=== PATIENT | male | born 1990 | race Native Hawaiian/Other Pacific Islander ===

== ENCOUNTER 2022-07-15 22:10 | Emergency (ER) | payer SELFPAY ==
[2022-07-15 22:24] VITALS: BP 138/88; BP 138/95; PULSE 114; PULSE 127; RESP 30; O2SAT 93; O2SAT 94; BMI 23.4
[2022-07-15 22:29] VITALS: BP 138/95; PULSE 127; RESP 30; O2SAT 93
--- NOTE | 2022-07-15 22:46 | ED.GENADULT ---
HPI - General Adult General Chief complaint: Overdose Stated complaint: OD Time Seen by Provider: 07/15/22 22:46 Source: patient and EMS Mode of arrival: EMS Limitations: no limitations History of Present Illness HPI narrative: Patient is a 31 year old male presenting to the emergency department today after a heroin overdose. Patient states that he overdosed on 1 bag of heroin at 9pm this evening. Patient states that he was sober for 4 months and then used today. EMS states that they had to give him 8 total mg of Narcan to wake the patient up. Patient denies any dizziness, lightheadedness, abdominal pain, nausea, vomiting, fever, chills, blurry vision, double vision, loss of vision, chest pain, difficulty breathing, shortness of breath, back pain, night sweats, pain with urination, increased urinary frequency, increased urinary urgency, blood in his urine or stool, syncope or a near syncopal episode, recent trauma or falls, bowel incontinence, bladder incontinence, bowel retention, bladder retention, or any other complaints at this time. Onset (ago): hour(s) Severity: mild Severity scale (1-10): 4 Relieving factors: none Exacerbating factors: none Associated symptoms: denies other symptoms Treatments prior to arrival: none Related Data Allergies Allergy/AdvReac Type Severity Reaction Status Date / Time lucy Allergy Unknown UNKNOWN Unverified 07/01/20 15:50 Review of Systems Constitutional: Constitutional: Reports no additional constitutional complaints, Denies chills, Denies fever(s) and Denies night sweats Eyes: Eyes: Reports no additional eye complaints, Denies blurry vision, Denies change in vision, Denies diplopia, Denies eye discharge, Denies loss of vision and Denies eye pain ENT: Denies dizziness Cardiovascular: Cardiovascular: Reports no additional cardiovascular complaints, Denies chest pain, Denies lightheadedness, Denies Loss of Consciousness and Denies dyspnea Respiratory: Respiratory: Reports no additional respiratory complaints and Denies dyspnea Gastrointestinal: Gastrointestinal: Reports no additional gastrointestinal complaints, Denies abdominal pain, Denies melena, Denies hematochezia, Denies change in bowel habits and Denies change in stool character Genitourinary: Genitourinary: Reports no additional male genitourinary complaints, Denies hematuria, Denies oliguria, Denies difficulty urinating, Denies dysuria, Denies urinary frequency, Denies urinary hesitancy, Denies urinary incontinence and Denies urinary urgency Musculoskeletal: Musculoskeletal: Reports no additional musculoskeletal complaints, Denies numbness and Denies tingling Neurologic: Denies dizziness, Denies loss of vision, Denies numbness and Denies tingling Psychiatric: Psychiatric: Reports no additional psychiatric complaints Endocrine: Endocrine: Reports no additional endocrine complaints Hematologic/Lymphatic: Hematologic/Lymphatic: Reports no additional hematologic/lymphatic complaints Allergic/Immunologic: Allergic/Immunologic: Reports no additional allergic/immunologic complaints [facility] Past Medical History Attestation statement: The following information was validated with the patient. Source: old records reviewed Social History Social History Alcohol intake: never Patient Tobacco Use Status: Current everyday Tobacco user Use of substances other than those prescribed or required for medical reasons: No Advance Directives: No Physical Exam ED Vital Signs: Vital Signs - 24 hr 07/15/22 22:24 07/15/22 22:29 07/16/22 01:28 Temperature 97.2 F Pulse Rate 127 H 127 H 95 Respiratory Rate 30 H 30 H 16 Blood Pressure 138/95 H 138/95 H 109/72 Pulse Oximetry 93 93 96 Oxygen Delivery Method Room Air Room Air Room Air Oxygen Flow Rate 2 BMI result Body Mass Index 23.4 Const General: cooperative, no acute distress, alert and awake Nutritional Appearance: well nourished Orientation/consciousness: patient oriented x3 Limitations: no limitations [facility] Head: Yes normal to inspection and Yes atraumatic Ears: hearing grossly normal bilaterally and external ears normal General nose exam: Normal external nose present, no nasal discharge noted and no epistaxis Face and sinus: Yes normal facial exam, No abrasion and No laceration Mouth: Normal oral and palatal mucosa present, no drooling and no muffled voice Eyes General: appearance normal, both eyes and all related structures Periorbital: periorbital findings normal Eyelids: Yes eyelids normal Conjunctivae: conjunctivae normal Pupils: Equal, round and reactive pupils present EOM: EOMs intact bilaterally Neck Neck: Yes normal visual inspection, Yes full ROM and Yes no lymphadenopathy Chest Chest palpation & inspection: normal inspection of the chest Resp Effort & Inspection: normal respiratory effort and able to speak in complete sentences Auscultation: clear to auscultation bilaterally Cardio Rate: regular rate Rhythm: regular rhythm GI Inspection: Yes normal to inspection Neuro General: patient oriented x3 and moves all extremities Cranial nerves: Yes Equal, round and reactive pupils present Cognition (Neuro): normal cognition Motor exam (neuro): 5/5 motor strength present throughout Sensory Exam: Normal double simultaneous stimulation for sensation Coordination: [id number] test normal Extrem General: Yes normal to inspection, Yes full ROM and Yes capillary refill normal Psych Appearance: grossly normal Mental Status: mental status grossly normal Affect: normal affect Attitude: cooperative Thought process: Normal thought process present Thought content: Normal thought content present Insight: Good insight present (Psych) Medical Decision Making MDM Narrative Medical decision making narrative: Patient is a 31 year old male presenting to the emergency department today after a heroin overdose. Patient's physical exam was unremarkable. Patient's blood work showed an elevated WBC count however, I believe this to be reactive and not indicative of any infectious process. Patient's urine is pending. Patient's EKG was unremarkable. I explained my physical exam findings as well as all test results to the patient. I answered all questions asked by the patient. Patient is awaiting evaluation by CARE Team. Medical Records Medical records reviewed: Yes I reviewed the patient's medical records. Lab Data Lab results reviewed: Yes I reviewed the patient's lab results. Result diagrams: 07/15/22 23:10 07/15/22 23:10 Labs: Lab Results 07/15/22 07/15/22 Range/Units 23:10 23:10 WBC 18.5 H (4.8-10.8) X10*3/uL RBC 4.74 (4.60-5.80) X10*6/uL Hgb 14.9 (14.0-18.0) g/dl Hct 42.2 (42.0-52.0) % MCV 89.0 (80.0-98.0) fL MCH 31.4 (27.0-33.0) pg MCHC 35.3 (31.0-36.0) g/dl RDW 12.6 (11.0-16.0) % Plt Count 319 (160-400) X10*3/uL MPV 8.9 L (9.4-12.4) fL Immature Gran % (Auto) 0.4 (0.0-0.4) % Neut % (Auto) 81.8 H (45-73) % Lymph % (Auto) 10.0 L (20-40) % [place] % (Auto) 4.9 (2-11) % Eos % (Auto) 2.4 (0-4) % Baso % (Auto) 0.5 (0-2) % Lymph # (Auto) 1.9 (1.2-4.9) X10*3/uL [place] # (Auto) 0.9 (0.1-1.2) X10*3/uL Eos # (Auto) 0.4 (0.0-0.4) X10*3/uL Baso # (Auto) 0.1 (0.0-0.2) X10*3/uL Abs Immat Gran (auto) 0.08 H (0.00-0.03) X10*3/uL Absolute Neuts (auto) 15.1 H (2.0-8.3) x10*3/uL Absolute Nucleated RBC 0.000 (0.0-0.012) X10*3/uL Nucleated RBC % (auto) 0.0 (0.0-0.2) /100WBC Sodium 141 (135-145) mmol/L Potassium 3.9 (3.3-5.1) mmol/L Chloride 106 (96-108) mmol/L Carbon Dioxide 22 (22-29) mmol/L Anion Gap 17 (12-20) BUN 16 (9-16) mg/dL Creatinine 0.83 (0.5-1.4) mg/dL Estim Creat Clear Calc 97.7 Estimated GFR > 60 Random Glucose 101 (60-115) mg/dL Calcium 9.2 (8.4-10.2) mg/dL Total Bilirubin 0.4 (0.0-1.0) mg/dL AST 24 (5-37) U/L ALT 23 (0-40) U/L Alkaline Phosphatase 82 (39-117) U/L Total Protein 7.0 (6.5-8.0) g/dL Albumin 4.1 (3.5-5.0) g/dL ECG Data Attestation: I personally reviewed and interpreted this ECG as follows: Prior ECG tracings: available for review Interpretation: Vent. Rate: 101 BPM ? ? Atrial Rate: 101 BPM P-R Int: 142 ms? QRS Dur: 082 ms QT Int: 316 ms ? ? ? P-R-T Axes: 071 032 022 degrees QTc Int: 409 ms ? Sinus tachycardia Otherwise normal ECG No previous ECGs available DD/ [id number] Discharge Plan Discharge Clinical Impression: Drug overdose Patient Disposition: Still a Patient
[2022-07-15 23:16] LABS: Basophils Absolute Auto 0.1 X10*3/uL (0.0-0.2); Basophils Percent Auto 0.5 % (0-2); Eosinophils Absolute Auto 0.4 X10*3/uL (0.0-0.4); Eosinophils Percent Auto 2.4 % (0-4); Hematocrit 42.2 % (42.0-52.0); Hemoglobin 14.9 g/dl (14.0-18.0); Imm Gran Abs Auto 0.08 X10*3/uL (0.00-0.03); Imm Gran Pct Auto 0.4 % (0.0-0.4); Lymphocytes Absolute Auto 1.9 X10*3/uL (1.2-4.9); MANUAL DIFF FLAG NO; Mean Corpuscular HGB Conc 35.3 g/dl (31.0-36.0); Mean Corpuscular Hemoglobin 31.4 pg (27.0-33.0); Mean Platelet Volume 8.9 fL (9.4-12.4); Monocytes Absolute Auto 0.9 X10*3/uL (0.1-1.2); Monocytes Percent Auto 4.9 % (2-11); Neutrophils Absolute Auto 15.1 x10*3/uL (2.0-8.3); Neutrophils Percent Auto 81.8 % (45-73); Platelet Count 319 X10*3/uL (160-400); Red Blood Count 4.74 X10*6/uL (4.60-5.80); Red Cell Distribution Width 12.6 % (11.0-16.0); White Blood Count 18.5 X10*3/uL (4.8-10.8)
--- NOTE | 2022-07-15 23:18 | ECG_ITS ---
Test Reason : OVERDOSE Blood Pressure : / mmHG Vent. Rate : 101 BPM Atrial Rate : 101 BPM P-R Int : 142 ms QRS Dur : 082 ms QT Int : 316 ms P-R-T Axes : 071 032 022 degrees QTc Int : 409 ms Sinus tachycardia Otherwise normal ECG No previous ECGs available Referred By: Lizett Tesfaye Electronically Signed By:NAILA THOMAS
--- OUTSIDE RECORDS SUMMARY | 2022-07-15 23:23 | XMS_ITS | Continuity of Care Document ---
:1990 Author Organization [facility] Address [address] [place] [address]- Care Team Providers Name Role Phone Not on Staff, PCP Primary Care Physician Unavailable Encounter [facility] Date(s): 05/09/22 - 05/09/[address] [address]- Discharge Disposition: A-D/C Home Attending Physician: Tyrone Guidry MD Admitting Physician: Tyrone Guidry MD Referring Physician: Not on Staff, Referring MD Allergies, Adverse Reactions, Alerts No Known Medication Allergies Medications ondansetron 4 mg oral tablet, disintegrating 1 tablet = 4 mg, By Mouth, Every 8 hours, PRN Nausea & Vomiting, # 10 tablet, 0 Refills, Acute 05/14/22 19:59:00 EDT, 05/09/22 19:59:00 EDT, Tablet, [id number], Partial fill upon patient request if the prescription is for a schedule II opioid... Start Date: 05/09/22 Stop Date: 05/14/22 Status: OrderedSuboxone 8 mg-2 mg Sublingual Film 1 film, Sublingual, 2 times a day, dissolve under the tongue, # 60 film, 0 Refills, Maintenance, 05/09/22 19:56:00 EDT, Film, [id number], Partial fill upon patient request if the prescription is for a schedule II opioid drug. DEAX: [id number],... Start Date: 05/09/22 Status: Ordered Vital Signs Most recent to oldest [Reference Range]: 1 2 Height 158 cm (05/09/22 3:26 PM) Weight 51.3 kg (05/09/22 3:26 PM) Oxygen Saturation [94-100 %] 100 % 98 % (05/09/22 7:46 PM) (05/09/22 3:26 PM) Pulse Rate [55-90 bpm] 91 bpm 110 bpm *H* *H* (05/09/22 7:46 PM) (05/09/22 3:26 PM) Blood Pressure [90-138/55-84 mm Hg] 126/77 mm Hg 130/ 95 mm Hg (05/09/22 7:46 PM) (05/09/22 3:26 PM) Respiratory Rate [16-30 br/min] 20 br/min 20 br/mi n (05/09/22 7:46 PM) (05/09/22 3:26 PM) Temperature [96.8-100.4 DegF] 98.9 DegF 100 DegF (05/09/22 7:46 PM) (05/09/22 3:26 PM) Mode of Delivery (Oxygen) Room air Room air (05/09/22 7:46 PM) (05/09/22 3:26 PM) Dry Weight 51.3 kg (05/09/22 3:26 PM) Social History Social History Type Response Smoking Status 5-9 cigarettes (between 1/4 to 1/2 pack)/day in last 30 days entered on: 05/09/22 Sex
[2022-07-15] MEDS: LORazepam 0.5 MG TABLET PO (23:34)
[2022-07-15 23:35] LABS: Alanine Aminotransferase 23 U/L (0-40); Albumin Level 4.1 g/dL (3.5-5.0); Alkaline Phosphatase 82 U/L (39-117); Anion Gap 17 (12-20); Aspartate Amino Transferase 24 U/L (5-37); Bilirubin Total 0.4 mg/dL (0.0-1.0); Blood Urea Nitrogen 16 mg/dL (9-16); Calcium 9.2 mg/dL (8.4-10.2); Carbon Dioxide 22 mmol/L (22-29); Chloride 106 mmol/L (96-108); Creatinine Clr Calc Pharmacy 97.7; Estimated Glomerular Filt Rate > 60; Glucose Random 101 mg/dL (60-115); Potassium 3.9 mmol/L (3.3-5.1); Sodium 141 mmol/L (135-145)
[2022-07-15] MEDS: 0.9 % Sodium Chloride 1,000 ML 999 ML IV (23:42)
[2022-07-15] MEDS: Acetaminophen 325 MG TABLET 650 MG PO (23:52)
[2022-07-16 01:28] VITALS: BP 109/72; PULSE 95; RESP 16; TEMP 36.2; O2SAT 96
[2022-07-16 06:17] VITALS: BP 107/67; PULSE 72; RESP 14; O2SAT 92
[2022-07-16 07:39] VITALS: BP 112/81; PULSE 100; RESP 12; TEMP 36.6; O2SAT 82
[2022-07-16 08:27] LABS: Appearance Urine Clear; Color Urine Yellow; Glucose Urine UA Negative (Negative); Leukocyte Esterase Urine Small (1+) (Negative); Nitrite Urine Negative (Negative); PH 5.5 (5.0-9.0); Specific Gravity - Urine 1.025 (1.005-1.025); UMIC TRIGGER UACC YES; Urine Blood Negative (Negative); Urine Ketones Negative (Negative); Urine Protein Negative (Neg-Trace)
[2022-07-16 08:40] LABS: Amphetamine Screen Urine Not Detected (Not Detect); Barbiturates, Urine Not Detected (Not Detect); Benzodiazepines Screen Urine Not Detected (Not Detect); Cannabinoid Screen Urine Not Detected (Not Detect); Cocaine Screen Urine POSITIVE (Not Detect); Fentanyl, urine POSITIVE (Not Detect); Opiate Screen Urine POSITIVE (Not Detect); Phencyclidine Screen Urine Not Detected (Not Detect)
[2022-07-16 09:01] LABS: Bacteria Urine None Seen (None Seen); RBC Urine 0-2 /HPF (0-2); UACC Culture Trigger YES
--- NOTE | 2022-07-16 09:28 | HO.SUDE ---
SUDE Patient is a 31 year old Thai speaking male who presented [place] [facility] after an accidental overdose. This rfp writer met with patient to discuss substance use and treatment options. Patient reports he does not use everyday and that he last used months ago. Patient reports the last time he used he also overdosed however denies additional overdoses. Patient is not on MAT and is not interested as he does not feel he has a drug problem at this time. Patient reports heavy drinking about a year ago however he was able to stop on his own accord. Discussed the risk of in using opiates and patient acknowledged. Patient is unable to give a reason as to why he decided to use. Patient reports he has a stable job and a lot of good things in his life to be grateful for including a supportive family and girlfriend. Patient expressed shame and disappointment in himself for using. Patient is not interested in detox at this time as he does not feel it is necessary. Discussed outpatient therapy with patient. Patient is open to a referral to [facility]. Discussed case with patient's ED provider.
[2022-07-16 09:48] VITALS: O2SAT 97
[2022-07-16 09:55] VITALS: BP 121/77; PULSE 86; RESP 14; TEMP 36.7; O2SAT 97
[2022-07-16] MEDS: Naloxone HCl Nasal TAKE HOME 4 MG SPRAY NOSTRILALT (10:06)
== END 2022-07-16 10:10 | disposition home or self-care (01) ==
PROVIDERS: Physician Assistant Medical; Emergency Provider Student in an Organized Health Care Education/Training Program; PCP Physician Assistant
DX: T40.1X1A Poisoning by heroin, accidental (unintentional), initial encounter (principal); R40.4 Transient alteration of awareness; Y92.9 Unspecified place or not applicable; F17.200 Nicotine dependence, unspecified, uncomplicated
CPT/HCPCS: 36415; 80053; 80307; 81001; 85025; 87086; 93005; 96360; 99285

== ENCOUNTER → 2022-11-01 07:55 | Outpatient (BNVA) | payer SELFPAY | PROVIDERS: PCP Physician Assistant | DX: Z13.89 Encounter for screening for other disorder (principal) ==

== ENCOUNTER 2024-04-30 13:54 | Inpatient (IN) | payer BC, SELFPAY ==
--- NOTE | ~2024-04-30 | CT_ITS ---
EXAMINATION: CT ABDOMEN AND PELVIS WITH CONTRAST CLINICAL INFORMATION: Epigastric pain COMPARISON: None available. TECHNIQUE: Multidetector volumetric images were obtained from the superior aspect of the liver through the pubic symphysis following administration 85 mL of Omnipaque 350 intravenous contrast. Sagittal and coronal reformatted images were obtained on the technologist's workstation. Oral contrast: No This CT examination was performed using dose optimization techniques as appropriate, variously including the following: *Automated exposure control *Adjustment of mA and/or kV according to patient size (this includes techniques or standardized protocols for targeted exams where dose is matched to indication/reason for exam; i.e. extremities or head) *Use of iterative reconstruction technique DLP: 236 mGy-cm FINDINGS: LUNG BASES: The visualized lung bases are unremarkable. LIVER, GALLBLADDER, AND BILIARY TREE: The liver is normal in size, shape, and attenuation. No focal hepatic lesion or biliary ductal dilatation is present. The gallbladder is unremarkable with no evidence of radiopaque gallstones, gallbladder wall thickening, or obvious pericholecystic inflammatory changes. PANCREAS: Unremarkable. SPLEEN: Unremarkable. ADRENAL GLANDS: Unremarkable. KIDNEYS AND URETERS: The kidneys are normal in size, shape, and attenuation. No hydronephrosis, hydroureter, or calculi seen. No perinephric stranding. BLADDER: Unremarkable. GASTROINTESTINAL TRACT: There is marked inflammatory change seen in the rectosigmoid as well as the descending colon. The transverse colon is mildly dilated with air-fluid levels but the mucosa appears unremarkable. There is no pneumatosis. The appendix is likely normal. There is some minimally prominent small bowel loops but no evidence of bowel obstruction ABDOMINAL WALL: No significant hernia is appreciated. LYMPH NODES: No retroperitoneal lymphadenopathy. There is a paucity of retroperitoneal fat. VASCULAR: Unremarkable. PELVIC VISCERA: Unremarkable. No free pelvic fluid OSSEOUS STRUCTURES: Unremarkable. SI joints appear normal CT/CT abdomen pelvis w IV con IMPRESSION: Marked inflammatory changes in the rectosigmoid and descending colon consistent with colitis. Fleischner guidelines were followed.
[2024-04-30 14:23] VITALS: BP 113/82; PULSE 96; RESP 16; TEMP 36.3; O2SAT 99; BMI 18.0
--- NOTE | 2024-04-30 14:23 | ED_ITS ---
HPI - General Adult General Chief complaint: Nausea/Vomiting/Diarrhea Stated complaint: stomach problems Time Seen by Provider: 04/30/24 20:37 Source: patient, RN notes reviewed and old records reviewed Mode of arrival: ambulatory Limitations: no limitations History of Present Illness ED Provider: Juan KELLY narrative: 33-year-old male presents for evaluation abdominal pain. Patient reports for the last month he has had upper abdominal pain attend to be worse after eating. He reports bloody bowel movements He reports 20 lb weight loss over last 3 months. He denies any known medical history but states that he is recovering alcoholic He has not Benadryl for the last 2 years He reports occasional NSAID use but rather infrequent per his report Denies any fevers, chills Denies any history abdominal surgeries Related Data Allergies Allergy/AdvReac Type Severity Reaction Status Date / Time lucy Allergy Unknown UNKNOWN Verified 04/30/24 14:25 Review of Systems 2 Constitutional: Constitutional: Denies body ache(s), Denies chills, Denies fever(s) and Denies headache(s) ENT: Denies headache(s) Cardiovascular: Cardiovascular: Denies chest pain and Denies dyspnea Respiratory: Respiratory: Denies cough and Denies dyspnea Gastrointestinal: Gastrointestinal: Reports abdominal pain, Reports hematochezia, Reports loose stools, Reports nausea and Denies vomiting Musculoskeletal: Musculoskeletal: Denies back pain Integumentary/Breasts: Skin/Breast: Denies rash Neurologic: Denies headache(s) PMFSH Social History Social History Alcohol intake: never Patient Tobacco Use Status: Current everyday Tobacco user Advance Directives: No Advance Directives Information Provided: No Physical Exam ED Vital Signs: Vital Signs - 24 hr 04/30/24 14:23 04/30/24 19:20 04/30/24 21:38 Temperature 97.3 F 98.1 F 98.3 F Pulse Rate 96 95 92 Respiratory Rate 16 17 16 Blood Pressure 113/82 130/91 H 131/82 Pulse Oximetry 99 99 97 Oxygen Delivery Method Room Air Room Air Room Air BMI result Body Mass Index 18.0 Const General: healthy appearing, comfortable, no acute distress, alert and awake Nutritional Appearance: well nourished Orientation/consciousness: patient oriented x3 HENMT Head: Yes normocephalic and Yes atraumatic Eyes Eyelids: Yes eyelids normal Conjunctivae: conjunctivae normal Sclerae: sclerae normal Corneas: corneas normal Pupils: Equal, round and reactive pupils present EOM: EOMs intact bilaterally Neck Neck: Yes full ROM Resp Effort & Inspection: normal respiratory effort, able to speak in complete sentences and not labored GI Inspection: No distended Palpation (GI): Soft to palpation, not firm, Tenderness to palpation present (GI) in the epigastrum, in the LUQ and in the RUQ, no guarding and not rigid Skin General skin exam: elasticity normal Neuro General: patient oriented x3 Cranial nerves: Yes Equal, round and reactive pupils present and Yes Bilaterally intact EOM present Cognition (Neuro): normal cognition Extrem Other: Moving all extremities well without any obvious deformities Course Course Course Narrative: This is an RME: Additional HPI, ROS, PE not included below will be deferred to primary provider. RME assessment and note performed by: Aria Garcia PA-C This is a [id number]-male who presents to the ER with complaints of diarrhea after each meal for the last few weeks. No nausea, vomiting or constipation. Reporting he initally had abdomnal pain no longer having pain. Reporting some small bits of blood in his stool. No black/tarry stool. Reporting losing 20lbs over 3 months. No night sweats Plan: Labs, further ER evaluation needed Medications Administered Discontinued Medications Generic Name Dose Route Start Last Admin Trade Name Freq PRN Reason Stop Dose Admin Al Hydroxide/Mg Hydroxide 30 ml 04/30/24 20:51 04/30/24 21:33 Magnesium Hydrox/Alum Hydrox 30 Ml Oral.Susp PO 04/30/24 20:52 30 ml ONCE ONE Administration Ferrous Sulfate 324 mg 04/30/24 20:55 04/30/24 21:25 Ferrous Sulfate 324 Mg Tablet.Dr PO 04/30/24 20:56 324 mg ONCE ONE Administration Iron Sucrose 200 mg/ Sodium 110 mls @ 440 mls/hr 04/30/24 22:00 04/30/24 22:22 Chloride IV 04/30/24 22:14 440 mls/hr ONCE ONE Administration Iohexol 85 ml 04/30/24 21:16 04/30/24 21:16 Iohexol 350 Mg/Ml 100 Ml Infus..Btl IV 04/30/24 21:17 85 ml ONCE ONE Administration Lidocaine HCl 15 ml 04/30/24 20:51 04/30/24 21:33 Lidocaine Hcl Viscous 2 % 15 Ml Solution MUCOUS MEM 04/30/24 20:52 15 ml ONCE ONE Administration Ondansetron HCl 4 mg 04/30/24 20:51 04/30/24 21:02 Ondansetron Hcl 4 Mg/2 Ml Vial IVPUSH 04/30/24 20:52 4 mg ONCE ONE Administration Pantoprazole Sodium 40 mg 04/30/24 20:51 04/30/24 21:32 Pantoprazole Sodium 40 Mg/10 Ml Vial IVPUSH 04/30/24 20:52 40 mg ONCE ONE Administration Medical Decision Making Medical Decision Making [facility] Narrative: 33-year-old male who denies any past medical history presents for evaluation abdominal pain. His labs resulted prior to my evaluation and he does not have any leukocytosis but he has a significant microcytic anemia. His last labs from about a year and a half ago show hemoglobin 14.9 hematocrit of 42.2. Today his hemoglobin is 8.5 with a crit of 27.2. His MCV is 72.5. Given the upper abdominal pain, bloody bowel movements and significant anemia, the patient likely has a bleeding stomach ulcer. I treated this with IV Protonix, GI cocktail. A CT scan was ordered to rule out free air. The patient be admitted to the medical service and likely require upper endoscopy Differential Diagnosis Differential Diagnoses: The differential diagnosis associated with the presentation includes GI bleed Abdominal pain Iron deficiency anemia Peptic ulcer disease Lab Data [facility] Lab Attestation statement: I reviewed the patient's lab results. Please see above, the patient has significant iron-deficiency anemia compared to baseline. Chemistries without concerning abnormalities 04/30/24 16:21 04/30/24 16:21 Labs: Lab Results 04/30/24 04/30/24 Range/Units 16:21 21:00 WBC 8.0 (4.8-10.8) X10*3/uL RBC 3.75 L D (4.60-5.80) X10*6/uL Hgb 8.5 L D (14.0-18.0) g/dl Hct 27.2 L D (42.0-52.0) % MCV 72.5 L (80.0-98.0) fL MCH 22.7 L (27.0-33.0) pg MCHC 31.3 (31.0-36.0) g/dl RDW 16.4 H (11.0-16.0) % Plt Count 747 H D (160-400) X10*3/uL MPV 8.1 L (9.4-12.4) fL Immature Gran % (Auto) 0.2 (0.0-0.4) % Neut % (Auto) 52.8 (45-73) % Lymph % (Auto) 23.2 (20-40) % [place] % (Auto) 10.0 (2-11) % Eos % (Auto) 13.3 H (0-4) % Baso % (Auto) 0.5 (0-2) % Lymph # (Auto) 1.9 (1.2-4.9) X10*3/uL [place] # (Auto) 0.8 (0.1-1.2) X10*3/uL Eos # (Auto) 1.1 H (0.0-0.4) X10*3/uL Baso # (Auto) 0.0 (0.0-0.2) X10*3/uL Abs Immat Gran (auto) 0.02 (0.00-0.03) X10*3/uL Absolute Neuts (auto) 4.2 (2.0-8.3) x10*3/uL Absolute Nucleated RBC 0.000 (0.0-0.012) X10*3/uL Nucleated RBC % (auto) 0.0 (0.0-0.2) /100WBC Sodium 135 (135-145) mmol/L Potassium 4.2 (3.3-5.1) mmol/L Chloride 101 (96-108) mmol/L Carbon Dioxide 26 (22-29) mmol/L Anion Gap 12 (12-20) BUN 12 (9-16) mg/dL Creatinine 0.69 (0.5-1.4) mg/dL Estim Creat Clear Calc 94.2 Estimated GFR > 60 Random Glucose 99 (60-115) mg/dL Calcium 9.0 (8.4-10.2) mg/dL Magnesium 2.1 (1.6-2.6) mg/dL Iron 10 L (45-160) mcg/dL TIBC 230 (228-428) mcg/dL % Saturation 4 L (15-50) % Unsat Iron Binding 220 ug/dL Total Bilirubin 0.1 (0.0-1.0) mg/dL Direct Bilirubin < 0.2 (0.0-0.5) mg/dL AST 15 (5-37) U/L ALT 11 (0-40) U/L Alkaline Phosphatase 63 (39-117) U/L Total Protein 7.9 (6.5-8.0) g/dL Albumin 3.0 L (3.5-5.0) g/dL Lipase 9 (8-78) U/L Stool Occult Blood POSITIVE (NEGATIVE) Ethyl Alcohol < 10 mg/dL Radiology Impression Discussion of test interpretation with radiology: I have reviewed the radiologist's reading. Radiologist Impression: CT/CT abdomen pelvis w IV con IMPRESSION: Marked inflammatory changes in the rectosigmoid and descending colon consistent with colitis. Fleischner guidelines were followed. Discharge Plan Discharge Clinical Impression: Acute GI bleeding, Microcytic anemia Patient Disposition: Admitted As Inpatient
[2024-04-30 16:26] LABS: MANUAL DIFF FLAG NO
--- NOTE | 2024-04-30 16:26 | MHC.EDTECH ---
Patient blood drawn and sent to lab .
[2024-04-30 16:28] LABS: Basophils Percent Auto 0.5 % (0-2); Eosinophils Absolute Auto 1.1 X10*3/uL (0.0-0.4); Eosinophils Percent Auto 13.3 % (0-4); Hematocrit 27.2 % (42.0-52.0); Hemoglobin 8.5 g/dl (14.0-18.0); Imm Gran Abs Auto 0.02 X10*3/uL (0.00-0.03); Imm Gran Pct Auto 0.2 % (0.0-0.4); Lymphocytes Absolute Auto 1.9 X10*3/uL (1.2-4.9); Lymphocytes Percent Auto 23.2 % (20-40); Mean Corpuscular HGB Conc 31.3 g/dl (31.0-36.0); Mean Corpuscular Hemoglobin 22.7 pg (27.0-33.0); Mean Corpuscular Volume 72.5 fL (80.0-98.0); Mean Platelet Volume 8.1 fL (9.4-12.4); Monocytes Absolute Auto 0.8 X10*3/uL (0.1-1.2); Neutrophils Absolute Auto 4.2 x10*3/uL (2.0-8.3); Neutrophils Percent Auto 52.8 % (45-73); Platelet Count 747 X10*3/uL (160-400); Red Blood Count 3.75 X10*6/uL (4.60-5.80); Red Cell Distribution Width 16.4 % (11.0-16.0)
[2024-04-30 16:46] LABS: Alanine Aminotransferase 11 U/L (0-40); Alkaline Phosphatase 63 U/L (39-117); Anion Gap 12 (12-20); Aspartate Amino Transferase 15 U/L (5-37); Bilirubin Direct < 0.2 mg/dL (0.0-0.5); Bilirubin Total 0.1 mg/dL (0.0-1.0); Blood Urea Nitrogen 12 mg/dL (9-16); Carbon Dioxide 26 mmol/L (22-29); Chloride 101 mmol/L (96-108); Creatinine Clr Calc Pharmacy 94.2; Estimated Glomerular Filt Rate > 60; Glucose Random 99 mg/dL (60-115); Lipase 9 U/L (8-78); Magnesium 2.1 mg/dL (1.6-2.6); Potassium 4.2 mmol/L (3.3-5.1); Sodium 135 mmol/L (135-145); Total Protein 7.9 g/dL (6.5-8.0)
[2024-04-30 19:20] VITALS: BP 130/91; PULSE 95; RESP 17; TEMP 36.7; O2SAT 99
[2024-04-30] MEDS: ondansetron HCL 4 MG/2 ML VIAL IVPUSH (21:02)
[2024-04-30 21:14] LABS: OBS Int Ctl Valid YES; OBS1 POSITIVE (NEGATIVE)
[2024-04-30] MEDS: iohexoL 350 MG/ML 100 ML INFUS..BTL 85 ML IV (21:16)
[2024-04-30 21:25] LABS: Ethanol < 10 mg/dL
[2024-04-30] MEDS: Ferrous Sulfate 324 MG TABLET.DR PO (21:25)
[2024-04-30 21:28] LABS: Iron 10 mcg/dL (45-160); Percent Iron Saturation 4 % (15-50); Total Iron Binding Capacity 230 mcg/dL (228-428); Unsaturated Iron Binding 220 ug/dL
[2024-04-30] MEDS: Pantoprazole Sodium 40 MG/10 ML VIAL IVPUSH (21:32)
[2024-04-30] MEDS: Lidocaine HCl Viscous 2 % 15 ML SOLUTION MUCOUS MEM (21:33)
[2024-04-30] MEDS: Magnesium Hydrox/Alum Hydrox 30 ML ORAL.SUSP PO (21:33)
[2024-04-30 21:38] VITALS: BP 131/82; PULSE 92; RESP 16; TEMP 36.8; O2SAT 97
--- NOTE | 2024-04-30 21:48 | PM.IMHP ---
History of Present Illness Date of Service: 04/30/24 Chief Complaint: Blood in stool This is a 33-year-old male with no pertinent past medical history and not on prescription medications who presents to the emergency department for evaluation of blood in stools. Patient states his symptoms started 2 weeks prior to presentation. Patient states he has been having loose stools every time he eats. Has noticed blood in stools. He only has abdominal discomfort at the time of defecation. No fever, chills, nausea, vomiting. This has never happened before. Admits poor p.o. intake and generalized fatigability. Patient has no pertinent past medical history and is not on any prescription medications. No chest discomfort, palpitations, shortness of breath, changes in urinary habits. In the emergency department, hemoglobin was found to be 8.5 and imaging with colitis Review of Systems Constitutional: Constitutional: Reports fatigue, Reports lethargy, Reports malaise, Reports poor appetite and Reports weakness Cardiovascular: Cardiovascular: Reports no additional cardiovascular complaints Respiratory: Respiratory: Reports no additional respiratory complaints Gastrointestinal: Gastrointestinal: Reports hematochezia, Reports change in bowel habits, Reports tenesmus and Reports change in stool character Genitourinary: Genitourinary: Reports no additional male genitourinary complaints Neurologic: Reports weakness Endocrine: Endocrine: Reports fatigue PMFSH Pertinent family history: No family history of early CAD Social History Alcohol intake: never Patient Tobacco Use Status: Current everyday Tobacco user Advance Directives: No Advance Directives Information Provided: No Meds Allergies Allergy/AdvReac Type Severity Reaction Status Date / Time lucy Allergy Unknown UNKNOWN Verified 04/30/24 14:25 Physical Exam Vital Signs and Narrative: Vital Signs: Last Vital Signs Temp 98.3 F 04/30/24 21:38 Pulse 92 04/30/24 21:38 Resp 16 04/30/24 21:38 BP 131/82 04/30/24 21:38 Pulse Ox 97 04/30/24 21:38 O2 Del Method Room Air 04/30/24 21:38 BMI result Body Mass Index 18.0 Middle-aged male lying in bed in no distress Neck supple, no JVD Regular rate and rhythm, S1-S2 heard Regular breath sounds bilaterally, no wheezing or crackles appreciated Abdomen soft nontender, no guarding, no rigidity Patient is awake, alert and oriented to self, place, time and person ; no focal motor deficit Psych: Normal mood No pedal edema Results Labs 04/30/24 16:21 04/30/24 16:21 Labs: Laboratory Results - last 24 hr 04/30/24 04/30/24 16:21 21:00 MCV 72.5 L MCH 22.7 L MCHC 31.3 RDW 16.4 H Plt Count 747 H D MPV 8.1 L Immature Gran % (Auto) 0.2 Neut % (Auto) 52.8 Lymph % (Auto) 23.2 Guthrie % (Auto) 10.0 Eos % (Auto) 13.3 H Baso % (Auto) 0.5 Lymph # (Auto) 1.9 Guthrie # (Auto) 0.8 Eos # (Auto) 1.1 H Baso # (Auto) 0.0 Abs Immat Gran (auto) 0.02 Absolute Neuts (auto) 4.2 Absolute Nucleated RBC 0.000 Nucleated RBC % (auto) 0.0 Anion Gap 12 Estim Creat Clear Calc 94.2 Estimated GFR > 60 Random Glucose 99 Calcium 9.0 Magnesium 2.1 Iron 10 L TIBC 230 % Saturation 4 L Unsat Iron Binding 220 Total Bilirubin 0.1 Direct Bilirubin < 0.2 AST 15 ALT 11 Alkaline Phosphatase 63 Total Protein 7.9 Albumin 3.0 L Lipase 9 Stool Occult Blood POSITIVE Ethyl Alcohol < 10 Assessment and Plan (1) Acute GI bleeding: Status: Acute (2) Microcytic anemia: Status: Acute Plan This is a 33-year-old male with no pertinent past medical history and not on prescription medications who presents to the emergency department for evaluation of blood in stools. #. Acute colitis with GI bleed: Will admit patient with cardiac monitoring. Initiating IV Protonix. Consulting Gastroenterology, appreciate assistance. GI panel pending. Initiating empiric IV antibiotics #. Iron-deficiency anemia in the setting of above: Giving IV iron. Closely monitor H&H Med rec pending DVT prophylaxis: Mechanical Full code Admit as inpatient and will require two night minimum hospital stay for evaluation of acute GI bleed (as above), which is not possible in a lesser acute setting. Specialist consult pending Quality Stroke Does the patient have a stroke diagnosis?: No VTE Prior VTE?: No VTE Risk Level:: Medical - moderate - high VTE Device Contraindication: N/A - Device Ordered VTE Drug Contraindication: Treatment Not Indicated
[2024-04-30] MEDS: Iron Sucrose Complex 200 MG in 0.9 % Sodium Chloride 100 ML 440 MG IV (22:22)
[2024-04-30 22:41] LABS: Amphetamine Screen Urine Not Detected (Not Detect); Barbiturates, Urine Not Detected (Not Detect); Benzodiazepines Screen Urine Not Detected (Not Detect); Buprenorphine Scr Not Detected (Not Detect); Cannabinoid Screen Urine Not Detected (Not Detect); Cocaine Screen Urine POSITIVE (Not Detect); Fentanyl, urine POSITIVE (Not Detect); Methadone Screen, Urine Not Detected (Not Detect); Opiate Screen Urine POSITIVE (Not Detect); Oxycodone Screen Urine Not Detected (Not Detect); Phencyclidine Screen Urine Not Detected (Not Detect)
[2024-04-30] MEDS: cefTRIAXone sodium 1 GM in 0.9 % Sodium Chloride 50 ML IV (23:44)
[2024-04-30] MEDS: metroNIDAZOLE/NS 500 MG/100 ML PIGGYBACK 100 MG IV (23:45)
[2024-05-01] VITALS (12 sets, daily range): BP systolic 106–134; BP diastolic 58–82; PULSE 85–115; RESP 16–22; TEMP 36.4–37.2; O2SAT 92–98
[2024-05-01] MEDS: 0.9 % Sodium Chloride Flush 3 ML SYRINGE IVFLUSH ×2 (01:40→07:48)
[2024-05-01 05:04] LABS: Hemoglobin 8.7 g/dl (14.0-18.0); Mean Corpuscular HGB Conc 31.1 g/dl (31.0-36.0); Mean Corpuscular Hemoglobin 22.8 pg (27.0-33.0); Mean Corpuscular Volume 73.5 fL (80.0-98.0); Platelet Count 745 X10*3/uL (160-400); Red Blood Count 3.81 X10*6/uL (4.60-5.80); Red Cell Distribution Width 16.6 % (11.0-16.0); White Blood Count 8.9 X10*3/uL (4.8-10.8)
--- NOTE | 2024-05-01 05:09 | PC.NURSE ---
pt work up and states he feels like something is stuck in his throat. Pt refused any meds that was offered, and states he is ok now. Pt states, I wake up, sometimes, and my heart is racing, and i feel like I can't brethe . Pt agrees, that it is probably the drugs he does.
[2024-05-01 05:17] LABS: Anion Gap 10 (12-20); Blood Urea Nitrogen 10 mg/dL (9-16); Calcium 8.7 mg/dL (8.4-10.2); Carbon Dioxide 28 mmol/L (22-29); Chloride 104 mmol/L (96-108); Creatinine Clr Calc Pharmacy 91.6; Estimated Glomerular Filt Rate > 60; Glucose Random 95 mg/dL (60-115); Potassium 4.1 mmol/L (3.3-5.1); Sodium 138 mmol/L (135-145)
[2024-05-01] MEDS: Pantoprazole Sodium 40 MG/10 ML VIAL IVPUSH ×2 (06:28→18:00)
--- NOTE | 2024-05-01 06:38 | PC.NURSE ---
pt is requesting an inhaler, states his asthma is acting up and he needs one, in the AM. Pt has audible wheezes. RA Sat is 92%. Rou[place] Text Dr Macias, for orders
[2024-05-01] MEDS: Albuterol/Iprat 2.5/0.5MG 3 ML AMPUL.NEB INHALE (07:01)
[2024-05-01] MEDS: metroNIDAZOLE/NS 500 MG/100 ML PIGGYBACK 100 MG IV ×2 (07:47→15:33)
--- NOTE | 2024-05-01 10:16 | PM.EVENT ---
Event Note Date of Service: 05/01/24 Event Note: GI consult dictated EGD and colonoscopy planned for tomorrow for further evaluation of ELLE, colitis and gi blood loss. Risks and benefetis discussed with patient and sister who agree to proceed. Time Spent With Patient Time: Total time managing care of this patient today ____ minutes.
--- NOTE | 2024-05-01 10:18 | MHC.SHP ---
Pre-Procedural Eval Section A - 24 Hr Update-Section A only Date of Service: 05/01/24 The patient is an INPATIENT: Yes Changes since office visit: No Cold of Flu in the past 2 weeks, No New Medical Problems, No Changes in Medication and No Patient answered all questions The patient has been examined within 24 hours of the surgical procedure. The History & Physical has been completed within 30 days and I have reviewed it.: Yes Section B - Complete if H&P > 30 days Chief Complaint: Blood in Stool Allergies: Allergies Allergy/AdvReac Type Severity Reaction Status Date / Time lucy Allergy Unknown UNKNOWN Verified 04/30/24 14:25 Plan I have reviewed the history and physical and performed a pertinent physical examination on my patient. No changes have occurred unless specified. Time Spent With Patient Time: Total time managing care of this patient today ____ minutes.
--- NOTE | 2024-05-01 10:28 | PHA.MEDREC ---
Addendum entered by Mavis Rangel RPh 05/01/24 10:45: MED REC REVIEWED Original Note: Pharmacy Consult ? Medication Reconciliation Pharmacy has completed the medication reconciliation. Confirmed hes not taking any medications.
--- NOTE | 2024-05-01 10:39 | MHC.CM.PN ---
CM met with Patient at bedside, in the ED. Patient lives in a house with his Sister and he required no services nor DME COUNTER CLERK. Home/self care is the goal and CM has initiated and will follow for dc planning. PCP/MECHANICAL ESTIMATOR is Jarad El.
--- NOTE | 2024-05-01 11:19 | CONS_ITS ---
DATE OF SERVICE: 05/01/2024 REFERRING PHYSICIAN: Tali Macias MD REASON FOR CONSULTATION: GI bleeding, iron deficiency anemia, and colitis. HISTORY OF PRESENT ILLNESS: The patient is a pleasant 33-year-old man, who was admitted to the hospital after presenting to the emergency department with complaints of rectal bleeding and diarrhea for 2 weeks prior to admission. There was an associated 20 to 50 pounds weight loss depending on the provider he talked with. He denies any recent travel, suspect food ingestions or new medications. He was evaluated in the emergency department with laboratory studies, which documented a microcytic anemia with a hematocrit of 27.2 down from 42.2 almost 2 years ago. Chemistries confirmed the deficiency of iron with saturation of 4%. Stool occult blood testing was positive and GI panel was pending. He subsequently underwent evaluation with CT scanning, which is reviewed. This is interpreted as showing inflammatory change in the rectosigmoid and descending colon consistent with colitis. The patient denies any prior history of colitis. He has no family history of inflammatory bowel disease. He has never gone to a GI provider in the past and has not undergone endoscopy or colonoscopy. PAST MEDICAL HISTORY: He denies other medical or surgical illnesses. There is a history of substance abuse. He does use heroin and states he last used this yesterday. He formally drank alcohol very heavily, but does not report any recent heavy alcohol use. Tox screen on admission was positive for opiates, fentanyl, and cocaine. CURRENT MEDICATIONS: Current medication list is reviewed in the chart. He has not taken any prescription medications as an outpatient. ALLERGIES: ADAM. FAMILY HISTORY: This is negative for GI malignancy. SOCIAL HISTORY: As above. REVIEW OF SYSTEMS: SKIN: No pruritus. HEENT: Negative. CARDIOPULMONARY: He denies shortness of breath or chest pain. GASTROINTESTINAL: As above. GENITOURINARY: Negative. NEUROPSYCHIATRIC: Negative. PHYSICAL EXAMINATION: GENERAL: Shows a pleasant male, lying comfortably in bed. VITAL SIGNS: Reviewed in electronic medical record and are stable. SKIN: Anicteric. HEENT: Shows no scleral icterus. NECK: Without lymphadenopathy or thyromegaly. LUNGS: Clear. HEART: Shows regular rate and rhythm. S1, S2. No murmur. ABDOMEN: Soft without focal masses or tenderness. Bowel sounds are present. No organomegaly is noted. EXTREMITIES: Without edema. LABORATORY DATA AND IMAGING STUDIES: Reviewed. IMPRESSION: 1. Iron deficiency anemia with gastrointestinal blood loss. 2. Colitis. We discussed the differential diagnosis for his iron deficiency anemia, GI blood loss, and colitis. This includes acute infectious colitis, inflammatory bowel disease, and underlying malignancy. We recommended further evaluation with upper endoscopy and colonoscopy given his symptoms and weight loss. I discussed risks and benefits of the procedure. He understands these and agrees to proceed. This will be arranged for tomorrow. He is advised to abstain from substance abuse. Thanks for asking me to see him. I will follow him in the hospital with you. MD KATHI Martin/DEMETRI / [phone]
[2024-05-01 11:39] LABS: Adenovirus F 40/41 Not Detected (Not Detect.); Astrovirus Not Detected (Not Detect.); Campylobacter Not Detected (Not Detect.); Cryptosporidium Not Detected (Not Detect.); Cyclospora cayetanensis Not Detected (Not Detect.); E. coli EAEC Not Detected (Not Detect.); E. coli EPEC Not Detected (Not Detect.); E. coli ETEC Not Detected (Not Detect.); E. coli STEC Not Detected (Not Detect.); Entamoeba histolytica Not Detected (Not Detect.); Giardia lamblia Not Detected (Not Detect.); Norovirus GI/GII Not Detected (Not Detect.); Plesiomonas shigelloides Not Detected (Not Detect.); Rotavirus A Not Detected (Not Detect.); Salmonella Not Detected (Not Detect.); Sapovirus Not Detected (Not Detect.); Shigella sp./EIEC Not Detected (Not Detect.); Vibrio Not Detected (Not Detect.); Vibrio Cholerae Not Detected (Not Detect.); Yersinia enterocolitica Not Detected (Not Detect.)
--- NOTE | 2024-05-01 12:57 | PC.NURSE ---
pharmacy called for PEG 3350 bowel prep
[2024-05-01] MEDS: PEG 3350/Na Sulf,Bicarb,Cl/KCL 4,000 ML SOLN.RECON 4000 ML PO (13:28)
--- NOTE | 2024-05-01 14:14 | PC.NURSE ---
pt medicated per MAR- pt was educated on importance of bowel prep, pt has consumed 20oz of prep at this time- pt continues to doze of- wakes with verbal stimuli, care ongoing- pt awaiting placement on Med-tele call eckert within reach
--- NOTE | 2024-05-01 15:48 | P.PNIM_ITS ---
Subjective Subjective Date of Service: 05/01/24 Interval History: f/u on acute colitis, with acute blood loss anemia (ABLA) no active bleeding, pain is controlled Physical Exam 2 Vital Signs: Vital Signs: Last Vital Signs Temp 97.9 F 05/01/24 09:59 Pulse 86 05/01/24 09:59 Resp 16 05/01/24 09:59 BP 106/62 05/01/24 09:59 Pulse Ox 94 05/01/24 09:59 O2 Del Method Room Air 05/01/24 09:59 BMI result Body Mass Index 18.0 General: AO X 3, no acute distress Resp: CTA bilateral CVS: S1,S2,RRR GI: +BS, NT, no distention Skin: No rash Neuro: motor grossly intact Psych: appropriate affect Objective Data Active Medications Acetaminophen (Acetaminophen 325 Mg Tablet) 650 mg PO Q6H PRN PRN Reason: Pain, Mild (Pain Scale 1-3), fever or headache Albuterol/Ipratropium (Albuterol/Iprat 2.5/0.5mg 3 Ml Ampul.Neb) 3 ml INHALE Q4H PRN PRN Reason: Wheezing Last Admin: 05/01/24 07:01 Dose: 3 ml Documented By: BIMAL Calcium Carbonate (Calcium Carbonate 750 Mg Tab.Chew) 750 mg PO Q4H PRN PRN Reason: Heartburn Ceftriaxone Sodium 1 gm/ (Sodium Chloride) 50 mls @ 100 mls/hr IV Q24H [facility] Last Infusion: 05/01/24 02:00 Dose: Infused Documented By: TRISTIN Metronidazole (Flagyl) 500 mg in 100 mls @ 100 mls/hr IV Q8H [facility] Last Admin: 05/01/24 15:33 Dose: 100 mls/hr Documented By: SULEIMAN Magnesium Hydroxide (Milk Of Magnesia 30 Ml Oral.Susp) 30 ml PO DAILY PRN PRN Reason: Constipation Melatonin (Melatonin 3 Mg Tablet) 6 mg PO BEDTIME PRN PRN Reason: Insomnia Ondansetron HCl (Ondansetron Hcl 4 Mg/2 Ml Vial) 4 mg IVPUSH Q8H PRN PRN Reason: Nausea and Vomiting Pantoprazole Sodium (Pantoprazole Sodium 40 Mg/10 Ml Vial) 40 mg IVPUSH BID@0630,1630 [facility] Last Admin: 05/01/24 06:28 Dose: 40 mg Documented By: TRISTIN Sodium Chloride (0.9 % Sodium Chloride Flush 3 Ml Syringe) [address] [facility] Last Admin: 05/01/24 07:48 Dose: 3 ml Documented By: LESLYE Labs 05/01/24 04:44 05/01/24 04:44 Labs: Laboratory Results - last 24 hr 04/30/24 04/30/24 04/30/24 16:21 21:00 22:12 MCV 72.5 L MCH 22.7 L MCHC 31.3 RDW 16.4 H Plt Count 747 H D MPV 8.1 L Immature Gran % (Auto) 0.2 Neut % (Auto) 52.8 Lymph % (Auto) 23.2 Thomas % (Auto) 10.0 Eos % (Auto) 13.3 H Baso % (Auto) 0.5 Lymph # (Auto) 1.9 Thomas # (Auto) 0.8 Eos # (Auto) 1.1 H Baso # (Auto) 0.0 Abs Immat Gran (auto) 0.02 Absolute Neuts (auto) 4.2 Absolute Nucleated RBC 0.000 Nucleated RBC % (auto) 0.0 Anion Gap 12 Estim Creat Clear Calc 94.2 Estimated GFR > 60 Random Glucose 99 Calcium 9.0 Magnesium 2.1 Iron 10 L TIBC 230 % Saturation 4 L Unsat Iron Binding 220 Total Bilirubin 0.1 Direct Bilirubin < 0.2 AST 15 ALT 11 Alkaline Phosphatase 63 Total Protein 7.9 Albumin 3.0 L Lipase 9 Stool Occult Blood POSITIVE Stl C. cayetanensis PCR Not Detected Stool Rotavirus A PCR Not Detected Stl Adenov F 40/41 PCR Not Detected Stool Astrovirus (PCR) Not Detected Stool Campylobacter PCR Not Detected Stool Cryptosporidium PCR Not Detected Stl Sh Tox Pr E STEC PCR Not Detected Stool E coli O157 PCR Not applicable Stl Enterotoxigenic E PCR Not Detected Stool EPEC (PCR) Not Detected Stool EAEC (PCR) Not Detected Stl E. histolytica PCR Not Detected Stool Giardia Lamblia PCR Not Detected Stl P. shigelloides PCR Not Detected Stool Salmonella PCR Not Detected Stool Sapovirus (PCR) Not Detected Stl Shigella/EIEC PCR Not Detected St Y.enterocolitica PCR Not Detected Stool Vibrio (PCR) Not Detected Stl Vibrio cholerae PCR Not Detected Stl Norovirus GI/GII PCR Not Detected Urine Opiates Screen POSITIVE H Ur Buprenorphine Scrn Not Detected Ur Oxycodone Screen Not Detected Urine Methadone Screen Not Detected Urine Fentanyl Screen POSITIVE H Ur Barbiturates Screen Not Detected Ur Phencyclidine Scrn Not Detected Ur Amphetamines Screen Not Detected U Benzodiazepines Scrn Not Detected Urine Cocaine Screen POSITIVE H U Marijuana (THC) Screen Not Detected Ethyl Alcohol < 10 05/01/24 04:44 MCV 73.5 L MCH 22.8 L MCHC 31.1 RDW 16.6 H Plt Count 745 H MPV 8.0 L Immature Gran % (Auto) Neut % (Auto) Lymph % (Auto) Thomas % (Auto) Eos % (Auto) Baso % (Auto) Lymph # (Auto) Thomas # (Auto) Eos # (Auto) Baso # (Auto) Abs Immat Gran (auto) Absolute Neuts (auto) Absolute Nucleated RBC 0.000 Nucleated RBC % (auto) 0.0 Anion Gap 10 L Estim Creat Clear Calc 91.6 Estimated GFR > 60 Random Glucose 95 Calcium 8.7 Magnesium Iron TIBC % Saturation Unsat Iron Binding Total Bilirubin Direct Bilirubin AST ALT Alkaline Phosphatase Total Protein Albumin Lipase Stool Occult Blood Stl C. cayetanensis PCR Stool Rotavirus A PCR Stl Adenov F 40/41 PCR Stool Astrovirus (PCR) Stool Campylobacter PCR Stool Cryptosporidium PCR Stl Sh Tox Pr E STEC PCR Stool E coli O157 PCR Stl Enterotoxigenic E PCR Stool EPEC (PCR) Stool EAEC (PCR) Stl E. histolytica PCR Stool Giardia Lamblia PCR Stl P. shigelloides PCR Stool Salmonella PCR Stool Sapovirus (PCR) Stl Shigella/EIEC PCR St Y.enterocolitica PCR Stool Vibrio (PCR) Stl Vibrio cholerae PCR Stl Norovirus GI/GII PCR Urine Opiates Screen Ur Buprenorphine Scrn Ur Oxycodone Screen Urine Methadone Screen Urine Fentanyl Screen Ur Barbiturates Screen Ur Phencyclidine Scrn Ur Amphetamines Screen U Benzodiazepines Scrn Urine Cocaine Screen U Marijuana (THC) Screen Ethyl Alcohol Assessment and Plan (1) Microcytic anemia: Status: Acute (2) Acute GI bleeding: Status: Acute Plan 33-year-old male with no pertinent past medical history and not on prescription medications who presents to the emergency department for evaluation of blood in stools. Acute colitis, GIB, ABLA, no evidence of infection -H/H is stable, no indication for transfusion -for colonscopy and EGD tomorrow, -given IV iron -continue protonix Addiction (+ opioid, Fentanyl, cocaine) -addiction med consult DVT prophylaxis: Mechanical Full code need for inpt:ABLA work up Quality Stroke Does the patient have a stroke diagnosis?: No VTE Prior VTE?: No VTE Risk Level:: Medical - moderate - high VTE Device Contraindication: N/A - Device Ordered VTE Drug Contraindication: Treatment Not Indicated
--- NOTE | 2024-05-01 17:03 | PC.NURSE ---
pt oob to BR independently, pt requiring reminder to consume bowel prep, education provided pt verbalizes understanding, call eckert within reach
--- NOTE | 2024-05-01 18:35 | MHC.RECOVSUP ---
? Reason for consult Recovery support <del>o</del> <del>Current</del> <del>location:</del> <del>o</del> <del>Identified</del> <del>substance</del> <del>use</del> <del>concern:</del> <del>-</del> <del>Overdose</del> <del>-</del> <del>Withdrawal</del> <del>-</del> <del>Seeking</del> <del>ATS</del> <del>(detox)</del> <del>-</del> <del>Support</del> <del>?</del> <del>Intervention:</del> <del>o</del> <del>ATS</del> <del>bed</del> <del>search</del> <del>started/completed/in</del> <del>process</del> <del>o</del> <del>MAT</del> <del>started</del> <del>or</del> <del>to</del> <del>be</del> <del>started</del> <del>o</del> <del>Community</del> <del>resources</del> <del>provided</del> <del>o</del> <del>Harm</del> <del>reduction</del> <del>discussion</del> <del>?</del> <del>Plan:</del> <del>o</del> <del>Referral</del> <del>to</del> <del>[facility]</del> <del>o</del> <del>Bed</del> <del>search</del> <del>in</del> <del>progress</del> <del>to</del> <del>o</del> <del>Follow</del> <del>up</del> <del>tomorrow</del> <del>o</del> <del>Patient</del> <del>awaiting</del> <del>crisis</del> <del>evaluation</del> <del>o</del> <del>Patient</del> <del>to</del> <del>follow</del> <del>up</del> <del>with</del> <del>[facility]</del> <del>after</del> <del>discharge</del> ? Additional information: Patient did nit want to talk at the moment
--- NOTE | 2024-05-01 18:39 | PC.NURSE ---
pt medicated per MAR- pt sts he is scared re: procedure tomorrow (pt is scheduled for endo/colonoscopy tomorrow) allowed pt to express concerns, education provided, all questions were answered call eckert within reach
[2024-05-02] VITALS (10 sets, daily range): BP systolic 89–124; BP diastolic 58–79; PULSE 71–104; RESP 16–20; TEMP 36.3–37.5; O2SAT 96–100; BMI 18.0
[2024-05-02] MEDS: cefTRIAXone sodium 1 GM in 0.9 % Sodium Chloride 50 ML IV (00:10)
[2024-05-02] MEDS: 0.9 % Sodium Chloride Flush 3 ML SYRINGE IVFLUSH ×2 (00:11→08:01)
[2024-05-02] MEDS: metroNIDAZOLE/NS 500 MG/100 ML PIGGYBACK 100 MG IV ×2 (00:30→08:01)
[2024-05-02] MEDS: Pantoprazole Sodium 40 MG/10 ML VIAL IVPUSH (06:34)
[2024-05-02 09:18] LABS: Hematocrit 25.4 % (42.0-52.0); Hemoglobin 8.1 g/dl (14.0-18.0); Mean Corpuscular HGB Conc 31.9 g/dl (31.0-36.0); Mean Corpuscular Hemoglobin 22.4 pg (27.0-33.0); Mean Corpuscular Volume 70.2 fL (80.0-98.0); Platelet Count 778 X10*3/uL (160-400); Red Blood Count 3.62 X10*6/uL (4.60-5.80); Red Cell Distribution Width 16.3 % (11.0-16.0); White Blood Count 7.7 X10*3/uL (4.8-10.8)
[2024-05-02] MEDS: methADONE HCl 20 MG/2 ML ORAL.CONC 30 MG PO (10:53)
--- NOTE | 2024-05-02 11:24 | MHC.CLN ---
RE: CONSULT PT IS MODERATELY MALNOURISHED PT WITH MILDLY DEPLETED SUBCUTANEOUS FAT AND MUSCLE MASS WITH 23% NONSIGNIFICANT WT LOSS X 2 YEARS R/T POLYSUBSTANCE ABUSE CURRENTLY NPO R/T COLONOSCOPY WHEN DIET TO RESUME RECOMMEND JLUIS AND SLOWLY ADVANCE TO BLAND DIET IN ADDITION, WILL ADD ENSURE BID TO INCREASE KCALS SUPP TO PROVIDE 700KCALS, 40G PROTEIN FOLLOWING FOR DIET ADVANCEMENT SEE ALSO FULL CLINICAL NUTRITION ASSESSMENT
--- NOTE | 2024-05-02 11:41 | MHC.RECOVRN ---
Met with pt in 459 after consult placed to Addiction Medicine for addiction. Pt had presented to the ED reporting diarrhea with bright red blood and weight loss. Upon evaluation, pt admitted for acute GI bleed and microcytic anemia. Pt laying in bed, appears uncomfortable, eyes closed, diaphoretic. Pt wakes to voice and briefly opens eyes to speak with t/w. Pt reports feeling sick, reporting withdrawal symptoms including restlessness and body aches. Pt reports heroin/fentanyl use, 1 bundle daily, [place], x 1 year. Pt does reports hx methadone and would like to utilize methadone to address withdrawal symptoms. Plan to engage when feeling better. Discussed with Nan Bryan APRN.
--- NOTE | 2024-05-02 15:13 | MHC.CM.PN ---
EMR reviewed and per MD rounds, pt will be having an endoscopy today and may discharge home self-care afterwards.
--- NOTE | 2024-05-02 15:46 | HO.PM.IMPN ---
Subjective Subjective Date of Service: 05/02/24 Interval History: f/u on acute colitis, with acute blood loss anemia (ABLA) no active bleeding, was c/o pain, anxiety and thought he was withdrawing Physical Exam Vital Signs: Vital Signs: Last Vital Signs Temp 99.5 F 05/02/24 15:26 Pulse 95 05/02/24 15:26 Resp 18 05/02/24 15:26 BP 118/78 05/02/24 15:26 Pulse Ox 99 05/02/24 15:26 O2 Del Method Room Air 05/02/24 15:26 BMI result Body Mass Index 18.0 Const: Other: General: AO X 3, no acute distress Resp: CTA bilateral CVS: S1,S2,RRR GI: +BS, NT, no distention Skin: No rash Neuro: motor grossly intact Psych: appropriate affect Objective Data Active Medications Acetaminophen (Acetaminophen 325 Mg Tablet) 650 mg PO Q6H PRN PRN Reason: Pain, Mild (Pain Scale 1-3), fever or headache Albuterol/Ipratropium (Albuterol/Iprat 2.5/0.5mg 3 Ml Ampul.Neb) 3 ml INHALE Q4H PRN PRN Reason: Wheezing Last Admin: 05/01/24 07:01 Dose: 3 ml Documented By: BIMAL Calcium Carbonate (Calcium Carbonate 750 Mg Tab.Chew) 750 mg PO Q4H PRN PRN Reason: Heartburn Clonidine HCl (Clonidine Hcl 0.1 Mg Tablet) 0.1 mg PO TID PRN; Protocol PRN Reason: Opiate Withdrawal Hydroxyzine HCl (Hydroxyzine Hcl 25 Mg Tablet) 25 mg PO Q8H PRN PRN Reason: anxiety/restlessness Ceftriaxone Sodium 1 gm/ (Sodium Chloride) 50 mls @ 100 mls/hr IV Q24H [facility] Last Infusion: 05/02/24 00:40 Dose: Infused Documented By: TONYA Metronidazole (Flagyl) 500 mg in 100 mls @ 100 mls/hr IV Q8H [facility] Last Infusion: 05/02/24 09:09 Dose: Infused Documented By: ADRIAN Magnesium Hydroxide (Milk Of Magnesia 30 Ml Oral.Susp) 30 ml PO DAILY PRN PRN Reason: Constipation Melatonin (Melatonin 3 Mg Tablet) 6 mg PO BEDTIME PRN PRN Reason: Insomnia Methadone HCl (Methadone Hcl 20 Mg/2 Ml Oral.Conc) 10 mg PO ONCE ONE Stop: 05/02/24 18:01 Methadone HCl (Methadone Hcl 20 Mg/2 Ml Oral.Conc) 50 mg PO DAILY [facility] Morphine Sulfate (Morphine Sulfate 2 Mg/Ml Cartridge) 2 mg IVPUSH Q6H PRN; Protocol PRN Reason: Pain, Severe (Pain Scale 7-10) Ondansetron HCl (Ondansetron Hcl 4 Mg/2 Ml Vial) 4 mg IVPUSH Q8H PRN PRN Reason: Nausea and Vomiting Pantoprazole Sodium (Pantoprazole Sodium 40 Mg/10 Ml Vial) 40 mg IVPUSH BID@0630,1630 [facility] Last Admin: 05/02/24 06:34 Dose: 40 mg Documented By: TONYA Sodium Chloride (0.9 % Sodium Chloride Flush 3 Ml Syringe) 3 ml IVFLUSH QSHIFT [facility] Last Admin: 05/02/24 08:01 Dose: 3 ml Documented By: ADRIAN Labs 05/02/24 08:44 05/01/24 04:44 Labs: Laboratory Results - last 24 hr 05/02/24 08:44 MCV 70.2 L MCH 22.4 L MCHC 31.9 RDW 16.3 H Plt Count 778 H MPV 8.0 L Absolute Nucleated RBC 0.000 Nucleated RBC % (auto) 0.0 Assessment and Plan (1) Microcytic anemia: Status: Acute (2) Acute GI bleeding: Status: Acute Plan 33-year-old male with no pertinent past medical history and not on prescription medications who presents to the emergency department for evaluation of blood in stools. Acute colitis, GIB, ABLA, no evidence of infection -H/H is stable, no indication for transfusion -for colonscopy and EGD tomorrow, -given IV iron -continue protonix -empiric Abx (Flagyl + Ceftriaxone) Addiction (+ opioid, Fentanyl, cocaine) -addiction med consult DVT prophylaxis: Mechanical Full code need for inpt:ABLA work up Quality Stroke Does the patient have a stroke diagnosis?: No VTE Prior VTE?: No VTE Risk Level:: Medical - moderate - high VTE Device Contraindication: N/A - Device Ordered VTE Drug Contraindication: Treatment Not Indicated
--- NOTE | 2024-05-02 15:57 | HO.ANESPROP2 ---
[facility] Active Problems Active Problems: All Active Problems (Updated 04/30/24 @ 21:05 by Brandon Martinez) Microcytic anemia (Acute) Acute GI bleeding (Acute) Family History Family history of problems with anesthesia: No Surgical History History of Problems with Anesthesia: No Social History Social History Household Members: Significant Other and Friend(s) Housing: Apartment Do you presently have visiting nurse or other home services: No Alcohol intake: never Patient Tobacco Use Status: Current everyday Tobacco user Tobacco use type: Cigarette Cigarette Packs Per Day: 1 Cigarettes Per Day: 2 e-Cigarette/Vaping Use: Currently Using Second Hand Smoke Exposure: Yes Substance Use Type: Crack/Cocaine, Heroin, Opiates and Other service: No Meds Allergies Allergy/AdvReac Type Severity Reaction Status Date / Time lucy Allergy Unknown UNKNOWN Verified 04/30/24 14:25 Active Medications: Current Medications Acetaminophen (Acetaminophen 325 Mg Tablet) 650 mg PO Q6H PRN PRN Reason: Pain, Mild (Pain Scale 1-3), fever or headache Albuterol/Ipratropium (Albuterol/Iprat 2.5/0.5mg 3 Ml Ampul.Neb) 3 ml INHALE Q4H PRN PRN Reason: Wheezing Last Admin: 05/01/24 07:01 Dose: 3 ml Calcium Carbonate (Calcium Carbonate 750 Mg Tab.Chew) 750 mg PO Q4H PRN PRN Reason: Heartburn Clonidine HCl (Clonidine Hcl 0.1 Mg Tablet) 0.1 mg PO TID PRN; Protocol PRN Reason: Opiate Withdrawal Hydroxyzine HCl (Hydroxyzine Hcl 25 Mg Tablet) 25 mg PO Q8H PRN PRN Reason: anxiety/restlessness Ceftriaxone Sodium 1 gm/ (Sodium Chloride) 50 mls @ 100 mls/hr IV Q24H [facility] Last Infusion: 05/02/24 00:40 Dose: Infused Metronidazole (Flagyl) 500 mg in 100 mls @ 100 mls/hr IV Q8H [facility] Last Infusion: 05/02/24 09:09 Dose: Infused Magnesium Hydroxide (Milk Of Magnesia 30 Ml Oral.Susp) 30 ml PO DAILY PRN PRN Reason: Constipation Melatonin (Melatonin 3 Mg Tablet) 6 mg PO BEDTIME PRN PRN Reason: Insomnia Methadone HCl (Methadone Hcl 20 Mg/2 Ml Oral.Conc) 10 mg PO ONCE ONE Stop: 05/02/24 18:01 Methadone HCl (Methadone Hcl 20 Mg/2 Ml Oral.Conc) 50 mg PO DAILY [facility] Morphine Sulfate (Morphine Sulfate 2 Mg/Ml Cartridge) 2 mg IVPUSH Q6H PRN; Protocol PRN Reason: Pain, Severe (Pain Scale 7-10) Ondansetron HCl (Ondansetron Hcl 4 Mg/2 Ml Vial) 4 mg IVPUSH Q8H PRN PRN Reason: Nausea and Vomiting Pantoprazole Sodium (Pantoprazole Sodium 40 Mg/10 Ml Vial) 40 mg IVPUSH BID@0630,1630 [facility] Last Admin: 05/02/24 06:34 Dose: 40 mg Sodium Chloride (0.9 % Sodium Chloride Flush 3 Ml Syringe) 3 ml IVFLUSH QSHIFT [facility] Last Admin: 05/02/24 08:01 Dose: 3 ml Home Medications ?Medication ?Instructions ?Recorded ?Confirmed ?Last Taken ?Type No Known Home Meds 05/01/24 05/01/24 Unknown History Exam Height,Weight and Vital Signs: Height 5 ft 2 in Weight 44.6 kg Last Vital Signs Temp 99.5 F 05/02/24 15:26 Pulse 95 05/02/24 15:26 Resp 18 05/02/24 15:26 BP 118/78 05/02/24 15:26 Pulse Ox 99 05/02/24 15:26 O2 Del Method Room Air 05/02/24 15:26 Pertinent Lab Results Pertinent Lab Results: Laboratory Tests 04/30/24 04/30/24 04/30/24 16:21 21:00 22:12 WBC 8.0 RBC 3.75 L D Hgb 8.5 L D Hct 27.2 L D MCV 72.5 L MCH 22.7 L MCHC 31.3 RDW 16.4 H Plt Count 747 H D MPV 8.1 L Immature Gran % (Auto) 0.2 Neut % (Auto) 52.8 Lymph % (Auto) 23.2 [place] % (Auto) 10.0 Eos % (Auto) 13.3 H Baso % (Auto) 0.5 Lymph # (Auto) 1.9 [place] # (Auto) 0.8 Eos # (Auto) 1.1 H Baso # (Auto) 0.0 Abs Immat Gran (auto) 0.02 Absolute Neuts (auto) 4.2 Absolute Nucleated RBC 0.000 Nucleated RBC % (auto) 0.0 Sodium 135 Potassium 4.2 Chloride 101 Carbon Dioxide 26 Anion Gap 12 BUN 12 Creatinine 0.69 Estim Creat Clear Calc 94.2 Estimated GFR > 60 Random Glucose 99 Calcium 9.0 Magnesium 2.1 Iron 10 L TIBC 230 % Saturation 4 L Unsat Iron Binding 220 Total Bilirubin 0.1 Direct Bilirubin < 0.2 AST 15 ALT 11 Alkaline Phosphatase 63 Total Protein 7.9 Albumin 3.0 L Lipase 9 Stool Occult Blood POSITIVE Stl C. cayetanensis PCR Not Detected Stool Rotavirus A PCR Not Detected Stl Adenov F 40/41 PCR Not Detected Stool Astrovirus (PCR) Not Detected Stool Campylobacter PCR Not Detected Stool Cryptosporidium PCR Not Detected Stl Sh Tox Pr E STEC PCR Not Detected Stool E coli O157 PCR Not applicable Stl Enterotoxigenic E PCR Not Detected Stool EPEC (PCR) Not Detected Stool EAEC (PCR) Not Detected Stl E. histolytica PCR Not Detected Stool Giardia Lamblia PCR Not Detected Stl P. shigelloides PCR Not Detected Stool Salmonella PCR Not Detected Stool Sapovirus (PCR) Not Detected Stl Shigella/EIEC PCR Not Detected St Y.enterocolitica PCR Not Detected Stool Vibrio (PCR) Not Detected Stl Vibrio cholerae PCR Not Detected Stl Norovirus GI/GII PCR Not Detected Urine Opiates Screen POSITIVE H Ur Buprenorphine Scrn Not Detected Ur Oxycodone Screen Not Detected Urine Methadone Screen Not Detected Urine Fentanyl Screen POSITIVE H Ur Barbiturates Screen Not Detected Ur Phencyclidine Scrn Not Detected Ur Amphetamines Screen Not Detected U Benzodiazepines Scrn Not Detected Urine Cocaine Screen POSITIVE H U Marijuana (THC) Screen Not Detected Ethyl Alcohol < 10 05/01/24 05/02/24 04:44 08:44 WBC 8.9 7.7 RBC 3.81 L 3.62 L Hgb 8.7 L 8.1 L Hct 28.0 L 25.4 L MCV 73.5 L 70.2 L MCH 22.8 L 22.4 L MCHC 31.1 31.9 RDW 16.6 H 16.3 H Plt Count 745 H 778 H MPV 8.0 L 8.0 L Immature Gran % (Auto) Neut % (Auto) Lymph % (Auto) [place] % (Auto) Eos % (Auto) Baso % (Auto) Lymph # (Auto) [place] # (Auto) Eos # (Auto) Baso # (Auto) Abs Immat Gran (auto) Absolute Neuts (auto) Absolute Nucleated RBC 0.000 0.000 Nucleated RBC % (auto) 0.0 0.0 Sodium 138 Potassium 4.1 Chloride 104 Carbon Dioxide 28 Anion Gap 10 L BUN 10 Creatinine 0.71 Estim Creat Clear Calc 91.6 Estimated GFR > 60 Random Glucose 95 Calcium 8.7 Magnesium Iron TIBC % Saturation Unsat Iron Binding Total Bilirubin Direct Bilirubin AST ALT Alkaline Phosphatase Total Protein Albumin Lipase Stool Occult Blood Stl C. cayetanensis PCR Stool Rotavirus A PCR Stl Adenov F 40/41 PCR Stool Astrovirus (PCR) Stool Campylobacter PCR Stool Cryptosporidium PCR Stl Sh Tox Pr E STEC PCR Stool E coli O157 PCR Stl Enterotoxigenic E PCR Stool EPEC (PCR) Stool EAEC (PCR) Stl E. histolytica PCR Stool Giardia Lamblia PCR Stl P. shigelloides PCR Stool Salmonella PCR Stool Sapovirus (PCR) Stl Shigella/EIEC PCR St Y.enterocolitica PCR Stool Vibrio (PCR) Stl Vibrio cholerae PCR Stl Norovirus GI/GII PCR Urine Opiates Screen Ur Buprenorphine Scrn Ur Oxycodone Screen Urine Methadone Screen Urine Fentanyl Screen Ur Barbiturates Screen Ur Phencyclidine Scrn Ur Amphetamines Screen U Benzodiazepines Scrn Urine Cocaine Screen U Marijuana (THC) Screen Ethyl Alcohol Airway Mallampati Class: II TM Dist: >3cm Neck ROM: Full Assessment and Plan Assessment Anesthesia Assessment: Anesthesia Plan Discussed and Chart Reviewed Final Anesthetic Review Family History of Problems with Anesthesia: No History of Problems with Anesthesia: No NPO: Yes ASA Class: III Final Preanesthetic Review: No Changes in Pt Med Stat, Meds/Allgs Chart Reviewed, Consent Obtained/Reviewed and Anes Risks/Benef Reviewed Patient Risk: Intermediate Procedure Risk: Low Anesthetic Plan Anesthetic Plan: TIVA Disposition: Standard PACU
--- NOTE | 2024-05-02 16:41 | P.CDIM_ITS ---
PROVIDER RESPONSE TEXT: To clarify, the appropriate diagnosis supported by the clinical indicators: Other (explain): anemia of chronic disease QUERY TEXT: PHYSICIAN'S DOCUMENTATION REQUEST Date of Query: 05/02/2024 08:09 AM EDT Patient Name: Taj Hanson Admit Date: 05/01/2024 Dear Mino Vasquez MD, A review of the medical record indicates additional documentation may be needed. Please review below and update the documentation accordingly. Clinical Indicators: GI Consult: Impression - Iron deficiency anemia with gastrointestinal blood loss Low iron Iron 10 L Progress notes: ABLA, acute colitis Based on the above, could you clarify which of the following is the most likely type of anemia you ar e evaluating, treating, and/or monitoring? Iron deficiency anemia secondary to acute blood loss Iron deficiency anemia secondary to acute on chronic blood loss Other (explain) Clinically unable to determine (explain) Thank you, Fidelina Carballo, CCS, CDIS Use of terms such as suspected, likely, concern for, or probable (associated with a specific diagnosi s that is being evaluated, monitored, or treated as if it exists) are acceptable and can be coded in the inpatient se tting, when documented at the time of discharge. Please use your independent medical judgment in providing your response. THIS QUERY IS PART OF THE PERMANENT MEDICAL RECORD
--- NOTE | 2024-05-02 16:44 | P.CDIM_ITS ---
PROVIDER RESPONSE TEXT: To clarify, the appropriate diagnosis supported by the clinical indicators: Underweight QUERY TEXT: PHYSICIAN'S DOCUMENTATION REQUEST Date of Query: 05/02/2024 09:19 AM EDT Patient Name: Taj Hanson Admit Date: 05/01/2024 Dear Mino Vasquez MD, A review of the medical record indicates additional documentation may be needed. Please review below and update the documentation accordingly. Clinical Indicators: BMI: 18.0 44.6kg 5ft 2in Reports 20lb weight loss If possible, please provide an associated diagnosis related to the abnormal BMI, such as: Underweight Cachexia Anorexia Other (explain) Clinically unable to determine (explain) Thank you, Fidelina Carballo, CCS, CDIS Use of terms such as suspected, likely, concern for, or probable (associated with a specific diagnosi s that is being evaluated, monitored, or treated as if it exists) are acceptable and can be coded in the inpatient se tting, when documented at the time of discharge. Please use your independent medical judgment in providing your response. THIS QUERY IS PART OF THE PERMANENT MEDICAL RECORD
--- NOTE | 2024-05-02 17:11 | PM.OP ---
Brief Operative Note Date of Service: 05/02/24 Pre-op diagnosis: GI Bleed, diarrhea Post-op diagnosis: other (Small hiatal hernia, Ulcerative colitis with a pancolitis) Procedure: EGD, Colonoscopy to the cecum and TI with biopsies Surgeon: Michael Milian MD Anesthesia: MAC Was an Offender Job Retention Specialist used for this Procedure?: No Estimated blood loss (mL): 4.0 Pathology: other (A. Terminal ileum B. Ascending colon B. Descending colon C. Rectum) Condition: stable Disposition: PACU
--- NOTE | 2024-05-02 17:14 | PM.EVENT ---
Event Note Date of Service: 05/02/24 Event Note: GI-EGD, Colonoscopy to the cecum and TI with biopsies-Full note dictated Findings: 1. EGD--small hiatal hernia, otherwise WNL-no esophagitis, gastritis, nor ulcer disease 2. Colonoscopy to the cecum and TI with biopsies-- Active Pancolitis from the rectum to the cecum without any skip areas--most c/w Ulcerative colitis. The TI was normal. Biopsies taken in the TI, Ascending Colon, Descending Colon, and Rectum Rec: IV Hydrocortisone for at least 24-48 hours, oral mesalamine, clear liquids, start oral iron, check F/U labs in the AM, stop his antibiotics from a GI standpoint given the negative GI panel, check pending stool for Cdiff. If he improves over the weekend his diet can be advanced and his steroids can be changed to prednisone 40mg QD with a 5mg/week taper. He should continue his mesalamine. He will need F/U as an outpatient. I will order a TB test and Hep B profile re: potential need for a biologic agent for the ulcerative colitis depending on his clinical course. D/W patient in detail. Dr. Terrell is covering the weekend. Thanks Time Spent With Patient Time: Total time managing care of this patient today ____ minutes.
--- NOTE | 2024-05-02 17:19 | PM.EVENT ---
Event Note Date of Service: 05/02/24 Event Note: Addiction consult placed for patient with ? GIB. +UDS Seen by cabinetmaker maintenance earlier in the morning Reportedly visibly uncomfortable and reporting withdrawal sx. Methadone 30mg X1 ordered Seen by this writer technical publications briefly in the afternoon as he was being transported to OR He reports methadone was helpful and would like to continue titrating dose Plan: -methadone 10mg X1 ordered for when he returns from procedure -methadone 50mg QD ordered to start in AM -can still have pain medication as needed -will follow up in AM Time Spent With Patient Time: Total time managing care of this patient today ____ minutes.
[2024-05-02] MEDS: methADONE HCl 20 MG/2 ML ORAL.CONC 10 MG PO (18:00)
[2024-05-02] MEDS: Hydrocortisone Sod Succ/PF 100 MG VIAL 50 MG IVPUSH (18:02)
[2024-05-02] MEDS: Mesalamine 400 MG CAP.DRTAB. 1600 MG PO (20:32)
[2024-05-02] MEDS: cloNIDine HCL 0.1 MG TABLET PO (20:34)
[2024-05-03] VITALS (8 sets, daily range): BP systolic 99–126; BP diastolic 67–78; PULSE 78–89; RESP 17–18; TEMP 36.3–37; O2SAT 95–99
[2024-05-03] MEDS: Hydrocortisone Sod Succ/PF 100 MG VIAL 50 MG IVPUSH ×3 (02:33→17:21)
[2024-05-03] MEDS: hydrOXYzine HCL 25 MG TABLET PO ×2 (02:34→14:03)
[2024-05-03] MEDS: Melatonin 3 MG TABLET 6 MG PO ×2 (02:35→21:38)
[2024-05-03] MEDS: 0.9 % Sodium Chloride Flush 3 ML SYRINGE IVFLUSH ×4 (02:39→21:39)
--- NOTE | 2024-05-03 04:40 | OP_ITS ---
DATE OF SERVICE: 05/02/2024 SURGEON: Michael Milian MD INDICATIONS: The patient presents for evaluation of GI bleeding and diarrhea. Full consent has been obtained from him for this, including risks of bleeding and perforation. PREOPERATIVE DIAGNOSIS: POSTOPERATIVE DIAGNOSIS: PROCEDURE PERFORMED: Esophagogastroduodenoscopy, and colonoscopy to the cecum and terminal ileum with multiple biopsies. ESTIMATED BLOOD LOSS: COMPLICATIONS: ANESTHESIA: Monitored anesthesia care. ASSISTANTS: SPECIMENS: PREOPERATIVE DIAGNOSES: Gastrointestinal bleeding and diarrhea. POSTOPERATIVE DIAGNOSES: Gastrointestinal bleeding, diarrhea, small hiatal hernia, pancolitis. DESCRIPTION OF PROCEDURE: The patient was placed in the left lateral decubitus position. The Olympus video gastroscope was passed in the posterior oropharynx and upper esophagus under direct vision. The scope was passed slowly into the distal esophagus. The gastroesophageal junction appeared at 38 cm. There was no sign of any esophagitis nor Baxter esophagus. The scope easily entered the stomach. There was a small hiatal hernia. The scope was advanced to the pylorus and the duodenum was cannulated to the descending portion. The duodenum including the bulb appeared normal without mass or ulceration. The scope was withdrawn back in the stomach. The gastric antrum and body appeared normal with good peristalsis. The scope was retroflexed, visualizing the proximal stomach carefully, which appeared normal, without any sign of mass or ulceration. The scope was straightened and withdrawn back to the esophagus. The esophageal mucosa appeared normal. The scope was withdrawn from the patient. He was turned around for the colonoscopy. The digital rectal exam revealed no abnormalities. There was no sign of any perianal disease. The Olympus video pediatric colonoscope was then entered into the rectum and advanced easily to the cecum. Once in the cecum, I did identify cecal pouch with appendiceal orifice. The terminal ileum was cannulated for least 5 to 10 cm and appeared grossly normal. Biopsies were obtained. The scope was withdrawn back in the colon. Extending all the way from the cecum to the distal rectum, was a diffuse colitis with associated edema, granularity, friability, and small ulcerations. This appeared quite consistent with an ulcerative pancolitis. This did not appear to be any type of pseudomembranous colitis such as C difficile. There was a single inflammatory-appearing polyp in the descending colon, which was not biopsied nor removed. I did obtain biopsies in the ascending colon, descending colon, and rectum. The inflammatory process in the rectum extended all the way down to the very distal rectum. I did try to retroflex, but the scope would not do so, which I feel was probably as result of the colitis and maybe some decreased distensibility of the rectum. The scope was withdrawn from the patient. He tolerated both procedures well and was returned to the recovery area in stable condition. IMPRESSION: 1. Diffuse ulcerative pancolitis. 2. Small hiatal hernia. PLAN: Given that his GI panel was negative for any type of infection and this does not appear to be consistent with any type of C difficile infection at least judging endoscopically, I will start him on IV hydrocortisone. He describes that he has been having this diarrhea for at least 2 to 3 weeks on a daily and persistent basis. I shall also start him on oral mesalamine. He will start clear liquids today. He will have followup laboratories tomorrow including CBC, chemistries, sedimentation rate, and C-reactive protein. I shall stop his antibiotics as I do not think he needs that from a GI standpoint. I will also stop his PPI. He will have followup laboratories in the morning including the aforementioned laboratories and also ferritin level, B12 level, and folate level. I shall start him on oral iron as well. Over the weekend if he improves, his diet can be advanced and he could be switched over to oral prednisone. I did review with the patient the need to have close followup as an outpatient given what appears to be this chronic condition of ulcerative colitis. He has been advised to avoid NSAIDs long-term as well. MD HAM Griffith/DEMETRI / [id number]
[2024-05-03 06:11] LABS: MANUAL DIFF FLAG NO
[2024-05-03 06:30] LABS: Basophils Percent Auto 0.2 % (0-2); Eosinophils Percent Auto 0.1 % (0-4); Hematocrit 24.1 % (42.0-52.0); Hemoglobin 7.8 g/dl (14.0-18.0); Imm Gran Abs Auto 0.05 X10*3/uL (0.00-0.03); Imm Gran Pct Auto 0.5 % (0.0-0.4); Lymphocytes Absolute Auto 0.7 X10*3/uL (1.2-4.9); Mean Corpuscular HGB Conc 32.4 g/dl (31.0-36.0); Mean Corpuscular Hemoglobin 22.8 pg (27.0-33.0); Mean Corpuscular Volume 70.5 fL (80.0-98.0); Monocytes Absolute Auto 0.3 X10*3/uL (0.1-1.2); Monocytes Percent Auto 3.2 % (2-11); Neutrophils Absolute Auto 8.5 x10*3/uL (2.0-8.3); Platelet Count 736 X10*3/uL (160-400); Red Blood Count 3.42 X10*6/uL (4.60-5.80); Red Cell Distribution Width 15.9 % (11.0-16.0); White Blood Count 9.6 X10*3/uL (4.8-10.8)
[2024-05-03 07:13] LABS: Vitamin B12 651 pg/mL (200-900)
[2024-05-03 07:15] LABS: Erythrocyte Sedimentation Rate 64 MM/HR (0-15)
--- NOTE | 2024-05-03 07:24 | P.PNIM_ITS ---
Subjective Subjective Date of Service: 05/03/24 Interval History: f/u on colitis, gib, ABLA interval history: EGD+colonoscopy 05/02 = pancolitis tolerating liquid diet and asking diet to be advnced Physical Exam 2 Vital Signs: Vital Signs: Last Vital Signs Temp 97.6 F 05/03/24 03:34 Pulse 85 05/03/24 03:34 Resp 18 05/03/24 03:34 BP 117/70 05/03/24 03:34 Pulse Ox 95 05/03/24 03:34 O2 Del Method Room Air 05/03/24 03:34 BMI result Body Mass Index 18.0 Const: Other: General: AO X 3, no acute distress Resp: CTA bilateral CVS: S1,S2,RRR GI: +BS, NT, no distention Skin: No rash Neuro: motor grossly intact Psych: appropriate affect Objective Data Active Medications Acetaminophen (Acetaminophen 325 Mg Tablet) 650 mg PO Q6H PRN PRN Reason: Pain, Mild (Pain Scale 1-3), fever or headache Albuterol/Ipratropium (Albuterol/Iprat 2.5/0.5mg 3 Ml Ampul.Neb) 3 ml INHALE Q4H PRN PRN Reason: Wheezing Last Admin: 05/01/24 07:01 Dose: 3 ml Documented By: BIMAL Calcium Carbonate (Calcium Carbonate 750 Mg Tab.Chew) 750 mg PO Q4H PRN PRN Reason: Heartburn Clonidine HCl (Clonidine Hcl 0.1 Mg Tablet) 0.1 mg PO TID PRN; Protocol PRN Reason: Opiate Withdrawal Last Admin: 05/02/24 20:34 Dose: 0.1 mg Documented By: JOHN Ferrous Sulfate (Ferrous Sulfate 324 Mg Tablet.Dr) 324 mg PO BIDWM FREIDA Hydrocortisone Sodium Succinate (Hydrocortisone Sod Succ/Pf 100 Mg Vial) 50 mg IVPUSH Q8H FREIDA Last Admin: 05/03/24 02:33 Dose: 50 mg Documented By: JOHN Hydroxyzine HCl (Hydroxyzine Hcl 25 Mg Tablet) 25 mg PO Q8H PRN PRN Reason: anxiety/restlessness Last Admin: 05/03/24 02:34 Dose: 25 mg Documented By: JOHN Magnesium Hydroxide (Milk Of Magnesia 30 Ml Oral.Susp) 30 ml PO DAILY PRN PRN Reason: Constipation Melatonin (Melatonin 3 Mg Tablet) 6 mg PO BEDTIME PRN PRN Reason: Insomnia Last Admin: 05/03/24 02:35 Dose: 6 mg Documented By: JOHN Mesalamine (Mesalamine 400 Mg Cap.Drtab.) 1,600 mg PO TID [facility] Last Admin: 05/02/24 20:32 Dose: 1,600 mg Documented By: JOHN Methadone HCl (Methadone Hcl 20 Mg/2 Ml Oral.Conc) 50 mg PO DAILY [facility] Morphine Sulfate (Morphine Sulfate 2 Mg/Ml Cartridge) 2 mg IVPUSH Q6H PRN; Protocol PRN Reason: Pain, Severe (Pain Scale 7-10) Ondansetron HCl (Ondansetron Hcl 4 Mg/2 Ml Vial) 4 mg IVPUSH Q8H PRN PRN Reason: Nausea and Vomiting Sodium Chloride (0.9 % Sodium Chloride Flush 3 Ml Syringe) 3 ml IVFLUSH QSHIFT [facility] Last Admin: 05/03/24 02:39 Dose: 3 ml Documented By: JOHN Labs 05/03/24 06:05 05/03/24 06:05 Labs: Laboratory Results - last 24 hr 05/02/24 05/03/24 08:44 06:05 MCV 70.2 L 70.5 L MCH 22.4 L 22.8 L MCHC 31.9 32.4 RDW 16.3 H 15.9 Plt Count 778 H 736 H MPV 8.0 L 8.0 L Immature Gran % (Auto) 0.5 H Neut % (Auto) 89.0 H Lymph % (Auto) 7.[address] [place] % (Auto) 3.2 Eos % (Auto) 0.1 Baso % (Auto) 0.2 Lymph # (Auto) 0.[address] [place] # (Auto) 0.3 Eos # (Auto) 0.0 Baso # (Auto) 0.0 Abs Immat Gran (auto) 0.05 H Absolute Neuts (auto) 8.5 H Absolute Nucleated RBC 0.000 0.000 Nucleated RBC % (auto) 0.0 0.0 ESR 64 H Vitamin B12 651 Folate 8.0 Assessment and Plan (1) Microcytic anemia: Status: Acute (2) Acute GI bleeding: Status: Acute Plan 33-year-old male with no pertinent past medical history and not on prescription medications who presents to the emergency department for evaluation of blood in stools. Acute colitis, GIB, ABLA, no evidence of infection -H/H is stable, no indication for transfusion -for colonscopy and EGD 05/02: Pancolitis, likely ulcerative colitisi -GI recommends hydrocortisone x 24 to 48 hrs, Mesalamine -advance diet from clear -stop protonix -stop Abx (Flagyl + Ceftriaxone) Addiction (+ opioid, Fentanyl, cocaine) -clonidine, hydroxyzine for withdrawal symptoms -started on Methadone DVT prophylaxis: Mechanical Full code need for inpt:ABLA work up Quality Stroke Does the patient have a stroke diagnosis?: No VTE Prior VTE?: No VTE Risk Level:: Medical - moderate - high VTE Device Contraindication: N/A - Device Ordered VTE Drug Contraindication: Treatment Not Indicated
[2024-05-03] MEDS: Mesalamine 400 MG CAP.DRTAB. 1600 MG PO ×3 (07:37→21:38)
[2024-05-03] MEDS: Ferrous Sulfate 324 MG TABLET.DR PO ×2 (07:37→17:21)
[2024-05-03] MEDS: methADONE HCl 20 MG/2 ML ORAL.CONC 50 MG PO (07:37)
[2024-05-03 07:43] LABS: Anion Gap 10 (12-20); Blood Urea Nitrogen 6 mg/dL (9-16); C Reactive Protein 6.41 mg/dL (< or = 0.50); Carbon Dioxide 28 mmol/L (22-29); Chloride 104 mmol/L (96-108); Creatinine Clr Calc Pharmacy 103.2; Estimated Glomerular Filt Rate > 60; Ferritin 188 ng/mL (20-250); Glucose Fasting 116 mg/dL (60-99); Potassium 4.1 mmol/L (3.3-5.1); Sodium 138 mmol/L (135-145)
[2024-05-03 07:44] LABS: HBS Num1 > 1000.00 mIU/mL (0-7.99); HBc Num1 0.11 S/CO (0.00-0.79); HBsAGNum1 0.26 S/CO (0.00-0.99); HIV AB/AG Nonreactive (Nonreactive); HIV Num 1 0.09 S/CO (0.00-0.99); Hepatitis B Core Antibody Nonreactive (Nonreactive); Hepatitis B Surface Antigen Negative (Negative); ~HepC Num1 0.07 S/CO (0.00-0.79); ~Hepatitis B Surface Antibody REACTIVE (Nonreactive); ~Hepatitis C Antibody Nonreactive (Nonreactive)
[2024-05-03] MEDS: cloNIDine HCL 0.1 MG TABLET PO ×2 (09:56→22:56)
--- NOTE | 2024-05-03 11:42 | HO.POSTANES ---
Post Anesthesia Evaluation Post Anesthesia Evaluation Date of Service: 05/02/24 Vital Signs: Vital Signs Temp Pulse Resp BP Pulse Ox O2 Del Method 05/03/24 11:21 97.4 F 89 18 99/74 98 Room Air 05/03/24 08:00 97.4 F 78 18 117/67 98 Room Air 05/03/24 03:34 97.6 F 85 18 117/70 95 Room Air 05/02/24 23:56 98.2 F 88 18 109/69 97 Room Air Anesthesia: Monitored Mental Status: Awake Pain Control: Satisfactory Nausea/Vomiting: None Hydration: Adequate Anesthesia-Related Issues: No Anes. Related Issues
[2024-05-03] MEDS: Morphine Sulfate 2 MG/ML CARTRIDGE IVPUSH ×2 (12:42→19:45)
--- NOTE | 2024-05-03 15:57 | HO.ADDICTCON ---
History of Present Illness Date of Service: 05/03/24 Chief Complaint: Blood in Stool Reason for Consult: opioid withdrawal Sources of Information: patient interviewed and chart reviewed HPI Narrative: Patient seen in follow up today. Seen briefly yesterday and methadone initiated to address withdrawal sx. Today, patient awake, alert however reporting pain. Brief substance use history obtained He reports he has been using opiates [place] for many years occasional cocaine use denies any other substance use including alcohol Denies any history of MOUD, outside of when admitted to treatment program Reports 3 lifetime overdoses withdrawal sx somewhat improved. still reporting restlessness and muscle spasms as well as anxiety he would like to continue titrating methadone dose Review of Systems Constitutional: Reports as per HPI Diagnostics Vital Signs (24Hr): Vital Signs - 24 hr 05/02/24 17:04 05/02/24 17:19 05/02/24 17:34 Temperature 98.1 F 98 F Pulse Rate 104 H 89 71 Respiratory Rate 16 16 20 Blood Pressure 89/58 L 112/71 120/74 Pulse Oximetry 96 98 100 Oxygen Delivery Method Room Air Room Air Room Air 05/02/24 18:02 05/02/24 19:17 05/02/24 23:56 Temperature 97.5 F 97.7 F 98.2 F Pulse Rate 79 79 88 Respiratory Rate 16 18 18 Blood Pressure 116/62 118/72 109/69 Pulse Oximetry 99 99 97 Oxygen Delivery Method Room Air Room Air Room Air 05/03/24 03:34 05/03/24 08:00 05/03/24 11:21 Temperature 97.6 F 97.4 F 97.4 F Pulse Rate 85 78 89 Respiratory Rate 18 18 18 Blood Pressure 117/70 117/67 99/74 Pulse Oximetry 95 98 98 Oxygen Delivery Method Room Air Room Air Room Air 05/03/24 12:39 05/03/24 15:43 Temperature 98.6 F Pulse Rate 80 85 Respiratory Rate 17 18 Blood Pressure 116/68 116/69 Pulse Oximetry 99 Oxygen Delivery Method Room Air BMI result Body Mass Index 18.0 Labs 05/03/24 06:05 05/03/24 06:05 Labs: Laboratory Results - last 48 hr 05/02/24 05/03/24 08:44 06:05 WBC 7.7 9.6 RBC 3.62 L 3.42 L Hgb 8.1 L 7.8 L Hct 25.4 L 24.1 L MCV 70.2 L 70.5 L MCH 22.4 L 22.8 L MCHC 31.9 32.4 RDW 16.3 H 15.9 Plt Count 778 H 736 H MPV 8.0 L 8.0 L Immature Gran % (Auto) 0.5 H Neut % (Auto) 89.0 H Lymph % (Auto) 7.0 L [place] % (Auto) 3.2 Eos % (Auto) 0.1 Baso % (Auto) 0.2 Lymph # (Auto) 0.7 L [place] # (Auto) 0.3 Eos # (Auto) 0.0 Baso # (Auto) 0.0 Abs Immat Gran (auto) 0.05 H Absolute Neuts (auto) 8.5 H Absolute Nucleated RBC 0.000 0.000 Nucleated RBC % (auto) 0.0 0.0 ESR 64 H Sodium 138 Potassium 4.1 Chloride 104 Carbon Dioxide 28 Anion Gap 10 L BUN 6 L Creatinine 0.63 Estim Creat Clear Calc 103.2 Estimated GFR > 60 Fasting Glucose 116 H Calcium 8.0 L D Ferritin 188 C-Reactive Protein 6.41 H Vitamin B12 651 Folate 8.0 Hep Bs Antigen Negative Hep Bs Antibody REACTIVE Hep B Core Total Ab Nonreactive Hepatitis C Ab (EIA) Nonreactive HIV 1&2 Ab/P24 Ag 4thGn Nonreactive Imaging Radiology Impressions: ITS Impressions Abdomen/Pelvis CT 04/30/24 21:17 IMPRESSION: Marked inflammatory changes in the rectosigmoid and descending colon consistent with colitis. Fleischner guidelines were followed. Mental Status Exam Mental Status Exam Patient Appearance: Appropriate Level of Consciousness: Awake and Appropriate Mood Description: Anxious Medications Medications Current Medications Acetaminophen (Acetaminophen 325 Mg Tablet) 650 mg PO Q6H PRN PRN Reason: Pain, Mild (Pain Scale 1-3), fever or headache Albuterol/Ipratropium (Albuterol/Iprat 2.5/0.5mg 3 Ml Ampul.Neb) 3 ml INHALE Q4H PRN PRN Reason: Wheezing Last Admin: 05/01/24 07:01 Dose: 3 ml Calcium Carbonate (Calcium Carbonate 750 Mg Tab.Chew) 750 mg PO Q4H PRN PRN Reason: Heartburn Clonidine HCl (Clonidine Hcl 0.1 Mg Tablet) 0.1 mg PO TID PRN; Protocol PRN Reason: Opiate Withdrawal Last Admin: 05/03/24 09:56 Dose: 0.1 mg Ferrous Sulfate (Ferrous Sulfate 324 Mg Tablet.Dr) 324 mg PO BIDWM [facility] Last Admin: 05/03/24 07:37 Dose: 324 mg Hydrocortisone Sodium Succinate (Hydrocortisone Sod Succ/Pf 100 Mg Vial) 50 mg IVPUSH Q8H [facility] Last Admin: 05/03/24 09:55 Dose: 50 mg Hydroxyzine HCl (Hydroxyzine Hcl 25 Mg Tablet) 25 mg PO Q8H PRN PRN Reason: anxiety/restlessness Last Admin: 05/03/24 14:03 Dose: 25 mg Magnesium Hydroxide (Milk Of Magnesia 30 Ml Oral.Susp) 30 ml PO DAILY PRN PRN Reason: Constipation Melatonin (Melatonin 3 Mg Tablet) 6 mg PO BEDTIME PRN PRN Reason: Insomnia Last Admin: 05/03/24 02:35 Dose: 6 mg Mesalamine (Mesalamine 400 Mg Cap.Drtab.) 1,600 mg PO TID [facility] Last Admin: 05/03/24 14:01 Dose: 1,600 mg Methadone HCl (Methadone Hcl 20 Mg/2 Ml Oral.Conc) 50 mg PO DAILY [facility] Last Admin: 05/03/24 07:37 Dose: 50 mg Morphine Sulfate (Morphine Sulfate 2 Mg/Ml Cartridge) 2 mg IVPUSH Q6H PRN; Protocol PRN Reason: Pain, Severe (Pain Scale 7-10) Last Admin: 05/03/24 12:42 Dose: 2 mg Ondansetron HCl (Ondansetron Hcl 4 Mg/2 Ml Vial) 4 mg IVPUSH Q8H PRN PRN Reason: Nausea and Vomiting Sodium Chloride (0.9 % Sodium Chloride Flush 3 Ml Syringe) 3 ml IVFLUSH QSHIFT [facility] Last Admin: 05/03/24 14:03 Dose: 3 ml Tizanidine HCl (Tizanidine Hcl 4 Mg Tablet) 4 mg PO BID@1000,1800 [facility] Allergies Allergies Allergy/AdvReac Type Severity Reaction Status Date / Time lucy Allergy Unknown UNKNOWN Verified 04/30/24 14:25 Assessment & Plan Assessment & Plan (1) Opioid use disorder: Status: Acute Code(s): F11.90 - Opioid use, unspecified, uncomplicated Assessment and Plan: [id number] qhs methadone increased to 60mg QD on 05/04 tizanidine BID reminded to request pain medication as needed will continue to follow Total time managing care of this patient today ____ minutes. [facility] Social History Social History Household Members: Significant Other and Friend(s) Housing: Apartment Do you presently have visiting nurse or other home services: No Alcohol intake: never Patient Tobacco Use Status: Current everyday Tobacco user Tobacco use type: Cigarette Cigarette Packs Per Day: 1 Cigarettes Per Day: 2 e-Cigarette/Vaping Use: Currently Using Second Hand Smoke Exposure: Yes Substance Use Type: Crack/Cocaine, Heroin, Opiates and Other service: No
[2024-05-03] MEDS: TiZANidine HCL 4 MG TABLET PO (17:21)
[2024-05-03] MEDS: methADONE HCl 20 MG/2 ML ORAL.CONC 5 MG PO (21:37)
[2024-05-04] MEDS: Hydrocortisone Sod Succ/PF 100 MG VIAL 50 MG IVPUSH ×3 (02:00→16:47)
[2024-05-04] MEDS: Morphine Sulfate 2 MG/ML CARTRIDGE IVPUSH ×4 (02:00→23:13)
[2024-05-04 03:45] VITALS: BP 144/89; PULSE 75; RESP 18; TEMP 36.5; O2SAT 98
[2024-05-04] MEDS: hydrOXYzine HCL 25 MG TABLET PO ×2 (05:25→16:53)
[2024-05-04 08:00] VITALS: BP 128/80; PULSE 72; RESP 20; TEMP 36.6; O2SAT 100
[2024-05-04] MEDS: methADONE HCl 20 MG/2 ML ORAL.CONC 60 MG PO (08:48)
[2024-05-04] MEDS: Ferrous Sulfate 324 MG TABLET.DR PO ×2 (08:48→16:47)
[2024-05-04] MEDS: 0.9 % Sodium Chloride Flush 3 ML SYRINGE IVFLUSH ×2 (08:48→16:47)
[2024-05-04] MEDS: TiZANidine HCL 4 MG TABLET PO ×2 (08:48→16:47)
[2024-05-04] MEDS: Mesalamine 400 MG CAP.DRTAB. 1600 MG PO ×3 (08:48→21:09)
[2024-05-04 10:30] VITALS: BP 115/66; PULSE 85; RESP 16; TEMP 36.1; O2SAT 99
--- NOTE | 2024-05-04 11:01 | P.PNIM_ITS ---
Subjective Subjective Date of Service: 05/04/24 Interval History: f/u on colitis, gib, ABLA interval history: EGD+colonoscopy 05/02 = pancolitis tolerating regular diet, methadone is helping with withdrawal Physical Exam 2 Vital Signs: Vital Signs: Last Vital Signs Temp 97 F 05/04/24 10:30 Pulse 85 05/04/24 10:30 Resp 16 05/04/24 10:30 BP 115/66 05/04/24 10:30 Pulse Ox 99 05/04/24 10:30 O2 Del Method Room Air, Nasal C annula 05/04/24 10:30 BMI result Body Mass Index 18.0 Const: Other: General: AO X 3, no acute distress Resp: CTA bilateral CVS: S1,S2,RRR GI: +BS, NT, no distention Skin: No rash Neuro: motor grossly intact Psych: appropriate affect Objective Data Active Medications Acetaminophen (Acetaminophen 325 Mg Tablet) 650 mg PO Q6H PRN PRN Reason: Pain, Mild (Pain Scale 1-3), fever or headache Albuterol/Ipratropium (Albuterol/Iprat 2.5/0.5mg 3 Ml Ampul.Neb) 3 ml INHALE Q4H PRN PRN Reason: Wheezing Last Admin: 05/01/24 07:01 Dose: 3 ml Documented By: BIMAL Calcium Carbonate (Calcium Carbonate 750 Mg Tab.Chew) 750 mg PO Q4H PRN PRN Reason: Heartburn Clonidine HCl (Clonidine Hcl 0.1 Mg Tablet) 0.1 mg PO TID PRN; Protocol PRN Reason: Opiate Withdrawal Last Admin: 05/03/24 22:56 Dose: 0.1 mg Documented By: REMY Ferrous Sulfate (Ferrous Sulfate 324 Mg Tablet.) 324 mg PO BIDWM [facility] Last Admin: 05/04/24 08:48 Dose: 324 mg Documented By: MIRTHA Hydrocortisone Sodium Succinate (Hydrocortisone Sod Succ/Pf 100 Mg Vial) 50 mg IVPUSH Q8H [facility] Last Admin: 05/04/24 08:48 Dose: 50 mg Documented By: MIRTHA Hydroxyzine HCl (Hydroxyzine Hcl 25 Mg Tablet) 25 mg PO Q8H PRN PRN Reason: anxiety/restlessness Last Admin: 05/04/24 05:25 Dose: 25 mg Documented By: JOHN Magnesium Hydroxide (Milk Of Magnesia 30 Ml Oral.Susp) 30 ml PO DAILY PRN PRN Reason: Constipation Melatonin (Melatonin 3 Mg Tablet) 6 mg PO BEDTIME PRN PRN Reason: Insomnia Last Admin: 05/03/24 21:38 Dose: 6 mg Documented By: JOHN Mesalamine (Mesalamine 400 Mg Cap.Drtab.) 1,600 mg PO TID [facility] Last Admin: 05/04/24 08:48 Dose: 1,600 mg Documented By: MIRTHA Methadone HCl (Methadone Hcl 20 Mg/2 Ml Oral.Conc) 5 mg PO BEDTIME [facility] Last Admin: 05/03/24 21:37 Dose: 5 mg Documented By: JOHN Methadone HCl (Methadone Hcl 20 Mg/2 Ml Oral.Conc) 60 mg PO DAILY [facility] Last Admin: 05/04/24 08:48 Dose: 60 mg Documented By: MIRTHA Morphine Sulfate (Morphine Sulfate 2 Mg/Ml Cartridge) 2 mg IVPUSH Q6H PRN; Protocol PRN Reason: Pain, Severe (Pain Scale 7-10) Last Admin: 05/04/24 08:59 Dose: 2 mg Documented By: MIRTHA Ondansetron HCl (Ondansetron Hcl 4 Mg/2 Ml Vial) 4 mg IVPUSH Q8H PRN PRN Reason: Nausea and Vomiting Sodium Chloride (0.9 % Sodium Chloride Flush 3 Ml Syringe) 3 ml IVFLUSH QSHIFT [facility] Last Admin: 05/04/24 08:48 Dose: 3 ml Documented By: MIRTHA Tizanidine HCl (Tizanidine Hcl 4 Mg Tablet) 4 mg PO BID@1000,1800 [facility] Last Admin: 05/04/24 08:48 Dose: 4 mg Documented By: MIRTHA Labs 05/03/24 06:05 05/03/24 06:05 Assessment and Plan (1) Microcytic anemia: Status: Acute (2) Acute GI bleeding: Status: Acute Plan 33-year-old male with no pertinent past medical history and not on prescription medications who presents to the emergency department for evaluation of blood in stools. Acute colitis, GIB, ABLA, no evidence of infection -H/H is stable, no indication for transfusion -for colonscopy and EGD 05/02: Pancolitis, likely ulcerative colitisi -GI recommends hydrocortisone x 24 to 48 hrs--change to PO Prednisone, Mesalamine -advance diet from clear -stop protonix -stop Abx (Flagyl + Ceftriaxone) Addiction (+ opioid, Fentanyl, cocaine) -clonidine, hydroxyzine for withdrawal symptoms -started on Methadone DVT prophylaxis: Mechanical Full code need for inpt:ABLA work up Quality Stroke Does the patient have a stroke diagnosis?: No VTE Prior VTE?: No VTE Risk Level:: Medical - moderate - high VTE Device Contraindication: N/A - Device Ordered VTE Drug Contraindication: Treatment Not Indicated
[2024-05-04 15:19] VITALS: BP 122/77; PULSE 67; RESP 16; TEMP 36.8; O2SAT 98
[2024-05-04 20:00] VITALS: BP 127/75; PULSE 73; RESP 18; TEMP 36.6; O2SAT 99
[2024-05-04] MEDS: Melatonin 3 MG TABLET 6 MG PO (21:08)
[2024-05-04] MEDS: methADONE HCl 20 MG/2 ML ORAL.CONC 5 MG PO (21:09)
[2024-05-04 23:12] VITALS: BP 128/71; PULSE 82; RESP 18; TEMP 36.6; O2SAT 99
[2024-05-05 03:31] VITALS: BP 123/79; PULSE 60; RESP 18; TEMP 37.1; O2SAT 100
[2024-05-05] MEDS: hydrOXYzine HCL 25 MG TABLET PO ×2 (04:12→12:09)
[2024-05-05 07:42] VITALS: BP 139/84; PULSE 69; RESP 20; TEMP 36.2; O2SAT 100
--- NOTE | 2024-05-05 07:51 | P.DS_ITS ---
DS: Providers Provider Date of Service: 05/05/24 Date of admission: 04/30/24 21:47 Primary care physician: Aryan El PA-C Consults: 04/30/24 21:47 Consult to Gastroenterology Routine Consulting Provider: Ryan Schaefer Reason for consultation: GI bleed 05/01/24 15:49 Addiction Medicine Routine Consulting Provider: Dolly Covering Reason for consultation: addiction DS: Diagnosis Discharge Diagnosis (1) Microcytic anemia: Status: Acute (2) Acute GI bleeding: Status: Acute DS: Summary Hospital Course Hospital Course: admission hpi Chief Complaint: Blood in stool This is a 33-year-old male with no pertinent past medical history and not on prescription medications who presents to the emergency department for evaluation of blood in stools. Patient states his symptoms started 2 weeks prior to presentation. Patient states he has been having loose stools every time he eats. Has noticed blood in stools. He only has abdominal discomfort at the time of defecation. No fever, chills, nausea, vomiting. This has never happened before. Admits poor p.o. intake and generalized fatigability. Patient has no pertinent past medical history and is not on any prescription medications. No chest discomfort, palpitations, shortness of breath, changes in urinary habits. In the emergency department, hemoglobin was found to be 8.5 and imaging with colitis Hospital course: The patient presented with abdominal pain and blood in the stool, with a hemoglobin level of 8.5 g/dL compared to 14 g/dL two years earlier. A CT of the abdomen and pelvis showed pancolitis. He was started on broad-spectrum antibiotics for a possible bacterial infection. His hemoglobin and hematocrit remained stable, so no transfusion was required. He underwent EGD and colonoscopy, which revealed pancolitis without skipped segments, consistent with the appearance of ulcerative colitis. He was then started on IV hydrocortisone, which resulted in symptom relief. Additionally, he was started on Mesalamine. He will be discharged with Mesalamine and Prednisone 40 mg daily, to be reduced by 5 mg every week. He may be put on biologics in the future, hep B, C and HIV are negative and Tspot is pending. His diet has been advanced, and he is tolerating a regular diet. CBC pofile has been as follow: Elevated WBC d/t steroid The patient also has a history of addiction to opioids, fentanyl, and cocaine. He was started on Methadone for addiction management and will follow up on an outpatient basis. Final diagnosis: Ulcerative colitis acute blood loss anemia opiate use disorder Time Attestation Discharge Coordination Time (in mins): 45 Quality: Safe Use of Opioids Does Pt have an Active Cancer Diagnosis on the Problem List?: No Quality: Stroke Does the patient have a stroke diagnosis?: No Physical Exam 2 Vital Signs: Vital Signs: Last Vital Signs Temp 97.1 F 05/05/24 07:42 Pulse 69 05/05/24 07:42 Resp 20 05/05/24 07:42 BP 139/84 05/05/24 07:42 Pulse Ox 100 05/05/24 07:42 O2 Del Method Room Air 05/05/24 07:42 BMI result Body Mass Index 18.0 Const: Other: General: AO X 3, no acute distress Resp: CTA bilateral CVS: S1,S2,RRR GI: +BS, NT, no distention Skin: No rash Neuro: motor grossly intact Psych: appropriate affect DS: Data Data Completed and Pending Pending studies at discharge: Pending at discharge 05/02/24 16:41 Surgical [PTH] Routine Discharge Plan Discharge Anticipated Discharge Date/Time: 05/04/24 10:31 Patient Disposition: Home, Self-Care Discharge Diagnosis: Colitis (ulcerative colitis), anemia, opioid use disorder Referrals: Aryan El PA-C [Primary Care Provider] - 1 Week Michael Milian MD [Physician] - 2 Weeks Discharge Medications: New prednisone 5 mg tablet See Rx Instructions .ROUTE .COMPLEX Qty: 252 0RF Rx Instructions: Take by mouth as follow Week 1: 8 tablets/day * 7 days = 56 tablets Week 2: 7 tablets/day * 7 days = 49 tablets Week 3: 6 tablets/day * 7 days = 42 tablets Week 4: 5 tablets/day * 7 days = 35 tablets Week 5: 4 tablets/day * 7 days = 28 tablets Week 6: 3 tablets/day * 7 days = 21 tablets Week 7: 2 tablets/day * 7 days = 14 tablets Week 8: 1 tablet/day * 7 days = 7 tablets ferrous sulfate 324 mg (65 mg iron) Tablet,Delayed Release (Dr/Ec) 324 mg PO BIDWM Qty: 60 1RF methadone [Methadose] 10 mg/mL Concentrate 60 mg PO DAILY Qty: 30 0RF Rx Instructions: Partial Fill upon patient request. mesalamine [Delzicol] 400 mg Capsule (With Del Rel Tablets) 1,600 mg PO TID Qty: 27 0RF Discharge Orders: Discharge Order (Routine); Ordered 05/05/24 Ordered By: Mino Vasquez Diet: Advance to usual diet Activity on Discharge: As tolerated Stand Alone Forms: Patient Portal Discharge page Print Language: Korean Care Plan Goals: management of ulcerative colitis and prevent complication of anemia, and abdominal discomfort Health Concerns: ulcerative colitis anemia opioid use disorder Plan of Treatment: take Presnisone and mesalamine as directed and follow up with Dr. Milian and your Doctor Assessment: see above
[2024-05-05] MEDS: 0.9 % Sodium Chloride Flush 3 ML SYRINGE IVFLUSH ×2 (08:22)
[2024-05-05] MEDS: predniSONE 20 MG TABLET 40 MG PO (08:22)
[2024-05-05] MEDS: Ferrous Sulfate 324 MG TABLET.DR PO (08:22)
[2024-05-05] MEDS: Mesalamine 400 MG CAP.DRTAB. 1600 MG PO (08:22)
[2024-05-05] MEDS: TiZANidine HCL 4 MG TABLET PO (08:22)
[2024-05-05] MEDS: methADONE HCl 20 MG/2 ML ORAL.CONC 60 MG PO (08:23)
[2024-05-05] MEDS: Morphine Sulfate 2 MG/ML CARTRIDGE IVPUSH (08:28)
[2024-05-05 09:11] LABS: Hematocrit 28.3 % (42.0-52.0); Hemoglobin 8.7 g/dl (14.0-18.0); Mean Corpuscular HGB Conc 30.7 g/dl (31.0-36.0); Mean Corpuscular Volume 74.7 fL (80.0-98.0); Mean Platelet Volume 8.2 fL (9.4-12.4); Platelet Count 801 X10*3/uL (160-400); Red Blood Count 3.79 X10*6/uL (4.60-5.80); Red Cell Distribution Width 18.4 % (11.0-16.0); White Blood Count 16.2 X10*3/uL (4.8-10.8)
--- NOTE | 2024-05-05 09:28 | HO.ADDICTPRO ---
Subjective Subjective Date of Service: 05/05/24 Reason For Visit: Blood in Stool Interim History: Patient seen in follow up methadone dose at 65mg reporting withdrawal sx have resolved--still having some abdominal pain Appearing more comfortable than previous visit Discussed referral to [facility]--would like to got to [facility]. Provided information in writing and verbally Review of Systems Acute medical concerns: Yes Medical Review of Systems: changed Review of Systems Constitutional: Reports as per HPI Mental Status Exam Mental Status Exam Patient Appearance: Appropriate Level of Consciousness: Awake and Alert Diagnostics Vital Signs (24Hr): Vital Signs - 24 hr 05/04/24 10:30 05/04/24 15:19 05/04/24 20:00 Temperature 97 F 98.2 F 98 F Pulse Rate 85 67 73 Respiratory Rate 16 16 18 Blood Pressure 115/66 122/77 127/75 Pulse Oximetry 99 98 99 Oxygen Delivery Method Room Air Nasal Cannula Room Air Room Air 05/04/24 23:12 05/05/24 03:31 05/05/24 07:42 Temperature 97.8 F 98.7 F 97.1 F Pulse Rate 82 60 69 Respiratory Rate 18 18 20 Blood Pressure 128/71 123/79 139/84 Pulse Oximetry 99 100 100 Oxygen Delivery Method Room Air Room Air Room Air BMI result Body Mass Index 18.0 Labs 05/05/24 08:19 05/03/24 06:05 Labs: Laboratory Results - last 48 hr 05/05/24 08:19 WBC 16.2 H RBC 3.79 L Hgb 8.7 L Hct 28.3 L MCV 74.7 L MCH 23.0 L MCHC 30.7 L RDW 18.4 H Plt Count 801 H MPV 8.2 L Absolute Nucleated RBC 0.000 Nucleated RBC % (auto) 0.0 Imaging Radiology Impressions: ITS Impressions Abdomen/Pelvis CT 04/30/24 21:17 IMPRESSION: Marked inflammatory changes in the rectosigmoid and descending colon consistent with colitis. Fleischner guidelines were followed. Medications Medications Current Medications Acetaminophen (Acetaminophen 325 Mg Tablet) 650 mg PO Q6H PRN PRN Reason: Pain, Mild (Pain Scale 1-3), fever or headache Albuterol/Ipratropium (Albuterol/Iprat 2.5/0.5mg 3 Ml Ampul.Neb) 3 ml INHALE Q4H PRN PRN Reason: Wheezing Last Admin: 05/01/24 07:01 Dose: 3 ml Calcium Carbonate (Calcium Carbonate 750 Mg Tab.Chew) 750 mg PO Q4H PRN PRN Reason: Heartburn Clonidine HCl (Clonidine Hcl 0.1 Mg Tablet) 0.1 mg PO TID PRN; Protocol PRN Reason: Opiate Withdrawal Last Admin: 05/03/24 22:56 Dose: 0.1 mg Ferrous Sulfate (Ferrous Sulfate 324 Mg Tablet.Dr) 324 mg PO BIDWM [facility] Last Admin: 05/05/24 08:22 Dose: 324 mg Hydroxyzine HCl (Hydroxyzine Hcl 25 Mg Tablet) 25 mg PO Q8H PRN PRN Reason: anxiety/restlessness Last Admin: 05/05/24 04:12 Dose: 25 mg Magnesium Hydroxide (Milk Of Magnesia 30 Ml Oral.Susp) 30 ml PO DAILY PRN PRN Reason: Constipation Melatonin (Melatonin 3 Mg Tablet) 6 mg PO BEDTIME PRN PRN Reason: Insomnia Last Admin: 05/04/24 21:08 Dose: 6 mg Mesalamine (Mesalamine 400 Mg Cap.Drtab.) 1,600 mg PO TID [facility] Last Admin: 05/05/24 08:22 Dose: 1,600 mg Methadone HCl (Methadone Hcl 20 Mg/2 Ml Oral.Conc) 5 mg PO BEDTIME [facility] Last Admin: 05/04/24 21:09 Dose: 5 mg Methadone HCl (Methadone Hcl 20 Mg/2 Ml Oral.Conc) 60 mg PO DAILY [facility] Last Admin: 05/05/24 08:23 Dose: 60 mg Morphine Sulfate (Morphine Sulfate 2 Mg/Ml Cartridge) 2 mg IVPUSH Q6H PRN; Protocol PRN Reason: Pain, Severe (Pain Scale 7-10) Last Admin: 05/05/24 08:28 Dose: 2 mg Ondansetron HCl (Ondansetron Hcl 4 Mg/2 Ml Vial) 4 mg IVPUSH Q8H PRN PRN Reason: Nausea and Vomiting Prednisone (Prednisone 20 Mg Tablet) 40 mg PO DAILY [facility] Last Admin: 05/05/24 08:22 Dose: 40 mg Sodium Chloride (0.9 % Sodium Chloride Flush 3 Ml Syringe) 3 ml IVFLUSH QSHIFT [facility] Last Admin: 05/05/24 08:22 Dose: 3 ml Tizanidine HCl (Tizanidine Hcl 4 Mg Tablet) 4 mg PO BID@1000,1800 [facility] Last Admin: 05/05/24 08:22 Dose: 4 mg Allergies Allergies Allergy/AdvReac Type Severity Reaction Status Date / Time lucy Allergy Unknown UNKNOWN Verified 04/30/24 14:25 Assessment & Plan Assessment & Plan (1) Opioid use disorder: Status: Acute Code(s): F11.90 - Opioid use, unspecified, uncomplicated Assessment and Plan: referral to be sent to overdose prevention discussion and take home narcan provided last dose letter to be provided by RN Plan Total time managing care of this patient today _25___ minutes.
--- NOTE | 2024-05-05 10:58 | MHC.CLN ---
F/U PT IS MODERATELY MALNOURISHED SEE FULL CLINICAL NUTRITION ASSESSMENT DATED 05/02/24 PO INTAKE 75-100% DIET ADVANCED TO REGULAR WILL ADD ENSURE BID TO INCREASE KCALS SUPP TO PROVIDE 700KCALS, 40G PROTEIN MONITOR PO INTAKE AND ENCOURAGE SUPPLEMENT
[2024-05-05] MEDS: Naloxone HCl Nasal TAKE HOME 4 MG SPRAY 8 MG NOSTRILALT (12:04)
--- NOTE | 2024-05-05 12:13 | MHC.CM.PN ---
Pt is medically cleared for discharge home self-care, pts family will transport him home.
--- NOTE | 2024-05-06 08:11 | MHC.RECOVRN ---
Pts referral sent to [facility].
[2024-05-08 02:29] LABS: TS Negative Control Passed; TS Panel A 0; TS Panel B 0; TS Positive Control Passed; TSpotTB Negative (Negative)
== END 2024-05-05 14:23 | disposition home or self-care (01) | DRG 245 ==
LOC: HO.ED 22:24 → HO.EDOVER 22:44 → HO.IMC 05-01 19:31
PROVIDERS: Internal Medicine; Physician Assistant; Physician Assistant Medical; Admitting Provider Student in an Organized Health Care Education/Training Program; Emergency Provider Internal Medicine; PCP Physician Assistant; Visit Provider Internal Medicine
PROC: 0DJ08ZZ Inspection of Upper Intestinal Tract, Via Natural or Artificial Opening Endoscopic (ICD-10-PCS; principal; 2024-05-02 15:10)
DX: K51.90 Ulcerative colitis, unspecified, without complications (principal); D62 Acute posthemorrhagic anemia; K92.1 Melena; F11.93 Opioid use, unspecified with withdrawal; F10.21 Alcohol dependence, in remission; D63.8 Anemia in other chronic diseases classified elsewhere; R63.6 Underweight; Z68.1 Body mass index [BMI] 19.9 or less, adult; K44.9 Diaphragmatic hernia without obstruction or gangrene; Z87.891 Personal history of nicotine dependence
CPT/HCPCS: 36415; 74177; 80048; 80076; 80307; 82272; 82607; 82728; 82746; 83540; 83690; 83735; 85025; 85027; 85652; 86140; 86481; 86704; 86706; 86803; 87340; 87389; 87507; 88305; 94640; 99285; J0696; J1720; J1756; J1836; J2270; J2405; J2470; J2704; Q9967

== ENCOUNTER → 2024-04-30 21:47 | Outpatient (BNV) | payer BC, SELFPAY | PROVIDERS: Admitting Provider Student in an Organized Health Care Education/Training Program; Emergency Provider Internal Medicine; PCP Physician Assistant; Visit Provider Nurse Practitioner Psychiatric/Mental Health | DX: F11.90 Opioid use, unspecified, uncomplicated (principal) | CPT/HCPCS: 99222; 99231; 99232 ==

== ENCOUNTER → 2024-04-30 21:47 | Outpatient (BNV) | payer BC, SELFPAY | PROVIDERS: Admitting Provider Student in an Organized Health Care Education/Training Program; PCP Physician Assistant; Visit Provider Student in an Organized Health Care Education/Training Program | DX: K92.2 Gastrointestinal hemorrhage, unspecified (principal); D62 Acute posthemorrhagic anemia | CPT/HCPCS: 99223; 99232; 99239 ==

== ENCOUNTER 2024-05-07 15:34 | Outpatient (AMB) | payer BC, SELFPAY ==
--- NOTE | 2024-05-07 15:39 | MHC.PC.OV ---
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 Required: No Allergies lucy Allergy (Intermediate, Verified 05/07/24 16:00) Hives Medication List - Last Reconciled 05/07/24 by Cintia Foreman PA-C ferrous sulfate 324 mg PO BIDWM mesalamine (Delzicol) 1,600 mg (4 x 400 mg) PO TID methadone (Methadose) 60 mg (6 mL) PO DAILY prednisone Take by mouth as follow Week 1: 8 tablets/day * 7 days = 56 tablets Week 2: 7 tablets/day * 7 days = 49 tablets Week 3: 6 tablets/day * 7 days = 42 tablets Week 4: 5 tablets/day * 7 days = 35 tablets Week 5: 4 tablets/day * 7 days = 28 tablets Week 6: 3 tablets/day * 7 days = 21 tablets Week 7: 2 tablets/day * 7 days = 14 tablets Week 8: 1 tablet/day * 7 days = 7 tablets Tobacco use date assessed: 05/07/24 Dental Screening Dental Screen Date: 05/07/24 Did you have a dental visit in the last 12 months?: Yes Did you have a dental problem in the last 6 months where you did not have access to dental care?: No Was dental information given to patient?: Patient has dentist 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 In review of the notes patient was seen in [facility] [place] [place] [facility] 04/30/2024 for abdominal pain and blood in the stool.? Labs showed a decreased hemoglobin level of 8.[address] of the abdomen and pelvis showed pancolitis.? Started on broad spectrum antibiotics and underwent EGD and colonoscopy.? Findings of colonoscopy were consistent with ulcerative colitis and patient was started on IV hydrocortisone and mesalamine.? Patient was discharged 05/05/2024 with prednisone and mesalamine and instructed to follow up with GI. Today he tells us he has been feeling much better since his discharge from the hospital. He is still currently taking the prednisone and mesalamine and episodes of diarrhea have decreased to 2 to 3 times a day and is no longer having blood in the stool. His abdominal pain is improved. He is still using methadone for opioid use disorder and has good adherence. He has no other concerns at this time. [facility] Social History Household Members: Significant Other and Friend(s) Housing: Apartment Do you presently have visiting nurse or other home services: No Alcohol intake: never Patient Tobacco Use Status: Former Tobacco user Tobacco use type: Cigarette Cigarettes Per Day: 2 e-Cigarette/Vaping Use: Currently Using (2-3x/day) Second Hand Smoke Exposure: Yes Substance Use Type: Crack/Cocaine, Heroin, Opiates and Other service: No Current occupational status: employed Cognitive needs: No Hearing needs: No Vision needs: No Questionnaire PHQ-9 Over the last 2 weeks, how often have you been bothered by any of the following problems? 1. Little interest or pleasure in doing things: not at all 2. Feeling down, depressed, or hopeless: not at all 3. Trouble falling or staying asleep, or sleeping too much: more than half the days 4. Feeling tired or having little energy: not at all 5. Poor appetite or overeating: not at all 6. Feeling bad about yourself - or that you are a failure or have let yourself or your family down: not at all 7. Trouble concentrating on things, such as reading the newspaper or watching television: several days 8. Moving or speaking so slowly that other people could have noticed. Or the opposite - being so fidgety or restless that you have been moving around a lot more than usual: not at all 9. Thoughts that you would be better off or of hurting yourself in some way: not at all Total score: 3 Depression Screening Interpretation: Negative Depression Screening Done: Yes 82933 - PHQ-9 Billing: Yes Source: Developed by Drs. Michael Dela Cruz, Toya Waters, Lewis Roberts and colleagues, with an educational ankush from [employer]. Thrive Questionnaire Date Thrive assessed: 05/01/24 I am a: Patient What is your living situation today?: I have a steady place to live Within the past 12 months, did the food you bought not last and you didn't have the money to get more?: Never true Within the past 12 months, did you worry whether your food would run out before you got money to buy more?: Never true Do you have trouble paying for medicines?: No Do you have trouble getting transportation to medical appointments?: No Do you have trouble paying your heating and electricity bill?: No Do you have trouble taking care of your child, family member or friend?: No Do you have trouble with day-to-day activities such as bathing, preparing meals, shopping, managing finances, etc.?: No Are you currently unemployed and looking for a job?: No Are you interested in more education?: No Please select the resources that you would like help with: None Currently or been in a relationship where the following occur: No concerns reported THRIVE Score: 0 AUDIT C Alcohol Use Questionnaire (AUDIT-C) 1. How often do you have a drink containing alcohol?: Never 2. How many drinks containing alcohol do you have on a typical day when you are drinking?: 1 or 2 (0) 3. How often do you have six or more drinks on one occasion?: Never Total Score: 0 PIPPA-7 AMB Questionnaire PIPPA-7 Date PIPPA - 7 assessed: 05/07/24 Feeling nervous, anxious, or on edge: 0 = Not at all Not being able to stop or control worryin = Not at all Worrying too much about different things: 0 = Not at all Trouble relaxin = Not at all Being so restless that it is hard to sit still: 0 = Not at all Becoming easily annoyed or irritable: 0 = Not at all Feeling afraid as if something awful might happen: 0 = Not at all Total PIPPA-7 score (0-4 normal; 5-9 mild; 10-14 moderate; 15-21 severe): 0 Source: Developed by Drs. Michael Dela Cruz, Toya Waters, Lewis Roberts and colleagues, with an educational ankush from [employer]. PIPPA-7 Assessment Billing PIPPA-7 Assessment Tool: PIPPA-7 Assessment 56656 Review of Systems Const Denies body aches, Denies fatigue, Denies fever(s), Denies frequent falls, Denies headache(s) and Denies weakness Eyes Reports no additional complaints and Denies change in vision ENT Denies dysphagia, Denies dizziness, Denies facial pain, Denies headache(s), Denies hearing loss, Denies nasal congestion and Denies odynophagia Card Denies chest pain, Denies syncope, Denies irregular heart rhythm, Denies leg edema, Denies lightheadedness and Denies dyspnea Resp Denies cough and Denies dyspnea GI Details: diarrhea 2-3x per day Denies melena, Denies hematochezia, Denies constipation, Denies dysphagia, Denies dyspepsia, Reports diarrhea, Denies nausea, Denies odynophagia and Denies vomiting Denies dysuria, Denies urinary frequency, Denies urinary hesitancy and Denies urinary urgency Musc Denies back pain and Denies myalgias Skin/Breast Reports system reviewed and no additional complaints, except as documented Neuro Denies dizziness, Denies syncope, Denies frequent falls, Denies headache(s) and Denies weakness Psych Reports no additional complaints Endo Denies fatigue Physical exam (Primary Care) Vital Signs: Last Vital Signs Pulse 122 H 05/07/24 15:40 BP 122/60 05/07/24 15:40 Pulse Ox 98 05/07/24 15:40 Oxygen Delivery Method Room Air 05/07/24 15:40 BMI result Body Mass Index 18.5 Tobacco/Smoking Status: Tobacco use Status Tobacco use date assessed 05/07/24 05/07/24 15:41 Patient Tobacco Use Status Former Tobacco user 05/07/24 16:05 Tobacco use type Cigarette 05/07/24 16:05 e-Cigarette/Vaping Use Currently Using (2-3x/day) 05/07/24 16:05 PHQ-9: PHQ-9 Score PHQ-9: Total score 3 05/07/24 16:05 Depression Screening Interpretation: Negative Thrive Assessment: Date of Thrive Assessment Date Thrive assessed 05/01/24 05/07/24 15:41 Currently or been in a relationship where the following occur: No concerns reported Const General: cooperative, healthy appearing, comfortable and no acute distress Orientation/consciousness: patient oriented x3 HENMT Head: Yes normocephalic Ears: hearing grossly normal bilaterally, external ears normal, TM's normal bilaterally and EAC's normal General nose exam: Normal external nose present Face and sinus: Yes normal facial exam and Yes sinuses nontender Mouth: Normal oral and palatal mucosa present and tongue normal Throat: Yes posterior oropharynx normal Eyes General: appearance normal, both eyes and all related structures Conjunctivae: conjunctivae normal Pupils: Equal, round and reactive pupils present EOM: EOMs intact bilaterally and No Nystagmus present Neck Neck: Yes normal visual inspection, Yes full ROM and Yes no lymphadenopathy Chest Chest palpation & inspection: normal inspection of the chest Resp Effort & Inspection: normal respiratory effort Auscultation: clear to auscultation bilaterally, no crackles, no rales, no rhonchi, no wheezes and breath sounds present Cardio Rate: regular rate Rhythm: regular rhythm Peripheral pulses: dorsalis pedis present GI Inspection: Yes normal to inspection and No Abdominal wall edema Palpation (GI): Soft to palpation, not firm and nontender Auscultation: normal bowel sounds Rectal Exam - Male: Yes deferred General: Yes no CVA tenderness Back/Spine/Pelvis Back: no CVA tenderness Skin General skin exam: no rashes or lesions noted Neuro General: patient oriented x3 Cranial nerves: Yes Equal, round and reactive pupils present, Yes Midline tongue present, Yes Ability to bilaterally elevate shoulders present and No Nystagmus present Gait exam (Neuro): Normal gait present Extrem General: Yes normal to inspection, Yes full ROM, No no pedal edema and No edema Psych Speech and movement: Normal speech and movement present Affect: normal affect Insight: Good insight present (Psych) Judgement: Good judgement present (Psych) Assessment and Plan Assessment & Plan (1) Colitis: Code(s): K52.9 - Noninfective gastroenteritis and colitis, unspecified Plan: Endoscopy showed findings consistent with ulcerative colitis and awaiting biopsy results. Patient is still currently on prednisone and mesalamine. Per hospital discharge note should follow up with Dr. Milian outpatient. Instructed patient to call Gastroenterology office to make appointment within the week. Follow up in 6 months after Gastroenterology appointment. (2) Annual physical exam: Code(s): Z00.00 - Encounter for general adult medical examination without abnormal findings Plan: Patient is up-to-date on all age related screenings. Lipid panel ordered. Tetanus shot was offered but declined at this visit. (3) Opioid use disorder: Code(s): F11.90 - Opioid use, unspecified, uncomplicated Plan: Patient has been using methadone and goes to the clinic daily. Plan This note was constructed using voice recognition software. While every effort has been made to ensure accuracy and commutator presser, still areas may have been included sometimes these areas may affect the content or meeting of the given symptoms. Total time spent caring for the patient today was 35 minutes. This includes time spent before the visit reviewing the chart, time spent during the visit, and time spent after the visit and documentation. Orders: Orders Lipid Panel Today Z00.00 - Encounter for general adult medical examination without abnormal findings Referrals Gastroenterology Referral K52.9 - Noninfective gastroenteritis and colitis, unspecified Coding Level of Care Code New Pt Prev Care 18-39yr(41897 Diagnoses Colitis K52.9 Annual physical exam Z00.00 Opioid use disorder F11.90 Additional Codes PIPPA-7 Assessment Billing - PIPPA-7 Assessment Tool: PIPPA-7 Assessment [id number] ([id number])
[2024-05-07 15:40] VITALS: BP 122/60; PULSE 122; O2SAT 98; BMI 18.5
== END 2024-05-07 16:24 | disposition home or self-care (01) ==
DX: Z00.00 Encounter for general adult medical examination without abnormal findings (principal); K52.9 Noninfective gastroenteritis and colitis, unspecified; F11.90 Opioid use, unspecified, uncomplicated
CPT/HCPCS: 99385

== ENCOUNTER 2024-07-20 16:16 | Inpatient (IN) | payer BC, SELFPAY ==
[2024-07-20 17:11] VITALS: BP 109/83; PULSE 111; RESP 19; TEMP 36.6; O2SAT 99; BMI 22.5
--- NOTE | 2024-07-20 17:14 | ED_ITS ---
HPI - General Adult General Chief complaint: Abdominal Pain Stated complaint: abd pain, blood in stool Time Seen by Provider: 07/20/24 20:57 Source: patient Mode of arrival: ambulatory Limitations: no limitations History of Present Illness ED Provider: Dr. Red Pacheco HPI narrative: 33-year-old male with a history of ulcerative colitis, microcytic anemia, opioids, fentanyl, and cocaine use disorder who presents emergency department for evaluation of epigastric pain x1 0.5 weeks with associated frequent, bloody diarrhea. Patient was diagnosed with ulcerative colitis during his hospitalization from 04/30/2024 for an until 05/05/2024-initially treated with steroids, IV antibiotics, had colonoscopy which confirmed ulcerative colitis,discharged on mesalamine also started on methadone for opiate use disorder. Patient states that he was taking oral medications (mesalamine) but ran out of these medications proximally 1-1/2 weeks prior and was not able to get a refill. He states that since stopping his medications , he has developed diffuse abdominal pain which he describes as a constant bowel pressure-like sensation. He also developed 10-20 diarrheal stools per day. He states the stool is mucousy and bloody. He states that over the last 2 days he has not been able to eat or drink secondary to his abdominal pain and nausea. States he has lost 10 lb over the last week. Patient continues to use intranasal cocaine. He had subjective fever and chills. Related Data Previous Rx's ?Medication ?Instructions ?Recorded prednisone 5 mg tablet See Rx Instructions .Route 05/04/24 .COMPLEX #252 tabs ferrous sulfate 324 mg (65 mg 324 mg PO BIDWM #60 tabs 05/05/24 iron) tablet,delayed release mesalamine 400 mg capsule (with 1,600 mg (4 x 400 mg) PO TID #27 ea 05/05/24 delayed release tablets inside) (Delzicol) methadone 10 mg/mL oral 60 mg (6 mL) PO DAILY #30 mL 05/05/24 concentrate (Methadose) Allergies Allergy/AdvReac Type Severity Reaction Status Date / Time lucy Allergy Intermediate Hives Verified 07/20/24 17:12 Review of Systems 2 Review of Systems: Yes all other systems are reviewed and are negative PMFSH Past Medical History [facility] Narrative: Social history: Patient vapes nicotine products. He denies alcohol use. He admits to using intranasal cocaine. Social History Social History Household Members: Significant Other and Friend(s) Housing: Apartment Do you presently have visiting nurse or other home services: No Alcohol intake: never Patient Tobacco Use Status: Former Tobacco user Tobacco use type: Cigarette Cigarettes Per Day: 2 e-Cigarette/Vaping Use: Currently Using (2-3x/day) Second Hand Smoke Exposure: Yes Substance Use Type: Crack/Cocaine, Heroin, Opiates and Other Advance Directives: No Advance Directives Information Provided: No Do you have a plan to hurt others: No Plan service: No Current occupational status: employed Cognitive needs: No Hearing needs: No Vision needs: No Physical Exam ED Vital Signs: Vital Signs - 24 hr 07/20/24 17:11 07/20/24 20:39 Temperature 98 F 98.9 F Pulse Rate 111 H 100 Respiratory Rate 19 18 Blood Pressure 109/83 114/78 Pulse Oximetry 99 100 Oxygen Delivery Method Room Air Room Air BMI result Body Mass Index 22.5 Vital signs revealed an elevated heart rate of 111 otherwise were unremarkable Exam: General: Awake, alert, male patient, very thin with a weight of 52.2 kg and a BMI of 22.5 kg per m2. He appears to be in [id number] distress secondary to his abdominal pain. Head: Normocephalic, atraumatic EENT: PERRL, Lids normal, sclera normal, conjunctiva normal, nose normal , ears normal, throat without erythema or exudates Neck: Supple, no adenopathy Lung: breath sounds symmetric, no wheezing, rales or rhonchi Chest: symmetric movement, nontender Heart: regular rate and rhythm, normal S1, S2 no murmurs or rubs Abdomen: soft, diffuse abdominal tenderness, nondistended, normal bowel sounds Back: no vertebral tenderness, no CVAT Extremities: no deformities, moves all extremities symmetrically Neuro: Awake, alert, oriented, normal speech, cranial nerves intact, moves all extremities symmetrically Psych: Pleasant, cooperative Course Course Course Narrative: RME performed by Lizett Tesfaye PA-C. Patient is a 33 year old assigned male at presenting to the emergency department with epigastric pain and diarrhea. Detailed physical exam and review of systems are deferred to the travel accommodation inspector. Labs ordered. Patient placed back in the waiting room pending room availability and results. Medical Decision Making Medical Decision Making [facility] Narrative: 33-year-old male with a history of ulcerative colitis, microcytic anemia, opioids, fentanyl, and cocaine use disorder who presents emergency department for evaluation of epigastric pain with associated frequent, bloody diarrhea 10- 20 episodes x1.5 weeks after running out of his mesalamine and he was unable to get a refill of these medications. Patient was had a 10 lb weight loss over the last week. Vital signs revealed an elevated heart rate of 111. Abdominal exam revealed diffuse abdominal tenderness. Differential diagnosis: ?Includes but is not limited to ulcerative colitis, appendicitis, pancreatitis, diverticulitis, bacterial diarrhea, C diff colitis, electrolyte abnormalities, anemia Course: 22:27 My interpretation patient's laboratory evaluation is as follows: Microcytic anemia with an H&H 12.3 and 37.2 with an MCV of 70.7-this is chronic. CMP was unremarkable except for an elevated glucose of 118. Lipase was normal. CT scan of the abdomen pelvis with IV contrast is consistent with flare-up of his ulcerative colitis. Given the acute nature, the patient will be treated for possible bacterial colitis as well with ceftriaxone 1 g IV and Flagyl 500 mg IV. I did order morphine 4 mg IV, Zofran 4 mg IV for his nausea and vomiting and normal saline x1 L for his volume depletion/dehydration. Patient will also be treated with Solu-Medrol 60 mg IV for inflammatory ulcerative colitis. I did discuss admission over tiger text with the covering hospitalist, Dr. Yordan Roper. Admission/Observation Consideration of admission/observation: Escalation of care including admission/observation considered Consult Healthcare Provider Management of the patient was discussed with: Hospitalist Lab Data [facility] Lab Attestation statement: I reviewed the patient's lab results. 07/20/24 17:23 07/20/24 17:23 Labs: Lab Results 07/20/24 Range/Units 17:23 WBC 7.5 (4.8-10.8) X10*3/uL RBC 5.26 D (4.60-5.80) X10*6/uL Hgb 12.3 L D (14.0-18.0) g/dl Hct 37.2 L D (42.0-52.0) % MCV 70.7 L (80.0-98.0) fL MCH 23.4 L (27.0-33.0) pg MCHC 33.1 (31.0-36.0) g/dl RDW 20.1 H (11.0-16.0) % Plt Count 863 H (160-400) X10*3/uL MPV 7.8 L (9.4-12.4) fL Immature Gran % (Auto) Cancelled Neut % (Auto) Cancelled Lymph % (Auto) Cancelled [place] % (Auto) Cancelled Eos % (Auto) Cancelled Baso % (Auto) Cancelled Lymph # (Auto) Cancelled [place] # (Auto) Cancelled Eos # (Auto) Cancelled Baso # (Auto) Cancelled Abs Immat Gran (auto) Cancelled Absolute Neuts (auto) Cancelled Absolute Nucleated RBC 0.000 (0.0-0.012) X10*3/uL Nucleated RBC % (auto) 0.0 (0.0-0.2) /100WBC Neutrophils % (Manual) 40 L (45-73) % Band Neutrophils % 7 H (3-5) % Lymphocytes % (Manual) 37 (20-40) % Monocytes % (Manual) 11 (2-11) % Eosinophils % (Manual) 2 (0-4) % Metamyelocytes % 3 % Abs Neuts (Manual) 3.5 (2.0-8.3) X10*3/uL Lymphocytes # (Manual) 2.8 (1.2-4.9) X10*3/uL Monocytes # (Manual) 0.8 (0.1-1.2) X10*3/uL Eosinophils # (Manual) 0.2 (0.0-0.4) X10*3/uL Metamyelocytes # 0.2 X10*3/uL Toxic Granulation PRESENT Platelet Estimate INCREASED (NORMAL) Large Platelets PRESENT Giant Platelets PRESENT Plt Morphology Comment NOTED RBC Morphology NOTED Polychromasia 1+ (0-2) /OIF Target Cells 2+ (15-30) /OIF Tear Drop Cells 1+ (0-2) /OIF Acanthocytes (Spur) 1+ (0-2) /OIF Schistocytes 1+ (0-2) /OIF Sodium 136 (135-145) mmol/L Potassium 4.6 (3.3-5.1) mmol/L Chloride 97 (96-108) mmol/L Carbon Dioxide 27 (22-29) mmol/L Anion Gap 17 (12-20) BUN 6 L (9-16) mg/dL Creatinine 0.85 (0.5-1.4) mg/dL Estim Creat Clear Calc 85.7 Estimated GFR > 60 Random Glucose 118 H (60-115) mg/dL Calcium 9.4 D (8.4-10.2) mg/dL Magnesium 2.4 (1.6-2.6) mg/dL Total Bilirubin 0.2 (0.0-1.0) mg/dL AST 20 (5-37) U/L ALT 27 (0-40) U/L Alkaline Phosphatase 107 (39-117) U/L Total Protein 8.4 H (6.5-8.0) g/dL Albumin 3.6 (3.5-5.0) g/dL Lipase 23 (8-78) U/L Influenza Type A (PCR) NEGATIVE (Negative) Influenza Type B (PCR) NEGATIVE (Negative) RSV RNA Qual (PCR) NEGATIVE (Negative) SARS-CoV-2 RNA (RT-PCR) NEGATIVE (Negative) Radiology Impression Discussion of test interpretation with radiology: I have reviewed the radiologist's reading. Radiologist Impression: CT abdomen pelvis w IV con Findings: GASTROINTESTINAL TRACT: There is marked inflammatory change seen in the rectosigmoid as well as the descending colon. The transverse colon is mildly dilated with air-fluid levels but the mucosa appears unremarkable. There is no pneumatosis. The appendix is likely normal. There is some minimally prominent small bowel loops but no evidence of bowel obstruction IMPRESSION: Marked inflammatory changes in the rectosigmoid and descending colon consistent with colitis. Dictated By: Kiko Garcia MD Independent Historian Clinical information obtained from an independent historian. History obtained from or confirmed by: Parent External Record Review External record reviewed: Inpatient record Chronic Conditions Patient?s care impacted by: Other (Ulcerative colitis) Discharge Plan Discharge Clinical Impression: Bloody diarrhea Ulcerative colitis Qualifiers: Ulcerative colitis location: unspecified ulcerative colitis location Digestive disease complication type: without complication Qualified Code(s): K51.90 - Ulcerative colitis, unspecified, without complications Abdominal pain Qualifiers: Abdominal location: generalized Qualified Code(s): R10.84 - Generalized abdominal pain Patient Disposition: Admitted As Inpatient Prescriptions: No Action prednisone 5 mg tablet See Rx Instructions .ROUTE .COMPLEX Qty: 252 0RF Rx Instructions: Take by mouth as follow Week 1: 8 tablets/day * 7 days = 56 tablets Week 2: 7 tablets/day * 7 days = 49 tablets Week 3: 6 tablets/day * 7 days = 42 tablets Week 4: 5 tablets/day * 7 days = 35 tablets Week 5: 4 tablets/day * 7 days = 28 tablets Week 6: 3 tablets/day * 7 days = 21 tablets Week 7: 2 tablets/day * 7 days = 14 tablets Week 8: 1 tablet/day * 7 days = 7 tablets ferrous sulfate 324 mg (65 mg iron) Tablet,Delayed Release (Dr/Ec) 324 mg PO BIDWM Qty: 60 1RF methadone [Methadose] 10 mg/mL Concentrate 60 mg PO DAILY Qty: 30 0RF Rx Instructions: Partial Fill upon patient request. mesalamine [Delzicol] 400 mg Capsule (With Del Rel Tablets) 1,600 mg PO TID Qty: 27 0RF Print Language: Yakut
[2024-07-20 17:43] LABS: Alanine Aminotransferase 27 U/L (0-40); Albumin Level 3.6 g/dL (3.5-5.0); Alkaline Phosphatase 107 U/L (39-117); Anion Gap 17 (12-20); Aspartate Amino Transferase 20 U/L (5-37); Bilirubin Total 0.2 mg/dL (0.0-1.0); Blood Urea Nitrogen 6 mg/dL (9-16); Calcium 9.4 mg/dL (8.4-10.2); Carbon Dioxide 27 mmol/L (22-29); Chloride 97 mmol/L (96-108); Creatinine Clr Calc Pharmacy 85.7; Estimated Glomerular Filt Rate > 60; Glucose Random 118 mg/dL (60-115); Lipase 23 U/L (8-78); Magnesium 2.4 mg/dL (1.6-2.6); Potassium 4.6 mmol/L (3.3-5.1); Sodium 136 mmol/L (135-145); Total Protein 8.4 g/dL (6.5-8.0)
[2024-07-20 17:56] LABS: Hematocrit 37.2 % (42.0-52.0); Hemoglobin 12.3 g/dl (14.0-18.0); Mean Corpuscular HGB Conc 33.1 g/dl (31.0-36.0); Mean Corpuscular Hemoglobin 23.4 pg (27.0-33.0); Mean Corpuscular Volume 70.7 fL (80.0-98.0); Mean Platelet Volume 7.8 fL (9.4-12.4); Platelet Count 863 X10*3/uL (160-400); Red Blood Count 5.26 X10*6/uL (4.60-5.80); Red Cell Distribution Width 20.1 % (11.0-16.0); White Blood Count 7.5 X10*3/uL (4.8-10.8)
[2024-07-20 18:09] LABS: Influenza A PCR NEGATIVE (Negative); Influenza B PCR NEGATIVE (Negative); Resp Syncy Virus RNA Qual PCR NEGATIVE (Negative); SARS COV2 PCR INHOUSE NEGATIVE (Negative)
[2024-07-20 18:26] LABS: Acanthocytes 1+ (0-2) /OIF; Band Neutrophils Percent 7 % (3-5); Eosinophils Absolute Manual 0.2 X10*3/uL (0.0-0.4); Eosinophils Percent Manual 2 % (0-4); Giant Platelet PRESENT; Large Platelet PRESENT; Lymphocytes Absolute Manual 2.8 X10*3/uL (1.2-4.9); Lymphocytes Percent Manual 37 % (20-40); Metamyelocytes Absolute 0.2 X10*3/uL; Metamyelocytes Percent 3 %; Monocytes Absolute Manual 0.8 X10*3/uL (0.1-1.2); Monocytes Percent Manual 11 % (2-11); Neutrophils Absolute Manual 3.5 X10*3/uL (2.0-8.3); Neutrophils Percent Manual 40 % (45-73); Platelet Estimate INCREASED (NORMAL); Platelet Morphology Comment NOTED; Polychromasia 1+ (0-2) /OIF; RBC Morphology NOTED; Schistocytes 1+ (0-2) /OIF; Target Cells 2+ (15-30) /OIF; Tear Drop Cells 1+ (0-2) /OIF
[2024-07-20 18:27] LABS: Toxic Granulation PRESENT
[2024-07-20 20:39] VITALS: BP 114/78; PULSE 100; RESP 18; TEMP 37.2; O2SAT 100
[2024-07-20] MEDS: 0.9 % Sodium Chloride 1,000 ML 999 ML IV (23:38)
[2024-07-20] MEDS: Morphine Sulfate 4 MG/ML CARTRIDGE IVPUSH (23:39)
[2024-07-20] MEDS: methylPREDNISolone Sod Succ 125 MG/2 ML VIAL 60 MG IVPUSH (23:39)
[2024-07-20] MEDS: ondansetron HCL 4 MG/2 ML VIAL IVPUSH (23:39)
[2024-07-20] MEDS: cefTRIAXone sodium 1 GM in 0.9 % Sodium Chloride 50 ML IV (23:39)
[2024-07-20 23:47] VITALS: BP 129/89; PULSE 98; RESP 18; TEMP 37.3; O2SAT 98
[2024-07-21 00:13] LABS: Appearance Urine Clear; Color Urine Yellow; Glucose Urine UA Negative (Negative); Leukocyte Esterase Urine Negative (Negative); Nitrite Urine Positive (Negative); PH 6.5 (5.0-9.0); Specific Gravity - Urine >= 1.030 (1.005-1.025); UMIC TRIGGER UACC YES; Urine Blood Negative (Negative); Urine Ketones 15 mg/dL (Negative); Urine Protein 100 (2+) mg/dL (Neg-Trace)
[2024-07-21 00:26] LABS: Bacteria Urine None Seen (None Seen); Hyaline Casts Urine >20 /LPF (0-2); UACC Culture Trigger YES
[2024-07-21] MEDS: metroNIDAZOLE/NS 500 MG/100 ML PIGGYBACK 100 MG IV ×4 (00:36→23:52)
[2024-07-21] MEDS: Morphine Sulfate 4 MG/ML CARTRIDGE IVPUSH (00:36)
[2024-07-21 00:37] LABS: Amphetamine Screen Urine Not Detected (Not Detect); Barbiturates, Urine Not Detected (Not Detect); Benzodiazepines Screen Urine Not Detected (Not Detect); Buprenorphine Scr Not Detected (Not Detect); Cannabinoid Screen Urine POSITIVE (Not Detect); Cocaine Screen Urine POSITIVE (Not Detect); Fentanyl, urine POSITIVE (Not Detect); Methadone Screen, Urine Positive (Not Detect); Opiate Screen Urine POSITIVE (Not Detect); Oxycodone Screen Urine Not Detected (Not Detect); Phencyclidine Screen Urine Not Detected (Not Detect)
--- NOTE | 2024-07-21 00:42 | P.HPHOSP_ITS ---
History of Present Illness Date of Service: 07/21/24 Attending physician on admission: Scott Roper Chief Complaint: Abdominal pain, bloody diarrhea Taj Hanson is a 33 years old man with past medical history significant for recent diagnosis of ulcerative colitis presents to the ED complaining of generalized abdominal pain associated with bloody stools, nausea and vomiting over the last week. Patient stated that the symptoms started after he ran out of mesalamine. He reports suggestive fever. He did not report any cardiopulmonary or genitourinary symptoms. He has history of drug abuse and take methadone for this. He denied ongoing drug abuse. His urine drug screen today is positive for fentanyl, methadone, marijuana, cocaine and opiates. In the ED, he was found to have stable vital signs. There is no fever reported. Blood workup does not show leukocytosis bolus toxic granulation and bandemia of 7%. Lactic acid is not available. UA consistent with UTI. Cdiff sample was obtained and is pending. Abdominal pelvis CT scan with IV contrast showed marked inflammatory changes in the rectosigmoid and descending colon consistent with colitis. ED tx: NS 1 L bolus, morphine 8 mg IV (total), Zofran 4 mg IV, Solu-Medrol 60 mg IV, ceftriaxone 1 g, metronidazole 500 mg IV. Review of Systems 2 Review of Systems: All 12 systems were reviewed and normal except as noted in HPI. [facility] Social History Household Members: Significant Other and Friend(s) Housing: Apartment Do you presently have visiting nurse or other home services: No Alcohol intake: never Patient Tobacco Use Status: Former Tobacco user Tobacco use type: Cigarette Cigarettes Per Day: 2 e-Cigarette/Vaping Use: Currently Using (2-3x/day) Second Hand Smoke Exposure: Yes Substance Use Type: Crack/Cocaine, Heroin, Opiates and Other Advance Directives: No Advance Directives Information Provided: No Do you have a plan to hurt others: No Plan service: No Current occupational status: employed Cognitive needs: No Hearing needs: No Vision needs: No Meds Allergies Allergy/AdvReac Type Severity Reaction Status Date / Time lucy Allergy Intermediate Hives Verified 07/20/24 17:12 Active Medications: Current Medications Acetaminophen (Acetaminophen 325 Mg Tablet) 650 mg PO Q6H PRN PRN Reason: Pain, Mild (Pain Scale 1-3), fever or headache Lactated Ringer's (Lr) 1,000 mls @ 125 mls/hr IVCONT .Q8H [facility] Melatonin (Melatonin 3 Mg Tablet) 6 mg PO BEDTIME PRN PRN Reason: Insomnia Sodium Chloride (0.9 % Sodium Chloride Flush 3 Ml Syringe) 3 ml IVFLUSH QSHIFT FREIDA Physical Exam 2 Vital Signs and Narrative: Vital Signs: Last Vital Signs Temp 99.2 F 07/20/24 23:47 Pulse 98 07/20/24 23:47 Resp 18 07/20/24 23:47 BP 129/89 07/20/24 23:47 Pulse Ox 98 07/20/24 23:47 O2 Del Method Room Air 07/20/24 23:47 BMI result Body Mass Index 22.5 Constitutional - Awake and Alert. Looks uncomfortable due to pain. HEENT - PERRL, EOMI. Dry oral mucosa. Heart - S1S2, RRR, No murmurs. Lungs - Normal lung expansion, Normal respiratory effort, No respiratory distress, CTA bilaterally Abdomen- Nondistended. Generalized tenderness to palpation. No rebound. No guarding. Increased bowel sounds. Extremities - no calf tenderness bilaterally, no swelling Musculoskeletal - Normal inspection, normal ROM Skin - Warm/Dry Neurological - Alert & oriented x3. No focal weakness grossly noted. Normal speech. Psychological - Appropriate affect Results Labs 07/20/24 17:23 07/20/24 17:23 Labs: Laboratory Results - last 24 hr 07/20/24 07/20/24 17:23 23:53 MCV 70.7 L MCH 23.4 L MCHC 33.1 RDW 20.1 H Plt Count 863 H MPV 7.8 L Immature Gran % (Auto) Cancelled Neut % (Auto) Cancelled Lymph % (Auto) Cancelled [place] % (Auto) Cancelled Eos % (Auto) Cancelled Baso % (Auto) Cancelled Lymph # (Auto) Cancelled [place] # (Auto) Cancelled Eos # (Auto) Cancelled Baso # (Auto) Cancelled Abs Immat Gran (auto) Cancelled Absolute Neuts (auto) Cancelled Absolute Nucleated RBC 0.000 Nucleated RBC % (auto) 0.0 Neutrophils % (Manual) 40 L Band Neutrophils % 7 H Lymphocytes % (Manual) 37 Monocytes % (Manual) 11 Eosinophils % (Manual) 2 Metamyelocytes % 3 Abs Neuts (Manual) 3.5 Lymphocytes # (Manual) 2.8 Monocytes # (Manual) 0.8 Eosinophils # (Manual) 0.2 Metamyelocytes # 0.2 Toxic Granulation PRESENT Platelet Estimate INCREASED Large Platelets PRESENT Giant Platelets PRESENT Plt Morphology Comment NOTED RBC Morphology NOTED Polychromasia 1+ (0-2) Target Cells 2+ (15-30) Tear Drop Cells 1+ (0-2) Acanthocytes (Spur) 1+ (0-2) Schistocytes 1+ (0-2) Anion Gap 17 Estim Creat Clear Calc 85.7 Estimated GFR > 60 Random Glucose 118 H Calcium 9.4 D Magnesium 2.4 Total Bilirubin 0.2 AST 20 ALT 27 Alkaline Phosphatase 107 Total Protein 8.4 H Albumin 3.6 Lipase 23 Urine Color Yellow Urine Appearance Clear Urine pH 6.5 Ur Specific [place] >= 1.030 H Urine Protein 100 (2+) H Urine Glucose (UA) Negative Urine Ketones 15 Urine Blood Negative Urine Nitrite Positive H Ur Leukocyte Esterase Negative Urine RBC 3-5 H Urine WBC 6-10 H Ur Squamous Epith Cells 3-5 Urine Bacteria None Seen Hyaline Casts >20 Urine Opiates Screen POSITIVE H Ur Buprenorphine Scrn Not Detected Ur Oxycodone Screen Not Detected Urine Methadone Screen Positive H Urine Fentanyl Screen POSITIVE H Ur Barbiturates Screen Not Detected Ur Phencyclidine Scrn Not Detected Ur Amphetamines Screen Not Detected U Benzodiazepines Scrn Not Detected Urine Cocaine Screen POSITIVE H U Marijuana (THC) Screen POSITIVE H Influenza Type A (PCR) NEGATIVE Influenza Type B (PCR) NEGATIVE RSV RNA Qual (PCR) NEGATIVE SARS-CoV-2 RNA (RT-PCR) NEGATIVE Assessment and Plan (1) Exacerbation of ulcerative colitis: Qualifiers: Digestive disease complication type: with rectal bleeding Qualified Code(s): K51.911 - Ulcerative colitis, unspecified with rectal bleeding Status: Acute (2) Bloody diarrhea: Status: Acute (3) UTI (urinary tract infection): Qualifiers: Urinary tract infection type: acute cystitis Hematuria presence: w ithout hematuria Qualified Code(s): N30.00 - Acute cystitis without hematuria Status: Acute Plan Taj Hanson is a 33 y/o man admitted with: * Ulcerative colitis exacerbation: Bloody stool and abdominal pain, patient ran out of mesalamine. Admit to hospitalist service. NPO. Continue IV fluids. Continue empiric IV antibiotic therapy with Flagyl and ceftriaxone as CBC differential showing bandemia 7% and toxic granulation. GI panel, C diff and blood cultures x2 obtained -will follow results. Avoid narcotics, Tylenol IV for pain control. Check lactic acid and CRP. * UTI. Continue ceftriaxone. UC obtained -will follow results. * Anemia. Continue to monitor. * History of drug abuse. Continue methadone. Urine drug screen positive for opiates, fentanyl, marijuana and cocaine. Addiction medicine consult. DVT prophylaxis: SCDs, early ambulation. Code status: Full Patient will need hospitalization for at least 2 midnights for UC flare treatment with IV steroids, IV analgesia and IV fluids. Quality Stroke Does the patient have a stroke diagnosis?: No VTE Prior VTE?: No VTE Risk Level:: Medical - moderate - high VTE Device Contraindication: Treatment Not Indicated VTE Drug Contraindication: Treatment Not Indicated
[2024-07-21 01:00] LABS: CDiff Gene PCR NEGATIVE (Negative)
[2024-07-21 01:13] LABS: C Reactive Protein 21.68 mg/dL (< or = 0.50)
[2024-07-21 01:41] LABS: Lactic Acid 0.6 mmol/L (0.5-2.0)
[2024-07-21] MEDS: Lactated Ringers 1,000 ML 125 ML IVCONT ×3 (02:17→17:54)
[2024-07-21] MEDS: Acetaminophen 1,000 MG/100 ML PIGGYBACK 400 MG IV ×4 (02:20→20:47)
[2024-07-21] MEDS: Melatonin 3 MG TABLET 6 MG PO (02:20)
[2024-07-21 06:48] LABS: Basophils Percent Auto 0.6 % (0-2); Hematocrit 30.5 % (42.0-52.0); Imm Gran Abs Auto 0.05 X10*3/uL (0.00-0.03); Imm Gran Pct Auto 0.9 % (0.0-0.4); Lymphocytes Absolute Auto 0.4 X10*3/uL (1.2-4.9); Lymphocytes Percent Auto 6.7 % (20-40); MANUAL DIFF FLAG SCAN; Mean Corpuscular HGB Conc 32.8 g/dl (31.0-36.0); Mean Corpuscular Hemoglobin 22.8 pg (27.0-33.0); Mean Corpuscular Volume 69.6 fL (80.0-98.0); Mean Platelet Volume 7.9 fL (9.4-12.4); Monocytes Absolute Auto 0.1 X10*3/uL (0.1-1.2); Monocytes Percent Auto 0.9 % (2-11); Neutrophils Absolute Auto 4.9 x10*3/uL (2.0-8.3); Neutrophils Percent Auto 90.9 % (45-73); Platelet Count 689 X10*3/uL (160-400); Red Blood Count 4.38 X10*6/uL (4.60-5.80); Red Cell Distribution Width 19.5 % (11.0-16.0); SCAN SMEAR FLAG 1; White Blood Count 5.4 X10*3/uL (4.8-10.8)
[2024-07-21 07:07] LABS: Alanine Aminotransferase 34 U/L (0-40); Albumin Level 2.9 g/dL (3.5-5.0); Alkaline Phosphatase 118 U/L (39-117); Anion Gap 9 (12-20); Aspartate Amino Transferase 52 U/L (5-37); Bilirubin Total 0.2 mg/dL (0.0-1.0); Blood Urea Nitrogen 5 mg/dL (9-16); Calcium 8.6 mg/dL (8.4-10.2); Carbon Dioxide 23 mmol/L (22-29); Chloride 103 mmol/L (96-108); Creatinine Clr Calc Pharmacy 102.6; Estimated Glomerular Filt Rate > 60; Glucose Random 155 mg/dL (60-115); Potassium 4.4 mmol/L (3.3-5.1); Sodium 131 mmol/L (135-145); Total Protein 6.6 g/dL (6.5-8.0)
[2024-07-21 07:24] LABS: SLIDE REVIEW VERIFIED
[2024-07-21 08:07] VITALS: BP 117/66; PULSE 79; RESP 18; TEMP 36.6; O2SAT 99
[2024-07-21 08:21] LABS: C Reactive Protein 13.71 mg/dL (< or = 0.50)
[2024-07-21] MEDS: methylPREDNISolone Sod Succ 40 MG/ML VIAL 20 MG IVPUSH ×3 (08:29→23:51)
[2024-07-21] MEDS: 0.9 % Sodium Chloride Flush 3 ML SYRINGE IVFLUSH (08:29)
--- NOTE | 2024-07-21 09:03 | PHA.MEDREC ---
Addendum entered by Mavis Rangel RPh 07/21/24 10:36: med rec reviewed by jose a Original Note: Pharmacy Consult ? Medication Reconciliation Pharmacy has completed the medication reconciliation. Spoke to patient. Patient claims he is only taking a Multivitamin tablet once daily but states its been about 4 days since hes had that and he uses Methadone and states he is using 60mg daily but has not had it in about 2-3 days.
--- NOTE | 2024-07-21 11:21 | HO.PM.IMPN ---
Subjective Subjective Date of Service: 07/21/24 Interval History: Abdominal pain, bloody diarrhea Review of Systems abd pain diarrhae is little improving. Physical Exam Vital Signs: Vital Signs: Last Vital Signs Temp 97.9 F 07/21/24 08:07 Pulse 79 07/21/24 08:07 Resp 18 07/21/24 08:07 BP 117/66 07/21/24 08:07 Pulse Ox 99 07/21/24 08:07 O2 Del Method Room Air 07/21/24 08:07 BMI result Body Mass Index 22.5 Appearance: Alert.? Oriented X3.? cvs: rrr, [id number]. res: clear to auscultation ,no rhonchii or wheezing abd: no rebound or guarding , some diffuse abd discomfort, bs present. ext pulses present , no cyanosis . neuro: axo3 , nonfocal. Objective Data Active Medications Acetaminophen (Acetaminophen 325 Mg Tablet) 650 mg PO Q6H PRN PRN Reason: Pain, Mild (Pain Scale 1-3), fever or headache Lactated Ringer's (Lr) 1,000 mls @ 125 mls/hr IVCONT .Q8H [facility] Last Admin: 07/21/24 08:27 Dose: 125 mls/hr Documented By: RAHAT Acetaminophen (Ofirmev) 1,000 mg in 100 mls @ 400 mls/hr IV Q6H [facility] Last Infusion: 07/21/24 10:49 Dose: Infused Documented By: RAHAT Metronidazole (Flagyl) 500 mg in 100 mls @ 100 mls/hr IV Q8H [facility] Last Infusion: 07/21/24 10:49 Dose: Infused Documented By: RAHAT Ceftriaxone Sodium 1 gm/ (Sodium Chloride) 50 mls @ 100 mls/hr IV Q24H [facility] Melatonin (Melatonin 3 Mg Tablet) 6 mg PO BEDTIME PRN PRN Reason: Insomnia Last Admin: 07/21/24 02:20 Dose: 6 mg Documented By: JARROD Methylprednisolone Sodium Succinate (Methylprednisolone Sod Succ 40 Mg/Ml Vial) 20 mg IVPUSH Q8H [facility] Last Admin: 07/21/24 08:29 Dose: 20 mg Documented By: RAHAT Multivitamins/Vitamin C (Multivitamin Tablet) 1 tab PO DAILY [facility] Ondansetron HCl (Ondansetron Hcl 4 Mg/2 Ml Vial) 4 mg IVPUSH Q6H PRN PRN Reason: Nausea and Vomiting Sodium Chloride (0.9 % Sodium Chloride Flush 3 Ml Syringe) 3 ml IVFLUSH QSHIFT [facility] Last Admin: 07/21/24 08:29 Dose: 3 ml Documented By: RAHAT Labs 07/21/24 06:29 07/21/24 06:29 Labs: Laboratory Results - last 24 hr 07/20/24 07/20/24 07/21/24 17:23 23:53 01:18 MCV 70.7 L MCH 23.4 L MCHC 33.1 RDW 20.1 H Plt Count 863 H MPV 7.8 L Immature Gran % (Auto) Cancelled Neut % (Auto) Cancelled Lymph % (Auto) Cancelled [place] % (Auto) Cancelled Eos % (Auto) Cancelled Baso % (Auto) Cancelled Lymph # (Auto) Cancelled [place] # (Auto) Cancelled Eos # (Auto) Cancelled Baso # (Auto) Cancelled Abs Immat Gran (auto) Cancelled Absolute Neuts (auto) Cancelled Absolute Nucleated RBC 0.000 Nucleated RBC % (auto) 0.0 Neutrophils % (Manual) 40 L Band Neutrophils % 7 H Lymphocytes % (Manual) 37 Monocytes % (Manual) 11 Eosinophils % (Manual) 2 Metamyelocytes % 3 Abs Neuts (Manual) 3.5 Lymphocytes # (Manual) 2.8 Monocytes # (Manual) 0.8 Eosinophils # (Manual) 0.2 Metamyelocytes # 0.2 Toxic Granulation PRESENT Platelet Estimate INCREASED Large Platelets PRESENT Giant Platelets PRESENT Plt Morphology Comment NOTED RBC Morphology NOTED Polychromasia 1+ (0-2) Target Cells 2+ (15-30) Tear Drop Cells 1+ (0-2) Acanthocytes (Spur) 1+ (0-2) Schistocytes 1+ (0-2) Smear Tech's Comments Anion Gap 17 Estim Creat Clear Calc 85.7 Estimated GFR > 60 Random Glucose 118 H Lactic Acid 0.6 Calcium 9.4 D Magnesium 2.4 Total Bilirubin 0.2 AST 20 ALT 27 Alkaline Phosphatase 107 C-Reactive Protein 21.68 H Total Protein 8.4 H Albumin 3.6 Lipase 23 Urine Color Yellow Urine Appearance Clear Urine pH 6.5 Ur Specific [place] >= 1.030 H Urine Protein 100 (2+) H Urine Glucose (UA) Negative Urine Ketones 15 Urine Blood Negative Urine Nitrite Positive H Ur Leukocyte Esterase Negative Urine RBC 3-5 H Urine WBC 6-10 H Ur Squamous Epith Cells 3-5 Urine Bacteria None Seen Hyaline Casts >20 Urine Opiates Screen POSITIVE H Ur Buprenorphine Scrn Not Detected Ur Oxycodone Screen Not Detected Urine Methadone Screen Positive H Urine Fentanyl Screen POSITIVE H Ur Barbiturates Screen Not Detected Ur Phencyclidine Scrn Not Detected Ur Amphetamines Screen Not Detected U Benzodiazepines Scrn Not Detected Urine Cocaine Screen POSITIVE H U Marijuana (THC) Screen POSITIVE H C. difficile Tox B Gene NEGATIVE Influenza Type A (PCR) NEGATIVE Influenza Type B (PCR) NEGATIVE RSV RNA Qual (PCR) NEGATIVE SARS-CoV-2 RNA (RT-PCR) NEGATIVE 07/21/24 06:29 MCV 69.6 L MCH 22.8 L MCHC 32.8 RDW 19.5 H Plt Count 689 H MPV 7.9 L Immature Gran % (Auto) 0.9 H Neut % (Auto) 90.9 H Lymph % (Auto) 6.7 L [place] % (Auto) 0.9 L Eos % (Auto) 0.0 Baso % (Auto) 0.6 Lymph # (Auto) 0.4 L [place] # (Auto) 0.1 Eos # (Auto) 0.0 Baso # (Auto) 0.0 Abs Immat Gran (auto) 0.05 H Absolute Neuts (auto) 4.9 Absolute Nucleated RBC 0.000 Nucleated RBC % (auto) 0.0 Neutrophils % (Manual) Band Neutrophils % Lymphocytes % (Manual) Monocytes % (Manual) Eosinophils % (Manual) Metamyelocytes % Abs Neuts (Manual) Lymphocytes # (Manual) Monocytes # (Manual) Eosinophils # (Manual) Metamyelocytes # Toxic Granulation Platelet Estimate Large Platelets Giant Platelets Plt Morphology Comment RBC Morphology Polychromasia Target Cells Tear Drop Cells Acanthocytes (Spur) Schistocytes Smear Tech's Comments VERIFIED Anion Gap 9 L Estim Creat Clear Calc 102.6 Estimated GFR > 60 Random Glucose 155 H Lactic Acid Calcium 8.6 D Magnesium Total Bilirubin 0.2 AST 52 H ALT 34 Alkaline Phosphatase 118 H C-Reactive Protein 13.71 H Total Protein 6.6 Albumin 2.9 L Lipase Urine Color Urine Appearance Urine pH Ur Specific [place] Urine Protein Urine Glucose (UA) Urine Ketones Urine Blood Urine Nitrite Ur Leukocyte Esterase Urine RBC Urine WBC Ur Squamous Epith Cells Urine Bacteria Hyaline Casts Urine Opiates Screen Ur Buprenorphine Scrn Ur Oxycodone Screen Urine Methadone Screen Urine Fentanyl Screen Ur Barbiturates Screen Ur Phencyclidine Scrn Ur Amphetamines Screen U Benzodiazepines Scrn Urine Cocaine Screen U Marijuana (THC) Screen C. difficile Tox B Gene Influenza Type A (PCR) Influenza Type B (PCR) RSV RNA Qual (PCR) SARS-CoV-2 RNA (RT-PCR) Assessment and Plan (1) Exacerbation of ulcerative colitis: Status: Acute (2) UTI (urinary tract infection): Status: Acute Assessment and Plan: 33 y/o man admitted with: Ulcerative colitis exacerbation: Bloody stool and abdominal pain, patient ran out of mesalamine. lactic acid normal c diff neg,Gip panel blood cultures pending continue NPO. Continue IV fluids. Continue empiric IV antibiotic therapy with Flagyl and ceftriaxone , Avoid narcotics, Tylenol IV for pain control. Check lactic acid and CRP. ?UTI. Continue ceftriaxone. UC obtained -will follow results. Anemia. Continue to monitor. History of drug abuse. Continue methadone. Urine drug screen positive for opiates, fentanyl, marijuana and cocaine. Addiction medicine consult. DVT prophylaxis: SCDs, early ambulation. ongoing hospitalization for UC flare treatment with IV steroids, IV analgesia and IV fluids. Quality Stroke Does the patient have a stroke diagnosis?: No VTE Prior VTE?: No VTE Risk Level:: Medical - moderate - high VTE Device Contraindication: Treatment Not Indicated VTE Drug Contraindication: Treatment Not Indicated
[2024-07-21 11:27] VITALS: BP 111/84; PULSE 70; RESP 14; TEMP 37.2; O2SAT 99
[2024-07-21 11:50] LABS: Adenovirus F 40/41 Not Detected (Not Detect.); Astrovirus Not Detected (Not Detect.); Campylobacter Not Detected (Not Detect.); Cryptosporidium Not Detected (Not Detect.); Cyclospora cayetanensis Not Detected (Not Detect.); E. coli EAEC Not Detected (Not Detect.); E. coli EPEC Not Detected (Not Detect.); E. coli ETEC Not Detected (Not Detect.); E. coli STEC Not Detected (Not Detect.); Entamoeba histolytica Not Detected (Not Detect.); Giardia lamblia Not Detected (Not Detect.); Norovirus GI/GII Not Detected (Not Detect.); Plesiomonas shigelloides Not Detected (Not Detect.); Rotavirus A Not Detected (Not Detect.); Salmonella Not Detected (Not Detect.); Sapovirus Not Detected (Not Detect.); Shigella sp./EIEC Not Detected (Not Detect.); Vibrio Not Detected (Not Detect.); Vibrio Cholerae Not Detected (Not Detect.); Yersinia enterocolitica Not Detected (Not Detect.)
[2024-07-21 11:54] VITALS: BMI 19.9
--- NOTE | 2024-07-21 12:21 | MHC.RECOVRN ---
Met with pt in [facility] after consult placed to Addiction Medicine for substance use. Pt had presented to the ED reporting epigastric pain for 2 days with diarrhea. Upon evaluation, pt admitted with ulcerative colitis flare. Pt sitting in bed, awake, alert, easily engages in conversation. Pt reports he is currently receiving methadone through [facility], 100 mg daily. Pt reports he began methadone 2-3 months ago and has not used heroin/fentanyl since initiation. Pt reports prior to methadone he had been using 2-3 bundles daily, [place]. Pt reports he does use cocaine occasionally. Pt reports he is employed and receives a lot of support from family. Discussed other recovery resources/supports, pt declines referrals at this time, feels confident in his recovery. Pt encouraged to reach out if needed. Denies questions or concerns for t/w. Eli RN aware pt is on methadone and needs verification. Discussed with Nan Bryan APRN.
[2024-07-21] MEDS: Multivitamin TABLET 1 TAB PO (12:59)
--- NOTE | 2024-07-21 14:01 | PC.NURSE ---
Call placed to [facility], unable to verify pt methadone. Will attempt to call back [facility] [place] [facility]. [employer]ader Eleni.
--- NOTE | 2024-07-21 14:22 | CONS_ITS ---
DATE OF SERVICE: 07/21/2024 REFERRING PHYSICIAN: Dr. Gannon REASON FOR CONSULTATION: Ulcerative colitis. HISTORY OF PRESENT ILLNESS: The patient is a 33-year-old man, who was admitted to the hospital after presenting to the emergency department yesterday with complaints of epigastric pain and diarrhea. He states the diarrhea has been frequent for the last several weeks since he was on mesalamine, which he stopped on his own as an outpatient. This occurred approximately 2 weeks prior to admission. He denies any rectal bleeding, although has stated to other examiners that he did have rectal bleeding. Stools were approximately 10 to 20 times per day by his report. He has had associated abdominal pain, which was generalized without nausea and vomiting. There have been no recent trips, ill contacts, or suspect ingestions. He denies associated fevers or chills. In the emergency department, he was evaluated with laboratory studies documenting a hematocrit of 37. Chemistries showed a markedly elevated C-reactive protein at 13.7. CT scanning is reviewed and this is reported as showing marked inflammatory changes in the rectosigmoid and descending colon. At the time of his diagnosis in April, he underwent colonoscopy showing changes consistent with diffuse ulcerative pancolitis. Biopsies at that time were consistent with chronic colitis. He failed to follow up in the office as directed. CURRENT MEDICATIONS: His current medication list is reviewed in the chart. ALLERGIES: THERE ARE NONE REPORTED. FAMILY HISTORY: This was reviewed with the patient and is negative for inflammatory bowel disease. SOCIAL HISTORY: There is a history of substance abuse. He does smoke cigarettes and denies significant alcohol use. REVIEW OF SYSTEMS: SKIN: No pruritus. HEENT: Negative. CARDIOPULMONARY: No shortness of breath or chest pain. GASTROINTESTINAL: As above. GENITOURINARY: Negative. NEUROPSYCHIATRIC: Negative. PHYSICAL EXAMINATION: GENERAL: Shows a pleasant male, lying comfortably in bed. VITAL SIGNS: Reviewed in electronic medical record and are stable. SKIN: Anicteric. HEENT: Shows no scleral icterus. NECK: Without lymphadenopathy or thyromegaly. LUNGS: Clear. HEART: Shows regular rate and rhythm. S1, S2. No murmur. ABDOMEN: Soft without focal masses or tenderness. Bowel sounds are present. No organomegaly is noted. EXTREMITIES: Without edema. LABORATORY DATA AND IMAGING STUDIES: Reviewed as above. IMPRESSION: Ulcerative colitis. This appears to be an exacerbation of his chronic ulcerative colitis, likely precipitated by his failure to followup and be maintained on proper medications. I agree with treating him with steroids as you are doing. He may eventually need treatment with a biologic agent, although it seems that he was doing fairly well on mesalamine monotherapy. I discussed this with him. I agree with treating him with IV steroids and following his laboratory studies. His diet can be advanced as tolerated. Thanks for asking me to see him. I will follow him in the hospital with you. MD KATHI Matrin/DEMETRI / [phone]
--- NOTE | 2024-07-21 14:45 | PC.NURSE ---
Methadone Verified and faxed to pharmacy and MD notified.
--- NOTE | 2024-07-21 15:19 | HE.PHANOTE ---
re methadone verification: last dose 100 mg given 07/18/24 @yaquelin
[2024-07-21 15:49] VITALS: BP 121/72; PULSE 82; RESP 20; TEMP 36.2; O2SAT 99
[2024-07-21] MEDS: methADONE HCl 20 MG/2 ML ORAL.CONC 100 MG PO (16:08)
[2024-07-21 19:58] VITALS: BP 141/75; PULSE 88; RESP 20; TEMP 36.6; O2SAT 100
[2024-07-21] MEDS: cefTRIAXone sodium 1 GM in 0.9 % Sodium Chloride 50 ML IV (21:17)
[2024-07-22] MEDS: Acetaminophen 1,000 MG/100 ML PIGGYBACK 400 MG IV (02:03)
[2024-07-22] MEDS: Lactated Ringers 1,000 ML 125 ML IVCONT ×3 (02:04→20:29)
[2024-07-22 03:15] VITALS: BP 119/80; PULSE 68; RESP 18; TEMP 36.3; O2SAT 99
[2024-07-22 05:46] LABS: C Reactive Protein 6.14 mg/dL (< or = 0.50)
[2024-07-22 06:20] LABS: Hematocrit 27.8 % (42.0-52.0); Hemoglobin 9.3 g/dl (14.0-18.0); Mean Corpuscular HGB Conc 33.5 g/dl (31.0-36.0); Mean Corpuscular Hemoglobin 23.5 pg (27.0-33.0); Mean Corpuscular Volume 70.4 fL (80.0-98.0); Platelet Count 676 X10*3/uL (160-400); Red Blood Count 3.95 X10*6/uL (4.60-5.80); Red Cell Distribution Width 19.8 % (11.0-16.0); White Blood Count 8.5 X10*3/uL (4.8-10.8)
[2024-07-22] MEDS: methylPREDNISolone Sod Succ 40 MG/ML VIAL 20 MG IVPUSH ×2 (07:02→15:16)
[2024-07-22] MEDS: metroNIDAZOLE/NS 500 MG/100 ML PIGGYBACK 100 MG IV ×2 (07:14→15:22)
[2024-07-22 07:24] VITALS: BP 121/68; PULSE 63; RESP 16; TEMP 36.8; O2SAT 100
[2024-07-22] MEDS: methADONE HCl 20 MG/2 ML ORAL.CONC 100 MG PO (08:01)
[2024-07-22] MEDS: Multivitamin TABLET 1 TAB PO (08:01)
--- NOTE | 2024-07-22 09:00 | P.PNIM_ITS ---
Subjective Subjective Date of Service: 07/22/24 Interval History: f/u [facility] of UC less pain, and wants to try regular food Physical Exam 2 Vital Signs: Vital Signs: Last Vital Signs Temp 98.3 F 07/22/24 07:24 Pulse 63 07/22/24 07:24 Resp 16 07/22/24 07:24 BP 121/68 07/22/24 07:24 Pulse Ox 100 07/22/24 07:24 O2 Del Method Room Air 07/22/24 07:24 BMI result Body Mass Index 19.9 General: AO X 3, no acute distress Resp: CTA bilateral CVS: S1,S2,RRR GI: +BS, moderate tenderness, no distention Skin: No rash Neuro: motor grossly intact Psych: appropriate affect Objective Data Active Medications Acetaminophen (Acetaminophen 325 Mg Tablet) 650 mg PO Q6H PRN PRN Reason: Pain, Mild (Pain Scale 1-3), fever or headache Lactated Ringer's (Lr) 1,000 mls @ 125 mls/hr IVCONT .Q8H [facility] Last Admin: 07/22/24 08:59 Dose: Not Given Documented By: MELANY Non-Admin Reason: IV Running Acetaminophen (Ofirmev) 1,000 mg in 100 mls @ 400 mls/hr IV Q6H [facility] Last Admin: 07/22/24 07:13 Dose: Not Given Documented By: MELANY Non-Admin Reason: over limit Metronidazole (Flagyl) 500 mg in 100 mls @ 100 mls/hr IV Q8H [facility] Last Infusion: 07/22/24 08:59 Dose: Infused Documented By: MELANY Ceftriaxone Sodium 1 gm/ (Sodium Chloride) 50 mls @ 100 mls/hr IV Q24H [facility] Last Infusion: 07/21/24 21:58 Dose: Infused Documented By: BONNIE Melatonin (Melatonin 3 Mg Tablet) 6 mg PO BEDTIME PRN PRN Reason: Insomnia Last Admin: 07/21/24 02:20 Dose: 6 mg Documented By: JARROD Methadone HCl (Methadone Hcl 20 Mg/2 Ml Oral.Conc) 100 mg PO DAILY [facility] Last Admin: 07/22/24 08:01 Dose: 100 mg Documented By: MELANY Co-signed By: ANASTACIO Methylprednisolone Sodium Succinate (Methylprednisolone Sod Succ 40 Mg/Ml Vial) 20 mg IVPUSH Q8H [facility] Last Admin: 07/22/24 07:02 Dose: 20 mg Documented By: MELANY Multivitamins/Vitamin C (Multivitamin Tablet) 1 tab PO DAILY [facility] Last Admin: 07/22/24 08:01 Dose: 1 tab Documented By: MELANY Ondansetron HCl (Ondansetron Hcl 4 Mg/2 Ml Vial) 4 mg IVPUSH Q6H PRN PRN Reason: Nausea and Vomiting Sodium Chloride (0.9 % Sodium Chloride Flush 3 Ml Syringe) 3 ml IVFLUSH QSHIFT [facility] Last Admin: 07/22/24 07:13 Dose: Not Given Documented By: MELANY Non-Admin Reason: IV Running Labs 07/22/24 05:24 07/21/24 06:29 Labs: Laboratory Results - last 24 hr 07/20/24 07/22/24 23:54 05:24 MCV 70.4 L MCH 23.5 L MCHC 33.5 RDW 19.8 H Plt Count 676 H MPV 8.0 L Absolute Nucleated RBC 0.000 Nucleated RBC % (auto) 0.0 C-Reactive Protein 6.14 H Stl C. cayetanensis PCR Not Detected Stool Rotavirus A PCR Not Detected Stl Adenov F 40/41 PCR Not Detected Stool Astrovirus (PCR) Not Detected Stool Campylobacter PCR Not Detected Stool Cryptosporidium PCR Not Detected Stl Sh Tox Pr E STEC PCR Not Detected Stool E coli O157 PCR Not applicable Stl Enterotoxigenic E PCR Not Detected Stool EPEC (PCR) Not Detected Stool EAEC (PCR) Not Detected Stl E. histolytica PCR Not Detected Stool Giardia Lamblia PCR Not Detected Stl P. shigelloides PCR Not Detected Stool Salmonella PCR Not Detected Stool Sapovirus (PCR) Not Detected Stl Shigella/EIEC PCR Not Detected St Y.enterocolitica PCR Not Detected Stool Vibrio (PCR) Not Detected Stl Vibrio cholerae PCR Not Detected Stl Norovirus GI/GII PCR Not Detected Microbiology Microbiology Results: Microbiology 07/20/24 23:30 Blood Culture - Preliminary Blood - Venous No growth after 24 hours. 07/20/24 22:55 Blood Culture - Preliminary Blood - Venous No growth after 24 hours. Assessment and Plan (1) Exacerbation of ulcerative colitis: Status: Acute (2) UTI (urinary tract infection): Status: Acute Assessment and Plan: 33/m Ulcerative colitis (UC) here with flare UC flare, getting better, less pain, nl wbc, CRP trending down -continue IV steroid -Bloody stool and abdominal pain, patient ran out of mesalamine. -advance diet -empiric ceftriaxone and falgyl UTI, -Ceftriaxone, culture pending Anemia -slightly down, monitor Opioid use disorder--Methadone DVT prophylaxis: SCDs, early ambulation. IV steroid for UC fkiare Quality Stroke Does the patient have a stroke diagnosis?: No VTE Prior VTE?: No VTE Risk Level:: Medical - moderate - high VTE Device Contraindication: Treatment Not Indicated VTE Drug Contraindication: Treatment Not Indicated
--- NOTE | 2024-07-22 10:44 | MHC.CM.PN ---
pt lives with mother [facility]one pt has a ride home when dcd
[2024-07-22 15:54] VITALS: BP 129/78; PULSE 77; RESP 20; TEMP 36.9; O2SAT 99
[2024-07-22 19:17] VITALS: BP 122/71; PULSE 66; RESP 20; TEMP 36.8; O2SAT 98
[2024-07-22] MEDS: Acetaminophen 325 MG TABLET 650 MG PO (20:27)
[2024-07-22] MEDS: cefTRIAXone sodium 1 GM in 0.9 % Sodium Chloride 50 ML IV (20:32)
[2024-07-23] MEDS: metroNIDAZOLE/NS 500 MG/100 ML PIGGYBACK 100 MG IV ×3 (00:03→16:28)
[2024-07-23] MEDS: methylPREDNISolone Sod Succ 40 MG/ML VIAL 20 MG IVPUSH ×3 (00:03→16:28)
[2024-07-23] MEDS: traMADoL HCL 50 MG TABLET 25 MG PO (03:24)
[2024-07-23 03:32] VITALS: BP 136/75; PULSE 81; RESP 18; TEMP 36.2; O2SAT 100
[2024-07-23 05:51] LABS: Hematocrit 28.1 % (42.0-52.0); Mean Corpuscular Hemoglobin 23.2 pg (27.0-33.0); Mean Corpuscular Volume 72.4 fL (80.0-98.0); Mean Platelet Volume 7.8 fL (9.4-12.4); Platelet Count 657 X10*3/uL (160-400); Red Blood Count 3.88 X10*6/uL (4.60-5.80); Red Cell Distribution Width 20.2 % (11.0-16.0); White Blood Count 14.4 X10*3/uL (4.8-10.8)
[2024-07-23 07:32] VITALS: BP 116/71; PULSE 66; RESP 18; TEMP 36.6; O2SAT 99
[2024-07-23] MEDS: methADONE HCl 20 MG/2 ML ORAL.CONC 100 MG PO (08:29)
[2024-07-23] MEDS: Acetaminophen 325 MG TABLET 650 MG PO (08:30)
[2024-07-23] MEDS: 0.9 % Sodium Chloride Flush 3 ML SYRINGE IVFLUSH ×2 (08:30→16:27)
[2024-07-23] MEDS: Multivitamin TABLET 1 TAB PO (08:30)
--- NOTE | 2024-07-23 09:05 | P.PNIM_ITS ---
Subjective Subjective Date of Service: 07/23/24 Interval History: f/u [facility] of UC still with pain but overall improving, tolerating soft diet Physical Exam 2 Vital Signs: Vital Signs: Last Vital Signs Temp 97.9 F 07/23/24 07:32 Pulse 66 07/23/24 07:32 Resp 18 07/23/24 07:32 BP 116/71 07/23/24 07:32 Pulse Ox 99 07/23/24 07:32 O2 Del Method Room Air 07/23/24 07:32 BMI result Body Mass Index 19.9 General: AO X 3, no acute distress Resp: CTA bilateral CVS: S1,S2,RRR GI: +BS, moderate tenderness, no distention Skin: No rash Neuro: motor grossly intact Psych: appropriate affect Objective Data Active Medications Acetaminophen (Acetaminophen 325 Mg Tablet) 650 mg PO Q6H PRN PRN Reason: Pain, Mild (Pain Scale 1-3), fever or headache Last Admin: 07/23/24 08:30 Dose: 650 mg Documented By: ILYA Metronidazole (Flagyl) 500 mg in 100 mls @ 100 mls/hr IV Q8H [facility] Last Admin: 07/23/24 08:29 Dose: 100 mls/hr Documented By: ILYA Ceftriaxone Sodium 1 gm/ (Sodium Chloride) 50 mls @ 100 mls/hr IV Q24H [facility] Last Infusion: 07/22/24 21:04 Dose: Infused Documented By: PAUL Melatonin (Melatonin 3 Mg Tablet) 6 mg PO BEDTIME PRN PRN Reason: Insomnia Last Admin: 07/21/24 02:20 Dose: 6 mg Documented By: JARROD Methadone HCl (Methadone Hcl 20 Mg/2 Ml Oral.Conc) 100 mg PO DAILY [facility] Last Admin: 07/23/24 08:29 Dose: 100 mg Documented By: ILYA Co-signed By: MEDARDO Methylprednisolone Sodium Succinate (Methylprednisolone Sod Succ 40 Mg/Ml Vial) 20 mg IVPUSH Q8H [facility] Last Admin: 07/23/24 08:30 Dose: 20 mg Documented By: ILYA Multivitamins/Vitamin C (Multivitamin Tablet) 1 tab PO DAILY [facility] Last Admin: 07/23/24 08:30 Dose: 1 tab Documented By: ILYA Ondansetron HCl (Ondansetron Hcl 4 Mg/2 Ml Vial) 4 mg IVPUSH Q6H PRN PRN Reason: Nausea and Vomiting Sodium Chloride (0.9 % Sodium Chloride Flush 3 Ml Syringe) 3 ml IVFLUSH QSHIFT [facility] Last Admin: 07/23/24 08:30 Dose: 3 ml Documented By: ILYA Labs 07/23/24 05:19 07/21/24 06:29 Labs: Laboratory Results - last 24 hr 07/23/24 05:19 MCV 72.4 L MCH 23.2 L MCHC 32.0 RDW 20.2 H Plt Count 657 H MPV 7.8 L Absolute Nucleated RBC 0.000 Nucleated RBC % (auto) 0.0 Microbiology Microbiology Results: Microbiology 07/20/24 23:30 Blood Culture - Preliminary Blood - Venous No growth after 48 hours. 07/20/24 22:55 Blood Culture - Preliminary Blood - Venous No growth after 48 hours. 07/21/24 Unknown Urine Culture - Final Urine clean catch - Clean Catch Midstream Assessment and Plan (1) Exacerbation of ulcerative colitis: Status: Acute (2) UTI (urinary tract infection): Status: Acute Assessment and Plan: 33/m Ulcerative colitis (UC) here with flare UC flare, getting better, less pain, nl wbc, CRP trending down -continue IV steroid, consider transition to PO Prednisone -ask gi when to restart Mesalamine -advance diet -empiric ceftriaxone and falgyl UTI, -Ceftriaxone, culture pending Leukocytosis--d/t Anemia -slightly down, monitor Opioid use disorder--Methadone DVT prophylaxis: SCDs, early ambulation. IV steroid for UC flare Quality Stroke Does the patient have a stroke diagnosis?: No VTE Prior VTE?: No VTE Risk Level:: Medical - moderate - high VTE Device Contraindication: Treatment Not Indicated VTE Drug Contraindication: Treatment Not Indicated
[2024-07-23 14:58] VITALS: BP 108/60; PULSE 68; RESP 18; TEMP 36.6; O2SAT 96
--- NOTE | 2024-07-23 15:13 | MHC.CM.PN ---
per rounds pt not ready for dc today as he is still having abdominal pain
[2024-07-23 19:09] VITALS: BP 114/79; PULSE 80; RESP 18; TEMP 36.4; O2SAT 96
[2024-07-23] MEDS: cefTRIAXone sodium 1 GM in 0.9 % Sodium Chloride 50 ML IV (20:48)
[2024-07-24] MEDS: metroNIDAZOLE/NS 500 MG/100 ML PIGGYBACK 100 MG IV ×4 (00:24→23:47)
[2024-07-24] MEDS: methylPREDNISolone Sod Succ 40 MG/ML VIAL 20 MG IVPUSH ×4 (00:24→23:47)
[2024-07-24] MEDS: 0.9 % Sodium Chloride Flush 3 ML SYRINGE IVFLUSH ×4 (00:25→21:45)
[2024-07-24] MEDS: Acetaminophen 325 MG TABLET 650 MG PO ×2 (01:47→21:43)
[2024-07-24] MEDS: Melatonin 3 MG TABLET 6 MG PO ×2 (01:47→22:21)
[2024-07-24 04:00] VITALS: BP 127/80; PULSE 62; RESP 18; TEMP 36.2; O2SAT 98
[2024-07-24] MEDS: traMADoL HCL 50 MG TABLET 25 MG PO (04:26)
[2024-07-24 06:05] LABS: Hematocrit 30.7 % (42.0-52.0); Hemoglobin 9.8 g/dl (14.0-18.0); Mean Corpuscular HGB Conc 31.9 g/dl (31.0-36.0); Mean Corpuscular Hemoglobin 23.7 pg (27.0-33.0); Mean Corpuscular Volume 74.2 fL (80.0-98.0); Mean Platelet Volume 8.2 fL (9.4-12.4); NRBC Pct Auto 0.1 /100WBC (0.0-0.2); Platelet Count 709 X10*3/uL (160-400); Red Blood Count 4.14 X10*6/uL (4.60-5.80); White Blood Count 19.5 X10*3/uL (4.8-10.8)
[2024-07-24 07:23] VITALS: BP 114/74; PULSE 66; RESP 16; TEMP 36.5; O2SAT 96
[2024-07-24] MEDS: Multivitamin TABLET 1 TAB PO (08:22)
[2024-07-24] MEDS: methADONE HCl 20 MG/2 ML ORAL.CONC 100 MG PO (08:23)
--- NOTE | 2024-07-24 08:44 | PM.DS ---
DS: Providers Provider Date of Service: 07/24/24 Date of admission: 07/20/24 23:54 Primary care physician: Aryan El PA-C Consults: 07/21/24 00:58 Addiction Medicine Routine Consulting Provider: Addiction Covering Reason for consultation: Polysubstance abuse Has provider been notified: No 07/21/24 08:06 Consult to Gastroenterology Routine Consulting Provider: Ryan Schaefer Reason for consultation: ulcerative colitis flare Has provider been notified: No DS: Diagnosis Discharge Diagnosis (1) Exacerbation of ulcerative colitis: Status: Acute (2) UTI (urinary tract infection): Status: Acute DS: Summary Hospital Course Hospital Course: admission hpi Chief Complaint: Abdominal pain, bloody diarrhea Taj Hanson is a 33 years old man with past medical history significant for recent diagnosis of ulcerative colitis (UC) presents to the ED complaining of generalized abdominal pain associated with bloody stools, nausea and vomiting over the last week. Patient stated that the symptoms started after he ran out of mesalamine. He reports suggestive fever. He did not report any cardiopulmonary or genitourinary symptoms. He has history of drug abuse and take methadone for this. He denied ongoing drug abuse. His urine drug screen today is positive for fentanyl, methadone, marijuana, cocaine and opiates. In the ED, he was found to have stable vital signs. There is no fever reported. Blood workup does not show leukocytosis bolus toxic granulation and bandemia of 7%. Lactic acid is not available. UA consistent with UTI. Cdiff sample was obtained and is pending. Abdominal pelvis CT scan with IV contrast showed marked inflammatory changes in the rectosigmoid and descending colon consistent with colitis. ED tx: NS 1 L bolus, morphine 8 mg IV (total), Zofran 4 mg IV, Solu-Medrol 60 mg IV, ceftriaxone 1 g, metronidazole 500 mg IV. Hospital course: The patient has history of UC colitis and supposed to mesalamine but ran out and presented with abdominal pain, bloody diarrhea. CT showed marked inflamatory changes in the rectosigmoid colon consistent with colitis. He was initiated on empiric Abx, and IV steroid. His condition has improved and he's tolerating diet. GI saw him and recommend resuming mesalamine upon discharge, to continue Prednisone in a tapering fashiong of 40 mg and reduce by 5 mg every 7 days. To follow up on outpatient basis with GI for consideration of biologic agents for shelter management. Of note UA was positive but culture negative and he has been treated with ceftriaxone. Initial normal WBC has increased to 19 K due to steroid. Time Attestation Discharge Coordination Time (in mins): 40 Quality: Safe Use of Opioids Does Pt have an Active Cancer Diagnosis on the Problem List?: No Quality: Stroke Does the patient have a stroke diagnosis?: No Physical Exam Vital Signs: Vital Signs: Last Vital Signs Temp 97.7 F 07/24/24 07:23 Pulse 66 07/24/24 07:23 Resp 16 07/24/24 07:23 BP 114/74 07/24/24 07:23 Pulse Ox 96 07/24/24 07:23 O2 Del Method Room Air 07/24/24 07:23 BMI result Body Mass Index 19.9 Const: Other: General: AO X 3, no acute distress Resp: CTA bilateral CVS: S1,S2,RRR GI: +BS, NT, no distention Skin: No rash Neuro: motor grossly intact Psych: appropriate affect DS: Data Data Completed and Pending Labs on day of discharge: Laboratory Results - last 24 hr 07/24/24 05:13 WBC 19.5 H RBC 4.14 L Hgb 9.8 L Hct 30.7 L MCV 74.2 L MCH 23.7 L MCHC 31.9 RDW 21.0 H Plt Count 709 H MPV 8.2 L Absolute Nucleated RBC 0.020 H Nucleated RBC % (auto) 0.1 Preliminary micro results at discharge 07/20/24 23:30 Blood Culture - Preliminary Blood - Venous No growth after 48 hours. 07/20/24 22:55 Blood Culture - Preliminary Blood - Venous No growth after 48 hours. Discharge Plan Discharge Anticipated Discharge Date/Time: 07/25/24 17:31 Patient Disposition: Home, Self-Care Discharge Diagnosis: Ulcerative colitis Flare, Referrals: Ryan Schaefer MD [Physician] - 2 Weeks Aryan El PA-C [Primary Care Provider] - 1 Week Discharge Medications: New prednisone 5 mg tablet 5 mg PO DIRECTED Qty: 252 0RF Rx Instructions: Take by mouth as follow Week 1: 8 tablets/day * 7 days = 56 tablets Week 2: 7 tablets/day * 7 days = 49 tablets Week 3: 6 tablets/day * 7 days = 42 tablets Week 4: 5 tablets/day * 7 days = 35 tablets Week 5: 4 tablets/day * 7 days = 28 tablets Week 6: 3 tablets/day * 7 days = 21 tablets Week 7: 2 tablets/day * 7 days = 14 tablets Week 8: 1 tablet/day * 7 days = 7 tablets mesalamine 800 mg tablet,delayed release (DR/EC) 1,600 mg PO TID Qty: 180 0RF Rx Instructions: must be taken on empty stomach; no food 1 hr after or 2-3 hrs before dose Continued multivitamin Tablet 1 tab PO DAILY methadone [Methadose] 10 mg/mL concentrate 100 mg PO DAILY Rx Instructions: Partial Fill upon patient request. Discharge Orders: Discharge Order (Routine); Ordered 07/25/24 Ordered By: Mino Vasquez Diet: Advance to usual diet Activity on Discharge: As tolerated Stand Alone Forms: Patient Portal Discharge page Print Language: Estonian Other Ambulatory Orders: Complete Blood Count no Diff (Routine) Timeframe: 2 Weeks Facility: [facility] - Location: Laboratory Ordered By: Mino Vasquez Care Plan Goals: recovery from acute colitis Health Concerns: ulcerative colitis flare Plan of Treatment: take prednisone 40 mg daily and reduce it by 5 mg every 7 days follow up with Dr. Milian in weeks, call your PCP for follow up appointment if you condition get worse, with increasing pain, blood in the stool call 911 or come to emergency Assessment: see above Discharge Date/Time: 07/25/24 18:43
[2024-07-24 15:19] VITALS: BP 145/76; PULSE 65; RESP 17; TEMP 36; O2SAT 97
--- NOTE | 2024-07-24 16:36 | P.PNIM_ITS ---
Subjective Subjective Date of Service: 07/24/24 Interval History: f/u flare of UC still with residual pain, and some blood in stool Physical Exam 2 Vital Signs: Vital Signs: Last Vital Signs Temp 96.8 F 07/24/24 15:19 Pulse 65 07/24/24 15:19 Resp 17 07/24/24 15:19 BP 145/76 H 07/24/24 15:19 Pulse Ox 97 07/24/24 15:19 O2 Del Method Room Air 07/24/24 15:19 BMI result Body Mass Index 19.9 Objective Data Active Medications Acetaminophen (Acetaminophen 325 Mg Tablet) 650 mg PO Q6H PRN PRN Reason: Pain, Mild (Pain Scale 1-3), fever or headache Last Admin: 07/24/24 01:47 Dose: 650 mg Documented By: PAUL Metronidazole (Flagyl) 500 mg in 100 mls @ 100 mls/hr IV Q8H [facility] Last Admin: 07/24/24 15:17 Dose: 100 mls/hr Documented By: FELICIA Ceftriaxone Sodium 1 gm/ (Sodium Chloride) 50 mls @ 100 mls/hr IV Q24H [facility] Last Infusion: 07/23/24 21:23 Dose: Infused Documented By: PAUL Melatonin (Melatonin 3 Mg Tablet) 6 mg PO BEDTIME PRN PRN Reason: Insomnia Last Admin: 07/24/24 01:47 Dose: 6 mg Documented By: PAUL Methadone HCl (Methadone Hcl 20 Mg/2 Ml Oral.Conc) [address] [facility] Last Admin: 07/24/24 08:23 Dose: 100 mg Documented By: ILYA Co-signed By: ADRIAN Methylprednisolone Sodium Succinate (Methylprednisolone Sod Succ 40 Mg/Ml Vial) [address] [facility] Last Admin: 07/24/24 15:17 Dose: 20 mg Documented By: FELICIA Multivitamins/Vitamin C (Multivitamin Tablet) [address] [facility] Last Admin: 07/24/24 08:22 Dose: 1 tab Documented By: ILYA Ondansetron HCl (Ondansetron Hcl 4 Mg/2 Ml Vial) 4 mg IVPUSH Q6H PRN PRN Reason: Nausea and Vomiting Sodium Chloride (0.9 % Sodium Chloride Flush 3 Ml Syringe) [address] [facility] Last Admin: 07/24/24 15:17 Dose: 3 ml Documented By: FELICIA Labs 07/24/24 05:13 07/21/24 06:29 Labs: Laboratory Results - last 24 hr 07/24/24 05:13 MCV 74.2 L MCH 23.7 L MCHC 31.9 RDW 21.0 H Plt Count 709 H MPV 8.2 L Absolute Nucleated RBC 0.020 H Nucleated RBC % (auto) 0.1 Assessment and Plan (1) Exacerbation of ulcerative colitis: Status: Acute (2) UTI (urinary tract infection): Status: Acute Assessment and Plan: 33/m Ulcerative colitis (UC) here with flare UC flare, getting better, less pain, nl wbc, CRP trending down -continue IV steroid, consider transition to PO Prednisone by tomorrow -Mesalamine at dc -advance diet -empiric ceftriaxone and falgyl UTI, -Ceftriaxone, culture pending Leukocytosis--d/t Anemia -slightly down, monitor Opioid use disorder--Methadone DVT prophylaxis: SCDs, early ambulation. IV steroid for UC flare Quality Stroke Does the patient have a stroke diagnosis?: No VTE Prior VTE?: No VTE Risk Level:: Medical - moderate - high VTE Device Contraindication: Treatment Not Indicated VTE Drug Contraindication: Treatment Not Indicated
[2024-07-24 19:41] VITALS: BP 134/85; PULSE 83; RESP 16; TEMP 36.4; O2SAT 98
[2024-07-24] MEDS: cefTRIAXone sodium 1 GM in 0.9 % Sodium Chloride 50 ML IV (21:44)
[2024-07-25 03:27] VITALS: BP 132/83; PULSE 65; RESP 18; TEMP 36.6; O2SAT 99
[2024-07-25 07:33] VITALS: BP 133/79; PULSE 65; RESP 16; TEMP 36.6; O2SAT 99
[2024-07-25] MEDS: methylPREDNISolone Sod Succ 40 MG/ML VIAL 20 MG IVPUSH ×2 (07:45→16:16)
[2024-07-25] MEDS: 0.9 % Sodium Chloride Flush 3 ML SYRINGE IVFLUSH ×2 (07:47→16:13)
[2024-07-25] MEDS: metroNIDAZOLE/NS 500 MG/100 ML PIGGYBACK 100 MG IV ×2 (07:49→16:16)
[2024-07-25] MEDS: Multivitamin TABLET 1 TAB PO (07:54)
[2024-07-25] MEDS: methADONE HCl 20 MG/2 ML ORAL.CONC 100 MG PO (07:54)
[2024-07-25] MEDS: Acetaminophen 325 MG TABLET 650 MG PO (07:54)
--- NOTE | 2024-07-25 09:25 | HO.PM.IMPN ---
Subjective Subjective Date of Service: 07/25/24 Interval History: report little pain Physical Exam Vital Signs: Vital Signs: Last Vital Signs Temp 97.8 F 07/25/24 07:33 Pulse 65 07/25/24 07:33 Resp 16 07/25/24 07:33 BP 133/79 07/25/24 07:33 Pulse Ox 99 07/25/24 07:33 O2 Del Method Room Air 07/25/24 07:33 BMI result Body Mass Index 19.9 General: AO X 3, no acute distress Resp: CTA bilateral CVS: S1,S2,RRR GI: +BS, mild tendereness, no distention Skin: No rash Neuro: motor grossly intact Psych: appropriate affect Objective Data Active Medications Acetaminophen (Acetaminophen 325 Mg Tablet) 650 mg PO Q6H PRN PRN Reason: Pain, Mild (Pain Scale 1-3), fever or headache Last Admin: 07/25/24 07:54 Dose: 650 mg Documented By: HOLLY Metronidazole (Flagyl) 500 mg in 100 mls @ 100 mls/hr IV Q8H [facility] Last Admin: 07/25/24 07:49 Dose: 100 mls/hr Documented By: HOLLY Ceftriaxone Sodium 1 gm/ (Sodium Chloride) 50 mls @ 100 mls/hr IV Q24H [facility] Last Infusion: 07/24/24 22:21 Dose: Infused Documented By: PAUL Melatonin (Melatonin 3 Mg Tablet) 6 mg PO BEDTIME PRN PRN Reason: Insomnia Last Admin: 07/24/24 22:21 Dose: 6 mg Documented By: PAUL Methadone HCl (Methadone Hcl 20 Mg/2 Ml Oral.Conc) 100 mg PO DAILY [facility] Last Admin: 07/25/24 07:54 Dose: 100 mg Documented By: HOLLY Co-signed By: ANETA Methylprednisolone Sodium Succinate (Methylprednisolone Sod Succ 40 Mg/Ml Vial) 20 mg IVPUSH Q8H [facility] Last Admin: 07/25/24 07:45 Dose: 20 mg Documented By: HOLLY Multivitamins/Vitamin C (Multivitamin Tablet) 1 tab PO DAILY [facility] Last Admin: 07/25/24 07:54 Dose: 1 tab Documented By: HOLLY Ondansetron HCl (Ondansetron Hcl 4 Mg/2 Ml Vial) 4 mg IVPUSH Q6H PRN PRN Reason: Nausea and Vomiting Sodium Chloride (0.9 % Sodium Chloride Flush 3 Ml Syringe) 3 ml IVFLUSH QSHIFT [facility] Last Admin: 07/25/24 07:47 Dose: 3 ml Documented By: HOLLY Labs 07/24/24 05:13 07/21/24 06:29 Assessment and Plan (1) Exacerbation of ulcerative colitis: Status: Acute (2) UTI (urinary tract infection): Status: Acute Assessment and Plan: 33/m Ulcerative colitis (UC) here with flare UC flare, getting better, less pain, nl wbc, CRP trending down -continue IV steroid, consider transition to PO Prednisone today -Mesalamine at dc -regular diet -empiric ceftriaxone and falgyl UTI, -Ceftriaxone, culture pending Leukocytosis--d/t Anemia -slightly down, monitor Opioid use disorder--Methadone DVT prophylaxis: SCDs, early ambulation. IV steroid for UC flare possible dc later today Quality Stroke Does the patient have a stroke diagnosis?: No VTE Prior VTE?: No VTE Risk Level:: Medical - moderate - high VTE Device Contraindication: Treatment Not Indicated VTE Drug Contraindication: Treatment Not Indicated
[2024-07-25 10:31] LABS: Hematocrit 35.1 % (42.0-52.0); Mean Corpuscular HGB Conc 31.3 g/dl (31.0-36.0); Mean Corpuscular Hemoglobin 22.9 pg (27.0-33.0); Mean Corpuscular Volume 73.1 fL (80.0-98.0); Mean Platelet Volume 8.2 fL (9.4-12.4); NRBC Pct Auto 0.3 /100WBC (0.0-0.2); Platelet Count 797 X10*3/uL (160-400); Red Cell Distribution Width 21.6 % (11.0-16.0); White Blood Count 21.1 X10*3/uL (4.8-10.8)
[2024-07-25 11:04] LABS: Anion Gap 12 (12-20); Blood Urea Nitrogen 18 mg/dL (9-16); Calcium 8.8 mg/dL (8.4-10.2); Carbon Dioxide 28 mmol/L (22-29); Chloride 100 mmol/L (96-108); Estimated Glomerular Filt Rate > 60; Glucose Random 123 mg/dL (60-115); Potassium 4.4 mmol/L (3.3-5.1); Sodium 136 mmol/L (135-145)
[2024-07-25 15:09] VITALS: BP 121/80; PULSE 62; RESP 18; TEMP 36; O2SAT 97
--- NOTE | 2024-07-25 15:23 | MHC.CM.PN ---
per rounds pt might be ready for dc dc plans remains home
--- NOTE | 2024-07-25 16:07 | MHC.CM.PN ---
pt dcd home self care
== END 2024-07-25 18:43 | disposition home or self-care (01) | DRG 245 ==
LOC: HO.ED 23:13 → HO.EDOVER 07-21 00:10 → HO.S3 07-21 09:58
PROVIDERS: Internal Medicine; Physician Assistant Medical; Admitting Provider Internal Medicine; Emergency Provider Emergency Medicine Emergency Medical Services; PCP Physician Assistant; Visit Provider Internal Medicine
DX: K51.911 Ulcerative colitis, unspecified with rectal bleeding (principal); D64.9 Anemia, unspecified; N39.0 Urinary tract infection, site not specified; F11.20 Opioid dependence, uncomplicated; F17.210 Nicotine dependence, cigarettes, uncomplicated; T47.8X6A Underdosing of other agents primarily affecting gastrointestinal system, initial encounter; Z71.6 Tobacco abuse counseling; Z91.199 Patient's noncompliance with other medical treatment and regimen due to unspecified reason; Z20.822 Contact with and (suspected) exposure to COVID-19; Z79.899 Other long term (current) drug therapy
CPT/HCPCS: 0241U; 36415; 80048; 80053; 80307; 81001; 83605; 83690; 83735; 85007; 85025; 85027; 86140; 87040; 87086; 87493; 87507; 99285; J0131; J0696; J1836; J2270; J2405; J2919; J7120

== ENCOUNTER → 2024-07-20 23:54 | Outpatient (BNV) | payer BC, SELFPAY | PROVIDERS: Admitting Provider Internal Medicine; Emergency Provider Emergency Medicine Emergency Medical Services; PCP Physician Assistant; Visit Provider Internal Medicine | DX: K51.911 Ulcerative colitis, unspecified with rectal bleeding (principal); N30.01 Acute cystitis with hematuria | CPT/HCPCS: 99223; 99232; 99239; 99499 ==

== ENCOUNTER 2024-09-14 13:33 | Emergency (ER) | payer BC, SELFPAY ==
[2024-09-14 13:40] VITALS: BP 121/97; PULSE 115; RESP 20; TEMP 36.9; O2SAT 99; BMI 22.3
--- NOTE | 2024-09-14 13:43 | ED_ITS ---
HPI - General Adult General Chief complaint: General Medical Stated complaint: Ulcerative Colitis needs rx refill Time Seen by Provider: 09/14/24 16:17 Source: patient Mode of arrival: ambulatory Limitations: no limitations History of Present Illness ED Provider: Lizett Tesfaye PA-C HPI narrative: Patient is a 33 year old assigned male at with a history of opiate use disorder, anemia, and ulcerative colitis presenting to the emergency department today with intermittent abdominal pain and requesting medication refills. Patient states that in July he was admitted for an ulcerative colitis flare and has been having some intermittent abdominal pain with concerns that he needs more of the medication he was prescribed when he discharged from here. Patient states that he has not seen his GI specialist and is not sure what medications he needs refilled. Patient denies any dizziness, lightheadedness, nausea, vomiting, fever, chills, blurry vision, double vision, loss of vision, chest pain, difficulty breathing, shortness of breath, back pain, night sweats, pain with urination, increased urinary frequency, increased urinary urgency, blood in his urine or stool, syncope or a near syncopal episode, recent trauma or falls, bowel incontinence, bladder incontinence, or any other complaints at this time. Relieving factors: none Exacerbating factors: none Associated symptoms: denies other symptoms Treatments prior to arrival: none Related Data Home Medications ?Medication ?Instructions ?Recorded ?Confirmed methadone 10 mg/mL oral 100 mg PO DAILY 07/21/24 07/21/24 concentrate (Methadose) multivitamin 1 tab PO DAILY 07/21/24 07/21/24 Previous Rx's ?Medication ?Instructions ?Recorded mesalamine 800 mg tablet,delayed 1,600 mg (2 x 800 mg) PO TID #180 07/25/24 release tabs prednisone 5 mg tablet 5 mg PO DIRECTED #252 tabs 07/25/24 Allergies Allergy/AdvReac Type Severity Reaction Status Date / Time lucy Allergy Intermediate Hives Verified 09/14/24 13:45 Review of Systems 2 Constitutional: Constitutional: Reports no additional constitutional complaints, Denies chills, Denies fever(s) and Denies night sweats Eyes: Eyes: Reports no additional eye complaints, Denies blurry vision, Denies change in vision, Denies diplopia, Denies eye discharge, Denies loss of vision and Denies eye pain ENT: Denies dizziness Cardiovascular: Cardiovascular: Reports no additional cardiovascular complaints, Denies chest pain, Denies lightheadedness, Denies Loss of Consciousness and Denies dyspnea Respiratory: Respiratory: Reports no additional respiratory complaints and Denies dyspnea Gastrointestinal: Gastrointestinal: Reports no additional gastrointestinal complaints, Reports abdominal pain (intermittent), Denies melena, Denies hematochezia, Denies change in bowel habits and Denies change in stool character Genitourinary: Genitourinary: Reports no additional male genitourinary complaints, Denies hematuria, Denies oliguria, Denies difficulty urinating, Denies dysuria, Denies urinary frequency, Denies urinary hesitancy, Denies urinary incontinence and Denies urinary urgency Musculoskeletal: Musculoskeletal: Reports no additional musculoskeletal complaints, Denies numbness and Denies tingling Neurologic: Denies dizziness, Denies loss of vision, Denies numbness and Denies tingling Psychiatric: Psychiatric: Reports no additional psychiatric complaints Endocrine: Endocrine: Reports no additional endocrine complaints Hematologic/Lymphatic: Hematologic/Lymphatic: Reports no additional hematologic/lymphatic complaints Allergic/Immunologic: Allergic/Immunologic: Reports no additional allergic/immunologic complaints PMFSH Past Medical History Attestation statement: The following information was validated with the patient. Source: old records reviewed and nursing notes reviewed Social History Social History Household Members: Family Household Members Other:: mother Housing: House Do you presently have visiting nurse or other home services: No Alcohol intake: never Patient Tobacco Use Status: Current everyday Tobacco user Tobacco use type: Smokeless Tobacco Cigarettes Per Day: 2 e-Cigarette/Vaping Use: Currently Using Second Hand Smoke Exposure: No Substance Use Type: Crack/Cocaine and Heroin Advance Directives: No Advance Directives Information Provided: No service: No Current occupational status: employed Cognitive needs: No Hearing needs: No Vision needs: No Physical Exam ED Vital Signs: Vital Signs - 24 hr 09/14/24 13:40 Temperature 98.4 F Pulse Rate 115 H Respiratory Rate 20 Blood Pressure 121/97 H Pulse Oximetry 99 Oxygen Delivery Method Room Air BMI result Body Mass Index 22.3 Const General: cooperative, no acute distress, alert and awake Nutritional Appearance: well nourished Orientation/consciousness: patient oriented x3 Limitations: no limitations HENMT Head: Yes normal to inspection and Yes atraumatic Ears: hearing grossly normal bilaterally and external ears normal General nose exam: Normal external nose present, no nasal discharge noted and no epistaxis Face and sinus: Yes normal facial exam, No abrasion and No laceration Mouth: Normal oral and palatal mucosa present, no drooling and no muffled voice Eyes General: appearance normal, both eyes and all related structures Periorbital: periorbital findings normal Eyelids: Yes eyelids normal Conjunctivae: conjunctivae normal Pupils: Equal, round and reactive pupils present EOM: EOMs intact bilaterally Neck Neck: Yes normal visual inspection, Yes full ROM and Yes no lymphadenopathy Chest Chest palpation & inspection: normal inspection of the chest Resp Effort & Inspection: normal respiratory effort and able to speak in complete sentences GI Inspection: Yes normal to inspection Neuro General: patient oriented x3 and moves all extremities Cranial nerves: Yes Equal, round and reactive pupils present Cognition (Neuro): normal cognition Extrem General: Yes normal to inspection, Yes full ROM and Yes capillary refill normal Psych Appearance: grossly normal Mental Status: mental status grossly normal Affect: normal affect Attitude: cooperative Thought process: Normal thought process present Thought content: Normal thought content present Insight: Good insight present (Psych) Course Course Course Narrative: RME performed by Lizett Tesfaye PA-C. Patient is a 33 year old assigned male at presenting to the emergency department with intermittent abdominal pain. Patient states that he was recently diagnosed with ulcerative colitis and is now out of the medication he was prescribed and having intermittent abdominal pain. Detailed physical exam and review of systems are deferred to the behavioral health clinician. Labs ordered. Patient placed back in the waiting room pending room availability and results. Medical Decision Making Medical Decision Making MDM Narrative: Patient is a 33 year old assigned male at with a history of opiate use disorder, anemia, and ulcerative colitis presenting to the emergency department today with intermittent abdominal pain and requesting medication refills. Patient's limited physical exam performed in triage was unremarkable. Patient's blood work was unremarkable. Patient left the department without completing treatment. Patient left the department before myself or any of the other emergency department clinicians could explain to or review with the patient; physical exam findings, test results, need or lack there of for additional testing, need or lack there of for a procedure to be performed, need or lack there of for hospital admission / transfer, need or lack there of for prescription medication, treatment options, or a treatment plan. Differential Diagnosis Differential Diagnoses: The differential diagnosis associated with the presentation includes Ulcerative colitis flare Abdominal pain Medication refill Admission/Observation Consideration of admission/observation: Escalation of care including admission/observation considered Patient would have been admitted to the hospital had he completed his work up and it had any findings where hospital admission was appropriate, his clinical presentation warranted hospital admission, had myself or any other emergency department secretary had the ability to discuss need or lack there of for hospital admission, and the patient hadn't left the department without completing treatment. Lab Data [facility] Lab Attestation statement: I reviewed the patient's lab results. My interpretation of these results are in the MDM Rationale portion of this note. 09/14/24 14:05 09/14/24 14:05 Labs: Lab Results 09/14/24 Range/Units 14:05 WBC 8.5 (4.8-10.8) X10*3/uL RBC 4.67 (4.60-5.80) X10*6/uL Hgb 11.0 L (14.0-18.0) g/dl Hct 34.5 L (42.0-52.0) % MCV 73.9 L (80.0-98.0) fL MCH 23.6 L (27.0-33.0) pg MCHC 31.9 (31.0-36.0) g/dl RDW 17.6 H (11.0-16.0) % Plt Count 615 H (160-400) X10*3/uL MPV 8.4 L (9.4-12.4) fL Immature Gran % (Auto) 0.4 (0.0-0.4) % Neut % (Auto) 74.6 H (45-73) % Lymph % (Auto) 13.3 L (20-40) % [place] % (Auto) 7.1 (2-11) % Eos % (Auto) 4.1 H (0-4) % Baso % (Auto) 0.5 (0-2) % Lymph # (Auto) 1.1 L (1.2-4.9) X10*3/uL [place] # (Auto) 0.6 (0.1-1.2) X10*3/uL Eos # (Auto) 0.4 (0.0-0.4) X10*3/uL Baso # (Auto) 0.0 (0.0-0.2) X10*3/uL Abs Immat Gran (auto) 0.03 (0.00-0.03) X10*3/uL Absolute Neuts (auto) 6.4 (2.0-8.3) x10*3/uL Absolute Nucleated RBC 0.000 (0.0-0.012) X10*3/uL Nucleated RBC % (auto) 0.0 (0.0-0.2) /100WBC Sodium 138 (135-145) mmol/L Potassium 4.1 (3.3-5.1) mmol/L Chloride 104 (96-108) mmol/L Carbon Dioxide 27 (22-29) mmol/L Anion Gap 11 L (12-20) BUN 5 L (9-16) mg/dL Creatinine 0.85 (0.5-1.4) mg/dL Estim Creat Clear Calc 101.1 Estimated GFR > 60 Random Glucose 113 (60-115) mg/dL Calcium 9.5 D (8.4-10.2) mg/dL Magnesium 2.2 (1.6-2.6) mg/dL Total Bilirubin 0.3 (0.0-1.0) mg/dL AST 22 (5-37) U/L ALT 17 (0-40) U/L Alkaline Phosphatase 72 (39-117) U/L Total Protein 7.7 (6.5-8.0) g/dL Albumin 3.7 (3.5-5.0) g/dL Discharge Plan Discharge Clinical Impression: Abdominal pain, Medication refill Patient Disposition: Left W/O Completing Treatment Prescriptions: No Action multivitamin Tablet 1 tab PO DAILY methadone [Methadose] 10 mg/mL concentrate 100 mg PO DAILY Rx Instructions: Partial Fill upon patient request. prednisone 5 mg tablet 5 mg PO DIRECTED Qty: 252 0RF Rx Instructions: Take by mouth as follow Week 1: 8 tablets/day * 7 days = 56 tablets Week 2: 7 tablets/day * 7 days = 49 tablets Week 3: 6 tablets/day * 7 days = 42 tablets Week 4: 5 tablets/day * 7 days = 35 tablets Week 5: 4 tablets/day * 7 days = 28 tablets Week 6: 3 tablets/day * 7 days = 21 tablets Week 7: 2 tablets/day * 7 days = 14 tablets Week 8: 1 tablet/day * 7 days = 7 tablets mesalamine 800 mg tablet,delayed release (DR/EC) 1,600 mg PO TID Qty: 180 0RF Rx Instructions: must be taken on empty stomach; no food 1 hr after or 2-3 hrs before dose Discharge Date/Time: 09/14/24 16:22
[2024-09-14 14:10] LABS: MANUAL DIFF FLAG NO
[2024-09-14 14:11] LABS: Basophils Percent Auto 0.5 % (0-2); Eosinophils Absolute Auto 0.4 X10*3/uL (0.0-0.4); Eosinophils Percent Auto 4.1 % (0-4); Hematocrit 34.5 % (42.0-52.0); Imm Gran Abs Auto 0.03 X10*3/uL (0.00-0.03); Imm Gran Pct Auto 0.4 % (0.0-0.4); Lymphocytes Absolute Auto 1.1 X10*3/uL (1.2-4.9); Lymphocytes Percent Auto 13.3 % (20-40); Mean Corpuscular HGB Conc 31.9 g/dl (31.0-36.0); Mean Corpuscular Hemoglobin 23.6 pg (27.0-33.0); Mean Corpuscular Volume 73.9 fL (80.0-98.0); Mean Platelet Volume 8.4 fL (9.4-12.4); Monocytes Absolute Auto 0.6 X10*3/uL (0.1-1.2); Monocytes Percent Auto 7.1 % (2-11); Neutrophils Absolute Auto 6.4 x10*3/uL (2.0-8.3); Neutrophils Percent Auto 74.6 % (45-73); Platelet Count 615 X10*3/uL (160-400); Red Blood Count 4.67 X10*6/uL (4.60-5.80); Red Cell Distribution Width 17.6 % (11.0-16.0); White Blood Count 8.5 X10*3/uL (4.8-10.8)
[2024-09-14 14:24] LABS: Alanine Aminotransferase 17 U/L (0-40); Albumin Level 3.7 g/dL (3.5-5.0); Alkaline Phosphatase 72 U/L (39-117); Anion Gap 11 (12-20); Aspartate Amino Transferase 22 U/L (5-37); Bilirubin Total 0.3 mg/dL (0.0-1.0); Blood Urea Nitrogen 5 mg/dL (9-16); Calcium 9.5 mg/dL (8.4-10.2); Carbon Dioxide 27 mmol/L (22-29); Chloride 104 mmol/L (96-108); Creatinine Clr Calc Pharmacy 101.1; Estimated Glomerular Filt Rate > 60; Glucose Random 113 mg/dL (60-115); Magnesium 2.2 mg/dL (1.6-2.6); Potassium 4.1 mmol/L (3.3-5.1); Sodium 138 mmol/L (135-145); Total Protein 7.7 g/dL (6.5-8.0)
== END 2024-09-14 16:22 | disposition left against medical advice (07) ==
PROVIDERS: Physician Assistant Medical; Emergency Provider Emergency Medicine
DX: R10.2 Pelvic and perineal pain (principal); Z76.0 Encounter for issue of repeat prescription; Z79.899 Other long term (current) drug therapy
CPT/HCPCS: 36415; 80053; 83735; 85025; 99282

== ENCOUNTER 2024-10-02 03:01 | Emergency (ER) | payer BC, SELFPAY ==
--- NOTE | 2024-10-02 | ECG_ITS ---
Test Reason : DYSPNEA Blood Pressure : / mmHG Vent. Rate : 108 BPM Atrial Rate : 108 BPM P-R Int : 128 ms QRS Dur : 084 ms QT Int : 338 ms P-R-T Axes : 078 061 062 degrees QTc Int : 452 ms Sinus tachycardia Otherwise normal ECG When compared with ECG of 15-JUL-2022 23:57, T wave amplitude has decreased in Anterior leads Referred By: Generic ED Physician Electronically Signed By:ANNA CARVALHO
--- NOTE | ~2024-10-02 | XR_ITS ---
EXAMINATION: XR CHEST CLINICAL INFORMATION: sob COMPARISON: None available. TECHNIQUE: Frontal view of the chest was obtained. FINDINGS: No significant abnormality is noted involving the heart, lungs, mediastinum, bony thorax or soft tissues. XR/XR chest 1V IMPRESSION: Unremarkable examination. Electronically signed by: Nelson Carlos MD 10/02/2024 03:54 AM [facility]
[2024-10-02 03:04] VITALS: BP 131/104; PULSE 122; RESP 32; O2SAT 94; BMI 19.7
[2024-10-02 03:16] LABS: Basophils Absolute Auto 0.1 X10*3/uL (0.0-0.2); Basophils Percent Auto 0.9 % (0-2); Eosinophils Absolute Auto 1.7 X10*3/uL (0.0-0.4); Eosinophils Percent Auto 15.8 % (0-4); Hematocrit 33.3 % (42.0-52.0); Hemoglobin 10.6 g/dl (14.0-18.0); Imm Gran Abs Auto 0.03 X10*3/uL (0.00-0.03); Imm Gran Pct Auto 0.3 % (0.0-0.4); Lymphocytes Absolute Auto 2.4 X10*3/uL (1.2-4.9); Lymphocytes Percent Auto 22.7 % (20-40); MANUAL DIFF FLAG NO; Mean Corpuscular HGB Conc 31.8 g/dl (31.0-36.0); Mean Corpuscular Hemoglobin 23.2 pg (27.0-33.0); Mean Platelet Volume 8.7 fL (9.4-12.4); Monocytes Percent Auto 9.8 % (2-11); Neutrophils Absolute Auto 5.3 x10*3/uL (2.0-8.3); Neutrophils Percent Auto 50.5 % (45-73); Platelet Count 655 X10*3/uL (160-400); Red Blood Count 4.56 X10*6/uL (4.60-5.80); Red Cell Distribution Width 18.4 % (11.0-16.0); White Blood Count 10.5 X10*3/uL (4.8-10.8)
[2024-10-02] MEDS: methylPREDNISolone Sod Succ 125 MG/2 ML VIAL IVPUSH (03:18)
[2024-10-02] MEDS: Magnesium Sulfate/H2O 2 GM/50 ML PIGGYBACK IV (03:18)
--- NOTE | 2024-10-02 03:19 | ED_ITS ---
HPI - SOB/Dyspnea General Chief Complaint: Dyspnea Stated Complaint: diff breathing Time Seen by Provider: 10/02/24 03:13 Source: patient Mode of arrival: ambulatory Limitations: no limitations History of Present Illness ED Provider: HPI Narrative: Patient's history of asthma was feeling little short of breath since evening woke up at midnight with increased shortness a breath does not have any inhaler or nebulizer at home no chemical exposure no fever no chills Related Data Home Medications ?Medication ?Instructions ?Recorded ?Confirmed methadone 10 mg/mL oral 100 mg PO DAILY 07/21/24 07/21/24 concentrate (Methadose) multivitamin 1 tab PO DAILY 07/21/24 07/21/24 Previous Rx's ?Medication ?Instructions ?Recorded mesalamine 800 mg tablet,delayed 1,600 mg (2 x 800 mg) PO TID #180 07/25/24 release tabs prednisone 5 mg tablet 5 mg PO DIRECTED #252 tabs 07/25/24 albuterol sulfate 90 mcg/actuation 2 puff inhalation Q6H PRN 10/02/24 aerosol inhaler shortness of breath or wheezing #8.5 grams prednisone 20 mg tablet 40 mg (2 x 20 mg) PO DAILY #10 tabs 10/02/24 Allergies Allergy/AdvReac Type Severity Reaction Status Date / Time lucy Allergy Intermediate Hives Verified 10/02/24 03:05 Review of Systems 2 Review of Systems: Yes all other systems are reviewed and are negative [facility] Social History Social History Household Members: Family Household Members Other:: mother Housing: House Do you presently have visiting nurse or other home services: No Alcohol intake: never Patient Tobacco Use Status: Current everyday Tobacco user Tobacco use type: Smokeless Tobacco Cigarettes Per Day: 2 e-Cigarette/Vaping Use: Currently Using Second Hand Smoke Exposure: No Substance Use Type: Crack/Cocaine and Heroin Advance Directives: Yes Advance Directives on File: Yes Advance Directives Date on File: 07/29/24 service: No Current occupational status: employed Cognitive needs: No Hearing needs: No Vision needs: No Physical Exam 2 Vital Signs: Vital Signs: Last Vital Signs Temp 97.9 F 10/02/24 05:10 Pulse 126 H 10/02/24 05:10 Resp 19 10/02/24 05:10 BP 123/76 10/02/24 05:10 Pulse Ox 96 10/02/24 05:10 O2 Del Method Room Air 10/02/24 05:10 BMI result Body Mass Index 19.7 Appearance: Alert. Oriented X3. In moderate respiratory distress. Eyes: No pallor or icterus ENT: Pharynx normal. Oral Mucosa moist Neck: Normal inspection. Neck supple. CVS: Normal heart rate and rhythm. Pulses normal. Respiratory: Moderate respiratory distress Equal air entry bilateral, bilateral wheezing Abdomen: Soft and nontender. Bowel sounds are present, no mass palpable, no CVA tenderness Skin: Skin warm and dry. Normal skin color. Normal skin turgor. Extremities: No lower extremity edema. No calf tenderness Neuro: Oriented X 3. No motor deficit. Medications Administered Discontinued Medications Generic Name Dose Route Start Last Admin Trade Name Freq PRN Reason Stop Dose Admin Albuterol Sulfate 7.5 mg/ 10 mg 10/02/24 03:16 10/02/24 03:24 Albuterol Sulfate 2.5 mg INHALE 10/02/24 03:17 10 mg ONCE ONE Administration Magnesium Sulfate 2 gm in 50 mls @ 150 mls/hr 10/02/24 03:13 10/02/24 03:51 Magnesium Sulfate/H2o IV 10/02/24 03:32 Infused ONCE ONE Infusion Methylprednisolone Sodium Succinate 125 mg 10/02/24 03:13 10/02/24 03:18 Methylprednisolone Sod Succ 125 Mg/2 Ml Vial IVPUSH 10/02/24 03:14 125 mg ONCE ONE Administration Medical Decision Making Medical Decision Making [facility] Narrative: Patient has received continue nebulizer treatment IV magnesium and Solu-Medrol feeling much better now saturating 95% at room air will discharge patient home on prednisone and advised to continue albuterol treatment Lab Data [facility] Lab Attestation statement: I reviewed the patient's lab results. 10/02/24 03:13 10/02/24 03:13 Labs: Lab Results 10/02/24 10/02/24 Range/Units 03:13 05:26 WBC 10.5 (4.8-10.8) X10*3/uL RBC 4.56 L (4.60-5.80) X10*6/uL Hgb 10.6 L (14.0-18.0) g/dl Hct 33.3 L (42.0-52.0) % MCV 73.0 L (80.0-98.0) fL MCH 23.2 L (27.0-33.0) pg MCHC 31.8 (31.0-36.0) g/dl RDW 18.4 H (11.0-16.0) % Plt Count 655 H (160-400) X10*3/uL MPV 8.7 L (9.4-12.4) fL Immature Gran % (Auto) 0.3 (0.0-0.4) % Neut % (Auto) 50.5 (45-73) % Lymph % (Auto) 22.7 (20-40) % Cherry % (Auto) 9.8 (2-11) % Eos % (Auto) 15.8 H (0-4) % Baso % (Auto) 0.9 (0-2) % Lymph # (Auto) 2.4 (1.2-4.9) X10*3/uL Cherry # (Auto) 1.0 (0.1-1.2) X10*3/uL Eos # (Auto) 1.7 H (0.0-0.4) X10*3/uL Baso # (Auto) 0.1 (0.0-0.2) X10*3/uL Abs Immat Gran (auto) 0.03 (0.00-0.03) X10*3/uL Absolute Neuts (auto) 5.3 (2.0-8.3) x10*3/uL Absolute Nucleated RBC 0.000 (0.0-0.012) X10*3/uL Nucleated RBC % (auto) 0.0 (0.0-0.2) /100WBC Sodium 140 (135-145) mmol/L Potassium 4.0 (3.3-5.1) mmol/L Chloride 105 (96-108) mmol/L Carbon Dioxide 27 (22-29) mmol/L Anion Gap 12 (12-20) BUN 7 L (9-16) mg/dL Creatinine 0.86 (0.5-1.4) mg/dL Estim Creat Clear Calc 82.7 Estimated GFR > 60 Random Glucose 106 (60-115) mg/dL Calcium 9.2 (8.4-10.2) mg/dL Total Bilirubin 0.2 (0.0-1.0) mg/dL AST 30 (5-37) U/L ALT 14 (0-40) U/L Alkaline Phosphatase 66 (39-117) U/L Troponin I High Sens < 2.7 (<3.5-35.0) ng/L Total Protein 7.8 (6.5-8.0) g/dL Albumin 3.9 (3.5-5.0) g/dL Influenza Type A (PCR) NEGATIVE (Negative) Influenza Type B (PCR) NEGATIVE (Negative) RSV RNA Qual (PCR) NEGATIVE (Negative) SARS-CoV-2 RNA (RT-PCR) NEGATIVE (Negative) Independent Interpretation I performed an independent interpretation of an: Plain X-Ray Interpretation: nad Discharge Plan Discharge Clinical Impression: Asthma with exacerbation Patient Disposition: Home, Self-Care Instructions: Asthma (ED) Additional Instructions: Use the inhaler as prescribed Prednisone as prescribed Follow up with your PCP if not better Prescriptions: New prednisone 20 mg tablet 40 mg PO DAILY Qty: 10 0RF albuterol sulfate 90 mcg/actuation HFA aerosol inhaler 2 puff inhalation Q6H PRN (Reason: shortness of breath or wheezing) Qty: 8.5 0RF No Action multivitamin Tablet 1 tab PO DAILY methadone [Methadose] 10 mg/mL concentrate 100 mg PO DAILY Rx Instructions: Partial Fill upon patient request. prednisone 5 mg tablet 5 mg PO DIRECTED Qty: 252 0RF Rx Instructions: Take by mouth as follow Week 1: 8 tablets/day * 7 days = 56 tablets Week 2: 7 tablets/day * 7 days = 49 tablets Week 3: 6 tablets/day * 7 days = 42 tablets Week 4: 5 tablets/day * 7 days = 35 tablets Week 5: 4 tablets/day * 7 days = 28 tablets Week 6: 3 tablets/day * 7 days = 21 tablets Week 7: 2 tablets/day * 7 days = 14 tablets Week 8: 1 tablet/day * 7 days = 7 tablets mesalamine 800 mg tablet,delayed release (DR/EC) 1,600 mg PO TID Qty: 180 0RF Rx Instructions: must be taken on empty stomach; no food 1 hr after or 2-3 hrs before dose Print Language: Cambodian
[2024-10-02 03:22] VITALS: BP 120/86; PULSE 113; RESP 16; TEMP 36.7; O2SAT 98
[2024-10-02] MEDS: Albuterol Sulfate 7.5 MG, Albuterol Sulfate (0.083%) 2.5 MG 10 MG INHALE (03:24)
[2024-10-02 03:42] LABS: Albumin Level 3.9 g/dL (3.5-5.0); Anion Gap 12 (12-20); Aspartate Amino Transferase 30 U/L (5-37); Bilirubin Total 0.2 mg/dL (0.0-1.0); Blood Urea Nitrogen 7 mg/dL (9-16); Calcium 9.2 mg/dL (8.4-10.2); Carbon Dioxide 27 mmol/L (22-29); Chloride 105 mmol/L (96-108); Creatinine Clr Calc Pharmacy 82.7; Estimated Glomerular Filt Rate > 60; Glucose Random 106 mg/dL (60-115); Sodium 140 mmol/L (135-145); Total Protein 7.8 g/dL (6.5-8.0); Troponin-I High Sensitivity < 2.7 ng/L (<3.5-35.0)
[2024-10-02 04:01] LABS: Alanine Aminotransferase 14 U/L (0-40); Alkaline Phosphatase 66 U/L (39-117)
[2024-10-02 05:10] VITALS: BP 123/76; PULSE 126; RESP 19; TEMP 36.6; O2SAT 96
[2024-10-02 06:07] LABS: Influenza A PCR NEGATIVE (Negative); Influenza B PCR NEGATIVE (Negative); Resp Syncy Virus RNA Qual PCR NEGATIVE (Negative); SARS COV2 PCR INHOUSE NEGATIVE (Negative)
[2024-10-02 06:46] VITALS: BP 126/78; PULSE 106; RESP 16; TEMP 36.7; O2SAT 98
[2024-10-02] MEDS: Albuterol Sulfate 90 MCG 8 GM INHALER 2 PUFF INHALE (06:46)
== END 2024-10-02 06:51 | disposition home or self-care (01) ==
PROVIDERS: Emergency Provider Internal Medicine
DX: J45.901 Unspecified asthma with (acute) exacerbation (principal); F11.20 Opioid dependence, uncomplicated; F17.200 Nicotine dependence, unspecified, uncomplicated; Z03.818 Encounter for observation for suspected exposure to other biological agents ruled out; Z79.899 Other long term (current) drug therapy
CPT/HCPCS: 0241U; 36415; 71045; 80053; 84484; 85025; 93005; 96365; 96375; 99284; J2919; J3475

== ENCOUNTER → 2024-10-02 03:20 | Outpatient (BNV) | payer BC, SELFPAY | PROVIDERS: Emergency Provider Internal Medicine; Visit Provider Internal Medicine | DX: R06.00 Dyspnea, unspecified (principal); R00.0 Tachycardia, unspecified | CPT/HCPCS: 93010 ==

== ENCOUNTER 2024-10-14 22:58 | Inpatient (IN) | payer BC, OTHER, SELFPAY ==
[2024-10-14] VITALS (17 sets, daily range): BP systolic 45–170; BP diastolic 18–111; PULSE 91–116; RESP 4–24; O2SAT 86–100
--- NOTE | ~2024-10-14 | CT_ITS ---
CLINICAL HISTORY: organ donnor CT chest without contrast Comparison: CT/SR - CT CHEST W IV CON - 10/15/24 00:17 EST Findings: This examination is mildly degraded by artifact related to the patient's arms. Normal heart,size. No significant pericardial effusion. No thoracic aorta aneurysm. There is interval development of moderate left lower lobe consolidation and pgkm-[id number] right lower lobe consolidation. Volume loss present at the bilateral lower lobes. Small linear opacity present at the posterior aspect of the left upper lobe, possibly consistent with subsegmental atelectasis. Minimal right perihilar ground-glass opacities present. No pneumothorax or significant pleural effusion identified. Endotracheal tube partially visualized above the seth. There is diffuse body wall edema. No acute fractures. Impression: 1. Interval development of moderate left lower lobe and qvzh-ur-nwndtxfb right lower lobe opacities. There appears to be volume loss at these sites, suggesting some degree of atelectasis. Superimposed pneumonia is not excluded. 2. Minimal nonspecific right perihilar ground-glass opacities, possibly related to central pulmonary venous congestion or scattered infectious/inflammatory infiltrates. 3. Generalized 3rd spacing of fluid with diffuse body wall edema. This document has been electronically signed by: Flynn Kendrick MD on 10/20/2024 01:40:41
--- NOTE | ~2024-10-14 | CT_ITS ---
CLINICAL HISTORY: Cardiac arrest, rule out fracture CT cervical spine without contrast Comparison: None Findings: There is mild reversal of the normal cervical lordosis. No cervical spondylolisthesis identified. No acute fractures or dislocations. Jbhd-ub-ardwcbbd degenerative endplate changes are present at C6-C7. Impression: 1. Mild reversal of the normal cervical lordosis. This finding is nonspecific and may be positional and/or related to muscle spasm. No acute fracture or dislocation injury identified at the cervical spine. This document has been electronically signed by: Flynn Kendrick MD on 10/15/2024 01:15:15
--- NOTE | ~2024-10-14 | XR_ITS ---
CLINICAL HISTORY: ET tube placement 1 view chest x-ray. Comparison: CR/SR - XR CHEST 1V - 10/02/24 03:25 EST Findings: Endotracheal tube in place with the distal tip approximately 5.5 cm above the seth. Multiple structures are identified overlying the patient, mildly limiting this examination. There appears to be central pulmonary venous congestion. No consolidation, pneumothorax, or effusion. Heart size normal. Impression: 1. Mildly limited exam related to overlying structures with an endotracheal tube approximately 5.5 cm above the seth. 2. Central pulmonary venous congestion. No focal pulmonary consolidation identified. This document has been electronically signed by: Flynn Kendrick MD on 10/14/2024 23:51:22
--- NOTE | ~2024-10-14 | CT_ITS ---
CLINICAL HISTORY: organ donation CT angiography chest using contrast. 3-D postprocessing Comparison: CT/SR - CT CHEST WO IV CON - 10/20/24 00:20 EST Findings: There is suboptimal opacification of the pulmonary arterial system, limiting evaluation. No central filling defects are identified within the main pulmonary arteries. The pulmonary arterial branches are poorly evaluated on this examination due to suboptimal opacification. No thoracic aorta aneurysm. No thoracic aorta dissection identified. There is limited evaluation of the aortic root and ascending thoracic aorta related to motion artifact at these sites. Heart size within normal limits. There is interval improvement in aeration of the bilateral lower lobes as compared to the prior examination with mild residual bilateral lower lobe opacities. The right lower lobe opacities appear heterogeneous in attenuation. No pneumothorax or significant pleural effusion identified. Endotracheal tube in place above the seth. Enteric tube partially visualized within the gastric lumen. The distal tip of the enteric tube is not included on this examination. There is partial visualization of a low attenuation structure near the gallbladder fossa on image number 526 of series 5. No acute fractures. Impression: 1. Limited evaluation of the pulmonary arterial system related to suboptimal contrast opacification. No central pulmonary embolism identified within the main pulmonary arteries. This examination is otherwise nondiagnostic for pulmonary embolism. 2. Mild interval improvement in aeration of the bilateral lower lobes with mild residual bilateral lower lobe opacities, possibly consistent with bilateral lower lobe atelectasis and/or infiltrates. 3. Partial visualization a low-attenuation structure near the gallbladder fossa, likely corresponding to the area identified on prior abdomen/pelvis CT examination dated 10/15/2024. This document has been electronically signed by: Flynn Kendrick MD on 10/21/2024 00:04:01
--- NOTE | ~2024-10-14 | XR_ITS ---
EXAMINATION: XR CHEST CLINICAL INFORMATION: hypoxia COMPARISON: None available. TECHNIQUE: Frontal view of the chest was obtained. FINDINGS: The lungs are well-expanded with bibasilar patchy opacities likely consolidation/atelectasis/effusion. The upper lungs are clear. There is endotracheal tube with its tip approximately 6 cm above the seth. Tip of enteric tube is below diaphragm in the stomach. Heart size and pulmonary vascularity is normal. No gross bony abnormality seen. XR/XR chest 1V IMPRESSION: Bilateral lower lobe haziness likely combination of infiltrate/atelectasis/effusion. Support lines and catheters are in satisfactory position. Electronically signed by: Herminio Jose MD 10/20/2024 03:23 PM EST
--- NOTE | ~2024-10-14 | CT_ITS ---
EXAMINATION: CT ANGIOGRAM BRAIN, HEAD CLINICAL INFORMATION: Brain evaluation COMPARISON: CT brain 10/16/2024 TECHNIQUE: Test bolus sequences followed by intravenous administration 100 mL of Omnipaque 350 intravenous contrast. Helical imaging was performed in the axial plane from the skull base to the vertex. Delayed postcontrast imaging of the head was also performed. The data was processed at the chief cardiopulmonary technologist workstation for generation of MIP sequences. Three-dimensional volume rendered reformatted images were also generated at an offline 3-D workstation. The degree of stenosis determined by NASCET criteria. This CT examination was performed using dose optimization techniques as appropriate, variously including the following: *Automated exposure control *Adjustment of mA and/or kV according to patient size (this includes techniques or standardized protocols for targeted exams where dose is matched to indication/reason for exam; i.e. extremities or head) *Use of iterative reconstruction technique FINDINGS: Vascular: There is no opacification of bilateral vertebral, basilar or internal carotid arteries along the skull base. The supraclinoid ICA, anterior, middle cerebral arteries are opacified with contrast. No capillary enhancement seen along the bilateral mortises. There is faint opacification of venous sinuses. The noriega to white matter differentiation is lost but suggestive of cerebral edema. Cortical sulci and the posterior fossa cisterns are noted again from extensive cerebral edema. The lateral ventricles are visualized however the thyroid and the fourth ventricle is not seen. Bone windows reveal diffuse mucoperiosteal thickening of paranasal sinuses. The mastoid sinuses are clear. The bony or scalp abnormality seen. CT/CT angio head IMPRESSION: Extensive cerebral and cerebellar edema with loss of gurrola-white matter junction, cortical sulci and posterior fossa cisterns. However there is faint intracranial visualization of small anterior and middle cerebral arteries. This is more obvious compared to previous exam on 11/03/[address] Bilateral internal carotid, vertebral and basilar arteries are not nonopacified at the level of base of the skull. Mild enhancement of the anterior and middle cerebral arteries and venous sinuses likely secondary to external carotid to internal carotid artery collaterals at the level of base of skull. Electronically signed by: Herminio Jose MD 10/17/2024 10:05 AM [facility] [place]
--- NOTE | ~2024-10-14 | CT_ITS ---
CLINICAL HISTORY: Cardiac arrest rule out injury CT abdomen and pelvis with contrast Comparison: 04/30/2024 Findings: This examination is mildly degraded by artifact related to motion and the patient's arms. Ill-defined area decreased attenuation identified near the gallbladder fossa on axial image number 165 of series 14, measuring up to 3.6 cm in maximum axial dimension. This is of uncertain etiology. The gallbladder and solid organs are otherwise within normal limits. No hydronephrosis or hydroureter. Zhnrkydg-ol-pbvaz proximal colonic stool burden identified. There appears to be bowel wall thickening at the cecum. Bowel wall thickening also identified at the distal colon/rectum and also at the distal stomach. An enteric tube is in place within the gastric lumen. Multiple fluid-filled loops of nondilated small bowel are present throughout the abdomen. A small amount of free fluid is identified along the right pericolic gutter, best visualized on axial image number 310 of series 14. Minimal fluid also identified surrounding the liver. Pelvic contents unremarkable. A Roberts catheter is in place within the bladder lumen. The bladder is cpon-fz-skevxvhevt distended with fluid. No bladder wall thickening identified. Normal appendix. No acute fracture visualized. IMPRESSION: 1. Mildly limited examination related to artifact from motion and the patient's arms. There is small volume free fluid within the abdomen, most prominent along the right pericolic gutter which is of uncertain etiology. 2. Qkqmvhby-fe-sazpu proximal colonic stool burden present with multifocal areas of bowel wall thickening. The bowel wall thickening may be related to a nonspecific gastritis/enterocolitis or hypoperfusion in the setting of cardiac arrest. 3. Nonspecific low-attenuation area identified near the gallbladder fossa, measuring up to 3.6 cm in maximum axial dimension. It is unclear whether this represents a fluid collection and/or an abnormality of the adjacent liver parenchyma. May consider ultrasound examination for additional evaluation. This document has been electronically signed by: Flynn Kendrick MD on 10/15/2024 01:41:46
--- NOTE | ~2024-10-14 | XR_ITS ---
CLINICAL HISTORY: per NEDs for purpose of organ donation 1 view chest x-ray Comparison: CT/SR - CT ANGIO CHEST AORTA - 10/20/24 22:41 EST CR/SR - XR CHEST 1V - 10/20/24 15:17 EST Findings: Tip of the endotracheal tube is 6 cm superior to the seth. Enteric sump tube courses below the field of view. Lungs are well inflated. Unchanged patchy areas of increased density in the perihilar and basilar regions, dxdvw-cwxcuil-cshu-left. No pleural effusion or pneumothorax. IMPRESSION: Unchanged chest x-ray. This document has been electronically signed by: Luis Trent MD on 10/21/2024 06:28:24
--- NOTE | ~2024-10-14 | CT_ITS ---
CLINICAL HISTORY: Cardiac arrest, rule out fracture, bleed CT head without contrast Comparison: None Findings: This examination is degraded by artifact related to structures external to the patient. There appears to be diminished differentiation of the gurrola and white matter intracranially. Relatively increased attenuation identified within the dural venous sinuses. Somewhat diminished size of the 4th ventricle present. No acute intracranial hemorrhage. No midline shift. No hydrocephalus. Ogwr-wv-yrtbmdkt mucosal thickening identified within the ethmoid air cells and right maxillary sinus with mild mucosal thickening at the left maxillary sinus. Minimal mucosal thickening present at the bilateral sphenoid sinuses. The bilateral mastoid air cells appear clear. No acute skull fracture. Impression: 1. Mildly limited evaluation due to artifact related to structures external to the patient. There is poor gurrola-white matter differentiation on this examination with a somewhat decreased size of the 4th ventricle. These findings may be related to diffuse cerebral/cerebellar edema with mild mass effect on the 4th ventricle in the setting of hypoxia. No acute intracranial hemorrhage or midline shift demonstrated. Recommend brain MRI examination for further evaluation. This document has been electronically signed by: Flynn Kendrick MD on 10/15/2024 01:24:39
--- NOTE | ~2024-10-14 | US_ITS ---
CLINICAL HISTORY: transaminitis ? GB disease correlate with CT US abdomen limited Comparison: CT/SR - CT ABDOMEN PELVIS W IV CON - 10/15/24 00:17 EST Findings: The visualized pancreas is normal. The aorta and inferior vena cava are normal caliber. The liver is normal in size and echotexture. Questionable 4.3 x 2.8 cm ill-defined soft tissue mass abutting the gallbladder fossa. There is no intrahepatic bile duct dilatation. The common duct is 3 mm in diameter. The gallbladder is normal. There is no sonographic Montoya sign. The main portal vein is antegrade. The right kidney is 9 cm in length. No ascites. IMPRESSION: There is the suggestion of a 4.3 x 2.8 cm avascular mass , abutting the gallbladder fossa. Sonographic imaging findings are nonspecific. MRI may be warranted. This document has been electronically signed by: Ezequiel Lawson MD on 10/15/2024 09:48:19
--- NOTE | ~2024-10-14 | XR_ITS ---
EXAMINATION: XR CHEST 1 VIEW HISTORY: required by NEDs for purpose of organ donation COMPARISON: Comparison is made with the prior examination dated 10/20/2024 at 5:52 AM. FINDINGS: A single AP portable view of the chest performed at 3:18 PM is submitted. Endotracheal and orogastric tubes are unchanged in position. There are patchy opacities at both lung bases which may represent atelectasis or pneumonia. The upper lung zones are clear. There is no pleural effusion, pneumothorax, or pulmonary vascular congestion. The heart is normal in size. The bones are intact. XR/XR chest 1V IMPRESSION: 1. Lines and tubes in place as described. 2. Patchy bibasilar airspace opacities compatible with atelectasis or pneumonia. Electronically signed by: Michael Perez MD 10/20/2024 03:44 PM [facility]
--- NOTE | ~2024-10-14 | XR_ITS ---
CLINICAL HISTORY: hypoxia 1 view chest x-ray. Comparison: CT/PA/SR - VASCULAR CTA_HEAD (ADULT) - 10/16/24 13:13 EST CR - XR CHEST 1V - 10/14/24 23:24 EST Findings: Endotracheal tube is in satisfactory position in the midthoracic trachea. NG tube passes into the stomach and out of the field of view. There is new opacity within the lower lungs which may be some combination of layering effusions, atelectasis, and/or pneumonia/aspiration. There is no evidence of a pneumothorax. Cardiomediastinal silhouette is within normal limits. IMPRESSION: New opacity within the lower lungs which may be some combination of layering effusions, atelectasis, and/or pneumonia/aspiration. This document has been electronically signed by: Mark Roman MD on 10/19/2024 20:38:13
--- NOTE | ~2024-10-14 | CT_ITS ---
CLINICAL HISTORY: Cardiac arrest, rule out fracture, bleed CT chest with contrast Comparison: None Findings: This examination is mildly degraded by artifact related to the patient's arms. Normal heart,size. No significant pericardial effusion. No thoracic aorta aneurysm. Enteric tube identified coursing below the diaphragm. Minimal ground-glass opacities are present at the left upper lobe. Mild ground-glass opacities present at the medial aspect of the right upper lobe. No pneumothorax or pleural effusion. No acute fractures are visualized. Impression: 1. Minimal left upper lobe ground-glass opacities present with mild right upper lobe ground-glass opacities. These findings may represent infectious/inflammatory infiltrates or pulmonary contusions in the setting of trauma. No pneumothorax or pleural effusion demonstrated. No acute fracture or dislocation injury identified. This document has been electronically signed by: Flynn Kendrick MD on 10/15/2024 01:36:04
--- NOTE | ~2024-10-14 | CT_ITS ---
CLINICAL HISTORY: mass near the gall bladder organ donnor CT abdomen and pelvis without contrast Comparison: CT/SR - CT ABDOMEN PELVIS W IV CON - 10/15/24 00:17 EST Findings: This examination is significantly degraded by artifact related to motion, the patient's arms, and structures external to the patient. The gallbladder appears to be slightly more distended on the current examination than on the prior exam. The gallbladder wall is not well visualized on this exam. No radiopaque gallstones are clearly visualized. The low-attenuation structure previously demonstrated near the gallbladder fossa is not clearly identified on this exam. The solid organs are unremarkable in appearance given the exam limitations. No hydronephrosis identified. No bowel obstruction, pneumoperitoneum, or pneumatosis. Enteric tube in place within the lumen of the distal stomach. Contrast is identified within the bowel from the level of the stomach to the descending colon. Pelvic contents unremarkable. A Roberts catheter is in place within the bladder lumen. There is mild bladder wall thickening. Normal appendix. Bilateral groin catheters in place. There is diffuse body wall edema. No acute fracture visualized. IMPRESSION: 1. Significantly limited examination due to artifact as described above. The previously demonstrated low-attenuation structure near the gallbladder fossa is not visualized on this exam. This document has been electronically signed by: Flynn Kendrick MD on 10/20/2024 01:32:40
--- NOTE | ~2024-10-14 | NM_ITS ---
EXAMINATION: Nuclear medicine brain flow. CLINICAL INDICATION: evaluate brain . COMPARISON: CTA brain 10/16/2024 TECHNIQUE: Allowing intravenous administration of 30 mCi of 99m technetium Neurolite for significant images were obtained up to 36 mins perfusion and static images were then neck and the brain were obtained up to 2-3 minutes. Static images were obtained subsequently at 30 minutes. FINDINGS: On flow images there is normal flow seen in the neck pain no isotope seen within the intracranial segment. On static images again there is no activity seen in the brain suggestive of absent flow within the brain. NM/NM brain 4V w flow IMPRESSION: No isotope perfusion or delayed activity seen within the brain to support viable brain parenchyma. Electronically signed by: Herminio Jose MD 10/17/2024 02:22 PM [facility]
--- NOTE | 2024-10-14 23:12 | ED_ITS ---
HPI - CPR General Chief Complaint: Cardiac Arrest/CPR Stated Complaint: cardiac arrest Time Seen by Provider: 10/14/24 23:11 Source: family, EMS and police Mode of arrival: EMS Limitations: other (Intubated, cardiac arrest) History of Present Illness ED Provider: Dr. Red Pacheco HPI narrative: 33-year-old male with a history of ulcerative colitis, microcytic anemia, opioids, fentanyl, and cocaine use disorder who presents emergency department in cardiac arrest. Information came from EMS and police. 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 He then went to his girlfriend's house. The girlfriend states that he went outside. She believes that he may have been having difficulty breathing secondary to his asthma. Proximally 5 minutes later the girlfriend found the patient outside with his shirt off but he was pants on and he was unresponsive. Police 1st responders gave intranasal Narcan with no effect and started CPR. Paramedics reported that the 1st rhythm was asystole. Paramedics continued with CPR and ACLS protocol for proximally 35 minutes prior to coming to the emergency department. Paramedics report that the patient did developed PEAMbut they never achieved return of spontaneous circulation. The patient was intubated by the paramedics and had intraosseous lines. In the emergency department, patient was in PEA Patient was given epinephrine 1 mg IV. First rhythm in the emergency department was PEA. First pulse check revealed no pulse, ultrasound revealed no cardiac movement. CPR was continued. Patient was given a 2nd dose of epinephrine IV. At the 2nd pulse check the patient had a pulse obtainable blood pressure on him. [place] was achieved at 22:09 hours. Patient also had cardiac activity on ultrasound. Police reported that they did find a narcotic bag at the scene and also found cocaine in the patient's car. Related Data Home Medications ?Medication ?Instructions ?Recorded ?Confirmed methadone 10 mg/mL oral 100 mg PO DAILY 07/21/24 07/21/24 concentrate (Methadose) multivitamin 1 tab PO DAILY 07/21/24 07/21/24 Previous Rx's ?Medication ?Instructions ?Recorded mesalamine 800 mg tablet,delayed 1,600 mg (2 x 800 mg) PO TID #180 07/25/24 release tabs prednisone 5 mg tablet 5 mg PO DIRECTED #252 tabs 07/25/24 albuterol sulfate 90 mcg/actuation 2 puff inhalation Q6H PRN 10/02/24 aerosol inhaler shortness of breath or wheezing #8.5 grams prednisone 20 mg tablet 40 mg (2 x 20 mg) PO DAILY #10 tabs 10/02/24 Allergies Allergy/AdvReac Type Severity Reaction Status Date / Time luyc Allergy Intermediate Hives Verified 10/15/24 00:58 [facility] Social History Social History Household Members: Family Household Members Other:: mother Housing: House Do you presently have visiting nurse or other home services: No Alcohol intake: never Patient Tobacco Use Status: Current everyday Tobacco user Tobacco use type: Smokeless Tobacco Cigarettes Per Day: 2 e-Cigarette/Vaping Use: Currently Using Second Hand Smoke Exposure: No Substance Use Type: Crack/Cocaine and Heroin Advance Directives: Yes Advance Directives on File: Yes Advance Directives Date on File: 07/29/24 service: No Current occupational status: employed Cognitive needs: No Hearing needs: No Vision needs: No Physical Exam 2 Vital Signs: Vital Signs: Last Vital Signs Temp 92.2 F L 10/15/24 00:42 Pulse 116 H 10/15/24 01:06 Resp 20 10/15/24 01:01 BP 70/38 L 10/15/24 01:06 Pulse Ox 100 10/15/24 01:18 O2 Del Method Mechanical Ventil ation 10/15/24 01:18 FiO2 50 10/15/24 00:45 Exam: General: Unresponsive, intubated, CPR by Patrick device Head: No obvious head trauma Neck: No obvious neck trauma Lung: Breath sounds symmetric with bagging Heart: No spontaneous heart sounds Extremities: no deformities, Medications Administered Generic Name Dose Route Start Last Admin Trade Name Freq PRN Reason Stop Dose Admin Norepinephrine Bitartrate 8 mg in 250 mls @ 0 mls/hr 10/15/24 01:00 10/15/24 01:06 Levophed IVCONT 0.6 mcg/kg/min .Q0M FREIDA 56.25 mls/hr Titration Protocol Per Protocol Discontinued Medications Generic Name Dose Route Start Last Admin Trade Name Freq PRN Reason Stop Dose Admin Albuterol Sulfate 7.5 mg/ 10 mg 10/15/24 00:55 10/15/24 00:58 Albuterol Sulfate 2.5 mg INHALE 10/15/24 00:56 10 mg ONCE ONE Administration Albuterol Sulfate 7.5 mg/ 10 mg 10/15/24 00:56 10/15/24 00:58 Albuterol Sulfate 2.5 mg INHALE 10/15/24 00:57 10 mg ONCE ONE Administration Albuterol Sulfate 7.5 mg/ 0 mg 10/15/24 00:58 10/15/24 01:00 Albuterol/Ipratropium 3 ml INHALE 10/15/24 00:59 10 each ONCE ONE Administration Sodium Chloride 1,000 mls @ 999 mls/hr 10/14/24 23:12 10/14/24 23:24 Ns IV 10/15/24 00:12 999 mls/hr .Q1H1M STA Administration Sodium Chloride 1,000 mls @ 0 mls/hr 10/15/24 01:05 10/15/24 01:26 Ns IV 10/15/24 01:06 999 mls/hr .Q0M STA Administration Wide Open Iohexol 85 ml 10/15/24 00:27 10/15/24 00:28 Iohexol 350 Mg/Ml 100 Ml Infus..Btl IV 10/15/24 00:28 85 ml ONCE ONE Administration Medical Decision Making Medical Decision Making MDM Narrative: 33-year-old male with a history of ulcerative colitis, microcytic anemia, opioids, fentanyl, and cocaine use disorder who presents emergency department in cardiac arrest. Police reported that there was an narcotic back at the scene and cocaine found in the patient's car. Patient achieved [place] at 22:09 hours after proximally 35 minutes of CPR/ALS by paramedics and 2 rounds of epinephrine/ACLS in the emergency department. Differential diagnosis: ?Includes but is not limited to opiate overdose, cocaine overdose, asthma attack leading to respiratory arrest Course: 00:57 My interpretation patient's laboratory evaluation is as follows: Normocytic anemia with an H&H of 8.2 and 28.2-patient has had similar anemia in the past. PT INR slightly elevated at 14.3 and 1.2. PTT elevated 60.1. VBG revealed pH of 6.83 and a bicarb of 7 this is consistent with cardiac arrest. Serum bicarb was low at 7. Glucose elevated 288. Lactic acid elevated 17.0-secondary to cardiac arrest. AST and ALT elevated 387 and 342 secondary to cardiac arrest. Troponin elevated 286. Urine tox screen was positive for opiates, fentanyl and cocaine. I did discuss the patient's presentation with the covering inventory control associate, Dr. Albarran and physician assistant superintendent Apollo Gonzalez and the patient was accepted into the intensive care unit for further management. The patient is still on a Levophed drip but we have been able to taper it down. Patient was very difficult to ventilate and did require albuterol 10 mg via the ETT and albuterol 10 mg nebulizer x2 through the ventilator with improvement of his ventilation status. Radiology reading of the CT scan of the brain is pending however patient does have cerebral edema on volume of you. Patient's family's here in the emergency department and I did inform them of patient's condition. 01:30 He was radiology reading of the CT scan of the brain is consistent with a anoxic brain damage. Admission/Observation Consideration of admission/observation: Escalation of care including admission/observation considered (Yes) Consult Healthcare Provider Management of the patient was discussed with: International First Officer (W[employer] Fleece Grader) Lab Data [facility] Lab Attestation statement: I reviewed the patient's lab results. 10/14/24 23:18 10/14/24 23:18 Labs: Lab Results 10/14/24 10/14/24 10/14/24 Range/Units 23:18 23:20 23:21 WBC 8.2 (4.8-10.8) X10*3/uL RBC 3.44 L D (4.60-5.80) X10*6/uL Hgb 8.2 L D (14.0-18.0) g/dl Hct 28.2 L (42.0-52.0) % MCV 82.0 (80.0-98.0) fL MCH 23.8 L (27.0-33.0) pg MCHC 29.1 L (31.0-36.0) g/dl RDW 18.9 H (11.0-16.0) % Plt Count 438 H D (160-400) X10*3/uL MPV 9.5 (9.4-12.4) fL Immature Gran % (Auto) Cancelled Neut % (Auto) Cancelled Lymph % (Auto) Cancelled [place] % (Auto) Cancelled Eos % (Auto) Cancelled Baso % (Auto) Cancelled Lymph # (Auto) Cancelled [place] # (Auto) Cancelled Eos # (Auto) Cancelled Baso # (Auto) Cancelled Abs Immat Gran (auto) Cancelled Absolute Neuts (auto) Cancelled Absolute Nucleated RBC 0.000 (0.0-0.012) X10*3/uL Nucleated RBC % (auto) 0.0 (0.0-0.2) /100WBC Neutrophils % (Manual) 45 (45-73) % Band Neutrophils % 5 (3-5) % Lymphocytes % (Manual) 40 (20-40) % Monocytes % (Manual) 2 (2-11) % Eosinophils % (Manual) 5 H (0-4) % Basophils % (Manual) 1 (0-2) % Metamyelocytes % 1 % Myelocytes % 1 % Abs Neuts (Manual) 4.1 (2.0-8.3) X10*3/uL Lymphocytes # (Manual) 3.3 (1.2-4.9) X10*3/uL Monocytes # (Manual) 0.2 (0.1-1.2) X10*3/uL Eosinophils # (Manual) 0.4 (0.0-0.4) X10*3/uL Basophils # (Manual) 0.1 (0.0-0.2) X10*3/uL Metamyelocytes # 0.1 X10*3/uL Myelocytes # 0.1 X10*/uL Platelet Estimate NORMAL (NORMAL) Plt Morphology Comment NORMAL RBC Morphology NOTED Hypochromasia 1+ (5-14) /OIF Target Cells 1+ (5-14) /OIF Ovalocytes 1+ (5-14) /OIF Radhames Cells 2+ (3-5) /OIF Schistocytes 1+ (0-2) /OIF PT 14.3 H (10.9-12.4) SEC INR 1.2 H (0.9-1.1) APTT 60.1 H* (26.0-36.8) SEC VBG pH 6.83 L* (7.32-7.43) VBG pCO2 44 mmHg VBG pO2 168 mmHg VBG HCO3 7 L (22-26) mmol/L VBG O2 Saturation Not Reportable VBG Base Excess -25.2 mmol/L Sodium 141 (135-145) mmol/L Potassium 4.7 (3.3-5.1) mmol/L Chloride 107 (96-108) mmol/L Carbon Dioxide 7 L* D (22-29) mmol/L Anion Gap 32 H (12-20) BUN 14 (9-16) mg/dL Creatinine 1.09 (0.5-1.4) mg/dL Estim Creat Clear Calc TNP Estimated GFR > 60 Random Glucose 288 H (60-115) mg/dL Lactic Acid 17.0 H* (0.5-2.0) mmol/L Calcium 8.9 (8.4-10.2) mg/dL Total Bilirubin 0.1 (0.0-1.0) mg/dL AST 387 H (5-37) U/L ALT 342 H (0-40) U/L Alkaline Phosphatase 78 (39-117) U/L Total Creatine Kinase 286 H (38-174) U/L Troponin I High Sens < 2.7 (<3.5-35.0) ng/L Total Protein 6.1 L (6.5-8.0) g/dL Albumin 3.1 L (3.5-5.0) g/dL Lipase 16 (8-78) U/L Urine Color Urine Appearance Urine pH (5.0-9.0) Ur Specific [place] (1.005-1.025) Urine Protein (Neg-Trace) mg/dL Urine Glucose (UA) (Negative) mg/dL Urine Ketones (Negative) mg/dL Urine Blood (Negative) Urine Nitrite (Negative) Ur Leukocyte Esterase (Negative) Urine RBC (0-2) /HPF Urine WBC (0-5) /HPF Ur Squamous Epith Cells (0-2) /HPF Urine Bacteria (None Seen) Hyaline Casts (0-2) /LPF Urine Opiates Screen (Not Detect) Ur Buprenorphine Scrn (Not Detect) ng/mL Ur Oxycodone Screen (Not Detect) ng/mL Urine Methadone Screen (Not Detect) ng/mL Urine Fentanyl Screen (Not Detect) Ur Barbiturates Screen (Not Detect) Ur Phencyclidine Scrn (Not Detect) Ur Amphetamines Screen (Not Detect) U Benzodiazepines Scrn (Not Detect) Urine Cocaine Screen (Not Detect) U Marijuana (THC) Screen (Not Detect) Ethyl Alcohol < 10 mg/dL Influenza Type A (PCR) NEGATIVE (Negative) Influenza Type B (PCR) NEGATIVE (Negative) RSV RNA Qual (PCR) NEGATIVE (Negative) SARS-CoV-2 RNA (RT-PCR) NEGATIVE (Negative) 10/15/24 Range/Units 00:33 WBC (4.8-10.8) X10*3/uL RBC (4.60-5.80) X10*6/uL Hgb (14.0-18.0) g/dl Hct (42.0-52.0) % MCV (80.0-98.0) fL MCH (27.0-33.0) pg MCHC (31.0-36.0) g/dl RDW (11.0-16.0) % Plt Count (160-400) X10*3/uL MPV (9.4-12.4) fL Immature Gran % (Auto) Neut % (Auto) Lymph % (Auto) [place] % (Auto) Eos % (Auto) Baso % (Auto) Lymph # (Auto) [place] # (Auto) Eos # (Auto) Baso # (Auto) Abs Immat Gran (auto) Absolute Neuts (auto) Absolute Nucleated RBC (0.0-0.012) X10*3/uL Nucleated RBC % (auto) (0.0-0.2) /100WBC Neutrophils % (Manual) (45-73) % Band Neutrophils % (3-5) % Lymphocytes % (Manual) (20-40) % Monocytes % (Manual) (2-11) % Eosinophils % (Manual) (0-4) % Basophils % (Manual) (0-2) % Metamyelocytes % % Myelocytes % % Abs Neuts (Manual) (2.0-8.3) X10*3/uL Lymphocytes # (Manual) (1.2-4.9) X10*3/uL Monocytes # (Manual) (0.1-1.2) X10*3/uL Eosinophils # (Manual) (0.0-0.4) X10*3/uL Basophils # (Manual) (0.0-0.2) X10*3/uL Metamyelocytes # X10*3/uL Myelocytes # X10*/uL Platelet Estimate (NORMAL) Plt Morphology Comment RBC Morphology Hypochromasia /OIF Target Cells /OIF Ovalocytes /OIF Radhames Cells /OIF Schistocytes /OIF PT (10.9-12.4) SEC INR (0.9-1.1) APTT (26.0-36.8) SEC VBG pH (7.32-7.43) VBG pCO2 mmHg VBG pO2 mmHg VBG HCO3 (22-26) mmol/L VBG O2 Saturation VBG Base Excess mmol/L Sodium (135-145) mmol/L Potassium (3.3-5.1) mmol/L Chloride (96-108) mmol/L Carbon Dioxide (22-29) mmol/L Anion Gap (12-20) BUN (9-16) mg/dL Creatinine (0.5-1.4) mg/dL Estim Creat Clear Calc Estimated GFR Random Glucose (60-115) mg/dL Lactic Acid (0.5-2.0) mmol/L Calcium (8.4-10.2) mg/dL Total Bilirubin (0.0-1.0) mg/dL AST (5-37) U/L ALT (0-40) U/L Alkaline Phosphatase (39-117) U/L Total Creatine Kinase (38-174) U/L Troponin I High Sens (<3.5-35.0) ng/L Total Protein (6.5-8.0) g/dL Albumin (3.5-5.0) g/dL Lipase (8-78) U/L Urine Color Yellow Urine Appearance Cloudy Urine pH 6.5 (5.0-9.0) Ur Specific [place] 1.015 (1.005-1.025) Urine Protein 300 (3+) H (Neg-Trace) mg/dL Urine Glucose (UA) 500 H (Negative) mg/dL Urine Ketones Negative (Negative) mg/dL Urine Blood Large (3+) H (Negative) Urine Nitrite Negative (Negative) Ur Leukocyte Esterase Negative (Negative) Urine RBC >20 H (0-2) /HPF Urine WBC 0-5 (0-5) /HPF Ur Squamous Epith Cells 6-10 (0-2) /HPF Urine Bacteria 2+ (None Seen) Hyaline Casts 3-5 (0-2) /LPF Urine Opiates Screen POSITIVE H (Not Detect) Ur Buprenorphine Scrn Not Detected (Not Detect) ng/mL Ur Oxycodone Screen Not Detected (Not Detect) ng/mL Urine Methadone Screen Not Detected (Not Detect) ng/mL Urine Fentanyl Screen POSITIVE H (Not Detect) Ur Barbiturates Screen Not Detected (Not Detect) Ur Phencyclidine Scrn Not Detected (Not Detect) Ur Amphetamines Screen Not Detected (Not Detect) U Benzodiazepines Scrn Not Detected (Not Detect) Urine Cocaine Screen POSITIVE H (Not Detect) U Marijuana (THC) Screen Not Detected (Not Detect) Ethyl Alcohol mg/dL Influenza Type A (PCR) (Negative) Influenza Type B (PCR) (Negative) RSV RNA Qual (PCR) (Negative) SARS-CoV-2 RNA (RT-PCR) (Negative) Independent Interpretation I performed an independent interpretation of an: EKG Interpretation: My interpretation patient's 12 EKG done at 23:09 hours is as follows: Tachyarrhythmia with a rate of 126, ST segment depression leads 2, 3 and AVF, no ST segment elevation, no significant T-wave abnormalities My interpretation of the patient's one-view chest x-ray is as follows, ETT is above the seth, lungs appear to be hyperinflated with no significant infiltrates Radiology Impression Discussion of test interpretation with radiology: I have reviewed the radiologist's reading. Radiologist Impression: 1 view chest x-ray. Comparison: CR/SR - XR CHEST 1V - 10/02/24 03:25 EST Findings: Endotracheal tube in place with the distal tip approximately 5.5 cm above the seth. Multiple structures are identified overlying the patient, mildly limiting this examination. There appears to be central pulmonary venous congestion. No consolidation, pneumothorax, or effusion. Heart size normal. Impression: 1. Mildly limited exam related to overlying structures with an endotracheal tube approximately 5.5 cm above the seth. 2. Central pulmonary venous congestion. No focal pulmonary consolidation identified. This document has been electronically signed by: Flynn Kendrick MD on 10/14/2024 23:51:22 CT head without contrast Comparison: None Findings: This examination is degraded by artifact related to structures external to the patient. There appears to be diminished differentiation of the gurrola and white matter intracranially. Relatively increased attenuation identified within the dural venous sinuses. Somewhat diminished size of the 4th ventricle present. No acute intracranial hemorrhage. No midline shift. No hydrocephalus. Extz-fu-xjezrjls mucosal thickening identified within the ethmoid air cells and right maxillary sinus with mild mucosal thickening at the left maxillary sinus. Minimal mucosal thickening present at the bilateral sphenoid sinuses. The bilateral mastoid air cells appear clear. No acute skull fracture. Impression: 1. Mildly limited evaluation due to artifact related to structures external to the patient. There is poor gurrola-white matter differentiation on this examination with a somewhat decreased size of the 4th ventricle. These findings may be related to diffuse cerebral/cerebellar edema with mild mass effect on the 4th ventricle in the setting of hypoxia. No acute intracranial hemorrhage or midline shift demonstrated. Recommend brain MRI examination for further evaluation. This document has been electronically signed by: Flynn Kendrick MD on 10/15/2024 01:24:39 Dictated By: Flynn Kendrick MD CT cervical spine without contrast Comparison: None Findings: There is mild reversal of the normal cervical lordosis. No cervical spondylolisthesis identified. No acute fractures or dislocations. Pidl-ly-[id number] degenerative endplate changes are present at C6-C7. Impression: 1. Mild reversal of the normal cervical lordosis. This finding is nonspecific and may be positional and/or related to muscle spasm. No acute fracture or dislocation injury identified at the cervical spine. This document has been electronically signed by: Flynn Kendrick MD on 10/15/2024 01:15:15 Dictated By: Flynn Kendrick MD Independent Historian Clinical information obtained from an independent historian. History obtained from or confirmed by: Other (Patient's brother and parents) Chronic Conditions Patient?s care impacted by: Other (Opiate use disorder) Procedures Central Line Placement Right Femoral: Time Out Performed: No Patient Placed on Monitor/Pulse Ox: Yes Prep: mask, gown and gloves Central Line Prep: Povidone-Iodine 1% Ultrasound Used for Placement: Yes Central Line Lumen Inserted: triple Post Procedure: sutured in place, good blood return, all ports aspirated, flushed, capped and sterile dressing applied Post Procedure X-Ray: other Patient Tolerated Procedure: no complications Additional Comments: Performed by Debora Roberts PA-C Critical Care Time Critical Care Time Critical Care Time: Yes Total Critical Care Time: 120 Attestation: Critical Care: The patient was critically ill with a high probability of imminent or life threatening deterioration. I spent greater than 30 minutes of discontinuous time evaluating the patient,delivering critical care at the bedside, discussing and evaluating pertinent data with consultants. Critical care time does not include time spent performing separately billable procedures or teaching. Total time spent performing critical care was 120 minutes. Discharge Plan Discharge Clinical Impression: Cardiac arrest Accidental overdose Qualifiers: Encounter type: initial encounter Qualified Code(s): T50.901A - Poisoning by unspecified drugs, medicaments and biological substances, accidental (unintentional), initial encounter Patient Disposition: Admitted As Inpatient
[2024-10-14] MEDS: 0.9 % Sodium Chloride 1,000 ML 999 ML IV (23:24)
[2024-10-14 23:25] LABS: Hematocrit 28.2 % (42.0-52.0); Hemoglobin 8.2 g/dl (14.0-18.0); Mean Corpuscular HGB Conc 29.1 g/dl (31.0-36.0); Mean Corpuscular Hemoglobin 23.8 pg (27.0-33.0); Mean Platelet Volume 9.5 fL (9.4-12.4); Platelet Count 438 X10*3/uL (160-400); Red Blood Count 3.44 X10*6/uL (4.60-5.80); Red Cell Distribution Width 18.9 % (11.0-16.0); White Blood Count 8.2 X10*3/uL (4.8-10.8)
[2024-10-14 23:26] LABS: VBG Base Excess -25.2 mmol/L; VBG HCO3 7 mmol/L (22-26); VBG pCO2 44 mmHg; VBG pH 6.83 (7.32-7.43); VBG pO2 168 mmHg
[2024-10-14 23:32] LABS: INTERNATIONAL NORM RATIO 1.2 (0.9-1.1); Prothrombin Time 14.3 SEC (10.9-12.4)
[2024-10-14 23:33] LABS: Venous Blood Gas Refer to POC result
[2024-10-14 23:41] LABS: Ethanol < 10 mg/dL
[2024-10-14 23:42] LABS: Partial Thromboplastin Time 60.1 SEC (26.0-36.8)
[2024-10-14 23:48] LABS: Band Neutrophils Percent 5 % (3-5); Basophils Abs Manual 0.1 X10*3/uL (0.0-0.2); Basophils Percent Manual 1 % (0-2); Eosinophils Absolute Manual 0.4 X10*3/uL (0.0-0.4); Eosinophils Percent Manual 5 % (0-4); Lymphocytes Absolute Manual 3.3 X10*3/uL (1.2-4.9); Lymphocytes Percent Manual 40 % (20-40); Metamyelocytes Absolute 0.1 X10*3/uL; Metamyelocytes Percent 1 %; Monocytes Absolute Manual 0.2 X10*3/uL (0.1-1.2); Monocytes Percent Manual 2 % (2-11); Myelocytes Absolute 0.1 X10*/uL; Myelocytes Percent 1 %; Neutrophils Absolute Manual 4.1 X10*3/uL (2.0-8.3); Neutrophils Percent Manual 45 % (45-73)
[2024-10-14 23:49] LABS: Burr Cells 2+ (3-5) /OIF; Hypochromasia 1+ (5-14) /OIF; Ovalocytes 1+ (5-14) /OIF; Platelet Estimate NORMAL (NORMAL); RBC Morphology NOTED; Target Cells 1+ (5-14) /OIF; Troponin-I High Sensitivity < 2.7 ng/L (<3.5-35.0)
[2024-10-14 23:50] LABS: Alanine Aminotransferase 342 U/L (0-40); Albumin Level 3.1 g/dL (3.5-5.0); Alkaline Phosphatase 78 U/L (39-117); Anion Gap 32 (12-20); Aspartate Amino Transferase 387 U/L (5-37); Bilirubin Total 0.1 mg/dL (0.0-1.0); Blood Urea Nitrogen 14 mg/dL (9-16); Calcium 8.9 mg/dL (8.4-10.2); Chloride 107 mmol/L (96-108); Estimated Glomerular Filt Rate > 60; Glucose Random 288 mg/dL (60-115); Lipase 16 U/L (8-78); Potassium 4.7 mmol/L (3.3-5.1); Sodium 141 mmol/L (135-145); Total Protein 6.1 g/dL (6.5-8.0)
[2024-10-14 23:51] LABS: Platelet Morphology Comment NORMAL; Schistocytes 1+ (0-2) /OIF
[2024-10-14 23:56] LABS: Carbon Dioxide 7 mmol/L (22-29)
[2024-10-15] VITALS (53 sets, daily range): BP systolic 70–165; BP diastolic 34–111; PULSE 13–143; RESP 13–20; TEMP 33.4–39.4; O2SAT 90–100; BMI 17.3; BMI 16.4
[2024-10-15 00:03] LABS: Influenza A PCR NEGATIVE (Negative); Influenza B PCR NEGATIVE (Negative); Resp Syncy Virus RNA Qual PCR NEGATIVE (Negative); SARS COV2 PCR INHOUSE NEGATIVE (Negative)
--- NOTE | 2024-10-15 00:05 | MHC.EDTECH ---
Addendum entered by Alka Sanchez 10/15/24 01:29: time. Original Note: Patient brought to CT scan at this itme
[2024-10-15] MEDS: iohexoL 350 MG/ML 100 ML INFUS..BTL 85 ML IV (00:28)
[2024-10-15 00:41] LABS: Appearance Urine Cloudy; Color Urine Yellow; Glucose Urine UA 500 mg/dL (Negative); Leukocyte Esterase Urine Negative (Negative); Nitrite Urine Negative (Negative); PH 6.5 (5.0-9.0); Specific Gravity - Urine 1.015 (1.005-1.025); UMIC TRIGGER UACC YES; Urine Blood Large (3+) (Negative); Urine Ketones Negative (Negative); Urine Protein 300 (3+) mg/dL (Neg-Trace)
[2024-10-15 00:50] LABS: Amphetamine Screen Urine Not Detected (Not Detect); Barbiturates, Urine Not Detected (Not Detect); Benzodiazepines Screen Urine Not Detected (Not Detect); Buprenorphine Scr Not Detected (Not Detect); Cannabinoid Screen Urine Not Detected (Not Detect); Cocaine Screen Urine POSITIVE (Not Detect); Fentanyl, urine POSITIVE (Not Detect); Methadone Screen, Urine Not Detected (Not Detect); Opiate Screen Urine POSITIVE (Not Detect); Oxycodone Screen Urine Not Detected (Not Detect); Phencyclidine Screen Urine Not Detected (Not Detect)
[2024-10-15] MEDS: Albuterol Sulfate 7.5 MG, Albuterol Sulfate (0.083%) 2.5 MG 10 MG INHALE ×2 (00:58)
--- NOTE | 2024-10-15 00:58 | MHC.EDTECH ---
Pt was not scanned for EKG. hard copy with patient label in Pt's folder, copy with note left for cardiology to connect the electronic file left on EKG machine.
--- NOTE | 2024-10-15 00:58 | MHC.EDTECH ---
Late Entry,Patient BIBA,changed into hospital attire,placed on the fractionating still operator,vitals taken,POC taken by business intelligence administrator Parish,EKG taken by business intelligence administrator J Carlos,labs drawn and sent to lab,assisted RN with Roberts placement,urine sample obtained and sent to lab.rectal temp taken @ 0042 92.2,RN at bedside, was made aware.
[2024-10-15] MEDS: Albuterol Sulfate 7.5 MG, Albuterol/Iprat 2.5/0.5MG 3 ML 3 ML INHALE (01:00)
[2024-10-15 01:03] LABS: Bacteria Urine 2+ (None Seen); RBC Urine >20 /HPF (0-2); WBC Urine 0-5 /HPF (0-5)
[2024-10-15] MEDS: Norepinephrine Bitartrate/D5W 8 MG/250 ML PLAST..BAG 37.5 MG IVCONT (01:03)
[2024-10-15 01:23] LABS: Reflex Lactate? Lactic Acid Added
[2024-10-15 01:25] LABS: Venous Blood Gas Refer to POC result
[2024-10-15] MEDS: 0.9 % Sodium Chloride 1,000 ML 999 ML IV (01:26)
[2024-10-15 01:30] LABS: VBG Base Excess -11.2 mmol/L; VBG HCO3 15 mmol/L (22-26); VBG pCO2 33 mmHg; VBG pH 7.24 (7.32-7.43); VBG pO2 91 mmHg
[2024-10-15] MEDS: Sodium Bicarbonate 8.4% 150 MEQ in Dextrose 5 % 850 ML 100 MEQ IV (02:22)
--- NOTE | 2024-10-15 02:31 | PM.CCHP ---
History of Present Illness Date of Service: 10/15/24 <RUBEN Galser - Last Filed: 10/15/24 06:17> Attending physician on admission: Alexi Albarran <RUBEN Glaser - Last Filed: 10/15/24 06:17> Chief Complaint: Post Acute cardiorespiratory arrest / suspected drug overdose <RUBEN Glaser - Last Filed: 10/15/24 06:17> HPI: ?Patient with underlying history of asthma, microcytic anemia, prior GI bleed in the setting of ulcerative colitis. ?Polysubstance abuse including fentanyl, cocaine reportedly on methadone. ?According to the father, the patient has a long history of polysubstance abuse including cocaine, heroin and opioids.? They had a family gathering, the patient is a father of a 2-year-old and went to drop her off at his in-laws house, at the time he had been feeling somewhat short of breath and stated that if he does not feel better he will go to the hospital.? He has an asthmatic. Suddenly collapsed outside of his girlfriend's house.? EMS personnel was called, upon arrival, he received intranasal Narcan without any improvement, they noticed the patient was unresponsive without a pulse and CPR were started.? ACLS protocol happened for approximately 35 minutes prior to arriving to the ER.? The patient was intubated on the field.? They did achieve PA but never obtained spontaneous circulation in route. ?In the ER the patient was still in PA in another 20 minutes of ACLS continued prior to obtaining ROSC ( total 55 min of CPR/ACLS). ? A central line was placed patient was placed on Levophed for low blood pressure.? Given some difficulty with ventilation 3 albuterol 10 mg treatments have been given. ?Is known that cocaine was found in the patient's car and other drugs next to him on the field. As part of the workup, he is noted to be chronically anemic.? His initial venous gas showed pH of 6.83, pCO2 44, PO2 168, HC03 of 7. ?His chemistries significant for carbon dioxide of 7, anion gap of 32, random glucose 288, lactic acid 17, SAT 387, ALT 342, total CK 286, albumin 3.1. Urine tox screen is positive for opioids, fentanyl and cocaine. ?Respiratory panel negative. Knight scan including head CT, cervical spine, chest, abdomen and pelvis CTs are pending.? Patient was transferred to the ICU for further care. <RUBEN Glaser - Last Filed: 10/15/24 06:17> Review of Systems Review of Systems: Yes Unobtainable due to mental status <RUBEN Glaser - Last Filed: 10/15/24 06:17> [facility] Social History Social History: Social History Household Members: Family Household Members Other:: mother Housing: House Do you presently have visiting nurse or other home services: No Alcohol intake: never Patient Tobacco Use Status: Tobacco use Unknown Tobacco use type: Smokeless Tobacco Cigarettes Per Day: 2 e-Cigarette/Vaping Use: Currently Using Second Hand Smoke Exposure: No Use of substances other than those prescribed or required for medical reasons: Unable to respond Substance Use Type: Crack/Cocaine and Opiates Currently Displaying Signs/Symptoms of Drug Intoxication Withdrawal: No Advance Directives: Yes Advance Directives on File: Yes Advance Directives Date on File: 07/29/24 Recently lost weight without trying: Unsure Poor oral hygiene: No service: No Current occupational status: employed Cognitive needs: No Hearing needs: No Vision needs: No <RUBEN Glaser - Last Filed: 10/15/24 06:17> Meds Allergies/Adverse reactions: Allergies Allergy/AdvReac Type Severity Reaction Status Date / Time lucy Allergy Intermediate Hives Verified 10/15/24 00:58 <RUBEN Glaser - Last Filed: 10/15/24 06:17> Active Medications: Current Medications Glucose (Glucose Gel 15 Gm Gel..Gram.) 15 gm PO Q15M PRN; Protocol PRN Reason: per Hypoglycemia Standing Ord. Hydrocortisone Sodium Succinate (Hydrocortisone Sod Succ/Pf 100 Mg Vial) 100 mg IVPUSH Q8H FREIDA Norepinephrine Bitartrate (Levophed) 8 mg in 250 mls @ 0 mls/hr IVCONT .Q0M FREIDA; Protocol Last Titration: 10/15/24 01:06 Dose: 0.6 mcg/kg/min, 56.25 mls/hr Sodium Bicarbonate 150 meq/ (Dextrose) 1,000 mls @ 100 mls/hr IV .Q10H FREIDA Last Admin: 10/15/24 02:22 Dose: 100 mls/hr Dextrose (D10) 250 mls @ 750 mls/hr IV Q15M PRN; Protocol PRN Reason: per Hypoglycemia Standing Ord. Insulin Human Lispro (Insulin Lispro 100 Unit/Ml 3 Ml Vial) 0 unit SUBCUT Q6H [facility]; Protocol Pantoprazole Sodium (Pantoprazole Sodium 40 Mg/10 Ml Vial) 40 mg IVPUSH BID@0630,1630 FREIDA <RUBEN Glaser - Last Filed: 10/15/24 06:17> Home medications: Home Medications ?Medication ?Instructions ?Recorded ?Confirmed ?Last Taken ?Type methadone 10 mg/mL oral 100 mg PO DAILY 07/21/24 07/21/24 07/18/24 06:30 History concentrate (Methadose) <RUBEN Glaser - Last Filed: 10/15/24 06:17> Physical Exam Vital Signs: Vital Signs: Last Vital Signs Temp 92.9 F L 10/15/24 02:00 Pulse 118 H 10/15/24 02:00 Resp 16 10/15/24 02:00 BP 116/67 10/15/24 02:00 Pulse Ox 100 10/15/24 02:00 O2 Del Method Mechanical Ventil ation 10/15/24 02:00 FiO2 30 10/15/24 02:00 BMI result Body Mass Index 17.3 <RUBEN Glaser - Last Filed: 10/15/24 06:17> General: ?Intubated, not sedated, pupils are 7 mm bilaterally and nonreactive to light.? There is no response to touch or painful stimuli, no gag reflex. ? Skin:? Intact, no lesions, edema, erythema, clubbing or cyanosis.? No ulcers. HEENT:? Head is normocephalic, atraumatic, pupils as above. Buccal mucosa dry Cardiac:? Clear S1-S2, no murmurs rubs or gallops. Pulmonary:? Minimal wheezing upper lung meadows, no rhonchi, no crackles bilaterally Abdomen:? Protuberant, positive bowel sounds in all 4 quadrants.? Soft, nontender, no rebound or guarding.? Musculoskeletal:? Passive range of motion of all 4 extremities at the major joints showed no cogwheeling, no crepitus. Neurologic:? As above, otherwise no neurological response or reflexes. Intermittent jerk movements to the right. Vascular:? 2+ pulses upper and lower extremities distally. ?Less than 2nd capillary refill of the finger and toes bilaterally. <RUBEN Glaser - Last Filed: 10/15/24 06:17> Results Labs CBC and Chem 7: 10/15/24 04:35 10/15/24 04:35 <RUBEN Glaser - Last Filed: 10/15/24 06:17> Labs: Laboratory Results - last 24 hr 10/14/24 10/14/24 10/14/24 23:18 23:20 23:21 MCV 82.0 MCH 23.8 L MCHC 29.1 L RDW 18.9 H Plt Count 438 H D MPV 9.5 Immature Gran % (Auto) Cancelled Neut % (Auto) Cancelled Lymph % (Auto) Cancelled [place] % (Auto) Cancelled Eos % (Auto) Cancelled Baso % (Auto) Cancelled Lymph # (Auto) Cancelled Knox # (Auto) Cancelled Eos # (Auto) Cancelled Baso # (Auto) Cancelled Abs Immat Gran (auto) Cancelled Absolute Neuts (auto) Cancelled Absolute Nucleated RBC 0.000 Nucleated RBC % (auto) 0.0 Neutrophils % (Manual) 45 Band Neutrophils % 5 Lymphocytes % (Manual) 40 Monocytes % (Manual) 2 Eosinophils % (Manual) 5 H Basophils % (Manual) 1 Metamyelocytes % 1 Myelocytes % 1 Abs Neuts (Manual) 4.1 Lymphocytes # (Manual) 3.3 Monocytes # (Manual) 0.2 Eosinophils # (Manual) 0.4 Basophils # (Manual) 0.1 Metamyelocytes # 0.1 Myelocytes # 0.1 Platelet Estimate NORMAL Plt Morphology Comment NORMAL RBC Morphology NOTED Hypochromasia 1+ (5-14) Target Cells 1+ (5-14) Ovalocytes 1+ (5-14) [place] Cells 2+ (3-5) Schistocytes 1+ (0-2) PT 14.3 H INR 1.2 H APTT 60.1 H* VBG pH 6.83 L* VBG pCO2 44 VBG pO2 168 VBG HCO3 7 L VBG O2 Saturation Not Reportable VBG Base Excess -25.2 Anion Gap 32 H Estim Creat Clear Calc TNP Estimated GFR > 60 Random Glucose 288 H Lactic Acid 17.0 H* Calcium 8.9 Total Bilirubin 0.1 AST 387 H ALT 342 H Alkaline Phosphatase 78 Total Creatine Kinase 286 H Troponin I High Sens < 2.7 Total Protein 6.1 L Albumin 3.1 L Lipase 16 Urine Color Urine Appearance Urine pH Ur Specific [place] Urine Protein Urine Glucose (UA) Urine Ketones Urine Blood Urine Nitrite Ur Leukocyte Esterase Urine RBC Urine WBC Ur Squamous Epith Cells Urine Bacteria Hyaline Casts Urine Opiates Screen Ur Buprenorphine Scrn Ur Oxycodone Screen Urine Methadone Screen Urine Fentanyl Screen Ur Barbiturates Screen Ur Phencyclidine Scrn Ur Amphetamines Screen U Benzodiazepines Scrn Urine Cocaine Screen U Marijuana (THC) Screen Ethyl Alcohol < 10 Influenza Type A (PCR) NEGATIVE Influenza Type B (PCR) NEGATIVE RSV RNA Qual (PCR) NEGATIVE SARS-CoV-2 RNA (RT-PCR) NEGATIVE 10/15/24 10/15/24 00:33 01:24 MCV MCH MCHC RDW Plt Count MPV Immature Gran % (Auto) Neut % (Auto) Lymph % (Auto) Knox % (Auto) Eos % (Auto) Baso % (Auto) Lymph # (Auto) Knox # (Auto) Eos # (Auto) Baso # (Auto) Abs Immat Gran (auto) Absolute Neuts (auto) Absolute Nucleated RBC Nucleated RBC % (auto) Neutrophils % (Manual) Band Neutrophils % Lymphocytes % (Manual) Monocytes % (Manual) Eosinophils % (Manual) Basophils % (Manual) Metamyelocytes % Myelocytes % Abs Neuts (Manual) Lymphocytes # (Manual) Monocytes # (Manual) Eosinophils # (Manual) Basophils # (Manual) Metamyelocytes # Myelocytes # Platelet Estimate Plt Morphology Comment RBC Morphology Hypochromasia Target Cells Ovalocytes Radhames Cells Schistocytes PT INR APTT VBG pH 7.24 L VBG pCO2 33 VBG pO2 91 VBG HCO3 15 L VBG O2 Saturation 96.0 VBG Base Excess -11.2 Anion Gap Estim Creat Clear Calc Estimated GFR Random Glucose Lactic Acid Calcium Total Bilirubin AST ALT Alkaline Phosphatase Total Creatine Kinase Troponin I High Sens Total Protein Albumin Lipase Urine Color Yellow Urine Appearance Cloudy Urine pH 6.5 Ur Specific [place] 1.015 Urine Protein 300 (3+) H Urine Glucose (UA) 500 H Urine Ketones Negative Urine Blood Large (3+) H Urine Nitrite Negative Ur Leukocyte Esterase Negative Urine RBC >20 H Urine WBC 0-5 Ur Squamous Epith Cells 6-10 Urine Bacteria 2+ Hyaline Casts 3-5 Urine Opiates Screen POSITIVE H Ur Buprenorphine Scrn Not Detected Ur Oxycodone Screen Not Detected Urine Methadone Screen Not Detected Urine Fentanyl Screen POSITIVE H Ur Barbiturates Screen Not Detected Ur Phencyclidine Scrn Not Detected Ur Amphetamines Screen Not Detected U Benzodiazepines Scrn Not Detected Urine Cocaine Screen POSITIVE H U Marijuana (THC) Screen Not Detected Ethyl Alcohol Influenza Type A (PCR) Influenza Type B (PCR) RSV RNA Qual (PCR) SARS-CoV-2 RNA (RT-PCR) <RUBEN Glaser Last Filed: 10/15/24 06:17> Assessment and Plan (1) Cardiac arrest: Status: Acute <RUBEN Glaser Last Filed: 10/15/24 06:17> 1. Acute respiratory failure and arrest leading to cardiac arrest 2. Suspected Drug OD in a Polysubstance abuse patient 3. Anoxic brain injury post 1 and prolonged downtime 4. Severe metabolic acidosis 5. Acute asthma exacerbation 6. Transaminitis likely shock liver syndrome r/o GB disease 7. Hyperglycemia likely due to steroids as he is not known to be a diabetic 8. Elevated CPK likely rhabdomyolysis ( no seizure activity noted) 9. Hypoalbuminemia 10. Microcytic anemia likely iron deficiency in the setting of ulcerative colitis 11. Nonspecific attenuation near the gallbladder measuring 3.6 cm in need of further evaluation. 12. Proteinuria and glucosuria 13. History of ulcerative colitis (prednisone dependent) 14. Hypothermia likely due to 1. <RUBEN Glaser Last Filed: 10/15/24 06:17> PLAN OF CARE: Patient had prolonged resuscitation with reported CPR and ACLS efforts for about 55 minutes, he is a high risk of hypoxic brain injury.? We will add a urine toxic screen, we will start him on sodium bicarb and continue with vasopressors. ?Given his steroid dependent we will start him on stress dose steroids. ?Insulin sliding scale, repeat laboratories and trend troponins and CPK.? Albumin replacement which will help with his blood pressure as well. ?He will need a central line.? Gallbladder ultrasound. ?DuoNeb and albuterol p.r.n. we will attempt to bring core temperature to normal body temperature to see if there is any neurological reaction. A 00:42, I have reviewed the patient's head CT which shows no gyrus as and evidence of brain edema all correlating with moderate anoxic brain injury, no ICH, final rad reading pending. I will have a lengthy discussion with family members in regards to the patient's goals of care. ? 0200 I had 30 minute good discussion with the patient's father and other family members.? Regarding the patient's current clinical scenario, the fact that there is no neurological response, CT findings and possible outcome.? They are aware of the possibility of significant anoxic brain injury better hopeful that something may change in the next 24 hours or so. Consider MRI to eval the severity of anoxia. GI PROPHYLAXIS: ?IV PPI DVT PROPHYLAXIS:? Pneumatic stockings only as his PTT is elevated Critical care time used for critical evaluation of this patient, diagnosis, treatment and coordination of care, review her records and documentation TOTAL CRITICAL CARE TIME 120 MIN . discussion and coordination with consultants, completely separate from any procedures performed. Patient's care was discussed in detail with Dr. Albarran who is aware of all the above as well as the plan of care for this patient. <RUBEN Glaser - Last Filed: 10/15/24 06:17> PLAN OF CARE: Patient had prolonged resuscitation with reported CPR and ACLS efforts for about 55 minutes, he is a high risk of hypoxic brain injury.? We will add a urine toxic screen, we will start him on sodium bicarb and continue with vasopressors. ?Given his steroid dependent we will start him on stress dose steroids. ?Insulin sliding scale, repeat laboratories and trend troponins and CPK.? Albumin replacement which will help with his blood pressure as well. ?He will need a central line.? Gallbladder ultrasound. ?DuoNeb and albuterol p.r.n. we will attempt to bring core temperature to normal body temperature to see if there is any neurological reaction. A 00:42, I have reviewed the patient's head CT which shows no gyrus as and evidence of brain edema all correlating with moderate anoxic brain injury, no ICH, final rad reading pending. I will have a lengthy discussion with family members in regards to the patient's goals of care. ? 0200 I had 30 minute good discussion with the patient's father and other family members.? Regarding the patient's current clinical scenario, the fact that there is no neurological response, CT findings and possible outcome.? They are aware of the possibility of significant anoxic brain injury better hopeful that something may change in the next 24 hours or so. Consider MRI to eval the severity of anoxia. GI PROPHYLAXIS: ?IV PPI DVT PROPHYLAXIS:? Pneumatic stockings only as his PTT is elevated Critical care time used for critical evaluation of this patient, diagnosis, treatment and coordination of care, review her records and documentation TOTAL CRITICAL CARE TIME 120 MIN . discussion and coordination with consultants, completely separate from any procedures performed. Patient's care was discussed in detail with Dr. Albarran who is aware of all the above as well as the plan of care for this patient. Addendum by attending: Neuro: Acute encephalopathy possibly due to hypoxic ischemic brain injury given prolonged duration of CPR over 55 minutes with unknown down time prior to that, patient does not have any spontaneous activity other than posturing. Upon turning him on pressure support mode on ventilator he has lots spells of apnea followed by a few small breathing efforts. His CT brain upon admission showed cerebral edema supporting the above. Given his neurological findings of low spontaneous movement, absent cough and gag reflex, CT findings, duration of the code his prognosis is very poor and this has been very well explained to the family. Patient is not on any sedation or sedating medications Close neurological status monitoring in the ICU every hour Cardiac: Cardiogenic Shock: Possibly secondary to cardiac arrest On Levophed support, titrate Levophed to keep map above 65 mm Hg Respiratory: Acute hypoxemic respiratory failure due to respiratory failure Currently on ventilator support On PRVC mode FiO2 25, PEEP 5, TV 400, RR 20 Peak pressures and plateau pressures are under the curve Ventilator management bundle with head end elevation, aspiration precaution, chlorhexidine mouthwash, daily awakening trials, daily spontaneous breathing trials GI: We will start on tube feeds Renal: 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 Musculoskeletal: Decubitus ulcer prevention protocol Prophylaxis: Lovenox, pantoprazole Had a detailed goals of care discussion with the patient's family including mother, father, sister in law and 2 other person. Explained them back given the neurological findings in combination with a CT scan images along with the evidence of diabetes insipidus his prognosis is going to be very poor. His down time was very long to have permanent neurological deficit, she does not have any spontaneous activity, very poor brainstem reflexes, very poor breathing the only thing he does is posturing which is again sign of significant neurological damage. Family understands the grave situation, agrees to withdraw care at some point but not today. Had a discussion about code status, family wants him to to be a DNR, we will change the code status to DNR. Critical care time spent is about 90 minutes on evaluation and admission of the patient to critical care unit, formulating critical care plan and management, ventilator management, close hemodynamic monitoring, vasopressor management, post resuscitation management at this time is excluding any procedural time <Alexi Albarran MD - Last Filed: 10/15/24 13:12> Total time managing care of this patient today: 120 minutes. <RUBEN Glaser - Last Filed: 10/15/24 06:17> 90 minutes. <Alexi Albarran MD - Last Filed: 10/15/24 13:12>
[2024-10-15 02:33] LABS: Glucose, Whole Blood 299 mg/dL (60-115)
[2024-10-15] MEDS: Insulin Lispro 100 UNIT/ML 3 ML VIAL SUBCUT ×2 (02:37→06:11)
[2024-10-15] MEDS: Hydrocortisone Sod Succ/PF 100 MG VIAL IVPUSH ×2 (02:37→11:05)
[2024-10-15 02:48] LABS: ~Lactic Acid-LAB USE ONLY 8.1 mmol/L (0.5-2.0)
[2024-10-15] MEDS: Albumin Human 25 % 100 ML 133.33 ML IV ×2 (03:09→03:42)
[2024-10-15] MEDS: Norepinephrine Bitartrate/D5W 8 MG/250 ML PLAST..BAG 52.5 MG IVCONT (03:13)
[2024-10-15 04:28] LABS: Reflex Lactate? 2 Y
[2024-10-15 04:41] LABS: VBG Base Excess -3.9 mmol/L; VBG HCO3 21 mmol/L (22-26); VBG pCO2 40 mmHg; VBG pH 7.33 (7.32-7.43); VBG pO2 46 mmHg
[2024-10-15 04:53] LABS: Venous Blood Gas Refer to POC result
--- NOTE | 2024-10-15 05:27 | PC.NURSE ---
Patient arrived from ED at approximately 2:00. Patient intubated and requiring no sedation. Rectal temperature 92.9 on admission, patient was placed on a juan hugger, per order. Juan hugger shut off at 0500 when core temp of 97.7 was reached. Family was at bedside post arrival to the ICU, family updated by RUBEN Turcios. [facility] contacted by this RN, care support representative Lisette was updated on patient's status, [facility] referral #[id number].
[2024-10-15 05:28] LABS: Basophils Percent Auto 0.1 % (0-2); Eosinophils Percent Auto 0.2 % (0-4); Hematocrit 26.7 % (42.0-52.0); Hemoglobin 8.5 g/dl (14.0-18.0); Imm Gran Abs Auto 0.19 X10*3/uL (0.00-0.03); Imm Gran Pct Auto 0.7 % (0.0-0.4); Lymphocytes Absolute Auto 0.5 X10*3/uL (1.2-4.9); Lymphocytes Percent Auto 1.7 % (20-40); MANUAL DIFF FLAG SCAN; Mean Corpuscular HGB Conc 31.8 g/dl (31.0-36.0); Mean Corpuscular Hemoglobin 23.4 pg (27.0-33.0); Mean Corpuscular Volume 73.4 fL (80.0-98.0); Mean Platelet Volume 9.2 fL (9.4-12.4); Monocytes Absolute Auto 0.6 X10*3/uL (0.1-1.2); Monocytes Percent Auto 2.3 % (2-11); Neutrophils Absolute Auto 24.8 x10*3/uL (2.0-8.3); Platelet Count 404 X10*3/uL (160-400); Red Blood Count 3.64 X10*6/uL (4.60-5.80); Red Cell Distribution Width 18.4 % (11.0-16.0); SCAN SMEAR FLAG 1; White Blood Count 26.1 X10*3/uL (4.8-10.8)
[2024-10-15 05:53] LABS: Troponin-I High Sensitivity 36.9 ng/L (<3.5-35.0)
[2024-10-15 05:54] LABS: SLIDE REVIEW VERIFIED
[2024-10-15 05:56] LABS: Alanine Aminotransferase 388 U/L (0-40); Albumin Level 4.2 g/dL (3.5-5.0); Alkaline Phosphatase 74 U/L (39-117); Anion Gap 17 (12-20); Aspartate Amino Transferase 538 U/L (5-37); Bilirubin Total 0.3 mg/dL (0.0-1.0); Blood Urea Nitrogen 15 mg/dL (9-16); Calcium 7.8 mg/dL (8.4-10.2); Carbon Dioxide 18 mmol/L (22-29); Chloride 106 mmol/L (96-108); Creatinine Clr Calc Pharmacy 66.8; Estimated Glomerular Filt Rate > 60; Magnesium 3.3 mg/dL (1.6-2.6); Phosphorus 1.8 mg/dL (2.7-4.5); Potassium 3.2 mmol/L (3.3-5.1); Sodium 138 mmol/L (135-145); Total Protein 6.9 g/dL (6.5-8.0)
[2024-10-15 05:57] LABS: Glucose Random 365 mg/dL (60-115)
[2024-10-15 05:58] LABS: ~Lactic Acid-LAB USE ONLY 7.8 mmol/L (0.5-2.0)
[2024-10-15] MEDS: Pantoprazole Sodium 40 MG/10 ML VIAL IVPUSH ×2 (06:10→18:39)
[2024-10-15] MEDS: Potassium Phosphate/NS 15 MMOL/250 ML PLAST..BAG 62.5 MMOL IV ×2 (06:38→11:05)
--- NOTE | 2024-10-15 07:34 | PHA.MEDREC ---
Pharmacy Consult ? Medication Reconciliation Pharmacy has completed the medication reconciliation. Utilized pharmacy claims
[2024-10-15] MEDS: Lactated Ringers 1,000 ML 100 ML IVCONT (09:17)
[2024-10-15 09:22] LABS: Glucose, Whole Blood 181 mg/dL (60-115)
[2024-10-15] MEDS: Norepinephrine Bitartrate/D5W 8 MG/250 ML PLAST..BAG 31.88 MG IVCONT ×2 (11:05→18:21)
[2024-10-15 13:25] LABS: Alanine Aminotransferase 416 U/L (0-40); Albumin Level 4.3 g/dL (3.5-5.0); Alkaline Phosphatase 65 U/L (39-117); Anion Gap 10 (12-20); Aspartate Amino Transferase 737 U/L (5-37); Bilirubin Total 0.2 mg/dL (0.0-1.0); Blood Urea Nitrogen 12 mg/dL (9-16); Calcium 9.4 mg/dL (8.4-10.2); Carbon Dioxide 27 mmol/L (22-29); Chloride 132 mmol/L (96-108); Creatinine Clr Calc Pharmacy 65.9; Estimated Glomerular Filt Rate > 60; Glucose Random 110 mg/dL (60-115); Potassium 3.4 mmol/L (3.3-5.1); Sodium 166 mmol/L (135-145); Total Protein 7.4 g/dL (6.5-8.0)
[2024-10-15] MEDS: Lactated Ringers 1,000 ML 999 ML IV (13:45)
[2024-10-15] MEDS: Lactated Ringers 500 ML 300 ML IVCONT (13:46)
[2024-10-15 14:35] LABS: Reflex Lactate? Lactic Acid Added
--- NOTE | 2024-10-15 15:29 | MHC.CM.PN ---
Information for CM assessment was obtained thru the Patients EMR and staff interview. Patient lived with his Grandparents prior to admit. He was A+OX3 and independent with all functional mobility prior to this admission. He has a HCP on file. He was found unresponsive by GF. He was BIBA, intubated. He is now in ICU. He has been made a DNR earlier this afternoon. DP TBD by patient recovery. CM will follow.
[2024-10-15] MEDS: Lactated Ringers 1,000 ML 300 ML IVCONT ×2 (15:36→18:20)
[2024-10-15 15:40] LABS: Glucose, Whole Blood 140 mg/dL (60-115)
[2024-10-15 15:46] LABS: ~Lactic Acid-LAB USE ONLY 2.9 mmol/L (0.5-2.0)
[2024-10-15 17:03] LABS: Reflex Lactate? 2 Y
[2024-10-15] MEDS: Piperacillin Sodium/Tazobactam 4.5 GM in 0.9 % Sodium Chloride 100 ML IV (18:38)
[2024-10-15] MEDS: vancomycin HCL 1,250 MG in 0.9 % Sodium Chloride 250 ML 166.67 MG IV (18:38)
[2024-10-15 18:48] LABS: ~Lactic Acid-LAB USE ONLY 2.3 mmol/L (0.5-2.0)
[2024-10-15 18:49] LABS: Alanine Aminotransferase 326 U/L (0-40); Albumin Level 3.5 g/dL (3.5-5.0); Anion Gap 15 (12-20); Aspartate Amino Transferase 516 U/L (5-37); Bilirubin Total 0.2 mg/dL (0.0-1.0); Blood Urea Nitrogen 15 mg/dL (9-16); Calcium 8.6 mg/dL (8.4-10.2); Carbon Dioxide 25 mmol/L (22-29); Chloride 139 mmol/L (96-108); Creatinine Clr Calc Pharmacy 57.2; Estimated Glomerular Filt Rate > 60; Glucose Random 129 mg/dL (60-115); Potassium 3.5 mmol/L (3.3-5.1); Sodium 175 mmol/L (135-145); Total Protein 6.2 g/dL (6.5-8.0)
[2024-10-15 18:50] LABS: Alkaline Phosphatase 52 U/L (39-117)
[2024-10-15] MEDS: Sodium Chloride 0.45 % 1,000 ML 200 ML IVCONT (19:28)
--- NOTE | 2024-10-15 20:06 | PHA.PROG ---
Admission Date/Time: October 15, 2024 00:38 Indication: RESPIRATORY INFECTION Weight in k.5 kg Adjusted body weight in Kg: Walker body weight in Kg: Obesity Dosing Indication % IBW: Serum Creatinine - Last 168 Hours 10/14/24 10/15/24 10/15/24 23:18 04:35 12:04 Creatinine 1.09 1.09 1.05 10/15/24 10/15/24 12:31 17:59 Creatinine Cancelled 1.21 Estimated CrCl and GFR - Last 168 Hours 10/14/24 10/15/24 10/15/24 23:18 04:35 12:04 Estim Creat Clear Calc TNP 66.8 65.9 Estimated GFR > 60 > 60 > 60 10/15/24 10/15/24 12:31 17:59 Estim Creat Clear Calc Cancelled 57.2 Estimated GFR Cancelled > 60 Vancomycin Loading Dose: 1250 MG Current Vancomycin Dosing Regimen: 750 MG Q12H Vancomycin Monitoring using AUC goal of 400 - 600 range with trough as surrogate marker: APR=638 TROUGH=18.9 Date and Time for next Vancomycin Level to be drawn: 10/17/24 @0600 Pharmacist Comments on Vancomycin Plan: Vancomycin dosing will take advantage of [employer] as a clinical decision support tool that uses Bayesian modeling to calculate individual patient's pharmacokinetic parameters and forecast the patient's drug concentration time course with the target goal AUC 24 range of 400 - 600 mg/L/hr.
[2024-10-15] MEDS: Acetaminophen Oral Liquid 650 MG/20.3 ML SOLUTION 975 MG PO (20:53)
[2024-10-15] MEDS: Chlorhexidine Gluc Oral Rinse 15 ML MOUTHWASH BUCCAL (21:06)
[2024-10-15] MEDS: dexAMETHasone sod phosphate 4 MG/ML VIAL IVPUSH (21:06)
[2024-10-15 22:13] LABS: ABG Base Excess 4.7 mmol/L; ABG HCO3 27 mmol/L (22-26); ABG pCO2 33 mmHg (32-45); ABG pH 7.52 (7.35-7.45); ABG pO2 484 mmHg (83-108)
[2024-10-15 23:41] LABS: Glucose, Whole Blood 143 mg/dL (60-115)
[2024-10-16] VITALS (48 sets, daily range): BP systolic 111–148; BP diastolic 64–106; PULSE 97–115; RESP 14–20; TEMP 34.9–37.7; O2SAT 93–980; BMI 22.5; BMI 19.8
[2024-10-16 00:05] LABS: Basophils Percent Auto 0.1 % (0-2); Hematocrit 26.7 % (42.0-52.0); Hemoglobin 8.5 g/dl (14.0-18.0); Imm Gran Abs Auto 0.05 X10*3/uL (0.00-0.03); Imm Gran Pct Auto 0.3 % (0.0-0.4); Lymphocytes Absolute Auto 0.9 X10*3/uL (1.2-4.9); Lymphocytes Percent Auto 5.4 % (20-40); MANUAL DIFF FLAG NO; Mean Corpuscular HGB Conc 31.8 g/dl (31.0-36.0); Mean Corpuscular Hemoglobin 23.3 pg (27.0-33.0); Mean Corpuscular Volume 73.2 fL (80.0-98.0); Mean Platelet Volume 9.2 fL (9.4-12.4); Neutrophils Absolute Auto 14.3 x10*3/uL (2.0-8.3); Neutrophils Percent Auto 88.2 % (45-73); Platelet Count 333 X10*3/uL (160-400); Red Blood Count 3.65 X10*6/uL (4.60-5.80); Red Cell Distribution Width 18.7 % (11.0-16.0); White Blood Count 16.2 X10*3/uL (4.8-10.8)
[2024-10-16 00:12] LABS: Fibrinogen 534 MG/DL (259-690); INTERNATIONAL NORM RATIO 1.8 (0.9-1.1); Prothrombin Time 21.3 SEC (10.9-12.4)
[2024-10-16 00:15] LABS: Partial Thromboplastin Time 31.8 SEC (26.0-36.8)
[2024-10-16 00:24] LABS: Alanine Aminotransferase 312 U/L (0-40); Albumin Level 3.4 g/dL (3.5-5.0); Alkaline Phosphatase 52 U/L (39-117); Anion Gap 13 (12-20); Aspartate Amino Transferase 451 U/L (5-37); Bilirubin Total 0.4 mg/dL (0.0-1.0); Blood Urea Nitrogen 18 mg/dL (9-16); Calcium 7.6 mg/dL (8.4-10.2); Carbon Dioxide 22 mmol/L (22-29); Chloride 136 mmol/L (96-108); Creatinine Clr Calc Pharmacy 60.7; Estimated Glomerular Filt Rate > 60; Glucose Random 159 mg/dL (60-115); Magnesium 2.7 mg/dL (1.6-2.6); Phosphorus 3.6 mg/dL (2.7-4.5); Potassium 3.6 mmol/L (3.3-5.1); Sodium 167 mmol/L (135-145); Total Protein 6.1 g/dL (6.5-8.0)
[2024-10-16] MEDS: Sodium Chloride 0.45 % 1,000 ML 200 ML IVCONT ×4 (00:31→16:02)
[2024-10-16] MEDS: Piperacillin Sodium/Tazobactam 4.5 GM in 0.9 % Sodium Chloride 100 ML IV ×5 (00:31→23:25)
[2024-10-16 00:37] LABS: ABG Refer to POC result
[2024-10-16 00:39] LABS: Amylase 65 U/L (28-100); Lipase 8 U/L (8-78)
[2024-10-16 00:47] LABS: Troponin-I High Sensitivity 42.4 ng/L (<3.5-35.0)
[2024-10-16 01:00] LABS: B Type Natriuretic Peptide 16 pg/mL (<100)
[2024-10-16 01:28] LABS: Lactic Acid 1.2 mmol/L (0.5-2.0)
[2024-10-16] MEDS: Norepinephrine Bitartrate/D5W 8 MG/250 ML PLAST..BAG 24.38 MG IVCONT (01:40)
[2024-10-16 01:42] LABS: Appearance Urine Cloudy; Color Urine Yellow; Glucose Urine UA Negative (Negative); Leukocyte Esterase Urine Negative (Negative); Nitrite Urine Negative (Negative); Specific Gravity - Urine 1.025 (1.005-1.025); UMIC TRIGGER UA YES; Urine Blood Small (1+) (Negative); Urine Ketones Negative (Negative); Urine Protein 30 (1+) mg/dL (Neg-Trace)
[2024-10-16 01:47] LABS: Bacteria Urine None Seen (None Seen); Hyaline Casts Urine 0-2 /LPF (0-2); RBC Urine >20 /HPF (0-2); WBC Urine 0-5 /HPF (0-5)
[2024-10-16 05:05] LABS: VBG Base Excess -1.4 mmol/L; VBG HCO3 22 mmol/L (22-26); VBG pCO2 31 mmHg; VBG pH 7.44 (7.32-7.43); VBG pO2 77 mmHg
[2024-10-16 05:06] LABS: Venous Blood Gas Refer to POC result
[2024-10-16] MEDS: Pantoprazole Sodium 40 MG/10 ML VIAL IVPUSH ×2 (05:16→16:08)
[2024-10-16 05:17] LABS: Estimated Average Glucose 111 mg/dL; Hemoglobin A1C 80.0829 umol/L; Hemoglobin A1c % 5.5 % (<6.0); Total Hemoglobin (HGBA1C) 2161.4968 umol/L
[2024-10-16 05:36] LABS: MANUAL DIFF FLAG NO
[2024-10-16 05:38] LABS: Basophils Percent Auto 0.2 % (0-2); Hematocrit 26.5 % (42.0-52.0); Hemoglobin 8.5 g/dl (14.0-18.0); Imm Gran Abs Auto 0.06 X10*3/uL (0.00-0.03); Imm Gran Pct Auto 0.4 % (0.0-0.4); Lymphocytes Absolute Auto 0.8 X10*3/uL (1.2-4.9); Lymphocytes Percent Auto 5.2 % (20-40); Mean Corpuscular HGB Conc 32.1 g/dl (31.0-36.0); Mean Corpuscular Hemoglobin 23.5 pg (27.0-33.0); Mean Corpuscular Volume 73.2 fL (80.0-98.0); Mean Platelet Volume 9.9 fL (9.4-12.4); Monocytes Percent Auto 6.6 % (2-11); Neutrophils Absolute Auto 13.9 x10*3/uL (2.0-8.3); Neutrophils Percent Auto 87.6 % (45-73); Platelet Count 334 X10*3/uL (160-400); Red Blood Count 3.62 X10*6/uL (4.60-5.80); Red Cell Distribution Width 18.8 % (11.0-16.0); White Blood Count 15.8 X10*3/uL (4.8-10.8)
[2024-10-16 05:46] LABS: Glucose, Whole Blood 164 mg/dL (60-115)
[2024-10-16] MEDS: Insulin Lispro 100 UNIT/ML 3 ML VIAL SUBCUT (05:53)
[2024-10-16 06:14] LABS: Alanine Aminotransferase 322 U/L (0-40); Albumin Level 3.4 g/dL (3.5-5.0); Alkaline Phosphatase 51 U/L (39-117); Anion Gap 13 (12-20); Aspartate Amino Transferase 540 U/L (5-37); Bilirubin Direct 0.1 mg/dL (0.0-0.5); Bilirubin Total 0.4 mg/dL (0.0-1.0); Blood Urea Nitrogen 17 mg/dL (9-16); Calcium 7.5 mg/dL (8.4-10.2); Carbon Dioxide 19 mmol/L (22-29); Chloride 133 mmol/L (96-108); Creatinine Clr Calc Pharmacy 56.7; Estimated Glomerular Filt Rate > 60; Glucose Random 171 mg/dL (60-115); Magnesium 2.7 mg/dL (1.6-2.6); Phosphorus 4.4 mg/dL (2.7-4.5); Potassium 3.4 mmol/L (3.3-5.1); Sodium 162 mmol/L (135-145); Total Protein 6.1 g/dL (6.5-8.0)
--- NOTE | 2024-10-16 07:00 | CA_ITS ---
Transthoracic Echocardiogram Patient (Last, First, Middle): Taj Hanson, Gender: Male Date of : 1990 Age: 33 Procedure Date: 10/16/2024 Procedure Type: Transthoracic Echocardiogram Location: ICU Height: 170.18 cm Weight: 47.17 kg BSA: 1.53 m2 Heart Rate: 104 bpm BP: 136 / 95 mmHg Crepe Box Tender: SANTOS Referring MD: Apollo [facility] Teacher: Primo Morris MD Symptoms: organ donation Study Quality: Fair ECG Rhythm: Tachycardia Conclusions: - Normal study Findings Procedure Information The quality of the study was technically difficult. The study quality is limited by lung artifact and the presence of a ventilator. Left Ventricle Normal left ventricular size, thickness, and systolic function. The visually estimated ejection fraction is between 60-65%. Diastolic function is normal for age. Right Ventricle Normal right ventricular cavity size and systolic function. Atria Both atria are normal in size. Interatrial shunt cannot be excluded. Aortic Valve Normal aortic valve structure and function. There is no aortic valve stenosis. There is no aortic valve regurgitation. Mitral Valve Normal mitral valve structure and function. There is no mitral valve regurgitation. There is no mitral valve stenosis. Pulmonic Valve The pulmonic valve is likely normal. Tricuspid Valve Normal tricuspid valve structure. There is trace tricuspid valve regurgitation. The right ventricular systolic pressure is normal. The right ventricular systolic pressure is 19 mmHg. Normal right atrial pressure. There is no evidence of pulmonary hypertension. Great Vessels All visible segments of the aorta are normal in size. The pulmonary artery was not well visualized. Venous The inferior vena cava is normal in size and collapses greater than 50% with inspiration. Pericardium/Pleural The pericardium was not well visualized. Prior Study Comparison No prior study available for comparison. Measurements 2D Linear Measurements IVSd: 0.71 0.6-0.9/0.6-1.0 cm LVIDd: 4.08 3.9-5.3/4.2-5.9 cm LVIDd Index: 2.67 2.4-3.2/2.2-3.1 cm/m2 LVIDs: 2.81 2.0-3.6 cm LVPWd: 0.70 0.7-1.1 cm LA Diam: 2.40 2.7-3.8/3.0-4.0 cm LAIDs Index: 1.57 1.5-2.3 cm/m2 LV Mass: 101.74 67-162/88-224 g LV Mass Index: 66.49 43-95/49-115 g/m2 LVOT Diam: 1.90 3.0+(-)1.3 cm 2D Systolic Function EF 4C: 64.60 >55% EF 2C: 61.30 >55% EF BiP: 62.30 >55% Mitral Valve MV Pk E: 0.70 MV PK A: 0.62 MV Decel Time: 169.00 E/A: 1.10 E'Medial: 11.10 E/E' Med: 6.30 PHT: 50.00 MVA PHT: 4.40 Decel [place]: 4.16 Aortic Valve AoV Pk Noel: 1.41 AoV Mn Noel: 0.97 AoV VTI: 0.20 AoV Pk Grad: 8.00 Aov Mn Grad: 5.00 TYLER Cont.VTI: 2.16 LVOT LVOT Pk Noel: 1.03 LVOT Mn Noel: 0.72 LVOT VTI: 0.15 LVOT Pk Grad: 4.00 LVOT Mn Grad: 2.00 LVOT Diam: 1.90 LVOT Area: 2.84 Diastolic Function MV Pk E: 0.70 MV Pk A: 0.62 E/A: 1.10 E'Medial: 11.10 E/E' Med: 6.30 Right Ventricle TAPSE (mm): 24.30 TVS' Noel: 15.50 Tricuspid Valve TR Pk Noel: 2.02 TR Pk Grad: 16.00 RA Press: 3.00 RVSP: 19.00 Great Vessels Aorta Sinus of Valsalva: 2.60 2.0-3.5 cm Pulmonary Valve PV Pk Noel: 0.91 Peak PV Grad: 3.00 Updated in Other Vendor System with Status of Final Primo Morris MD electronically signed on 10/16/2024 11:42:26 AM with status of Final
[2024-10-16] MEDS: vancomycin HCL 750 MG in 0.9 % Sodium Chloride 250 ML 265 MG IV ×2 (07:59→20:27)
[2024-10-16] MEDS: 0.9 % Sodium Chloride Flush 3 ML SYRINGE IVFLUSH ×3 (07:59→23:28)
--- NOTE | 2024-10-16 09:50 | HE.PHANOTE ---
VANCO DOSE ADJUSTMENT BASED ON SCR DOSE CONTINUED AT 750 Q 12. NEXT LEVEL 1/ @ 0600
[2024-10-16 10:52] LABS: Alanine Aminotransferase 292 U/L (0-40); Albumin Level 3.1 g/dL (3.5-5.0); Alkaline Phosphatase 49 U/L (39-117); Anion Gap 11 (12-20); Aspartate Amino Transferase 510 U/L (5-37); Bilirubin Total 0.5 mg/dL (0.0-1.0); Blood Urea Nitrogen 16 mg/dL (9-16); Calcium 7.2 mg/dL (8.4-10.2); Carbon Dioxide 22 mmol/L (22-29); Chloride 132 mmol/L (96-108); Creatinine Clr Calc Pharmacy 64.1; Estimated Glomerular Filt Rate > 60; Glucose Random 133 mg/dL (60-115); Potassium 3.4 mmol/L (3.3-5.1); Sodium 162 mmol/L (135-145); Total Protein 5.6 g/dL (6.5-8.0)
--- NOTE | 2024-10-16 11:20 | PM.NEUROCN ---
History of Present Illness Data of Consult Service Date: 10/16/24 Primary Care Provider: Unknown Physician HPI Reason for consult: Anoxic encephalopathy 33 years old unfortunate man with underlying history of polysubstance abuse including cocaine abuse on methadone who collapsed and became unresponsive. EMS was called and CPR was given for more than 30 minutes. He was intubated and brought to hospital. He has not been responsive since then and has not received Review of Systems Review of Systems: Could not be done with him PMFSH Social History Social History Household Members: Family Household Members Other:: mother Housing: House Do you presently have visiting nurse or other home services: No Alcohol intake: never Patient Tobacco Use Status: Tobacco use Unknown Tobacco use type: Smokeless Tobacco Cigarettes Per Day: 2 e-Cigarette/Vaping Use: Currently Using Second Hand Smoke Exposure: No Use of substances other than those prescribed or required for medical reasons: Unable to respond Substance Use Type: Crack/Cocaine and Opiates Currently Displaying Signs/Symptoms of Drug Intoxication Withdrawal: No Advance Directives: Yes Advance Directives on File: Yes Advance Directives Date on File: 07/29/24 Recently lost weight without trying: Unsure Poor oral hygiene: No service: No Current occupational status: employed Cognitive needs: No Hearing needs: No Vision needs: No Meds Allergies Allergy/AdvReac Type Severity Reaction Status Date / Time lucy Allergy Intermediate Hives Verified 10/15/24 00:58 Active Medications: Current Medications Chlorhexidine Gluconate (Chlorhexidine Gluc Oral Rinse 15 Ml Mouthwash) 15 ml BUCCAL TID [facility] Last Admin: 10/15/24 21:06 Dose: 15 ml Desmopressin Acetate (Desmopressin Acetate 4 Mcg/Ml Ampul) 2 mcg IVPUSH Q6H [facility] Last Admin: 10/16/24 07:57 Dose: 2 mcg Dexamethasone Sodium Phosphate (Dexamethasone Sod Phosphate 4 Mg/Ml Vial) 4 mg IVPUSH BID [facility] Last Admin: 10/15/24 21:06 Dose: 4 mg Glucose (Glucose Gel 15 Gm Gel..Gram.) 15 gm PO Q15M PRN; Protocol PRN Reason: per Hypoglycemia Standing Ord. Norepinephrine Bitartrate (Levophed) 8 mg in 250 mls @ 0 mls/hr IVCONT .Q0M [facility]; Protocol Last Titration: 10/16/24 05:57 Dose: 0.11 mcg/kg/min, 10.31 mls/hr Dextrose (D10) 250 mls @ 750 mls/hr IV Q15M PRN; Protocol PRN Reason: per Hypoglycemia Standing Ord. Piperacillin Sod/Tazobactam (Sod 4.5 gm/ Sodium Chloride) 100 mls @ 200 mls/hr IV Q6H [facility] Last Infusion: 10/16/24 05:39 Dose: Infused Sodium Chloride (Sodium Chloride 0.45 %) 1,000 mls @ 200 mls/hr IVCONT .Q5H [facility] Last Admin: 10/16/24 05:16 Dose: 200 mls/hr Vancomycin HCl 750 mg/ Sodium (Chloride) 265 mls @ 265 mls/hr IV Q12H [facility] Last Infusion: 10/16/24 10:08 Dose: Infused Insulin Human Lispro (Insulin Lispro 100 Unit/Ml 3 Ml Vial) 0 unit SUBCUT Q6H [facility]; Protocol Last Admin: 10/16/24 05:53 Dose: 2 unit Pantoprazole Sodium (Pantoprazole Sodium 40 Mg/10 Ml Vial) 40 mg IVPUSH BID@0630,1630 [facility] Last Admin: 10/16/24 05:16 Dose: 40 mg Pharmacy Consult (Consult Rx Vancomycin Dosing) 1 each MISCELLANE DAILY PRN PRN Reason: Consult order Sodium Chloride (0.9 % Sodium Chloride Flush 3 Ml Syringe) 3 ml IVFLUSH QSHIFT [facility] Last Admin: 10/16/24 07:59 Dose: 3 ml Home Medications ?Medication ?Instructions ?Recorded ?Confirmed ?Last Taken ?Type methadone 10 mg/mL oral 100 mg PO DAILY 07/21/24 07/21/24 07/18/24 06:30 History concentrate (Methadose) Physical Exam Vital Signs: Vital Signs: Last Vital Signs Temp 98.6 F 10/16/24 11:00 Pulse 102 H 10/16/24 11:00 Resp 18 10/16/24 11:00 BP 121/90 H 10/16/24 11:00 Pulse Ox 98 10/16/24 11:00 O2 Del Method Mechanical Ventil ation 10/16/24 11:00 FiO2 25 10/16/24 11:00 BMI result Body Mass Index 19.8 Neuro: Other: Intubated not sedated. Not responsive to verbal stimuli. With pain in left hand, there is mild decerebrate type posturing of left side. Otherwise no responses noted with pain in lower extremities in right hand. Pupils are about 3-4 mm round and nonreactive to light. I was unable to move his eyes with oculocephalic maneuvers or with cold water insertion in his ears. Corneal reflexes were absent. Gag reflex was absent. Plantars were flat. Deep tendon reflexes were absent. Results Labs 10/16/24 04:59 10/16/24 10:22 Labs: Short CBC 10/15/24 10/16/24 Range/Units 23:56 04:59 WBC 16.2 H 15.8 H (4.8-10.8) X10*3/uL Hgb 8.5 L 8.5 L (14.0-18.0) g/dl Hct 26.7 L 26.5 L (42.0-52.0) % Plt Count 333 334 (160-400) X10*3/uL BMP 10/15/24 10/15/24 10/15/24 12:04 12:31 17:59 Sodium 166 H* D Cancelled 175 H* Potassium 3.4 Cancelled 3.5 Chloride 132 H D Cancelled 139 H Carbon Dioxide 27 Cancelled 25 BUN 12 Cancelled 15 Creatinine 1.05 Cancelled 1.21 Calcium 9.4 D Cancelled 8.6 D 10/15/24 10/16/24 10/16/24 23:56 04:59 10:22 Sodium 167 H* 162 H* 162 H* Potassium 3.6 3.4 3.4 Chloride 136 H 133 H 132 H Carbon Dioxide 22 19 L 22 BUN 18 H 17 H 16 Creatinine 1.14 1.22 1.08 Calcium 7.6 L D 7.5 L 7.2 L Cardiac Enzymes 10/15/24 10/15/24 Range/Units 12:04 23:56 Total Creatine Kinase 6824 H 7542 H (38-174) U/L Liver Function 10/15/24 10/15/24 10/15/24 Range/Units 12:04 12:31 17:59 Total Bilirubin 0.2 Cancelled 0.2 (0.0-1.0) mg/dL Direct Bilirubin (0.0-0.5) mg/dL AST 737 H Cancelled 516 H (5-37) U/L ALT 416 H Cancelled 326 H (0-40) U/L Alkaline Phosphatase 65 Cancelled 52 (39-117) U/L Albumin 4.3 Cancelled 3.5 (3.5-5.0) g/dL 10/15/24 10/16/24 10/16/24 Range/Units 23:56 04:59 10:22 Total Bilirubin 0.4 0.4 0.5 (0.0-1.0) mg/dL Direct Bilirubin 0.1 (0.0-0.5) mg/dL AST 451 H 540 H 510 H (5-37) U/L ALT 312 H 322 H 292 H (0-40) U/L Alkaline Phosphatase 52 51 49 (39-117) U/L Albumin 3.4 L 3.4 L 3.1 L (3.5-5.0) g/dL Urine 10/16/24 Range/Units 00:44 Urine Color Yellow Urine Appearance Cloudy Urine pH 8.0 (5.0-9.0) Ur Specific [place] 1.025 (1.005-1.025) Urine Protein 30 (1+) H (Neg-Trace) mg/dL Urine Glucose (UA) Negative (Negative) mg/dL Initial head CT revealed diffuse loss of gurrola-white differentiation. Assessment and Plan (1) Anoxic brain injury: Status: Acute 33 years old man with anoxic brain injury. My examination did not reveal any cortical or brainstem function. I discussed this situation with his sister. CTA of brain is recommended to look at brain perfusion. Otherwise exam can be repeated in 6 hours for any possibility of positive change, which seems unlikely. Procedures Date of Service Date of Service: 10/16/24
[2024-10-16 11:29] LABS: MANUAL DIFF FLAG NO
[2024-10-16 11:32] LABS: Basophils Percent Auto 0.1 % (0-2); Hematocrit 25.7 % (42.0-52.0); Hemoglobin 8.3 g/dl (14.0-18.0); Imm Gran Abs Auto 0.06 X10*3/uL (0.00-0.03); Imm Gran Pct Auto 0.4 % (0.0-0.4); Lymphocytes Absolute Auto 1.2 X10*3/uL (1.2-4.9); Lymphocytes Percent Auto 7.1 % (20-40); Mean Corpuscular HGB Conc 32.3 g/dl (31.0-36.0); Mean Corpuscular Hemoglobin 23.6 pg (27.0-33.0); Mean Corpuscular Volume 73.2 fL (80.0-98.0); Mean Platelet Volume 9.1 fL (9.4-12.4); Monocytes Absolute Auto 1.1 X10*3/uL (0.1-1.2); Monocytes Percent Auto 6.5 % (2-11); Neutrophils Absolute Auto 14.1 x10*3/uL (2.0-8.3); Neutrophils Percent Auto 85.9 % (45-73); Platelet Count 298 X10*3/uL (160-400); Red Blood Count 3.51 X10*6/uL (4.60-5.80); White Blood Count 16.4 X10*3/uL (4.8-10.8)
[2024-10-16] MEDS: dexAMETHasone sod phosphate 4 MG/ML VIAL IVPUSH ×2 (11:38→22:12)
[2024-10-16] MEDS: Chlorhexidine Gluc Oral Rinse 15 ML MOUTHWASH BUCCAL ×3 (11:38→22:12)
[2024-10-16 11:39] LABS: Fibrinogen 615 MG/DL (259-690)
[2024-10-16 11:41] LABS: Partial Thromboplastin Time 30.1 SEC (26.0-36.8)
[2024-10-16 11:49] LABS: D Dimer High Sensitivity 20754 NG/ML
[2024-10-16 11:50] LABS: B Type Natriuretic Peptide < 10 pg/mL (<100)
[2024-10-16 11:51] LABS: Alanine Aminotransferase 296 U/L (0-40); Albumin Level 3.1 g/dL (3.5-5.0); Alkaline Phosphatase 50 U/L (39-117); Amylase 41 U/L (28-100); Anion Gap 9 (12-20); Aspartate Amino Transferase 519 U/L (5-37); Bilirubin Direct 0.2 mg/dL (0.0-0.5); Bilirubin Total 0.5 mg/dL (0.0-1.0); Blood Urea Nitrogen 16 mg/dL (9-16); Calcium 7.2 mg/dL (8.4-10.2); Carbon Dioxide 22 mmol/L (22-29); Chloride 134 mmol/L (96-108); Creatinine Clr Calc Pharmacy 63.5; Estimated Glomerular Filt Rate > 60; Glucose Fasting 133 mg/dL (60-99); Lipase 6 U/L (8-78); Magnesium 2.6 mg/dL (1.6-2.6); Phosphorus 4.3 mg/dL (2.7-4.5); Potassium 3.4 mmol/L (3.3-5.1); Sodium 162 mmol/L (135-145); Total Protein 5.7 g/dL (6.5-8.0)
[2024-10-16 11:54] LABS: Troponin-I High Sensitivity 14.4 ng/L (<3.5-35.0)
[2024-10-16 12:03] LABS: Glucose, Whole Blood 124 mg/dL (60-115)
[2024-10-16 12:05] LABS: ABG Base Excess -1.1 mmol/L; ABG HCO3 22 mmol/L (22-26); ABG pCO2 31 mmHg (32-45); ABG pH 7.46 (7.35-7.45); ABG pO2 590 mmHg (83-108)
--- NOTE | 2024-10-16 13:10 | PM.CCPN ---
Subjective Subjective Date of Service: 10/16/24 Critical Care Time (minutes): 35 Comment: Continues to have very poor neurological status including absent brainstem reflexes, no spontaneous movements. Has diabetes insipidus, treated with DDAVP leading to increase in sodium. Urine output has improved since DDAVP Physical Exam Vital Signs: Vital Signs: Last Vital Signs Temp 99.0 F 10/16/24 12:00 Pulse 101 H 10/16/24 12:00 Resp 15 10/16/24 12:00 BP 125/81 10/16/24 12:00 Pulse Ox 98 10/16/24 12:00 O2 Del Method Mechanical Ventil ation 10/16/24 12:00 FiO2 30 10/16/24 12:12 BMI result Body Mass Index 19.8 General: Young looking male lying in the bed unresponsive current to the ventilator Nutritional Appearance:ok nourished and normal weight Eyes: appearance normal, both eyes and all related structures; Alignment and Position: alignment normal and position normal Neck: No lymphadenopathy, no thyromegaly Resp: bilateral air entry equal, no added sounds present Cardio: Regular rate, regular rhythm; Heart sounds: S1 normal heart sound present and S2 normal heart sound present GI: soft, nontender, no guarding, no hepatosplenomegaly : bladder normal to inspection, bladder normal to palpation, no renal angle tenderness Skin: no rashes or lesions noted and elasticity normal Neuro: Absent brainstem reflexes, no spontaneous movements. Objective Data Labs 10/16/24 11:23 10/16/24 11:23 Labs: Laboratory Results - last 24 hr 10/15/24 10/15/24 10/15/24 12:04 12:31 14:55 WBC RBC Hgb Hct MCV MCH MCHC RDW Plt Count MPV Immature Gran % (Auto) Neut % (Auto) Lymph % (Auto) [place] % (Auto) Eos % (Auto) Baso % (Auto) Lymph # (Auto) [place] # (Auto) Eos # (Auto) Baso # (Auto) Abs Immat Gran (auto) Absolute Neuts (auto) Absolute Nucleated RBC Nucleated RBC % (auto) PT INR APTT Fibrinogen D-Dimer High Sensitivty O2 Saturation ABG pH at Pt Temp ABG pCO2 at Pt Temp ABG pO2 at Pt Temp ABG HCO3 ABG Base Excess (Actual) VBG pH VBG pCO2 VBG pO2 VBG HCO3 VBG O2 Saturation VBG Base Excess Sodium 166 H* D Potassium 3.4 Chloride 132 H D Carbon Dioxide 27 Anion Gap 10 L BUN 12 Creatinine 1.05 Estim Creat Clear Calc 65.9 Estimated GFR > 60 POC Glucose Random Glucose 110 Fasting Glucose Estimat Average Glucose Hemoglobin A1c % Lactic Acid 3.0 H* Lactic Acid F/U @ 2Hr 2.9 H* Lactic Acid F/U @ 4Hr Calcium 9.4 D Phosphorus Magnesium Total Bilirubin 0.2 Direct Bilirubin AST 737 H ALT 416 H Alkaline Phosphatase 65 Total Creatine Kinase 6824 H Troponin I High Sens B-Natriuretic Peptide Total Protein 7.4 Albumin 4.3 Amylase Lipase Urine Color Urine Appearance Urine pH Ur Specific [place] Urine Protein Urine Glucose (UA) Urine Ketones Urine Blood Urine Nitrite Ur Leukocyte Esterase Urine RBC Urine WBC Ur Squamous Epith Cells Urine Bacteria Hyaline Casts Blood Type 10/15/24 10/15/24 10/15/24 15:37 17:22 17:59 WBC RBC Hgb Hct MCV MCH MCHC RDW Plt Count MPV Immature Gran % (Auto) Neut % (Auto) Lymph % (Auto) [place] % (Auto) Eos % (Auto) Baso % (Auto) Lymph # (Auto) [place] # (Auto) Eos # (Auto) Baso # (Auto) Abs Immat Gran (auto) Absolute Neuts (auto) Absolute Nucleated RBC Nucleated RBC % (auto) PT INR APTT Fibrinogen D-Dimer High Sensitivty O2 Saturation ABG pH at Pt Temp ABG pCO2 at Pt Temp ABG pO2 at Pt Temp ABG HCO3 ABG Base Excess (Actual) VBG pH VBG pCO2 VBG pO2 VBG HCO3 VBG O2 Saturation VBG Base Excess Sodium 175 H* Potassium 3.5 Chloride 139 H Carbon Dioxide 25 Anion Gap 15 BUN 15 Creatinine 1.21 Estim Creat Clear Calc 57.2 Estimated GFR > 60 POC Glucose 140 H Random Glucose 129 H Fasting Glucose Estimat Average Glucose Hemoglobin A1c % Lactic Acid Lactic Acid F/U @ 2Hr Lactic Acid F/U @ 4Hr 2.3 H* Calcium 8.6 D Phosphorus Magnesium Total Bilirubin 0.2 Direct Bilirubin AST 516 H ALT 326 H Alkaline Phosphatase 52 Total Creatine Kinase Troponin I High Sens B-Natriuretic Peptide Total Protein 6.2 L Albumin 3.5 Amylase Lipase Urine Color Urine Appearance Urine pH Ur Specific [place] Urine Protein Urine Glucose (UA) Urine Ketones Urine Blood Urine Nitrite Ur Leukocyte Esterase Urine RBC Urine WBC Ur Squamous Epith Cells Urine Bacteria Hyaline Casts Blood Type 10/15/24 10/15/24 10/15/24 22:08 23:35 23:56 WBC 16.2 H RBC 3.65 L Hgb 8.5 L Hct 26.7 L MCV 73.2 L MCH 23.3 L MCHC 31.8 RDW 18.7 H Plt Count 333 MPV 9.2 L Immature Gran % (Auto) 0.3 Neut % (Auto) 88.2 H Lymph % (Auto) 5.4 L [place] % (Auto) 6.0 Eos % (Auto) 0.0 Baso % (Auto) 0.1 Lymph # (Auto) 0.9 L [place] # (Auto) 1.0 Eos # (Auto) 0.0 Baso # (Auto) 0.0 Abs Immat Gran (auto) 0.05 H Absolute Neuts (auto) 14.3 H Absolute Nucleated RBC 0.000 Nucleated RBC % (auto) 0.0 PT 21.3 H D INR 1.8 H APTT 31.8 D Fibrinogen 534 D-Dimer High Sensitivty O2 Saturation Not Reportable ABG pH at Pt Temp 7.52 H ABG pCO2 at Pt Temp 33 ABG pO2 at Pt Temp 484 H ABG HCO3 27 H ABG Base Excess (Actual) 4.7 VBG pH VBG pCO2 VBG pO2 VBG HCO3 VBG O2 Saturation VBG Base Excess Sodium 167 H* Potassium 3.6 Chloride 136 H Carbon Dioxide 22 Anion Gap 13 BUN 18 H Creatinine 1.14 Estim Creat Clear Calc 60.7 Estimated GFR > 60 POC Glucose 143 H Random Glucose 159 H Fasting Glucose Estimat Average Glucose 111 Hemoglobin A1c % 5.5 Lactic Acid Lactic Acid F/U @ 2Hr Lactic Acid F/U @ 4Hr Calcium 7.6 L D Phosphorus 3.6 Magnesium 2.7 H Total Bilirubin 0.4 Direct Bilirubin AST 451 H ALT 312 H Alkaline Phosphatase 52 Total Creatine Kinase 7542 H Troponin I High Sens 42.4 H B-Natriuretic Peptide 16 Total Protein 6.1 L Albumin 3.4 L Amylase 65 Lipase 8 Urine Color Urine Appearance Urine pH Ur Specific [place] Urine Protein Urine Glucose (UA) Urine Ketones Urine Blood Urine Nitrite Ur Leukocyte Esterase Urine RBC Urine WBC Ur Squamous Epith Cells Urine Bacteria Hyaline Casts Blood Type O Positive 10/16/24 10/16/24 10/16/24 00:44 01:03 04:54 WBC RBC Hgb Hct MCV MCH MCHC RDW Plt Count MPV Immature Gran % (Auto) Neut % (Auto) Lymph % (Auto) [place] % (Auto) Eos % (Auto) Baso % (Auto) Lymph # (Auto) [place] # (Auto) Eos # (Auto) Baso # (Auto) Abs Immat Gran (auto) Absolute Neuts (auto) Absolute Nucleated RBC Nucleated RBC % (auto) PT INR APTT Fibrinogen D-Dimer High Sensitivty O2 Saturation ABG pH at Pt Temp ABG pCO2 at Pt Temp ABG pO2 at Pt Temp ABG HCO3 ABG Base Excess (Actual) VBG pH 7.44 H VBG pCO2 31 VBG pO2 77 VBG HCO3 22 VBG O2 Saturation 98.0 VBG Base Excess -1.4 Sodium Potassium Chloride Carbon Dioxide Anion Gap BUN Creatinine Estim Creat Clear Calc Estimated GFR POC Glucose Random Glucose Fasting Glucose Estimat Average Glucose Hemoglobin A1c % Lactic Acid 1.2 Lactic Acid F/U @ 2Hr Lactic Acid F/U @ 4Hr Calcium Phosphorus Magnesium Total Bilirubin Direct Bilirubin AST ALT Alkaline Phosphatase Total Creatine Kinase Troponin I High Sens B-Natriuretic Peptide Total Protein Albumin Amylase Lipase Urine Color Yellow Urine Appearance Cloudy Urine pH 8.0 Ur Specific [place] 1.025 Urine Protein 30 (1+) H Urine Glucose (UA) Negative Urine Ketones Negative Urine Blood Small (1+) H Urine Nitrite Negative Ur Leukocyte Esterase Negative Urine RBC >20 H Urine WBC 0-5 Ur Squamous Epith Cells 3-5 Urine Bacteria None Seen Hyaline Casts 0-2 Blood Type 10/16/24 10/16/24 10/16/24 04:59 05:39 10:22 WBC 15.8 H RBC 3.62 L Hgb 8.5 L Hct 26.5 L MCV 73.2 L MCH 23.5 L MCHC 32.1 RDW 18.8 H Plt Count 334 MPV 9.9 Immature Gran % (Auto) 0.4 Neut % (Auto) 87.6 H Lymph % (Auto) 5.2 L [place] % (Auto) 6.6 Eos % (Auto) 0.0 Baso % (Auto) 0.2 Lymph # (Auto) 0.8 L [place] # (Auto) 1.0 Eos # (Auto) 0.0 Baso # (Auto) 0.0 Abs Immat Gran (auto) 0.06 H Absolute Neuts (auto) 13.9 H Absolute Nucleated RBC 0.000 Nucleated RBC % (auto) 0.0 PT INR APTT Fibrinogen D-Dimer High Sensitivty O2 Saturation ABG pH at Pt Temp ABG pCO2 at Pt Temp ABG pO2 at Pt Temp ABG HCO3 ABG Base Excess (Actual) VBG pH VBG pCO2 VBG pO2 VBG HCO3 VBG O2 Saturation VBG Base Excess Sodium 162 H* 162 H* Potassium 3.4 3.4 Chloride 133 H 132 H Carbon Dioxide 19 L 22 Anion Gap 13 11 L BUN 17 H 16 Creatinine 1.22 1.08 Estim Creat Clear Calc 56.7 64.1 Estimated GFR > 60 > 60 POC Glucose 164 H Random Glucose 171 H 133 H Fasting Glucose Estimat Average Glucose Hemoglobin A1c % Lactic Acid Lactic Acid F/U @ 2Hr Lactic Acid F/U @ 4Hr Calcium 7.5 L 7.2 L Phosphorus 4.4 Magnesium 2.7 H Total Bilirubin 0.4 0.5 Direct Bilirubin 0.1 AST 540 H 510 H ALT 322 H 292 H Alkaline Phosphatase 51 49 Total Creatine Kinase Troponin I High Sens B-Natriuretic Peptide Total Protein 6.1 L 5.6 L Albumin 3.4 L 3.1 L Amylase Lipase Urine Color Urine Appearance Urine pH Ur Specific [place] Urine Protein Urine Glucose (UA) Urine Ketones Urine Blood Urine Nitrite Ur Leukocyte Esterase Urine RBC Urine WBC Ur Squamous Epith Cells Urine Bacteria Hyaline Casts Blood Type O Positive 10/16/24 10/16/24 10/16/24 11:23 11:55 11:59 WBC 16.4 H RBC 3.51 L Hgb 8.3 L Hct 25.7 L MCV 73.2 L MCH 23.6 L MCHC 32.3 RDW 19.0 H Plt Count 298 MPV 9.1 L Immature Gran % (Auto) 0.4 Neut % (Auto) 85.9 H Lymph % (Auto) 7.1 L [place] % (Auto) 6.5 Eos % (Auto) 0.0 Baso % (Auto) 0.1 Lymph # (Auto) 1.2 [place] # (Auto) 1.1 Eos # (Auto) 0.0 Baso # (Auto) 0.0 Abs Immat Gran (auto) 0.06 H Absolute Neuts (auto) 14.1 H Absolute Nucleated RBC 0.000 Nucleated RBC % (auto) 0.0 PT 23.0 H INR 2.0 H APTT 30.1 Fibrinogen 615 D-Dimer High Sensitivty 27387 O2 Saturation 99.0 ABG pH at Pt Temp 7.46 H ABG pCO2 at Pt Temp 31 L ABG pO2 at Pt Temp 590 H ABG HCO3 22 ABG Base Excess (Actual) -1.1 VBG pH VBG pCO2 VBG pO2 VBG HCO3 VBG O2 Saturation VBG Base Excess Sodium 162 H* Potassium 3.4 Chloride 134 H Carbon Dioxide 22 Anion Gap 9 L BUN 16 Creatinine 1.09 Estim Creat Clear Calc 63.5 Estimated GFR > 60 POC Glucose 124 H Random Glucose Fasting Glucose 133 H Estimat Average Glucose Hemoglobin A1c % Lactic Acid Lactic Acid F/U @ 2Hr Lactic Acid F/U @ 4Hr Calcium 7.2 L Phosphorus 4.3 Magnesium 2.6 Total Bilirubin 0.5 Direct Bilirubin 0.2 AST 519 H ALT 296 H Alkaline Phosphatase 50 Total Creatine Kinase 97221 H Troponin I High Sens 14.4 D B-Natriuretic Peptide < 10 Total Protein 5.7 L Albumin 3.1 L Amylase 41 Lipase 6 L Urine Color Urine Appearance Urine pH Ur Specific [place] Urine Protein Urine Glucose (UA) Urine Ketones Urine Blood Urine Nitrite Ur Leukocyte Esterase Urine RBC Urine WBC Ur Squamous Epith Cells Urine Bacteria Hyaline Casts Blood Type Progress Note: A&P Assessment and plan (1) Opioid use disorder: Status: Acute (2) Cardiac arrest: Status: Acute (3) Exacerbation of ulcerative colitis: Status: Acute (4) Anoxic brain injury: Status: Acute (5) Accidental overdose: Status: Acute Plan Neuro: Acute encephalopathy possibly due to hypoxic ischemic brain injury given prolonged duration of CPR over 55 minutes with unknown down time prior to that, patient does not have any brainstem reflexes are spontaneous activity. His CT brain upon admission showed cerebral edema , a CTA has been ordered to look for any brain blood flow. Given his neurological findings of low spontaneous movement, absent cough and gag reflex, CT findings, duration of the code his prognosis is very poor and this has been very well explained to the family. Patient is not on any sedation or sedating medications Close neurological status monitoring in the ICU every hour Appreciate neurology input Cardiac: Cardiogenic Shock: Possibly secondary to cardiac arrest On Levophed support, titrate Levophed to keep map above 65 mm Hg Respiratory: Acute hypoxemic respiratory failure due to respiratory failure Currently on ventilator support On PRVC mode FiO2 25, PEEP 5, TV 400, RR 20 Peak pressures and plateau pressures are under the curve Ventilator management bundle with head end elevation, aspiration precaution, chlorhexidine mouthwash, daily awakening trials, daily spontaneous breathing trials GI: on tube feeds Renal: 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 Urine output improved with DDAVP, scheduled DDAVP as needed for urine We will closely monitor I's and O's Avoid nephrotoxic medications Hypernatremia: Sodium up to 161 secondary to diabetes insipidus On half-normal saline drip 300 cc/hour Heme: Chronic anemia, closely monitor H&H, transfuse for hemoglobin less than 7 grams/deciliter Endocrine: Blood sugars under control Sliding scale insulin as needed Infectious disease: Cultures negative No evidence of sepsis, his whole presentation is secondary to cardiac arrest due to drug overdose. On vancomycin and Zosyn for organ donation to preserve organs Musculoskeletal: Decubitus ulcer prevention protocol Prophylaxis: Lovenox, pantoprazole Quality Stroke Does the patient have a stroke diagnosis?: No VTE Prior VTE?: No VTE Risk Level:: Medical - moderate - high VTE Device Contraindication: Treatment Not Indicated VTE Drug Contraindication: N/A - Med Ordered
--- NOTE | 2024-10-16 13:17 | P.CDIM_ITS ---
PROVIDER RESPONSE TEXT: To clarify, the appropriate diagnosis supported by the clinical indicators: Acute QUERY TEXT: PHYSICIAN'S DOCUMENTATION REQUEST Date of Query: 10/16/2024 10:59 AM EST Patient Name: Taj Hanson Admit Date: 10/15/2024 Dear Alexi Albarran MD, A review of the medical record indicates additional documentation may be needed. Please review below and update the documentation accordingly. Clinical Indicators: ICU H&P 10/15 - Severe metabolic acidosis Clarify which of the following accurately represents the acuity of the severe metabolic acidosis: Possible options might include: Acute Acute on chronic Chronic Other (explain) Clinically unable to determine (explain) Thank you, Fidelina Carballo, CCS, CDIS Use of terms such as suspected, likely, concern for, or probable (associated with a specific diagnosi s that is being evaluated, monitored, or treated as if it exists) are acceptable and can be coded in the inpatient se tting, when documented at the time of discharge. Please use your independent medical judgment in providing your response. THIS QUERY IS PART OF THE PERMANENT MEDICAL RECORD
[2024-10-16 13:23] LABS: Glucose, Whole Blood 77 mg/dL (60-115)
[2024-10-16] MEDS: Norepinephrine Bitartrate/D5W 8 MG/250 ML PLAST..BAG 65.63 MG IVCONT (14:26)
--- NOTE | 2024-10-16 15:02 | MHC.CM.PN ---
Pt continues care in ICU: prognosis is quite grave - anoxic brain injury with brain stem involvement: family aware of prognosis but would like to wait 1-2 days before deciding on goals of care. CM to assist as needed.
[2024-10-16 17:04] LABS: Hematocrit 23.6 % (42.0-52.0); Hemoglobin 7.7 g/dl (14.0-18.0); Mean Corpuscular HGB Conc 32.6 g/dl (31.0-36.0); Mean Corpuscular Hemoglobin 23.9 pg (27.0-33.0); Mean Corpuscular Volume 73.3 fL (80.0-98.0); Mean Platelet Volume 9.3 fL (9.4-12.4); Platelet Count 271 X10*3/uL (160-400); Red Blood Count 3.22 X10*6/uL (4.60-5.80); Red Cell Distribution Width 19.2 % (11.0-16.0); White Blood Count 16.5 X10*3/uL (4.8-10.8)
[2024-10-16 17:20] LABS: Fibrinogen 623 MG/DL (259-690); INTERNATIONAL NORM RATIO 1.9 (0.9-1.1); Prothrombin Time 22.5 SEC (10.9-12.4)
[2024-10-16 17:22] LABS: Partial Thromboplastin Time 30.1 SEC (26.0-36.8)
[2024-10-16 17:25] LABS: Alanine Aminotransferase 286 U/L (0-40); Alkaline Phosphatase 49 U/L (39-117); Anion Gap 12 (12-20); Aspartate Amino Transferase 514 U/L (5-37); Bilirubin Direct 0.1 mg/dL (0.0-0.5); Bilirubin Total 0.5 mg/dL (0.0-1.0); Blood Urea Nitrogen 15 mg/dL (9-16); Calcium 7.1 mg/dL (8.4-10.2); Carbon Dioxide 21 mmol/L (22-29); Chloride 130 mmol/L (96-108); Creatinine Clr Calc Pharmacy 72.9; Estimated Glomerular Filt Rate > 60; Glucose Fasting 141 mg/dL (60-99); Magnesium 2.6 mg/dL (1.6-2.6); Phosphorus 4.5 mg/dL (2.7-4.5); Potassium 3.7 mmol/L (3.3-5.1); Sodium 159 mmol/L (135-145); Total Protein 5.5 g/dL (6.5-8.0)
[2024-10-16 17:39] LABS: Band Neutrophils Percent 17 % (3-5); Lymphocytes Percent Manual 6 % (20-40); Monocytes Absolute Manual 0.2 X10*3/uL (0.1-1.2); Monocytes Percent Manual 1 % (2-11); Neutrophils Absolute Manual 15.2 X10*3/uL (2.0-8.3); Neutrophils Percent Manual 75 % (45-73); SLIDE REVIEW MANUAL DIFF
[2024-10-16 17:40] LABS: Microcytosis 1+ (5-14) /OIF; Nucleated Red Blood Cells 1 /100WBC (0-0); Platelet Estimate NORMAL (NORMAL); Platelet Morphology Comment NORMAL; RBC Morphology NOTED; Target Cells 1+ (5-14) /OIF
[2024-10-16 17:41] LABS: Schistocytes 1+ (0-2) /OIF
[2024-10-16 17:46] LABS: D Dimer High Sensitivity 14008 NG/ML
[2024-10-16 17:57] LABS: Glucose, Whole Blood 134 mg/dL (60-115)
[2024-10-16] MEDS: Sodium Chloride 0.45 % 1,000 ML 100 ML IVCONT (20:28)
[2024-10-16 23:51] LABS: MANUAL DIFF FLAG NO
[2024-10-16 23:58] LABS: Basophils Percent Auto 0.1 % (0-2); Hematocrit 24.3 % (42.0-52.0); Hemoglobin 7.7 g/dl (14.0-18.0); Imm Gran Abs Auto 0.07 X10*3/uL (0.00-0.03); Imm Gran Pct Auto 0.4 % (0.0-0.4); Lymphocytes Absolute Auto 1.2 X10*3/uL (1.2-4.9); Lymphocytes Percent Auto 6.5 % (20-40); Mean Corpuscular HGB Conc 31.7 g/dl (31.0-36.0); Mean Corpuscular Hemoglobin 23.6 pg (27.0-33.0); Mean Corpuscular Volume 74.5 fL (80.0-98.0); Mean Platelet Volume 9.5 fL (9.4-12.4); Monocytes Absolute Auto 0.7 X10*3/uL (0.1-1.2); Monocytes Percent Auto 4.1 % (2-11); Neutrophils Absolute Auto 16.1 x10*3/uL (2.0-8.3); Neutrophils Percent Auto 88.9 % (45-73); Platelet Count 272 X10*3/uL (160-400); Red Blood Count 3.26 X10*6/uL (4.60-5.80); Red Cell Distribution Width 19.6 % (11.0-16.0); White Blood Count 18.1 X10*3/uL (4.8-10.8)
[2024-10-17] VITALS (40 sets, daily range): BP systolic 106–178; BP diastolic 62–124; PULSE 100–126; RESP 14; TEMP 34.8–37.8; O2SAT 95–100; BMI 22.2
--- NOTE | 2024-10-17 | EEG_ITS ---
This is a 16-channel EEG with an EKG lead. The patient is unresponsive and intubated. Background EEG rhythm is not noted with almost flat line. While some lead and muscle artifacts are noted, some posturing artifacts are also noted when the sterilization technician touched the patient. Cardiac lead did not reveal any significant abnormality. IMPRESSION: This EEG does not reveal any electrical activity. MD CAMERON Santiago/[facility] / [id number]
[2024-10-17 00:02] LABS: Glucose, Whole Blood 122 mg/dL (60-115)
[2024-10-17 00:06] LABS: Fibrinogen 677 MG/DL (259-690); INTERNATIONAL NORM RATIO 1.7 (0.9-1.1); Prothrombin Time 19.4 SEC (10.9-12.4)
[2024-10-17 00:08] LABS: Partial Thromboplastin Time 29.3 SEC (26.0-36.8)
[2024-10-17 00:15] LABS: Alanine Aminotransferase 281 U/L (0-40); Albumin Level 3.1 g/dL (3.5-5.0); Alkaline Phosphatase 52 U/L (39-117); Anion Gap 13 (12-20); Aspartate Amino Transferase 491 U/L (5-37); Bilirubin Direct 0.1 mg/dL (0.0-0.5); Bilirubin Total 0.4 mg/dL (0.0-1.0); Blood Urea Nitrogen 15 mg/dL (9-16); Calcium 7.5 mg/dL (8.4-10.2); Carbon Dioxide 20 mmol/L (22-29); Chloride 129 mmol/L (96-108); Creatinine Clr Calc Pharmacy 76.9; D Dimer High Sensitivity 12117 NG/ML; Estimated Glomerular Filt Rate > 60; Glucose Fasting 133 mg/dL (60-99); Magnesium 2.6 mg/dL (1.6-2.6); Phosphorus 3.8 mg/dL (2.7-4.5); Potassium 3.8 mmol/L (3.3-5.1); Sodium 158 mmol/L (135-145); Total Protein 5.8 g/dL (6.5-8.0)
[2024-10-17 00:25] LABS: Appearance Urine Turbid; Color Urine Yellow; Glucose Urine UA Negative (Negative); Leukocyte Esterase Urine Negative (Negative); Nitrite Urine Negative (Negative); Specific Gravity - Urine >= 1.030 (1.005-1.025); UMIC TRIGGER UA YES; Urine Blood Large (3+) (Negative); Urine Ketones 15 mg/dL (Negative); Urine Protein 30 (1+) mg/dL (Neg-Trace)
[2024-10-17 00:39] LABS: Bacteria Urine None Seen (None Seen); Hyaline Casts Urine 0-2 /LPF (0-2); Other Crystals Urine Present; WBC Urine 0-5 /HPF (0-5)
[2024-10-17 00:44] LABS: Amylase 33 U/L (28-100); Lipase 5 U/L (8-78)
[2024-10-17 00:51] LABS: B Type Natriuretic Peptide 14 pg/mL (<100)
[2024-10-17] MEDS: Metoprolol Tartrate 5 MG/5 ML VIAL IVPUSH (02:40)
[2024-10-17] MEDS: hydrALAZINE HCl 20 MG/ML VIAL 10 MG IVPUSH (03:05)
[2024-10-17] MEDS: Labetalol HCL 100 MG/20 ML VIAL 20 MG IVPUSH ×3 (03:20→20:29)
[2024-10-17] MEDS: Piperacillin Sodium/Tazobactam 4.5 GM in 0.9 % Sodium Chloride 100 ML IV ×4 (05:29→23:56)
[2024-10-17] MEDS: Sodium Chloride 0.45 % 1,000 ML 100 ML IVCONT (05:30)
[2024-10-17] MEDS: Pantoprazole Sodium 40 MG/10 ML VIAL IVPUSH ×2 (05:30→15:02)
[2024-10-17 06:05] LABS: Glucose, Whole Blood 153 mg/dL (60-115)
[2024-10-17 06:15] LABS: MANUAL DIFF FLAG NO
[2024-10-17 06:25] LABS: Basophils Percent Auto 0.1 % (0-2); Hematocrit 25.7 % (42.0-52.0); Hemoglobin 8.2 g/dl (14.0-18.0); Imm Gran Abs Auto 0.11 X10*3/uL (0.00-0.03); Imm Gran Pct Auto 0.6 % (0.0-0.4); Lymphocytes Absolute Auto 1.1 X10*3/uL (1.2-4.9); Lymphocytes Percent Auto 5.7 % (20-40); Mean Corpuscular HGB Conc 31.9 g/dl (31.0-36.0); Mean Corpuscular Hemoglobin 23.6 pg (27.0-33.0); Mean Corpuscular Volume 74.1 fL (80.0-98.0); Monocytes Absolute Auto 0.8 X10*3/uL (0.1-1.2); Monocytes Percent Auto 3.9 % (2-11); NRBC Pct Auto 0.2 /100WBC (0.0-0.2); Neutrophils Absolute Auto 17.3 x10*3/uL (2.0-8.3); Neutrophils Percent Auto 89.7 % (45-73); Platelet Count 307 X10*3/uL (160-400); Red Blood Count 3.47 X10*6/uL (4.60-5.80); Red Cell Distribution Width 19.9 % (11.0-16.0); White Blood Count 19.3 X10*3/uL (4.8-10.8)
[2024-10-17 06:29] LABS: Fibrinogen 689 MG/DL (259-690); INTERNATIONAL NORM RATIO 1.5 (0.9-1.1); Prothrombin Time 17.8 SEC (10.9-12.4)
[2024-10-17 06:31] LABS: Partial Thromboplastin Time 29.9 SEC (26.0-36.8)
[2024-10-17 06:33] LABS: Creatinine Clr Calc Pharmacy 72.9; Estimated Glomerular Filt Rate > 60
[2024-10-17 06:41] LABS: Alanine Aminotransferase 282 U/L (0-40); Albumin Level 3.2 g/dL (3.5-5.0); Alkaline Phosphatase 62 U/L (39-117); Anion Gap 11 (12-20); Aspartate Amino Transferase 500 U/L (5-37); Bilirubin Direct 0.1 mg/dL (0.0-0.5); Bilirubin Total 0.3 mg/dL (0.0-1.0); Blood Urea Nitrogen 15 mg/dL (9-16); Carbon Dioxide 22 mmol/L (22-29); Chloride 130 mmol/L (96-108); Creatinine Clr Calc Pharmacy 72.9; Estimated Glomerular Filt Rate > 60; Glucose Fasting 170 mg/dL (60-99); Magnesium 2.6 mg/dL (1.6-2.6); Phosphorus 3.5 mg/dL (2.7-4.5); Potassium 3.9 mmol/L (3.3-5.1); Sodium 159 mmol/L (135-145); Total Protein 6.1 g/dL (6.5-8.0)
--- NOTE | 2024-10-17 06:47 | HE.PHANOTE ---
TITO Changed dose to 750 Q8H per subtherapeutic trough. Predicted AUC 501, predicted trough 14.2. Patient's renal function improved, next trough to be drawn 10/18 @0600.
[2024-10-17] MEDS: Insulin Lispro 100 UNIT/ML 3 ML VIAL SUBCUT ×3 (06:51→17:21)
[2024-10-17] MEDS: vancomycin HCL 750 MG in 0.9 % Sodium Chloride 250 ML 265 MG IV ×2 (07:15→15:02)
[2024-10-17] MEDS: 0.9 % Sodium Chloride Flush 3 ML SYRINGE IVFLUSH ×3 (07:16→19:50)
[2024-10-17] MEDS: Chlorhexidine Gluc Oral Rinse 15 ML MOUTHWASH BUCCAL ×3 (08:17→19:50)
[2024-10-17] MEDS: dexAMETHasone sod phosphate 4 MG/ML VIAL IVPUSH (08:18)
--- NOTE | 2024-10-17 08:38 | P.PNCC_ITS ---
Subjective Subjective Date of Service: 10/17/24 Critical Care Time (minutes): 35 Comment: Continues to have absent brainstem reflexes, with no signs of brain activity On ventilator support No sedation or any sedating medicines Physical Exam 2 Vital Signs: Vital Signs: Last Vital Signs Temp 98.6 F 10/17/24 08:00 Pulse 124 H 10/17/24 08:00 Resp 14 10/17/24 08:00 BP 156/99 H 10/17/24 08:00 Pulse Ox 96 10/17/24 08:00 O2 Del Method Mechanical Ventil ation 10/17/24 08:00 FiO2 30 10/17/24 08:17 BMI result Body Mass Index 22.2 General: Young appearing white male lying in the bed supported with ventilator Nutritional Appearance: well nourished and overweight Eyes: appearance normal, both eyes and all related structures; Alignment and Position: alignment normal and position normal Neck: No lymphadenopathy, no thyromegaly Resp: bilateral air entry equal, occasional added sounds present Cardio: Regular rate, regular rhythm; Heart sounds: S1 normal heart sound present and S2 normal heart sound present GI: soft, nontender, no guarding, no hepatosplenomegaly : bladder normal to inspection, bladder normal to palpation, no renal angle tenderness Skin: no rashes or lesions noted and elasticity normal Neuro: No spontaneous activity, absent brainstem reflexes Objective Data Labs 10/17/24 05:41 10/17/24 05:41 Labs: Laboratory Results - last 24 hr 10/14/24 10/16/24 10/16/24 23:03 10:22 11:23 WBC 16.4 H RBC 3.51 L Hgb 8.3 L Hct 25.7 L MCV 73.2 L MCH 23.6 L MCHC 32.3 RDW 19.0 H Plt Count 298 MPV 9.1 L Immature Gran % (Auto) 0.4 Neut % (Auto) 85.9 H Lymph % (Auto) 7.1 L [place] % (Auto) 6.5 Eos % (Auto) 0.0 Baso % (Auto) 0.1 Lymph # (Auto) 1.2 [place] # (Auto) 1.1 Eos # (Auto) 0.0 Baso # (Auto) 0.0 Abs Immat Gran (auto) 0.06 H Absolute Neuts (auto) 14.1 H Absolute Nucleated RBC 0.000 Nucleated RBC % (auto) 0.0 Neutrophils % (Manual) Band Neutrophils % Lymphocytes % (Manual) Monocytes % (Manual) Abs Neuts (Manual) Lymphocytes # (Manual) Monocytes # (Manual) Nucleated RBCs Platelet Estimate Plt Morphology Comment RBC Morphology Microcytosis Target Cells Schistocytes Smear Tech's Comments PT 23.0 H INR 2.0 H APTT 30.1 Fibrinogen 615 D-Dimer High Sensitivty 72253 O2 Saturation ABG pH at Pt Temp ABG pCO2 at Pt Temp ABG pO2 at Pt Temp ABG HCO3 ABG Base Excess (Actual) Sodium 162 H* 162 H* Potassium 3.4 3.4 Chloride 132 H 134 H Carbon Dioxide 22 22 Anion Gap 11 L 9 L BUN 16 16 Creatinine 1.08 1.09 Estim Creat Clear Calc 64.1 63.5 Estimated GFR > 60 > 60 POC Glucose 77 Random Glucose 133 H Fasting Glucose 133 H Calcium 7.2 L 7.2 L Phosphorus 4.3 Magnesium 2.6 Total Bilirubin 0.5 0.5 Direct Bilirubin 0.2 AST 510 H 519 H ALT 292 H 296 H Alkaline Phosphatase 49 50 Total Creatine Kinase 26033 H Troponin I High Sens 14.4 D B-Natriuretic Peptide < 10 Total Protein 5.6 L 5.7 L Albumin 3.1 L 3.1 L Amylase 41 Lipase 6 L Urine Color Urine Appearance Urine pH Ur Specific [place] Urine Protein Urine Glucose (UA) Urine Ketones Urine Blood Urine Nitrite Ur Leukocyte Esterase Urine RBC Urine WBC Ur Squamous Epith Cells Other Crystals Urine Bacteria Hyaline Casts Random Vancomycin 10/16/24 10/16/24 10/16/24 11:55 11:59 16:56 WBC 16.5 H RBC 3.22 L Hgb 7.7 L Hct 23.6 L MCV 73.3 L MCH 23.9 L MCHC 32.6 RDW 19.2 H Plt Count 271 MPV 9.3 L Immature Gran % (Auto) Cancelled Neut % (Auto) Cancelled Lymph % (Auto) Cancelled [place] % (Auto) Cancelled Eos % (Auto) Cancelled Baso % (Auto) Cancelled Lymph # (Auto) Cancelled [place] # (Auto) Cancelled Eos # (Auto) Cancelled Baso # (Auto) Cancelled Abs Immat Gran (auto) Cancelled Absolute Neuts (auto) Cancelled Absolute Nucleated RBC 0.000 Nucleated RBC % (auto) 0.0 Neutrophils % (Manual) 75 H Band Neutrophils % 17 H Lymphocytes % (Manual) 6 L Monocytes % (Manual) 1 L Abs Neuts (Manual) 15.2 H Lymphocytes # (Manual) 1.0 L Monocytes # (Manual) 0.2 Nucleated RBCs 1 H Platelet Estimate NORMAL Plt Morphology Comment NORMAL RBC Morphology NOTED Microcytosis 1+ (5-14) Target Cells 1+ (5-14) Schistocytes 1+ (0-2) Smear Tech's Comments MANUAL DIFF PT 22.5 H INR 1.9 H APTT 30.1 Fibrinogen 623 D-Dimer High Sensitivty 52971 O2 Saturation 99.0 ABG pH at Pt Temp 7.46 H ABG pCO2 at Pt Temp 31 L ABG pO2 at Pt Temp 590 H ABG HCO3 22 ABG Base Excess (Actual) -1.1 Sodium 159 H Potassium 3.7 Chloride 130 H Carbon Dioxide 21 L Anion Gap 12 BUN 15 Creatinine 0.95 Estim Creat Clear Calc 72.9 Estimated GFR > 60 POC Glucose 124 H Random Glucose Fasting Glucose 141 H Calcium 7.1 L Phosphorus 4.5 Magnesium 2.6 Total Bilirubin 0.5 Direct Bilirubin 0.1 AST 514 H ALT 286 H Alkaline Phosphatase 49 Total Creatine Kinase Troponin I High Sens B-Natriuretic Peptide Total Protein 5.5 L Albumin 3.0 L Amylase Lipase Urine Color Urine Appearance Urine pH Ur Specific [place] Urine Protein Urine Glucose (UA) Urine Ketones Urine Blood Urine Nitrite Ur Leukocyte Esterase Urine RBC Urine WBC Ur Squamous Epith Cells Other Crystals Urine Bacteria Hyaline Casts Random Vancomycin 10/16/24 10/16/24 10/16/24 17:53 23:45 23:58 WBC 18.1 H RBC 3.26 L Hgb 7.7 L Hct 24.3 L MCV 74.5 L MCH 23.6 L MCHC 31.7 RDW 19.6 H Plt Count 272 MPV 9.5 Immature Gran % (Auto) 0.4 Neut % (Auto) 88.9 H Lymph % (Auto) 6.5 L [place] % (Auto) 4.1 Eos % (Auto) 0.0 Baso % (Auto) 0.1 Lymph # (Auto) 1.2 [place] # (Auto) 0.7 Eos # (Auto) 0.0 Baso # (Auto) 0.0 Abs Immat Gran (auto) 0.07 H Absolute Neuts (auto) 16.1 H Absolute Nucleated RBC 0.000 Nucleated RBC % (auto) 0.0 Neutrophils % (Manual) Band Neutrophils % Lymphocytes % (Manual) Monocytes % (Manual) Abs Neuts (Manual) Lymphocytes # (Manual) Monocytes # (Manual) Nucleated RBCs Platelet Estimate Plt Morphology Comment RBC Morphology Microcytosis Target Cells Schistocytes Smear Tech's Comments PT 19.4 H INR 1.7 H APTT 29.3 Fibrinogen 677 D-Dimer High Sensitivty 32658 O2 Saturation ABG pH at Pt Temp ABG pCO2 at Pt Temp ABG pO2 at Pt Temp ABG HCO3 ABG Base Excess (Actual) Sodium 158 H Potassium 3.8 Chloride 129 H Carbon Dioxide 20 L Anion Gap 13 BUN 15 Creatinine 0.90 Estim Creat Clear Calc 76.9 Estimated GFR > 60 POC Glucose 134 H 122 H Random Glucose Fasting Glucose 133 H Calcium 7.5 L Phosphorus 3.8 Magnesium 2.6 Total Bilirubin 0.4 Direct Bilirubin 0.1 AST 491 H ALT 281 H Alkaline Phosphatase 52 Total Creatine Kinase Troponin I High Sens B-Natriuretic Peptide Total Protein 5.8 L Albumin 3.1 L Amylase Lipase Urine Color Urine Appearance Urine pH Ur Specific [place] Urine Protein Urine Glucose (UA) Urine Ketones Urine Blood Urine Nitrite Ur Leukocyte Esterase Urine RBC Urine WBC Ur Squamous Epith Cells Other Crystals Urine Bacteria Hyaline Casts Random Vancomycin 10/17/24 10/17/24 10/17/24 00:15 05:41 05:41 WBC 19.3 H RBC 3.47 L Hgb 8.2 L Hct 25.7 L MCV 74.1 L MCH 23.6 L MCHC 31.9 RDW 19.9 H Plt Count 307 MPV 10.0 Immature Gran % (Auto) 0.6 H Neut % (Auto) 89.7 H Lymph % (Auto) 5.7 L [place] % (Auto) 3.9 Eos % (Auto) 0.0 Baso % (Auto) 0.1 Lymph # (Auto) 1.1 L [place] # (Auto) 0.8 Eos # (Auto) 0.0 Baso # (Auto) 0.0 Abs Immat Gran (auto) 0.11 H Absolute Neuts (auto) 17.3 H Absolute Nucleated RBC 0.030 H Nucleated RBC % (auto) 0.2 Neutrophils % (Manual) Band Neutrophils % Lymphocytes % (Manual) Monocytes % (Manual) Abs Neuts (Manual) Lymphocytes # (Manual) Monocytes # (Manual) Nucleated RBCs Platelet Estimate Plt Morphology Comment RBC Morphology Microcytosis Target Cells Schistocytes Smear Tech's Comments PT 17.8 H INR 1.5 H APTT 29.9 Fibrinogen 689 D-Dimer High Sensitivty 50994 O2 Saturation ABG pH at Pt Temp ABG pCO2 at Pt Temp ABG pO2 at Pt Temp ABG HCO3 ABG Base Excess (Actual) Sodium 159 H Potassium 3.9 Chloride 130 H Carbon Dioxide 22 Anion Gap 11 L BUN 15 Creatinine 0.95 0.95 Estim Creat Clear Calc 72.9 Estimated GFR POC Glucose Random Glucose Fasting Glucose Calcium Phosphorus Magnesium Total Bilirubin Direct Bilirubin AST ALT Alkaline Phosphatase Total Creatine Kinase 90846 H Troponin I High Sens 8.0 B-Natriuretic Peptide 14 Total Protein Albumin Amylase 33 Lipase 5 L Urine Color Yellow Urine Appearance Turbid Urine pH 5.0 Ur Specific [place] >= 1.030 H Urine Protein 30 (1+) H Urine Glucose (UA) Negative Urine Ketones 15 Urine Blood Large (3+) H Urine Nitrite Negative Ur Leukocyte Esterase Negative Urine RBC 6-10 H Urine WBC 0-5 Ur Squamous Epith Cells 3-5 Other Crystals Present Urine Bacteria None Seen Hyaline Casts 0-2 Random Vancomycin 10/17/24 10/17/24 10/17/24 05:41 05:41 06:02 WBC RBC Hgb Hct MCV MCH MCHC RDW Plt Count MPV Immature Gran % (Auto) Neut % (Auto) Lymph % (Auto) [place] % (Auto) Eos % (Auto) Baso % (Auto) Lymph # (Auto) [place] # (Auto) Eos # (Auto) Baso # (Auto) Abs Immat Gran (auto) Absolute Neuts (auto) Absolute Nucleated RBC Nucleated RBC % (auto) Neutrophils % (Manual) Band Neutrophils % Lymphocytes % (Manual) Monocytes % (Manual) Abs Neuts (Manual) Lymphocytes # (Manual) Monocytes # (Manual) Nucleated RBCs Platelet Estimate Plt Morphology Comment RBC Morphology Microcytosis Target Cells Schistocytes Smear Tech's Comments PT INR APTT Fibrinogen D-Dimer High Sensitivty O2 Saturation ABG pH at Pt Temp ABG pCO2 at Pt Temp ABG pO2 at Pt Temp ABG HCO3 ABG Base Excess (Actual) Sodium Potassium Chloride Carbon Dioxide Anion Gap BUN Creatinine Estim Creat Clear Calc 72.9 Estimated GFR > 60 > 60 POC Glucose 153 H Random Glucose Fasting Glucose 170 H Calcium 8.0 L D Phosphorus 3.5 Magnesium 2.6 Total Bilirubin 0.3 Direct Bilirubin 0.1 AST 500 H ALT 282 H Alkaline Phosphatase 62 Total Creatine Kinase Troponin I High Sens B-Natriuretic Peptide Total Protein 6.1 L Albumin 3.2 L Amylase Lipase Urine Color Urine Appearance Urine pH Ur Specific [place] Urine Protein Urine Glucose (UA) Urine Ketones Urine Blood Urine Nitrite Ur Leukocyte Esterase Urine RBC Urine WBC Ur Squamous Epith Cells Other Crystals Urine Bacteria Hyaline Casts Random Vancomycin 8.0 L Progress Note: A&P Assessment and plan (1) Anoxic brain injury: Status: Acute (2) Exacerbation of ulcerative colitis: Status: Acute (3) Cardiac arrest: Status: Acute (4) Opioid use disorder: Status: Acute (5) Accidental overdose: Status: Acute Plan Neuro: Acute encephalopathy possibly due to hypoxic ischemic brain injury given prolonged duration of CPR over 55 minutes with unknown down time prior to that, patient does not have any brainstem reflexes or any spontaneous activity. His CT brain upon admission showed cerebral edema , a pending reading on the CTA to look for blood flow, verbal report said that is pretty much absent blood flow to the brain except for minimal blood seen in [place]. Given his neurological findings of low spontaneous movement, absent cough and gag reflex, CT findings, duration of the code his prognosis is very poor and this has been very well explained to the family. Patient is not on any sedation or sedating medications Close neurological status monitoring in the ICU every hour Appreciate neurology input Cardiac: Cardiogenic Shock: Possibly secondary to cardiac arrest On Levophed support, titrate Levophed to keep map above 65 mm Hg Respiratory: Acute hypoxemic respiratory failure due to respiratory failure Currently on ventilator support On PRVC mode FiO2 25, PEEP 5, TV 400, RR 20, PF ratio 590 Peak pressures and plateau pressures are under the curve Ventilator management bundle with head end elevation, aspiration precaution, chlorhexidine mouthwash, daily awakening trials, daily spontaneous breathing trials Not a candidate for extubation due to poor mental status GI: on tube feeds Renal: 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 Urine output improved with DDAVP, scheduled DDAVP as needed based upon the urine output We will closely monitor I's and O's Avoid nephrotoxic medications Hypernatremia: Sodium down to 159 this morning secondary to diabetes insipidus On half-normal saline drip 300 cc/hour, we will change to D5 drip and repeat a BMP around Heme: Chronic anemia, closely monitor H&H, transfuse for hemoglobin less than 7 grams/deciliter Endocrine: Blood sugars under control Sliding scale insulin as needed Infectious disease: Cultures negative No evidence of sepsis, his whole presentation is secondary to cardiac arrest due to drug overdose. On vancomycin and Zosyn for organ donation to preserve organs Musculoskeletal: Decubitus ulcer prevention protocol Prophylaxis: Lovenox, pantoprazole Quality Stroke Does the patient have a stroke diagnosis?: No VTE Prior VTE?: No VTE Risk Level:: Medical - moderate - high VTE Device Contraindication: Treatment Not Indicated VTE Drug Contraindication: N/A - Med Ordered
[2024-10-17 09:14] LABS: ABG Refer to POC result
[2024-10-17] MEDS: Dextrose 5 % 1,000 ML 100 ML IVCONT ×2 (09:35→19:50)
--- NOTE | 2024-10-17 10:43 | MHC.CLN ---
F/U PT REMAINS INTUBATED PROGNOSIS IS POOR PER MD DISCUSSED AT ROUND WITH MD-PLAN TO ADVANCE TF CURRENT TF JEVITY 1.0 RUNNING AT 20ML/HR RECOMMEND JEVITY 1.0 TF AT MAX GOAL RATE 55ML/HR WITH 120ML FREE WATER FLUSHES Q 8 HRS TO PROVIDE 1399KCALS (29KCALS/KG), 55G PROTEIN (1.1G/KG), 1462ML TOTAL WATER FROM FORMULA AND FLUSHES (31ML/KG) MONITOR TOLERANCE AND LYTES
[2024-10-17 11:15] LABS: Glucose, Whole Blood 184 mg/dL (60-115)
[2024-10-17 11:37] LABS: Appearance Urine Cloudy; Color Urine Yellow; Glucose Urine UA 500 mg/dL (Negative); Leukocyte Esterase Urine Negative (Negative); Nitrite Urine Negative (Negative); Specific Gravity - Urine 1.025 (1.005-1.025); UMIC TRIGGER UA YES; Urine Blood Large (3+) (Negative); Urine Ketones Trace mg/dL (Negative); Urine Protein 30 (1+) mg/dL (Neg-Trace)
[2024-10-17 11:40] LABS: Basophils Percent Auto 0.1 % (0-2); Imm Gran Abs Auto 0.08 X10*3/uL (0.00-0.03); Imm Gran Pct Auto 0.5 % (0.0-0.4); Lymphocytes Absolute Auto 0.9 X10*3/uL (1.2-4.9); Lymphocytes Percent Auto 5.3 % (20-40); MANUAL DIFF FLAG SCAN; Mean Corpuscular HGB Conc 30.8 g/dl (31.0-36.0); Mean Corpuscular Hemoglobin 23.2 pg (27.0-33.0); Mean Corpuscular Volume 75.4 fL (80.0-98.0); Mean Platelet Volume 9.9 fL (9.4-12.4); Monocytes Absolute Auto 0.7 X10*3/uL (0.1-1.2); Monocytes Percent Auto 3.8 % (2-11); NRBC Pct Auto 0.1 /100WBC (0.0-0.2); Neutrophils Absolute Auto 15.6 x10*3/uL (2.0-8.3); Neutrophils Percent Auto 90.3 % (45-73); Platelet Count 287 X10*3/uL (160-400); Red Blood Count 3.45 X10*6/uL (4.60-5.80); Red Cell Distribution Width 20.5 % (11.0-16.0); SCAN SMEAR FLAG 1; White Blood Count 17.3 X10*3/uL (4.8-10.8)
[2024-10-17 11:46] LABS: Bacteria Urine None Seen (None Seen); Granular Casts Urine Present; Other Crystals Urine Present; WBC Urine 0-5 /HPF (0-5)
--- NOTE | 2024-10-17 11:46 | MHC.CM.PN ---
Pt remains intubated with family deciding on goals of care in the setting of pt's catastrophic anoxic brain injury. [facility] is following.
[2024-10-17 12:01] LABS: SLIDE REVIEW VERIFIED
[2024-10-17 12:02] LABS: Troponin-I High Sensitivity 5.5 ng/L (<3.5-35.0)
[2024-10-17 12:05] LABS: Lipase 17 U/L (8-78)
[2024-10-17 12:08] LABS: Anion Gap 7 (12-20); Blood Urea Nitrogen 17 mg/dL (9-16); Calcium 8.3 mg/dL (8.4-10.2); Carbon Dioxide 25 mmol/L (22-29); Chloride 133 mmol/L (96-108); Creatinine Clr Calc Pharmacy 81.1; Estimated Glomerular Filt Rate > 60; Glucose Random 214 mg/dL (60-115); Sodium 161 mmol/L (135-145)
[2024-10-17 12:12] LABS: B Type Natriuretic Peptide 59 pg/mL (<100)
[2024-10-17 12:13] LABS: D Dimer High Sensitivity 11216 NG/ML
[2024-10-17 12:17] LABS: D Dimer High Sensitivity 11216 NG/ML; Fibrinogen 689 MG/DL (259-690); INTERNATIONAL NORM RATIO 1.5 (0.9-1.1); Partial Thromboplastin Time 29.9 SEC (26.0-36.8); Prothrombin Time 17.8 SEC (10.9-12.4)
[2024-10-17 12:28] LABS: Amylase 35 U/L (28-100)
[2024-10-17 12:44] LABS: Alanine Aminotransferase 262 U/L (0-40); Alkaline Phosphatase 67 U/L (39-117); Anion Gap 8 (12-20); Aspartate Amino Transferase 490 U/L (5-37); Bilirubin Direct < 0.2 mg/dL (0.0-0.5); Bilirubin Total 0.2 mg/dL (0.0-1.0); Blood Urea Nitrogen 17 mg/dL (9-16); Carbon Dioxide 25 mmol/L (22-29); Chloride 131 mmol/L (96-108); Creatinine Clr Calc Pharmacy 80.2; Estimated Glomerular Filt Rate > 60; Glucose Fasting 209 mg/dL (60-99); Magnesium 2.9 mg/dL (1.6-2.6); Phosphorus 3.1 mg/dL (2.7-4.5); Potassium 3.9 mmol/L (3.3-5.1); Sodium 160 mmol/L (135-145); Total Protein 5.9 g/dL (6.5-8.0)
[2024-10-17 17:19] LABS: Glucose, Whole Blood 187 mg/dL (60-115)
[2024-10-17 17:19] LABS: Basophils Percent Auto 0.1 % (0-2); Hematocrit 25.9 % (42.0-52.0); Hemoglobin 8.1 g/dl (14.0-18.0); Imm Gran Pct Auto 0.6 % (0.0-0.4); Lymphocytes Absolute Auto 0.8 X10*3/uL (1.2-4.9); Lymphocytes Percent Auto 4.7 % (20-40); MANUAL DIFF FLAG SCAN; Mean Corpuscular HGB Conc 31.3 g/dl (31.0-36.0); Mean Corpuscular Hemoglobin 23.8 pg (27.0-33.0); Mean Platelet Volume 9.6 fL (9.4-12.4); Monocytes Absolute Auto 0.7 X10*3/uL (0.1-1.2); Monocytes Percent Auto 4.1 % (2-11); NRBC Pct Auto 0.1 /100WBC (0.0-0.2); Neutrophils Absolute Auto 16.2 x10*3/uL (2.0-8.3); Neutrophils Percent Auto 90.5 % (45-73); Platelet Count 273 X10*3/uL (160-400); Red Blood Count 3.41 X10*6/uL (4.60-5.80); Red Cell Distribution Width 20.3 % (11.0-16.0); SCAN SMEAR FLAG 1; White Blood Count 17.9 X10*3/uL (4.8-10.8)
[2024-10-17 17:41] LABS: Alanine Aminotransferase 251 U/L (0-40); Albumin Level 3.1 g/dL (3.5-5.0); Alkaline Phosphatase 68 U/L (39-117); Anion Gap 5 (12-20); Aspartate Amino Transferase 507 U/L (5-37); Bilirubin Direct 0.1 mg/dL (0.0-0.5); Bilirubin Total 0.3 mg/dL (0.0-1.0); Blood Urea Nitrogen 16 mg/dL (9-16); Calcium 7.9 mg/dL (8.4-10.2); Carbon Dioxide 26 mmol/L (22-29); Chloride 131 mmol/L (96-108); Creatinine Clr Calc Pharmacy 95.3; Estimated Glomerular Filt Rate > 60; Glucose Fasting 224 mg/dL (60-99); Magnesium 2.9 mg/dL (1.6-2.6); Phosphorus 2.7 mg/dL (2.7-4.5); Sodium 158 mmol/L (135-145)
[2024-10-17 17:59] LABS: INTERNATIONAL NORM RATIO 1.4 (0.9-1.1); Prothrombin Time 16.2 SEC (10.9-12.4)
[2024-10-17 18:14] LABS: D Dimer High Sensitivity 7569 NG/ML; Fibrinogen > 700 MG/DL (259-690)
[2024-10-17 23:42] LABS: Basophils Percent Auto 0.1 % (0-2); Hematocrit 27.1 % (42.0-52.0); Hemoglobin 8.6 g/dl (14.0-18.0); Imm Gran Abs Auto 0.08 X10*3/uL (0.00-0.03); Imm Gran Pct Auto 0.5 % (0.0-0.4); Lymphocytes Absolute Auto 0.7 X10*3/uL (1.2-4.9); Lymphocytes Percent Auto 4.3 % (20-40); MANUAL DIFF FLAG SCAN; Mean Corpuscular HGB Conc 31.7 g/dl (31.0-36.0); Mean Corpuscular Hemoglobin 23.8 pg (27.0-33.0); Mean Corpuscular Volume 75.1 fL (80.0-98.0); Mean Platelet Volume 9.4 fL (9.4-12.4); Monocytes Absolute Auto 0.6 X10*3/uL (0.1-1.2); Monocytes Percent Auto 3.8 % (2-11); NRBC Pct Auto 0.1 /100WBC (0.0-0.2); Neutrophils Absolute Auto 15.2 x10*3/uL (2.0-8.3); Neutrophils Percent Auto 91.3 % (45-73); Platelet Count 279 X10*3/uL (160-400); Red Blood Count 3.61 X10*6/uL (4.60-5.80); Red Cell Distribution Width 20.4 % (11.0-16.0); SCAN SMEAR FLAG 1; White Blood Count 16.6 X10*3/uL (4.8-10.8)
[2024-10-17 23:54] LABS: Appearance Urine Clear; Color Urine Yellow; Glucose Urine UA 250 mg/dL (Negative); Leukocyte Esterase Urine Negative (Negative); Nitrite Urine Negative (Negative); PH 5.5 (5.0-9.0); Specific Gravity - Urine <= 1.005 (1.005-1.025); UMIC TRIGGER UA YES; Urine Blood Moderate (2+) (Negative); Urine Ketones Negative (Negative); Urine Protein Negative (Neg-Trace)
[2024-10-17 23:56] LABS: SLIDE REVIEW VERIFIED
[2024-10-18] VITALS (54 sets, daily range): BP systolic 126–199; BP diastolic 74–128; PULSE 103–131; RESP 14–18; TEMP 34.9–38.3; O2SAT 93–100; BMI 22.7
[2024-10-18] LABS: Alanine Aminotransferase 252 U/L (0-40); Albumin Level 3.2 g/dL (3.5-5.0); Alkaline Phosphatase 77 U/L (39-117); Anion Gap 9 (12-20); Aspartate Amino Transferase 493 U/L (5-37); Bilirubin Direct < 0.2 mg/dL (0.0-0.5); Bilirubin Total 0.2 mg/dL (0.0-1.0); Blood Urea Nitrogen 13 mg/dL (9-16); Calcium 7.9 mg/dL (8.4-10.2); Carbon Dioxide 25 mmol/L (22-29); Chloride 129 mmol/L (96-108); Cholesterol 136 mg/dL (<200); Creatinine Clr Calc Pharmacy 89.7; Estimated Glomerular Filt Rate > 60; Glucose Fasting 233 mg/dL (60-99); HDL Cholesterol 18 mg/dL (>40); LDL Cholesterol Calculated 81 mg/dL (<100); Magnesium 2.9 mg/dL (1.6-2.6); Phosphorus 2.8 mg/dL (2.7-4.5); Potassium 4.2 mmol/L (3.3-5.1); Sodium 159 mmol/L (135-145); Total Protein 6.3 g/dL (6.5-8.0); Triglycerides 189 mg/dL (<150)
[2024-10-18 00:04] LABS: Glucose, Whole Blood 191 mg/dL (60-115)
[2024-10-18 00:09] LABS: Bacteria Urine Trace (None Seen); Squamous Epithelial Cell Urine 0-2 /HPF (0-2); WBC Urine 0-5 /HPF (0-5)
[2024-10-18] MEDS: Insulin Lispro 100 UNIT/ML 3 ML VIAL SUBCUT ×4 (00:20→18:25)
[2024-10-18] MEDS: vancomycin HCL 750 MG in 0.9 % Sodium Chloride 250 ML 265 MG IV ×3 (00:27→16:00)
[2024-10-18 00:36] LABS: Amylase 33 U/L (28-100); Lipase 14 U/L (8-78)
[2024-10-18 00:38] LABS: B Type Natriuretic Peptide 54 pg/mL (<100); D Dimer High Sensitivity 6401 NG/ML; Fibrinogen > 700 MG/DL (259-690); INTERNATIONAL NORM RATIO 1.4 (0.9-1.1); Partial Thromboplastin Time 26.8 SEC (26.0-36.8); Prothrombin Time 16.2 SEC (10.9-12.4)
[2024-10-18 00:41] LABS: Troponin-I High Sensitivity < 2.7 ng/L (<3.5-35.0)
[2024-10-18 03:25] LABS: Estimated Average Glucose 114 mg/dL; Hemoglobin A1C 81.1682 umol/L; Hemoglobin A1c % 5.6 % (<6.0)
[2024-10-18] MEDS: Dextrose 5 % 1,000 ML 100 ML IVCONT (05:36)
[2024-10-18] MEDS: Pantoprazole Sodium 40 MG/10 ML VIAL IVPUSH (05:37)
[2024-10-18] MEDS: Piperacillin Sodium/Tazobactam 4.5 GM in 0.9 % Sodium Chloride 100 ML IV ×4 (05:41→23:37)
[2024-10-18 05:51] LABS: Glucose, Whole Blood 166 mg/dL (60-115)
[2024-10-18 06:08] LABS: MANUAL DIFF FLAG NO
[2024-10-18 06:10] LABS: Basophils Percent Auto 0.1 % (0-2); Hematocrit 25.6 % (42.0-52.0); Imm Gran Abs Auto 0.08 X10*3/uL (0.00-0.03); Imm Gran Pct Auto 0.5 % (0.0-0.4); Lymphocytes Absolute Auto 0.8 X10*3/uL (1.2-4.9); Lymphocytes Percent Auto 5.2 % (20-40); Mean Corpuscular HGB Conc 31.3 g/dl (31.0-36.0); Mean Corpuscular Hemoglobin 23.4 pg (27.0-33.0); Mean Corpuscular Volume 74.9 fL (80.0-98.0); Mean Platelet Volume 9.8 fL (9.4-12.4); Monocytes Absolute Auto 0.7 X10*3/uL (0.1-1.2); Monocytes Percent Auto 4.5 % (2-11); Neutrophils Absolute Auto 13.1 x10*3/uL (2.0-8.3); Neutrophils Percent Auto 89.7 % (45-73); Platelet Count 284 X10*3/uL (160-400); Red Blood Count 3.42 X10*6/uL (4.60-5.80); Red Cell Distribution Width 20.4 % (11.0-16.0); White Blood Count 14.6 X10*3/uL (4.8-10.8)
[2024-10-18] MEDS: Acetaminophen Oral Liquid 650 MG/20.3 ML SOLUTION 975 MG PO (06:19)
[2024-10-18 06:21] LABS: Vancomycin Random 12.7 mcg/mL (15-20)
[2024-10-18 06:25] LABS: INTERNATIONAL NORM RATIO 1.4 (0.9-1.1); Prothrombin Time 16.5 SEC (10.9-12.4)
[2024-10-18 06:28] LABS: Alanine Aminotransferase 228 U/L (0-40); Albumin Level 3.2 g/dL (3.5-5.0); Alkaline Phosphatase 80 U/L (39-117); Anion Gap 10 (12-20); Aspartate Amino Transferase 460 U/L (5-37); Bilirubin Direct < 0.2 mg/dL (0.0-0.5); Bilirubin Total 0.2 mg/dL (0.0-1.0); Blood Urea Nitrogen 13 mg/dL (9-16); Calcium 8.4 mg/dL (8.4-10.2); Carbon Dioxide 26 mmol/L (22-29); Chloride 129 mmol/L (96-108); Cholesterol 133 mg/dL (<200); Creatinine Clr Calc Pharmacy 89.7; Estimated Glomerular Filt Rate > 60; Glucose Fasting 195 mg/dL (60-99); HDL Cholesterol 19 mg/dL (>40); LDL Cholesterol Calculated 78 mg/dL (<100); Magnesium 2.6 mg/dL (1.6-2.6); Partial Thromboplastin Time 26.1 SEC (26.0-36.8); Phosphorus 2.3 mg/dL (2.7-4.5); Sodium 161 mmol/L (135-145); Total Protein 6.2 g/dL (6.5-8.0); Triglycerides 183 mg/dL (<150)
[2024-10-18 06:42] LABS: D Dimer High Sensitivity 5376 NG/ML; Fibrinogen > 700 MG/DL (259-690)
--- NOTE | 2024-10-18 07:27 | HE.PHANOTE ---
VANCO DOSE ADJUSTMENT BASED ON SCR AND TROUGH OF 12.6 DOSE CONTINUED AT 750 Q 8H. NEXT LEVEL AT 1/5 @ 0600
[2024-10-18] MEDS: Chlorhexidine Gluc Oral Rinse 15 ML MOUTHWASH BUCCAL ×3 (08:02→20:21)
[2024-10-18] MEDS: 0.9 % Sodium Chloride Flush 3 ML SYRINGE IVFLUSH ×3 (08:02→20:21)
[2024-10-18] MEDS: Labetalol HCL 100 MG/20 ML VIAL 20 MG IVPUSH ×4 (08:32→17:18)
--- NOTE | 2024-10-18 10:42 | P.PNCC_ITS ---
Subjective Subjective Date of Service: 10/18/24 Critical Care Time (minutes): 35 Comment: Given the combined findings of absent electrical activity on the EEG, absent blood flow in the nuclear medicine brain scan patient is possibly brain . No other changes in his clinical status Physical Exam 2 Vital Signs: Vital Signs: Last Vital Signs Temp 100.0 F 10/18/24 09:00 Pulse 106 H 10/18/24 09:00 Resp 15 10/18/24 08:00 BP 138/94 H 10/18/24 09:00 Pulse Ox 96 10/18/24 09:00 O2 Del Method Mechanical Ventil ation 10/18/24 09:00 FiO2 30 10/18/24 09:00 BMI result Body Mass Index 22.7 General: Young white male lying in the bed connected to the ventilator, unresponsive Nutritional Appearance: Okay nourished and normal weight Eyes: appearance normal, both eyes and all related structures; Alignment and Position: alignment normal and position normal Neck: No lymphadenopathy, no thyromegaly Resp: bilateral air entry equal, occasional added sounds present Cardio: Regular rate, regular rhythm; Heart sounds: S1 normal heart sound present and S2 normal heart sound present GI: soft, nontender, no guarding, no hepatosplenomegaly : bladder normal to inspection, bladder normal to palpation, no renal angle tenderness Skin: no rashes or lesions noted and elasticity normal Neuro: Absent brainstem reflexes, no spontaneous brain activity Objective Data Labs 10/18/24 05:44 10/18/24 05:44 Labs: Laboratory Results - last 24 hr 10/17/24 10/17/24 10/17/24 05:41 11:05 11:27 WBC 17.3 H RBC 3.45 L Hgb 8.0 L Hct 26.0 L MCV 75.4 L MCH 23.2 L MCHC 30.8 L RDW 20.5 H Plt Count 287 MPV 9.9 Immature Gran % (Auto) 0.5 H Neut % (Auto) 90.3 H Lymph % (Auto) 5.3 L [place] % (Auto) 3.8 Eos % (Auto) 0.0 Baso % (Auto) 0.1 Lymph # (Auto) 0.9 L [place] # (Auto) 0.7 Eos # (Auto) 0.0 Baso # (Auto) 0.0 Abs Immat Gran (auto) 0.08 H Absolute Neuts (auto) 15.6 H Absolute Nucleated RBC 0.020 H Nucleated RBC % (auto) 0.1 Smear Tech's Comments VERIFIED PT 17.8 H INR 1.5 H APTT 29.9 Fibrinogen 689 D-Dimer High Sensitivty 52716 80817 Sodium 160 H* Potassium Chloride Carbon Dioxide Anion Gap BUN Creatinine Estim Creat Clear Calc Estimated GFR POC Glucose 184 H Random Glucose Fasting Glucose Estimat Average Glucose Hemoglobin A1c % Calcium Phosphorus Magnesium Total Bilirubin Direct Bilirubin AST ALT Alkaline Phosphatase Total Creatine Kinase Troponin I High Sens B-Natriuretic Peptide Total Protein Albumin Triglycerides Cholesterol LDL Cholesterol, Calc HDL Cholesterol Amylase Lipase Urine Color Urine Appearance Urine pH Ur Specific [place] Urine Protein Urine Glucose (UA) Urine Ketones Urine Blood Urine Nitrite Ur Leukocyte Esterase Urine RBC Urine WBC Ur Squamous Epith Cells Other Crystals Urine Bacteria Hyaline Casts Granular Casts Random Vancomycin 10/17/24 10/17/24 10/17/24 11:27 11:27 11:27 WBC RBC Hgb Hct MCV MCH MCHC RDW Plt Count MPV Immature Gran % (Auto) Neut % (Auto) Lymph % (Auto) [place] % (Auto) Eos % (Auto) Baso % (Auto) Lymph # (Auto) [place] # (Auto) Eos # (Auto) Baso # (Auto) Abs Immat Gran (auto) Absolute Neuts (auto) Absolute Nucleated RBC Nucleated RBC % (auto) Smear Tech's Comments PT INR APTT Fibrinogen D-Dimer High Sensitivty Sodium 161 H* Potassium 3.9 4.0 Chloride 131 H 133 H Carbon Dioxide 25 Anion Gap BUN Creatinine Estim Creat Clear Calc Estimated GFR POC Glucose Random Glucose Fasting Glucose Estimat Average Glucose Hemoglobin A1c % Calcium Phosphorus Magnesium Total Bilirubin Direct Bilirubin AST ALT Alkaline Phosphatase Total Creatine Kinase Troponin I High Sens B-Natriuretic Peptide Total Protein Albumin Triglycerides Cholesterol LDL Cholesterol, Calc HDL Cholesterol Amylase Lipase Urine Color Urine Appearance Urine pH Ur Specific [place] Urine Protein Urine Glucose (UA) Urine Ketones Urine Blood Urine Nitrite Ur Leukocyte Esterase Urine RBC Urine WBC Ur Squamous Epith Cells Other Crystals Urine Bacteria Hyaline Casts Granular Casts Random Vancomycin 10/17/24 10/17/24 10/17/24 11:27 11:27 11:27 WBC RBC Hgb Hct MCV MCH MCHC RDW Plt Count MPV Immature Gran % (Auto) Neut % (Auto) Lymph % (Auto) [place] % (Auto) Eos % (Auto) Baso % (Auto) Lymph # (Auto) [place] # (Auto) Eos # (Auto) Baso # (Auto) Abs Immat Gran (auto) Absolute Neuts (auto) Absolute Nucleated RBC Nucleated RBC % (auto) Smear Tech's Comments PT INR APTT Fibrinogen D-Dimer High Sensitivty Sodium Potassium Chloride Carbon Dioxide 25 Anion Gap 8 L 7 L BUN 17 H 17 H Creatinine 0.95 Estim Creat Clear Calc Estimated GFR POC Glucose Random Glucose Fasting Glucose Estimat Average Glucose Hemoglobin A1c % Calcium Phosphorus Magnesium Total Bilirubin Direct Bilirubin AST ALT Alkaline Phosphatase Total Creatine Kinase Troponin I High Sens B-Natriuretic Peptide Total Protein Albumin Triglycerides Cholesterol LDL Cholesterol, Calc HDL Cholesterol Amylase Lipase Urine Color Urine Appearance Urine pH Ur Specific [place] Urine Protein Urine Glucose (UA) Urine Ketones Urine Blood Urine Nitrite Ur Leukocyte Esterase Urine RBC Urine WBC Ur Squamous Epith Cells Other Crystals Urine Bacteria Hyaline Casts Granular Casts Random Vancomycin 10/17/24 10/17/24 10/17/24 11:27 11:27 11:27 WBC RBC Hgb Hct MCV MCH MCHC RDW Plt Count MPV Immature Gran % (Auto) Neut % (Auto) Lymph % (Auto) [place] % (Auto) Eos % (Auto) Baso % (Auto) Lymph # (Auto) [place] # (Auto) Eos # (Auto) Baso # (Auto) Abs Immat Gran (auto) Absolute Neuts (auto) Absolute Nucleated RBC Nucleated RBC % (auto) Smear Tech's Comments PT INR APTT Fibrinogen D-Dimer High Sensitivty Sodium Potassium Chloride Carbon Dioxide Anion Gap BUN Creatinine 0.94 Estim Creat Clear Calc 80.2 81.1 Estimated GFR > 60 > 60 POC Glucose Random Glucose 214 H Fasting Glucose 209 H Estimat Average Glucose Hemoglobin A1c % Calcium 8.0 L Phosphorus Magnesium Total Bilirubin Direct Bilirubin AST ALT Alkaline Phosphatase Total Creatine Kinase Troponin I High Sens B-Natriuretic Peptide Total Protein Albumin Triglycerides Cholesterol LDL Cholesterol, Calc HDL Cholesterol Amylase Lipase Urine Color Urine Appearance Urine pH Ur Specific [place] Urine Protein Urine Glucose (UA) Urine Ketones Urine Blood Urine Nitrite Ur Leukocyte Esterase Urine RBC Urine WBC Ur Squamous Epith Cells Other Crystals Urine Bacteria Hyaline Casts Granular Casts Random Vancomycin 10/17/24 10/17/24 10/17/24 11:27 11:29 17:11 WBC 17.9 H RBC 3.41 L Hgb 8.1 L Hct 25.9 L MCV 76.0 L MCH 23.8 L MCHC 31.3 RDW 20.3 H Plt Count 273 MPV 9.6 Immature Gran % (Auto) 0.6 H Neut % (Auto) 90.5 H Lymph % (Auto) 4.7 L [place] % (Auto) 4.1 Eos % (Auto) 0.0 Baso % (Auto) 0.1 Lymph # (Auto) 0.8 L [place] # (Auto) 0.7 Eos # (Auto) 0.0 Baso # (Auto) 0.0 Abs Immat Gran (auto) 0.10 H Absolute Neuts (auto) 16.2 H Absolute Nucleated RBC 0.020 H Nucleated RBC % (auto) 0.1 Smear Tech's Comments PT 16.2 H INR 1.4 H APTT 28.0 Fibrinogen > 700 H D-Dimer High Sensitivty 7569 Sodium Potassium Chloride Carbon Dioxide Anion Gap BUN Creatinine Estim Creat Clear Calc Estimated GFR POC Glucose Random Glucose Fasting Glucose Estimat Average Glucose Hemoglobin A1c % Calcium 8.3 L Phosphorus 3.1 Magnesium 2.9 H Total Bilirubin 0.2 Direct Bilirubin < 0.2 AST 490 H ALT 262 H Alkaline Phosphatase 67 Total Creatine Kinase 8450 H Troponin I High Sens 5.5 B-Natriuretic Peptide 59 Total Protein 5.9 L Albumin 3.0 L Triglycerides Cholesterol LDL Cholesterol, Calc HDL Cholesterol Amylase 35 Lipase 17 Urine Color Yellow Urine Appearance Cloudy Urine pH 5.0 Ur Specific [place] 1.025 Urine Protein 30 (1+) H Urine Glucose (UA) 500 H Urine Ketones Trace Urine Blood Large (3+) H Urine Nitrite Negative Ur Leukocyte Esterase Negative Urine RBC 3-5 H Urine WBC 0-5 Ur Squamous Epith Cells 3-5 Other Crystals Present Urine Bacteria None Seen Hyaline Casts 3-5 Granular Casts Present Random Vancomycin 10/17/24 10/17/24 10/17/24 17:12 17:16 23:28 WBC 16.6 H RBC 3.61 L Hgb 8.6 L Hct 27.1 L MCV 75.1 L MCH 23.8 L MCHC 31.7 RDW 20.4 H Plt Count 279 MPV 9.4 Immature Gran % (Auto) 0.5 H Neut % (Auto) 91.3 H Lymph % (Auto) 4.3 L [place] % (Auto) 3.8 Eos % (Auto) 0.0 Baso % (Auto) 0.1 Lymph # (Auto) 0.7 L [place] # (Auto) 0.6 Eos # (Auto) 0.0 Baso # (Auto) 0.0 Abs Immat Gran (auto) 0.08 H Absolute Neuts (auto) 15.2 H Absolute Nucleated RBC 0.020 H Nucleated RBC % (auto) 0.1 Smear Tech's Comments VERIFIED PT 16.2 H INR 1.4 H APTT 26.8 Fibrinogen > 700 H D-Dimer High Sensitivty 6401 Sodium 158 H 159 H Potassium 4.0 4.2 Chloride 131 H 129 H Carbon Dioxide 26 25 Anion Gap 5 L 9 L BUN 16 13 Creatinine 0.80 0.85 Estim Creat Clear Calc 95.3 89.7 Estimated GFR > 60 > 60 POC Glucose 187 H Random Glucose Fasting Glucose 224 H 233 H Estimat Average Glucose 114 Hemoglobin A1c % 5.6 Calcium 7.9 L 7.9 L Phosphorus 2.7 2.8 Magnesium 2.9 H 2.9 H Total Bilirubin 0.3 0.2 Direct Bilirubin 0.1 < 0.2 AST 507 H 493 H ALT 251 H 252 H Alkaline Phosphatase 68 77 Total Creatine Kinase 5464 H Troponin I High Sens < 2.7 D B-Natriuretic Peptide 54 Total Protein 6.0 L 6.3 L Albumin 3.1 L 3.2 L Triglycerides 189 H Cholesterol 136 LDL Cholesterol, Calc 81 HDL Cholesterol 18 L Amylase 33 Lipase 14 Urine Color Urine Appearance Urine pH Ur Specific [place] Urine Protein Urine Glucose (UA) Urine Ketones Urine Blood Urine Nitrite Ur Leukocyte Esterase Urine RBC Urine WBC Ur Squamous Epith Cells Other Crystals Urine Bacteria Hyaline Casts Granular Casts Random Vancomycin 10/17/24 10/17/24 10/18/24 23:30 23:55 05:44 WBC 14.6 H RBC 3.42 L Hgb 8.0 L Hct 25.6 L MCV 74.9 L MCH 23.4 L MCHC 31.3 RDW 20.4 H Plt Count 284 MPV 9.8 Immature Gran % (Auto) 0.5 H Neut % (Auto) 89.7 H Lymph % (Auto) 5.2 L [place] % (Auto) 4.5 Eos % (Auto) 0.0 Baso % (Auto) 0.1 Lymph # (Auto) 0.8 L [place] # (Auto) 0.7 Eos # (Auto) 0.0 Baso # (Auto) 0.0 Abs Immat Gran (auto) 0.08 H Absolute Neuts (auto) 13.1 H Absolute Nucleated RBC 0.000 Nucleated RBC % (auto) 0.0 Smear Tech's Comments PT 16.5 H INR 1.4 H APTT 26.1 Fibrinogen > 700 H D-Dimer High Sensitivty 5376 Sodium 161 H* Potassium 4.0 Chloride 129 H Carbon Dioxide 26 Anion Gap 10 L BUN 13 Creatinine 0.85 Estim Creat Clear Calc 89.7 Estimated GFR > 60 POC Glucose 191 H Random Glucose Fasting Glucose 195 H Estimat Average Glucose Hemoglobin A1c % Calcium 8.4 D Phosphorus 2.3 L Magnesium 2.6 Total Bilirubin 0.2 Direct Bilirubin < 0.2 AST 460 H ALT 228 H Alkaline Phosphatase 80 Total Creatine Kinase Troponin I High Sens B-Natriuretic Peptide Total Protein 6.2 L Albumin 3.2 L Triglycerides 183 H Cholesterol 133 LDL Cholesterol, Calc 78 HDL Cholesterol 19 L Amylase Lipase Urine Color Yellow Urine Appearance Clear Urine pH 5.5 Ur Specific [place] <= 1.005 Urine Protein Negative Urine Glucose (UA) 250 H Urine Ketones Negative Urine Blood Moderate (2+) H Urine Nitrite Negative Ur Leukocyte Esterase Negative Urine RBC 6-10 H Urine WBC 0-5 Ur Squamous Epith Cells 0-2 Other Crystals Urine Bacteria Trace Hyaline Casts 3-5 Granular Casts Random Vancomycin 12.7 L 10/18/24 05:47 WBC RBC Hgb Hct MCV MCH MCHC RDW Plt Count MPV Immature Gran % (Auto) Neut % (Auto) Lymph % (Auto) [place] % (Auto) Eos % (Auto) Baso % (Auto) Lymph # (Auto) [place] # (Auto) Eos # (Auto) Baso # (Auto) Abs Immat Gran (auto) Absolute Neuts (auto) Absolute Nucleated RBC Nucleated RBC % (auto) Smear Tech's Comments PT INR APTT Fibrinogen D-Dimer High Sensitivty Sodium Potassium Chloride Carbon Dioxide Anion Gap BUN Creatinine Estim Creat Clear Calc Estimated GFR POC Glucose 166 H Random Glucose Fasting Glucose Estimat Average Glucose Hemoglobin A1c % Calcium Phosphorus Magnesium Total Bilirubin Direct Bilirubin AST ALT Alkaline Phosphatase Total Creatine Kinase Troponin I High Sens B-Natriuretic Peptide Total Protein Albumin Triglycerides Cholesterol LDL Cholesterol, Calc HDL Cholesterol Amylase Lipase Urine Color Urine Appearance Urine pH Ur Specific [place] Urine Protein Urine Glucose (UA) Urine Ketones Urine Blood Urine Nitrite Ur Leukocyte Esterase Urine RBC Urine WBC Ur Squamous Epith Cells Other Crystals Urine Bacteria Hyaline Casts Granular Casts Random Vancomycin Progress Note: A&P Assessment and plan (1) Opioid use disorder: Status: Acute (2) Cardiac arrest: Status: Acute (3) Anoxic brain injury: Status: Acute (4) Accidental overdose: Status: Acute (5) Microcytic anemia: Status: Acute Plan Neuro: Given the combination of findings off absent blood flow in the nuclear medicine brain scan, no electrical activity the EEG patient is possibly brain . organ donation team in talks with family for organ donation Patient is not on any sedation or sedating medications Close neurological status monitoring in the ICU every hour Appreciate neurology input Cardiac: Cardiogenic Shock: Possibly secondary to cardiac arrest On Levophed support, titrate Levophed to keep map above 65 mm Hg Respiratory: Acute hypoxemic respiratory failure due to respiratory failure Currently on ventilator support On PRVC mode FiO2 25, PEEP 5, TV 400, RR 20, PF ratio 590 Peak pressures and plateau pressures are under the curve Ventilator management bundle with head end elevation, aspiration precaution, chlorhexidine mouthwash, daily awakening trials, daily spontaneous breathing trials Not a candidate for extubation due to poor mental status GI: on tube feeds Renal: 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 We will give him another bolus of D5 water, DDAVP and a dose of Lasix and we will repeat BMP Did fluid balance positive 2 L over past 24hrs. Heme: Chronic anemia, closely monitor H&H, transfuse for hemoglobin less than 7 grams/deciliter Endocrine: Blood sugars under control Sliding scale insulin as needed Infectious disease: Cultures negative No evidence of sepsis, his whole presentation is secondary to cardiac arrest due to drug overdose. On vancomycin and Zosyn for organ donation to preserve organs Musculoskeletal: Decubitus ulcer prevention protocol Prophylaxis: Lovenox, pantoprazole Quality Stroke Does the patient have a stroke diagnosis?: No VTE Prior VTE?: No VTE Risk Level:: Medical - moderate - high VTE Device Contraindication: Treatment Not Indicated VTE Drug Contraindication: N/A - Med Ordered
[2024-10-18] MEDS: Dextrose 5 % 1,000 ML 999 ML IVCONT (10:47)
[2024-10-18 11:24] LABS: MANUAL DIFF FLAG NO
[2024-10-18 11:28] LABS: Hematocrit 21.5 % (42.0-52.0); Imm Gran Abs Auto 0.05 X10*3/uL (0.00-0.03); Imm Gran Pct Auto 0.5 % (0.0-0.4); Lymphocytes Absolute Auto 0.9 X10*3/uL (1.2-4.9); Mean Corpuscular HGB Conc 31.6 g/dl (31.0-36.0); Mean Platelet Volume 9.9 fL (9.4-12.4); Monocytes Absolute Auto 0.6 X10*3/uL (0.1-1.2); Monocytes Percent Auto 5.8 % (2-11); NRBC Pct Auto 0.2 /100WBC (0.0-0.2); Neutrophils Absolute Auto 9.3 x10*3/uL (2.0-8.3); Neutrophils Percent Auto 85.7 % (45-73); Platelet Count 210 X10*3/uL (160-400); Red Blood Count 2.83 X10*6/uL (4.60-5.80); Red Cell Distribution Width 20.2 % (11.0-16.0); White Blood Count 10.8 X10*3/uL (4.8-10.8)
[2024-10-18 11:33] LABS: Fibrinogen 645 MG/DL (259-690); INTERNATIONAL NORM RATIO 1.5 (0.9-1.1)
[2024-10-18 11:36] LABS: Hemoglobin 6.8 g/dl (14.0-18.0); Partial Thromboplastin Time 26.6 SEC (26.0-36.8)
[2024-10-18 11:45] LABS: Alanine Aminotransferase 180 U/L (0-40); Albumin Level 2.7 g/dL (3.5-5.0); Alkaline Phosphatase 68 U/L (39-117); Amylase 30 U/L (28-100); Anion Gap 7 (12-20); Aspartate Amino Transferase 389 U/L (5-37); Bilirubin Direct < 0.2 mg/dL (0.0-0.5); Bilirubin Total 0.1 mg/dL (0.0-1.0); Blood Urea Nitrogen 12 mg/dL (9-16); Calcium 7.8 mg/dL (8.4-10.2); Carbon Dioxide 27 mmol/L (22-29); Chloride 124 mmol/L (96-108); Creatinine Clr Calc Pharmacy 89.7; Estimated Glomerular Filt Rate > 60; Glucose Fasting 275 mg/dL (60-99); Lipase 13 U/L (8-78); Magnesium 2.2 mg/dL (1.6-2.6); Phosphorus 2.3 mg/dL (2.7-4.5); Potassium 3.9 mmol/L (3.3-5.1); Sodium 154 mmol/L (135-145); Total Protein 5.2 g/dL (6.5-8.0)
[2024-10-18 11:47] LABS: D Dimer High Sensitivity 4110 NG/ML
[2024-10-18 11:49] LABS: B Type Natriuretic Peptide 26 pg/mL (<100)
[2024-10-18] MEDS: Albuterol/Iprat 2.5/0.5MG 3 ML AMPUL.NEB INHALE ×3 (11:52→19:18)
[2024-10-18 11:53] LABS: Troponin-I High Sensitivity < 2.7 ng/L (<3.5-35.0)
[2024-10-18] MEDS: Furosemide 40 MG/4 ML VIAL IVPUSH (12:02)
[2024-10-18 12:19] LABS: Glucose, Whole Blood 266 mg/dL (60-115)
[2024-10-18 12:36] LABS: Appearance Urine Clear; Color Urine Yellow; Glucose Urine UA >=1000 mg/dL (Negative); Leukocyte Esterase Urine Negative (Negative); Nitrite Urine Negative (Negative); PH 5.5 (5.0-9.0); Specific Gravity - Urine 1.025 (1.005-1.025); UMIC TRIGGER UA YES; Urine Blood Moderate (2+) (Negative); Urine Ketones Negative (Negative); Urine Protein Trace mg/dL (Neg-Trace)
[2024-10-18 12:54] LABS: Bacteria Urine None Seen (None Seen); Hyaline Casts Urine 0-2 /LPF (0-2); WBC Urine 0-5 /HPF (0-5)
[2024-10-18] MEDS: Dextrose 5 % 1,000 ML 200 ML IVCONT ×3 (13:19→23:16)
[2024-10-18 15:00] LABS: ABG Base Excess 11.1 mmol/L; ABG HCO3 36 mmol/L (22-26); ABG pCO2 53 mmHg (32-45); ABG pH 7.44 (7.35-7.45); ABG pO2 84 mmHg (83-108)
[2024-10-18 15:15] LABS: Anion Gap 10 (12-20); Blood Urea Nitrogen 9 mg/dL (9-16); Carbon Dioxide 21 mmol/L (22-29); Chloride 123 mmol/L (96-108); Creatinine Clr Calc Pharmacy 115.5; Estimated Glomerular Filt Rate > 60; Glucose Random 131 mg/dL (60-115); Potassium 2.7 mmol/L (3.3-5.1); Sodium 151 mmol/L (135-145)
--- NOTE | 2024-10-18 15:34 | PM.CCN ---
Critical Care Event Note Summary Narrative: This case had a high probability of a clinically significant, sudden, or life threatening deterioration of this patient's condition which required my full and direct attention, intervention and personal management. Comment: Completed a detailed neurological examination, absent brainstem reflexes, absent cold calorie test, absent doll's eye phenomenon Patient did not receive any kind of sedatives or medications causing drowsiness since admission EEG done showed flat waveform for and no evidence of cerebral activity Nuclear med brain perfusion scan showed no perfusion of the brain body temperature 100F Patient was preoxygenated with 100% oxygen ABG done prior to the brain evaluation showed normal pH, normal pCO2 Patient is disconnected from the ventilator, nasal cannula is inserted into the trachea at 6 liters/minute No spontaneous respiratory efforts were seen over the period of 10 minutes, this is also confirmed in the presence of respiratory therapist, nurse Repeat ABG shows pCO2 increased to Given the clinical examination, EEG findings, brain perfusion scan findings and brain evaluation patient is declared brain at .
[2024-10-18] MEDS: Calcium Gluconate/NaCl,Iso-Osm 1 GM/50 ML PLAST..BAG IV (15:53)
[2024-10-18] MEDS: Potassium Chloride/H20 40 MEQ/100 ML PIGGYBACK 100 MEQ IV (15:56)
[2024-10-18 17:27] LABS: MANUAL DIFF FLAG NO
[2024-10-18 17:28] LABS: Basophils Percent Auto 0.1 % (0-2); Hematocrit 23.5 % (42.0-52.0); Hemoglobin 7.5 g/dl (14.0-18.0); Imm Gran Abs Auto 0.07 X10*3/uL (0.00-0.03); Imm Gran Pct Auto 0.6 % (0.0-0.4); Lymphocytes Absolute Auto 1.6 X10*3/uL (1.2-4.9); Lymphocytes Percent Auto 13.3 % (20-40); Mean Corpuscular HGB Conc 31.9 g/dl (31.0-36.0); Mean Corpuscular Hemoglobin 23.9 pg (27.0-33.0); Mean Corpuscular Volume 74.8 fL (80.0-98.0); Mean Platelet Volume 10.1 fL (9.4-12.4); Monocytes Percent Auto 8.4 % (2-11); Neutrophils Absolute Auto 9.1 x10*3/uL (2.0-8.3); Neutrophils Percent Auto 77.6 % (45-73); Platelet Count 242 X10*3/uL (160-400); Red Blood Count 3.14 X10*6/uL (4.60-5.80); Red Cell Distribution Width 20.1 % (11.0-16.0); White Blood Count 11.7 X10*3/uL (4.8-10.8)
[2024-10-18 17:34] LABS: INTERNATIONAL NORM RATIO 1.6 (0.9-1.1); Prothrombin Time 18.1 SEC (10.9-12.4)
[2024-10-18 17:36] LABS: Partial Thromboplastin Time 27.7 SEC (26.0-36.8)
[2024-10-18 17:43] LABS: D Dimer High Sensitivity 5195 NG/ML; Fibrinogen > 700 MG/DL (259-690)
[2024-10-18 17:54] LABS: Alanine Aminotransferase 197 U/L (0-40); Albumin Level 3.1 g/dL (3.5-5.0); Anion Gap 11 (12-20); Aspartate Amino Transferase 475 U/L (5-37); Bilirubin Direct < 0.2 mg/dL (0.0-0.5); Bilirubin Total 0.2 mg/dL (0.0-1.0); Blood Urea Nitrogen 10 mg/dL (9-16); Calcium 8.2 mg/dL (8.4-10.2); Carbon Dioxide 29 mmol/L (22-29); Chloride 112 mmol/L (96-108); Creatinine Clr Calc Pharmacy 86.6; Estimated Glomerular Filt Rate > 60; Glucose Fasting 157 mg/dL (60-99); Magnesium 1.7 mg/dL (1.6-2.6); Phosphorus 2.1 mg/dL (2.7-4.5); Potassium 3.9 mmol/L (3.3-5.1); Sodium 148 mmol/L (135-145); Total Protein 6.1 g/dL (6.5-8.0)
[2024-10-18] MEDS: Esmolol HCl/NaCl Iso 2,500 MG/250 ML IV.SOLN 16.35 MG IVCONT (18:00)
[2024-10-18 18:12] LABS: Alkaline Phosphatase 84 U/L (39-117)
[2024-10-18 18:13] LABS: Glucose, Whole Blood 167 mg/dL (60-115)
--- NOTE | 2024-10-18 19:05 | PC.NURSE ---
per discussion with Dr. Albarran, esmolol drip is to be titrated based on blood pressures, with a goal SBP of 140.
[2024-10-18 21:04] LABS: ABG HCO3 34 mmol/L (22-26); ABG pCO2 49 mmHg (32-45); ABG pH 7.44 (7.35-7.45); ABG pO2 536 mmHg (83-108)
[2024-10-18] MEDS: Esmolol HCl/NaCl Iso 2,500 MG/250 ML IV.SOLN 65.4 MG IVCONT (22:36)
[2024-10-18 23:33] LABS: MANUAL DIFF FLAG NO
[2024-10-18 23:34] LABS: Basophils Percent Auto 0.1 % (0-2); Eosinophils Percent Auto 0.1 % (0-4); Hematocrit 23.4 % (42.0-52.0); Hemoglobin 7.6 g/dl (14.0-18.0); Imm Gran Abs Auto 0.03 X10*3/uL (0.00-0.03); Imm Gran Pct Auto 0.3 % (0.0-0.4); Lymphocytes Absolute Auto 1.5 X10*3/uL (1.2-4.9); Mean Corpuscular HGB Conc 32.5 g/dl (31.0-36.0); Mean Corpuscular Hemoglobin 24.9 pg (27.0-33.0); Mean Corpuscular Volume 76.7 fL (80.0-98.0); Mean Platelet Volume 9.3 fL (9.4-12.4); Monocytes Absolute Auto 0.8 X10*3/uL (0.1-1.2); Monocytes Percent Auto 8.3 % (2-11); NRBC Pct Auto 0.2 /100WBC (0.0-0.2); Neutrophils Absolute Auto 7.5 x10*3/uL (2.0-8.3); Neutrophils Percent Auto 76.2 % (45-73); Platelet Count 181 X10*3/uL (160-400); Red Blood Count 3.05 X10*6/uL (4.60-5.80); Red Cell Distribution Width 20.5 % (11.0-16.0); White Blood Count 9.9 X10*3/uL (4.8-10.8)
[2024-10-18 23:51] LABS: Fibrinogen 470 MG/DL (259-690); INTERNATIONAL NORM RATIO 2.1 (0.9-1.1); Prothrombin Time 24.2 SEC (10.9-12.4)
[2024-10-18 23:53] LABS: Bilirubin Direct 0.1 mg/dL (0.0-0.5); Bilirubin Total 0.3 mg/dL (0.0-1.0); Cholesterol 108 mg/dL (<200); D Dimer High Sensitivity 3183 NG/ML; HDL Cholesterol 17 mg/dL (>40); LDL Cholesterol Calculated 61 mg/dL (<100); Lactic Acid 1.5 mmol/L (0.5-2.0); Partial Thromboplastin Time 30.7 SEC (26.0-36.8); Triglycerides 153 mg/dL (<150)
[2024-10-19] VITALS (57 sets, daily range): BP systolic 90–193; BP diastolic 42–109; PULSE 96–120; RESP 14–20; TEMP 34.9–38.3; O2SAT 90–100; BMI 23.4
[2024-10-19 00:26] LABS: ABG Refer to POC result
[2024-10-19 00:45] LABS: Appearance Urine Error; Color Urine Yellow; Glucose Urine UA 100 mg/dL (Negative); Leukocyte Esterase Urine Negative (Negative); Nitrite Urine Negative (Negative); PH 5.5 (5.0-9.0); UMIC TRIGGER UA YES; Urine Blood Moderate (2+) (Negative); Urine Ketones Negative (Negative); Urine Protein 30 (1+) mg/dL (Neg-Trace)
[2024-10-19 00:48] LABS: Glucose, Whole Blood 161 mg/dL (60-115)
[2024-10-19 00:49] LABS: Amylase 33 U/L (28-100); Lipase 12 U/L (8-78)
[2024-10-19 00:49] LABS: Bacteria Urine None Seen (None Seen); Hyaline Casts Urine 0-2 /LPF (0-2); Squamous Epithelial Cell Urine 0-2 /HPF (0-2); WBC Urine 0-5 /HPF (0-5)
[2024-10-19] MEDS: vancomycin HCL 750 MG in 0.9 % Sodium Chloride 250 ML 265 MG IV (00:51)
[2024-10-19] MEDS: Insulin Lispro 100 UNIT/ML 3 ML VIAL SUBCUT ×2 (00:51→12:33)
[2024-10-19 00:55] LABS: B Type Natriuretic Peptide 31 pg/mL (<100)
[2024-10-19 00:57] LABS: Troponin-I High Sensitivity < 2.7 ng/L (<3.5-35.0)
[2024-10-19 01:11] LABS: ABG HCO3 30 mmol/L (22-26); ABG pCO2 44 mmHg (32-45); ABG pH 7.44 (7.35-7.45); ABG pO2 380 mmHg (83-108)
[2024-10-19 01:30] LABS: ABG Refer to POC result
[2024-10-19 02:28] LABS: Alanine Aminotransferase 156 U/L (0-40); Albumin Level 2.6 g/dL (3.5-5.0); Anion Gap 8 (12-20); Aspartate Amino Transferase 398 U/L (5-37); Bilirubin Total 0.3 mg/dL (0.0-1.0); Blood Urea Nitrogen 9 mg/dL (9-16); Calcium 7.4 mg/dL (8.4-10.2); Carbon Dioxide 27 mmol/L (22-29); Chloride 109 mmol/L (96-108); Estimated Glomerular Filt Rate > 60; Glucose Random 175 mg/dL (60-115); Potassium 3.3 mmol/L (3.3-5.1); Sodium 141 mmol/L (135-145); Total Protein 5.1 g/dL (6.5-8.0)
[2024-10-19 02:35] LABS: Alkaline Phosphatase 69 U/L (39-117)
--- NOTE | 2024-10-19 03:47 | PC.NURSE ---
Addendum entered by Martah Gusman RN 10/19/24 06:42: Patient with Q4HR ABGs from a-line overnight per NEDS request. Per NEDS coordinator present on unit overnight, patient fio2 was increased to 100% by respiratory for thirty minutes prior to drawing the ABG, lab drawn, then Fio2 back to original 30% Fio2. This and other labs requested from NEDS were discussed and ordered per covering PA. Please see shift assessments, labs, and worklist for full details. Original Note: Assumed care of patient at 19:00. At approximately 22:35 the patient's left femoral A-line site was noted to have increased bleeding with the overlying tegaderm dressing observed partially displaced, a change from the previous light bleeding beneath the intact dressing noted on this credit underwriter's initial assessment. Form Building Supervisor removed the remaining non-intact dressing and pressure was applied. Covering PA Apollo Gonzalez was notified and to bedside. The line was capped with curos cap per PA verbal order. Using sterile technique the site was cleansed and re-dressed with a central line dressing kit. Vitals were obtained and remain stable. The A-line setup was replaced, the hub cleansed and connected. Line was zeroed and has good waveform and continues correlating with the cuff pressures on the LUE. Labs including CBC sent, H+H remains stable. Left femoral a-line dressing since remains intact with a very small amount of bloody oozing present under the intact dressing. PA aware. Plan of care continues.
[2024-10-19] MEDS: Dextrose 5 % 1,000 ML 200 ML IVCONT ×2 (04:19→09:04)
[2024-10-19] MEDS: Piperacillin Sodium/Tazobactam 4.5 GM in 0.9 % Sodium Chloride 100 ML IV ×3 (05:36→17:29)
[2024-10-19 05:37] LABS: ABG HCO3 31 mmol/L (22-26); ABG pCO2 40 mmHg (32-45); ABG pH 7.49 (7.35-7.45); ABG pO2 370 mmHg (83-108)
[2024-10-19 05:41] LABS: ABG Refer to POC result
[2024-10-19] MEDS: Esmolol HCl/NaCl Iso 2,500 MG/250 ML IV.SOLN 49.05 MG IVCONT (06:05)
[2024-10-19 06:09] LABS: Glucose, Whole Blood 141 mg/dL (60-115)
[2024-10-19 06:12] LABS: MANUAL DIFF FLAG NO
[2024-10-19 06:16] LABS: Eosinophils Percent Auto 0.3 % (0-4); Hematocrit 21.5 % (42.0-52.0); Hemoglobin 7.1 g/dl (14.0-18.0); Imm Gran Abs Auto 0.07 X10*3/uL (0.00-0.03); Imm Gran Pct Auto 0.7 % (0.0-0.4); Lymphocytes Absolute Auto 1.7 X10*3/uL (1.2-4.9); Lymphocytes Percent Auto 16.3 % (20-40); Mean Corpuscular Hemoglobin 24.7 pg (27.0-33.0); Mean Corpuscular Volume 74.9 fL (80.0-98.0); Mean Platelet Volume 10.1 fL (9.4-12.4); Monocytes Absolute Auto 0.8 X10*3/uL (0.1-1.2); Monocytes Percent Auto 7.4 % (2-11); NRBC Pct Auto 0.2 /100WBC (0.0-0.2); Neutrophils Absolute Auto 7.8 x10*3/uL (2.0-8.3); Neutrophils Percent Auto 75.3 % (45-73); Platelet Count 180 X10*3/uL (160-400); Red Blood Count 2.87 X10*6/uL (4.60-5.80); Red Cell Distribution Width 19.7 % (11.0-16.0); White Blood Count 10.4 X10*3/uL (4.8-10.8)
[2024-10-19 06:31] LABS: Alanine Aminotransferase 151 U/L (0-40); Albumin Level 2.6 g/dL (3.5-5.0); Alkaline Phosphatase 69 U/L (39-117); Amylase 43 U/L (28-100); Anion Gap 9 (12-20); Aspartate Amino Transferase 397 U/L (5-37); Bilirubin Direct < 0.2 mg/dL (0.0-0.5); Bilirubin Total 0.2 mg/dL (0.0-1.0); Blood Urea Nitrogen 8 mg/dL (9-16); Calcium 7.1 mg/dL (8.4-10.2); Carbon Dioxide 27 mmol/L (22-29); Chloride 107 mmol/L (96-108); Creatinine Clr Calc Pharmacy 115.5; Estimated Glomerular Filt Rate > 60; Glucose Random 148 mg/dL (60-115); INTERNATIONAL NORM RATIO 1.6 (0.9-1.1); Potassium 3.5 mmol/L (3.3-5.1); Prothrombin Time 18.2 SEC (10.9-12.4); Sodium 139 mmol/L (135-145); Total Protein 5.1 g/dL (6.5-8.0)
[2024-10-19 06:32] LABS: Vancomycin Trough 5.4 mcg/mL (10.0-20.0)
[2024-10-19 06:33] LABS: Partial Thromboplastin Time 28.7 SEC (26.0-36.8)
[2024-10-19 06:35] LABS: B Type Natriuretic Peptide 21 pg/mL (<100)
[2024-10-19 06:37] LABS: Troponin-I High Sensitivity < 2.7 ng/L (<3.5-35.0)
[2024-10-19 06:38] LABS: D Dimer High Sensitivity 3149 NG/ML
[2024-10-19 06:39] LABS: Fibrinogen > 700 MG/DL (259-690)
--- NOTE | 2024-10-19 07:42 | HE.PHANOTE ---
VANCO DOSE ADJUSTMENT BASED ON SCR AND TROUGH OF 5.4. DOSE INCREASED TO 1000 Q 8H. NEXT LEVEL 10/20 @ 0600
[2024-10-19] MEDS: Albuterol/Iprat 2.5/0.5MG 3 ML AMPUL.NEB INHALE ×4 (07:47→20:52)
[2024-10-19] MEDS: 0.9 % Sodium Chloride Flush 3 ML SYRINGE IVFLUSH ×2 (08:02→16:47)
[2024-10-19] MEDS: vancomycin HCL 1,000 MG in 0.9 % Sodium Chloride 250 ML 270 MG IV ×2 (08:03→16:48)
[2024-10-19] MEDS: Chlorhexidine Gluc Oral Rinse 15 ML MOUTHWASH BUCCAL ×3 (08:04→21:30)
[2024-10-19 09:37] LABS: ABG Base Excess 5.3 mmol/L; ABG HCO3 29 mmol/L (22-26); ABG pCO2 40 mmHg (32-45); ABG pH 7.47 (7.35-7.45); ABG pO2 452 mmHg (83-108)
--- NOTE | 2024-10-19 09:55 | P.PNCC_ITS ---
Subjective Subjective Date of Service: 10/19/24 Critical Care Time (minutes): 35 Comment: No new events overnight Continues to be on ventilator support Physical Exam 2 Vital Signs: Vital Signs: Last Vital Signs Temp 99.1 F 10/19/24 09:00 Pulse 108 H 10/19/24 09:39 Resp 18 10/19/24 09:00 BP 114/60 10/19/24 09:39 Pulse Ox 100 10/19/24 09:00 O2 Del Method Mechanical Ventil ation 10/19/24 09:00 FiO2 30 10/19/24 09:00 BMI result Body Mass Index 23.4 General: Not in acute distress, ill appearing and tired appearing Nutritional Appearance: well nourished and normal weight Eyes: appearance normal, both eyes and all related structures; Alignment and Position: alignment normal and position normal Neck: No lymphadenopathy, no thyromegaly Resp: bilateral air entry equal, occasional added sounds present Cardio: Regular rate, regular rhythm; Heart sounds: S1 normal heart sound present and S2 normal heart sound present GI: soft, nontender, no guarding, no hepatosplenomegaly : bladder normal to inspection, bladder normal to palpation, no renal angle tenderness Skin: no rashes or lesions noted and elasticity normal Neuro: Absent brainstem reflexes, absent doll's eye phenomenon Objective Data Labs 10/19/24 05:36 10/19/24 05:36 Labs: Laboratory Results - last 24 hr 10/16/24 10/18/24 10/18/24 16:56 11:13 12:06 WBC 10.8 RBC 2.83 L Hgb 6.8 L* Hct 21.5 L MCV 76.0 L MCH 24.0 L MCHC 31.6 RDW 20.2 H Plt Count 210 D MPV 9.9 Immature Gran % (Auto) 0.5 H Neut % (Auto) 85.7 H Lymph % (Auto) 8.0 L [place] % (Auto) 5.8 Eos % (Auto) 0.0 Baso % (Auto) 0.0 Lymph # (Auto) 0.9 L [place] # (Auto) 0.6 Eos # (Auto) 0.0 Baso # (Auto) 0.0 Abs Immat Gran (auto) 0.05 H Absolute Neuts (auto) 9.3 H Absolute Nucleated RBC 0.020 H Nucleated RBC % (auto) 0.2 Smear Path Review SEE NOTE PT 18.0 H INR 1.5 H APTT 26.6 Fibrinogen 645 D-Dimer High Sensitivty 4110 O2 Saturation ABG pH at Pt Temp ABG pCO2 at Pt Temp ABG pO2 at Pt Temp ABG HCO3 ABG Base Excess (Actual) Sodium 154 H Potassium 3.9 Chloride 124 H Carbon Dioxide 27 Anion Gap 7 L BUN 12 Creatinine 0.85 Estim Creat Clear Calc 89.7 Estimated GFR > 60 POC Glucose 266 H Random Glucose Fasting Glucose 275 H Lactic Acid Calcium 7.8 L D Phosphorus 2.3 L Magnesium 2.2 Total Bilirubin 0.1 Direct Bilirubin < 0.2 AST 389 H ALT 180 H Alkaline Phosphatase 68 Total Creatine Kinase 2844 H Troponin I High Sens < 2.7 B-Natriuretic Peptide 26 Total Protein 5.2 L Albumin 2.7 L Triglycerides Cholesterol LDL Cholesterol, Calc HDL Cholesterol Amylase 30 Lipase 13 Urine Color Urine Appearance Urine pH Ur Specific Stella Urine Protein Urine Glucose (UA) Urine Ketones Urine Blood Urine Nitrite Ur Leukocyte Esterase Urine RBC Urine WBC Ur Squamous Epith Cells Urine Bacteria Hyaline Casts Vancomycin Trough Blood Type Antibody Screen Crossmatch 10/18/24 10/18/24 10/18/24 12:07 14:27 14:48 WBC RBC Hgb Hct MCV MCH MCHC RDW Plt Count MPV Immature Gran % (Auto) Neut % (Auto) Lymph % (Auto) [place] % (Auto) Eos % (Auto) Baso % (Auto) Lymph # (Auto) [place] # (Auto) Eos # (Auto) Baso # (Auto) Abs Immat Gran (auto) Absolute Neuts (auto) Absolute Nucleated RBC Nucleated RBC % (auto) Smear Path Review PT INR APTT Fibrinogen D-Dimer High Sensitivty O2 Saturation 98.0 ABG pH at Pt Temp 7.44 ABG pCO2 at Pt Temp 53 H ABG pO2 at Pt Temp 84 ABG HCO3 36 H ABG Base Excess (Actual) 11.1 Sodium 151 H Potassium 2.7 L* D Chloride 123 H Carbon Dioxide 21 L Anion Gap 10 L BUN 9 Creatinine 0.66 Estim Creat Clear Calc 115.5 Estimated GFR > 60 POC Glucose Random Glucose 131 H Fasting Glucose Lactic Acid Calcium 6.0 L* D Phosphorus Magnesium Total Bilirubin Direct Bilirubin AST ALT Alkaline Phosphatase Total Creatine Kinase Troponin I High Sens B-Natriuretic Peptide Total Protein Albumin Triglycerides Cholesterol LDL Cholesterol, Calc HDL Cholesterol Amylase Lipase Urine Color Yellow Urine Appearance Clear Urine pH 5.5 Ur Specific Stella 1.025 Urine Protein Trace Urine Glucose (UA) >=1000 H Urine Ketones Negative Urine Blood Moderate (2+) H Urine Nitrite Negative Ur Leukocyte Esterase Negative Urine RBC 3-5 H Urine WBC 0-5 Ur Squamous Epith Cells 3-5 Urine Bacteria None Seen Hyaline Casts 0-2 Vancomycin Trough Blood Type Antibody Screen Crossmatch 10/18/24 10/18/24 10/18/24 17:15 17:16 18:00 WBC 11.7 H RBC 3.14 L Hgb 7.5 L Hct 23.5 L MCV 74.8 L MCH 23.9 L MCHC 31.9 RDW 20.1 H Plt Count 242 MPV 10.1 Immature Gran % (Auto) 0.6 H Neut % (Auto) 77.6 H Lymph % (Auto) 13.3 L [place] % (Auto) 8.4 Eos % (Auto) 0.0 Baso % (Auto) 0.1 Lymph # (Auto) 1.6 [place] # (Auto) 1.0 Eos # (Auto) 0.0 Baso # (Auto) 0.0 Abs Immat Gran (auto) 0.07 H Absolute Neuts (auto) 9.1 H Absolute Nucleated RBC 0.000 Nucleated RBC % (auto) 0.0 Smear Path Review PT 18.1 H INR 1.6 H APTT 27.7 Fibrinogen > 700 H D-Dimer High Sensitivty 5195 O2 Saturation ABG pH at Pt Temp ABG pCO2 at Pt Temp ABG pO2 at Pt Temp ABG HCO3 ABG Base Excess (Actual) Sodium 148 H Potassium 3.9 D Chloride 112 H Carbon Dioxide 29 Anion Gap 11 L BUN 10 Creatinine 0.88 Estim Creat Clear Calc 86.6 Estimated GFR > 60 POC Glucose 167 H Random Glucose Fasting Glucose 157 H Lactic Acid Calcium 8.2 L D Phosphorus 2.1 L Magnesium 1.7 Total Bilirubin 0.2 Direct Bilirubin < 0.2 AST 475 H ALT 197 H Alkaline Phosphatase 84 Total Creatine Kinase Troponin I High Sens B-Natriuretic Peptide Total Protein 6.1 L Albumin 3.1 L Triglycerides Cholesterol LDL Cholesterol, Calc HDL Cholesterol Amylase Lipase Urine Color Urine Appearance Urine pH Ur Specific Stella Urine Protein Urine Glucose (UA) Urine Ketones Urine Blood Urine Nitrite Ur Leukocyte Esterase Urine RBC Urine WBC Ur Squamous Epith Cells Urine Bacteria Hyaline Casts Vancomycin Trough Blood Type O Positive Antibody Screen NEGATIVE Crossmatch See Detail 10/18/24 10/18/24 10/19/24 20:53 23:26 00:19 WBC 9.9 RBC 3.05 L Hgb 7.6 L Hct 23.4 L MCV 76.7 L MCH 24.9 L MCHC 32.5 RDW 20.5 H Plt Count 181 D MPV 9.3 L Immature Gran % (Auto) 0.3 Neut % (Auto) 76.2 H Lymph % (Auto) 15.0 L [place] % (Auto) 8.3 Eos % (Auto) 0.1 Baso % (Auto) 0.1 Lymph # (Auto) 1.5 [place] # (Auto) 0.8 Eos # (Auto) 0.0 Baso # (Auto) 0.0 Abs Immat Gran (auto) 0.03 Absolute Neuts (auto) 7.5 Absolute Nucleated RBC 0.020 H Nucleated RBC % (auto) 0.2 Smear Path Review PT 24.2 H D INR 2.1 H APTT 30.7 Fibrinogen 470 D-Dimer High Sensitivty 3183 O2 Saturation 100.0 ABG pH at Pt Temp 7.44 ABG pCO2 at Pt Temp 49 H ABG pO2 at Pt Temp 536 H ABG HCO3 34 H ABG Base Excess (Actual) 9.0 Sodium Potassium Chloride Carbon Dioxide Anion Gap BUN Creatinine Estim Creat Clear Calc Estimated GFR POC Glucose Random Glucose Fasting Glucose Lactic Acid 1.5 Calcium Phosphorus Magnesium Total Bilirubin 0.3 Direct Bilirubin 0.1 AST ALT Alkaline Phosphatase Total Creatine Kinase Troponin I High Sens B-Natriuretic Peptide Total Protein Albumin Triglycerides 153 H Cholesterol 108 LDL Cholesterol, Calc 61 HDL Cholesterol 17 L Amylase Lipase Urine Color Yellow Urine Appearance Error Urine pH 5.5 Ur Specific Stella 1.020 Urine Protein 30 (1+) H Urine Glucose (UA) 100 H Urine Ketones Negative Urine Blood Moderate (2+) H Urine Nitrite Negative Ur Leukocyte Esterase Negative Urine RBC 6-10 H Urine WBC 0-5 Ur Squamous Epith Cells 0-2 Urine Bacteria None Seen Hyaline Casts 0-2 Vancomycin Trough Blood Type Antibody Screen Crossmatch 10/19/24 10/19/24 10/19/24 00:25 00:44 00:59 WBC RBC Hgb Hct MCV MCH MCHC RDW Plt Count MPV Immature Gran % (Auto) Neut % (Auto) Lymph % (Auto) [place] % (Auto) Eos % (Auto) Baso % (Auto) Lymph # (Auto) [place] # (Auto) Eos # (Auto) Baso # (Auto) Abs Immat Gran (auto) Absolute Neuts (auto) Absolute Nucleated RBC Nucleated RBC % (auto) Smear Path Review PT INR APTT Fibrinogen D-Dimer High Sensitivty O2 Saturation 99.0 ABG pH at Pt Temp 7.44 ABG pCO2 at Pt Temp 44 ABG pO2 at Pt Temp 380 H ABG HCO3 30 H ABG Base Excess (Actual) 6.0 Sodium Potassium Chloride Carbon Dioxide Anion Gap BUN Creatinine Estim Creat Clear Calc Estimated GFR POC Glucose 161 H Random Glucose Fasting Glucose Lactic Acid Calcium Phosphorus Magnesium Total Bilirubin Direct Bilirubin AST ALT Alkaline Phosphatase Total Creatine Kinase 2738 H Troponin I High Sens < 2.7 B-Natriuretic Peptide 31 Total Protein Albumin Triglycerides Cholesterol LDL Cholesterol, Calc HDL Cholesterol Amylase 33 Lipase 12 Urine Color Urine Appearance Urine pH Ur Specific Stella Urine Protein Urine Glucose (UA) Urine Ketones Urine Blood Urine Nitrite Ur Leukocyte Esterase Urine RBC Urine WBC Ur Squamous Epith Cells Urine Bacteria Hyaline Casts Vancomycin Trough Blood Type Antibody Screen Crossmatch 10/19/24 10/19/24 10/19/24 01:59 05:25 05:36 WBC 10.4 RBC 2.87 L Hgb 7.1 L Hct 21.5 L MCV 74.9 L MCH 24.7 L MCHC 33.0 RDW 19.7 H Plt Count 180 MPV 10.1 Immature Gran % (Auto) 0.7 H Neut % (Auto) 75.3 H Lymph % (Auto) 16.3 L [place] % (Auto) 7.4 Eos % (Auto) 0.3 Baso % (Auto) 0.0 Lymph # (Auto) 1.7 [place] # (Auto) 0.8 Eos # (Auto) 0.0 Baso # (Auto) 0.0 Abs Immat Gran (auto) 0.07 H Absolute Neuts (auto) 7.8 Absolute Nucleated RBC 0.020 H Nucleated RBC % (auto) 0.2 Smear Path Review PT 18.2 H D INR 1.6 H APTT 28.7 Fibrinogen > 700 H D-Dimer High Sensitivty 3149 O2 Saturation 100.0 ABG pH at Pt Temp 7.49 H ABG pCO2 at Pt Temp 40 ABG pO2 at Pt Temp 370 H ABG HCO3 31 H ABG Base Excess (Actual) 8.0 Sodium 141 139 Potassium 3.3 3.5 Chloride 109 H 107 Carbon Dioxide 27 27 Anion Gap 8 L 9 L BUN 9 8 L Creatinine 0.77 0.66 Estim Creat Clear Calc 99.0 115.5 Estimated GFR > 60 > 60 POC Glucose Random Glucose 175 H 148 H Fasting Glucose Lactic Acid Calcium 7.4 L D 7.1 L Phosphorus Magnesium Total Bilirubin 0.3 0.2 Direct Bilirubin < 0.2 AST 398 H 397 H ALT 156 H 151 H Alkaline Phosphatase 69 69 Total Creatine Kinase 2425 H Troponin I High Sens < 2.7 B-Natriuretic Peptide 21 Total Protein 5.1 L 5.1 L Albumin 2.6 L 2.6 L Triglycerides Cholesterol LDL Cholesterol, Calc HDL Cholesterol Amylase 43 Lipase Urine Color Urine Appearance Urine pH Ur Specific Stella Urine Protein Urine Glucose (UA) Urine Ketones Urine Blood Urine Nitrite Ur Leukocyte Esterase Urine RBC Urine WBC Ur Squamous Epith Cells Urine Bacteria Hyaline Casts Vancomycin Trough 5.4 L Blood Type Antibody Screen Crossmatch 10/19/24 10/19/24 06:02 09:25 WBC RBC Hgb Hct MCV MCH MCHC RDW Plt Count MPV Immature Gran % (Auto) Neut % (Auto) Lymph % (Auto) [place] % (Auto) Eos % (Auto) Baso % (Auto) Lymph # (Auto) [place] # (Auto) Eos # (Auto) Baso # (Auto) Abs Immat Gran (auto) Absolute Neuts (auto) Absolute Nucleated RBC Nucleated RBC % (auto) Smear Path Review PT INR APTT Fibrinogen D-Dimer High Sensitivty O2 Saturation ABG pH at Pt Temp 7.47 H ABG pCO2 at Pt Temp 40 ABG pO2 at Pt Temp 452 H ABG HCO3 29 H ABG Base Excess (Actual) 5.3 Sodium Potassium Chloride Carbon Dioxide Anion Gap BUN Creatinine Estim Creat Clear Calc Estimated GFR POC Glucose 141 H Random Glucose Fasting Glucose Lactic Acid Calcium Phosphorus Magnesium Total Bilirubin Direct Bilirubin AST ALT Alkaline Phosphatase Total Creatine Kinase Troponin I High Sens B-Natriuretic Peptide Total Protein Albumin Triglycerides Cholesterol LDL Cholesterol, Calc HDL Cholesterol Amylase Lipase Urine Color Urine Appearance Urine pH Ur Specific Stella Urine Protein Urine Glucose (UA) Urine Ketones Urine Blood Urine Nitrite Ur Leukocyte Esterase Urine RBC Urine WBC Ur Squamous Epith Cells Urine Bacteria Hyaline Casts Vancomycin Trough Blood Type Antibody Screen Crossmatch Microbiology Microbiology Results: Microbiology 10/17/24 23:15 Blood - Venous Blood Culture - Preliminary No growth after 24 hours. Progress Note: A&P Assessment and plan (1) Opioid use disorder: Status: Acute (2) Cardiac arrest: Status: Acute (3) Anoxic brain injury: Status: Acute (4) Accidental overdose: Status: Acute (5) Microcytic anemia: Status: Acute (6) UTI (urinary tract infection): Status: Acute Plan Neuro: Given the combination of findings off absent blood flow in the nuclear medicine brain scan, no electrical activity the EEG patient is possibly brain . Plan to do a brain evaluation this morning. Labs are more stable today. organ donation team in talks with family for organ donation Patient is not on any sedation or sedating medications Close neurological status monitoring in the ICU every hour Appreciate neurology input Cardiac: Cardiogenic Shock: Possibly secondary to cardiac arrest On Levophed support, titrate Levophed to keep map above 65 mm Hg Respiratory: Acute hypoxemic respiratory failure due to respiratory failure Currently on ventilator support On PRVC mode FiO2 25, PEEP 5, TV 400, RR 20, PF ratio 590 Peak pressures and plateau pressures are under the curve Ventilator management bundle with head end elevation, aspiration precaution, chlorhexidine mouthwash, daily awakening trials, daily spontaneous breathing trials Not a candidate for extubation due to poor mental status GI: on tube feeds Renal: 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 We will give him another bolus of D5 water, DDAVP and a dose of Lasix and we will repeat BMP Did fluid balance positive 2 L over past 24hrs. Heme: Chronic anemia, closely monitor H&H, transfuse for hemoglobin less than 7 grams/deciliter Endocrine: Blood sugars under control Sliding scale insulin as needed Infectious disease: Cultures negative No evidence of sepsis, his whole presentation is secondary to cardiac arrest due to drug overdose. On vancomycin and Zosyn for organ donation to preserve organs Musculoskeletal: Decubitus ulcer prevention protocol Prophylaxis: Lovenox, pantoprazole Quality Stroke Does the patient have a stroke diagnosis?: No VTE Prior VTE?: No VTE Risk Level:: Medical - moderate - high VTE Device Contraindication: Treatment Not Indicated VTE Drug Contraindication: N/A - Med Ordered
[2024-10-19 11:30] LABS: MANUAL DIFF FLAG NO
[2024-10-19 11:30] LABS: ABG Base Excess 6.1 mmol/L; ABG HCO3 30 mmol/L (22-26); ABG pCO2 45 mmHg (32-45); ABG pH 7.43 (7.35-7.45); ABG pO2 463 mmHg (83-108)
[2024-10-19 11:39] LABS: Basophils Percent Auto 0.1 % (0-2); Eosinophils Absolute Auto 0.1 X10*3/uL (0.0-0.4); Eosinophils Percent Auto 1.1 % (0-4); Imm Gran Abs Auto 0.03 X10*3/uL (0.00-0.03); Imm Gran Pct Auto 0.3 % (0.0-0.4); Lymphocytes Absolute Auto 1.9 X10*3/uL (1.2-4.9); Lymphocytes Percent Auto 16.7 % (20-40); Mean Corpuscular HGB Conc 32.7 g/dl (31.0-36.0); Mean Corpuscular Hemoglobin 24.8 pg (27.0-33.0); Mean Corpuscular Volume 75.9 fL (80.0-98.0); Mean Platelet Volume 10.1 fL (9.4-12.4); Monocytes Absolute Auto 0.7 X10*3/uL (0.1-1.2); Monocytes Percent Auto 6.2 % (2-11); NRBC Pct Auto 0.2 /100WBC (0.0-0.2); Neutrophils Absolute Auto 8.6 x10*3/uL (2.0-8.3); Neutrophils Percent Auto 75.6 % (45-73); Platelet Count 162 X10*3/uL (160-400); Red Blood Count 2.66 X10*6/uL (4.60-5.80); Red Cell Distribution Width 19.6 % (11.0-16.0); White Blood Count 11.4 X10*3/uL (4.8-10.8)
[2024-10-19 11:40] LABS: INTERNATIONAL NORM RATIO 1.6 (0.9-1.1); Prothrombin Time 18.4 SEC (10.9-12.4)
[2024-10-19 11:43] LABS: D Dimer High Sensitivity 2927 NG/ML; Hematocrit 20.2 % (42.0-52.0); Hemoglobin 6.6 g/dl (14.0-18.0); Partial Thromboplastin Time 27.5 SEC (26.0-36.8)
[2024-10-19 11:44] LABS: Fibrinogen > 700 MG/DL (259-690)
[2024-10-19 11:48] LABS: Lipase 11 U/L (8-78)
[2024-10-19 11:49] LABS: ABG Base Excess 1.1 mmol/L; ABG HCO3 32 mmol/L (22-26); ABG pCO2 98 mmHg (32-45); ABG pH 7.11 (7.35-7.45); ABG pO2 78 mmHg (83-108)
[2024-10-19 11:51] LABS: Alanine Aminotransferase 140 U/L (0-40); Albumin Level 2.4 g/dL (3.5-5.0); Alkaline Phosphatase 65 U/L (39-117); Anion Gap 7 (12-20); Aspartate Amino Transferase 375 U/L (5-37); Bilirubin Direct 0.1 mg/dL (0.0-0.5); Bilirubin Total 0.3 mg/dL (0.0-1.0); Blood Urea Nitrogen 9 mg/dL (9-16); Calcium 6.9 mg/dL (8.4-10.2); Carbon Dioxide 28 mmol/L (22-29); Chloride 103 mmol/L (96-108); Estimated Glomerular Filt Rate > 60; Glucose Random 153 mg/dL (60-115); Potassium 3.3 mmol/L (3.3-5.1); Sodium 135 mmol/L (135-145); Total Protein 4.8 g/dL (6.5-8.0)
[2024-10-19 12:00] LABS: Glucose, Whole Blood 162 mg/dL (60-115)
[2024-10-19 13:05] LABS: Appearance Urine Cloudy; Color Urine Yellow; Glucose Urine UA Negative (Negative); Leukocyte Esterase Urine Negative (Negative); Nitrite Urine Negative (Negative); UMIC TRIGGER UA YES; Urine Blood Moderate (2+) (Negative); Urine Ketones Negative (Negative); Urine Protein Trace mg/dL (Neg-Trace)
[2024-10-19 13:13] LABS: Bacteria Urine None Seen (None Seen); RBC Urine 0-2 /HPF (0-2); Squamous Epithelial Cell Urine 0-2 /HPF (0-2); WBC Urine 0-5 /HPF (0-5)
--- NOTE | 2024-10-19 14:02 | PM.CCN ---
Critical Care Event Note Summary Date of Service: 10/19/24 Code activated: No Narrative: This case had a high probability of a clinically significant, sudden, or life threatening deterioration of this patient's condition which required my full and direct attention, intervention and personal management. Critical Care Time (minutes): 45 Comment: Completed a detailed neurological examination, absent brainstem reflexes, absent cold calonics test, absent doll's eye phenomenon Patient did not receive any kind of sedatives or medications causing drowsiness since admission EEG done showed flat waveform for and no evidence of cerebral activity on 08/17/2025 Nuclear med brain perfusion scan showed no isotope perfusion of the brain on 08/17/2025 First exam: 11:30AM on 10/19/2024 body temperature 99.1F, BP 117/72, HR: 107 Patient was preoxygenated with 100% oxygen ABG done prior to the brain evaluation showed normal pH 7.43, pCO2 45, pO2 463 Patient is disconnected from the ventilator, nasal cannula is inserted into the trachea at 6 liters/minute No spontaneous respiratory efforts were seen over the period of 10 minutes, this is also confirmed in the presence of respiratory therapist nurse Ethan Cross Repeat ABG shows pCO2 increased to 98 Second Exam: PM on 10/19/2024 body temperature 98.2F, BP 132/79, HR: 111 Patient was preoxygenated with 100% oxygen ABG done prior to the brain evaluation showed normal pH 7.466, pCO2 43.9, pO2 234 Patient is disconnected from the ventilator, nasal cannula is inserted into the trachea at 6 liters/minute No spontaneous respiratory efforts were seen over the period of 10 minutes, this is also confirmed in the presence of respiratory therapist nurse Repeat ABG shows pCO2 increased to 101.1 Given the clinical examination, EEG findings, brain perfusion scan findings and brain evaluation patient is declared brain at 2:58PM .
[2024-10-19 14:47] LABS: ABG Base Excess 8.1 mmol/L; ABG HCO3 32 mmol/L (22-26); ABG pCO2 44 mmHg (32-45); ABG pH 7.47 (7.35-7.45); ABG pO2 234 mmHg (83-108)
[2024-10-19 15:06] LABS: ABG Base Excess -2.3 mmol/L; ABG HCO3 29 mmol/L (22-26); ABG pCO2 101 mmHg (32-45); ABG pH 7.06 (7.35-7.45); ABG pO2 186 mmHg (83-108)
--- NOTE | 2024-10-19 15:50 | W.PM.CCHP ---
Procedures Date of Service Date of Service: 10/19/24 Bronchoscopy Consent for Procedure: Emergent-no informed consent obtained Indication: pulmonary toilet Route: endotracheal tube Monitor: EKG and pulse oximetry Findings: Bronchoscope was passed through the ET tube, trachea, seth, right upper middle and lower lobe and left upper and lower lobe bronchi and subsegmental bronchi were observed. No endobronchial lesions, no mucosal ulcerations or erythematous patches noted. Thin serous secretions were noted in the right upper lobe and right lower lobe, thick secretions were noted in the left upper lobe. Samples were lavaged from right lower lobe and left lower lobe and sent to the lab for cultures Complications: none
--- NOTE | 2024-10-19 16:32 | PC.RT ---
Rt assist with Bedside bronchoscopy, pt on 100%, one sample from each lung via lavage and collect. These were labeled, one sent to our lab and the other given to [facility]. Post bronchoscopy [facility] requested recruitment manuvers x 2 with 20 of peep for 20 sec. MD aware. These were performed on cpap to minimize the chance of barotrauma.Pt mark well and was returned to [facility]+ without issue.
[2024-10-19 17:31] LABS: MANUAL DIFF FLAG NO
[2024-10-19 17:34] LABS: Basophils Percent Auto 0.1 % (0-2); Eosinophils Absolute Auto 0.3 X10*3/uL (0.0-0.4); Eosinophils Percent Auto 2.4 % (0-4); Imm Gran Abs Auto 0.05 X10*3/uL (0.00-0.03); Imm Gran Pct Auto 0.4 % (0.0-0.4); Lymphocytes Percent Auto 16.6 % (20-40); Mean Corpuscular Hemoglobin 24.8 pg (27.0-33.0); Mean Corpuscular Volume 75.2 fL (80.0-98.0); Mean Platelet Volume 10.2 fL (9.4-12.4); Monocytes Absolute Auto 0.4 X10*3/uL (0.1-1.2); Monocytes Percent Auto 3.5 % (2-11); Neutrophils Absolute Auto 9.4 x10*3/uL (2.0-8.3); Platelet Count 144 X10*3/uL (160-400); Red Blood Count 2.62 X10*6/uL (4.60-5.80); Red Cell Distribution Width 19.4 % (11.0-16.0); White Blood Count 12.1 X10*3/uL (4.8-10.8)
[2024-10-19 17:42] LABS: Hematocrit 19.7 % (42.0-52.0); INTERNATIONAL NORM RATIO 1.4 (0.9-1.1); Prothrombin Time 16.9 SEC (10.9-12.4)
[2024-10-19 17:43] LABS: Hemoglobin 6.5 g/dl (14.0-18.0)
[2024-10-19 17:48] LABS: Glucose, Whole Blood 114 mg/dL (60-115)
[2024-10-19 17:49] LABS: Alanine Aminotransferase 132 U/L (0-40); Albumin Level 2.3 g/dL (3.5-5.0); Alkaline Phosphatase 66 U/L (39-117); Amylase 114 U/L (28-100); Anion Gap 9 (12-20); Aspartate Amino Transferase 346 U/L (5-37); Bilirubin Direct 0.1 mg/dL (0.0-0.5); Bilirubin Total 0.3 mg/dL (0.0-1.0); Blood Urea Nitrogen 8 mg/dL (9-16); Calcium 7.3 mg/dL (8.4-10.2); Carbon Dioxide 28 mmol/L (22-29); Chloride 103 mmol/L (96-108); Creatinine Clr Calc Pharmacy 117.3; Estimated Glomerular Filt Rate > 60; Glucose Random 111 mg/dL (60-115); Magnesium 1.6 mg/dL (1.6-2.6); Phosphorus 3.1 mg/dL (2.7-4.5); Potassium 3.5 mmol/L (3.3-5.1); Sodium 136 mmol/L (135-145); Total Protein 4.8 g/dL (6.5-8.0)
[2024-10-19 17:52] LABS: D Dimer High Sensitivity 3983 NG/ML; Fibrinogen > 700 MG/DL (259-690); Partial Thromboplastin Time 19.9 SEC (26.0-36.8)
[2024-10-19 17:54] LABS: B Type Natriuretic Peptide 19 pg/mL (<100)
[2024-10-19] MEDS: Phenylephrine HCL 20 MG in 0.9 % Sodium Chloride 250 ML 21.21 MG IVCONT (17:54)
[2024-10-19 17:56] LABS: Troponin-I High Sensitivity 2.7 ng/L (<3.5-35.0)
[2024-10-19 18:34] LABS: ABG Refer to POC result
[2024-10-19 18:34] LABS: ABG Refer to POC result
[2024-10-19 18:35] LABS: ABG Refer to POC result
--- NOTE | 2024-10-19 19:42 | ECG_ITS ---
Test Reason : card eval organ donnor Blood Pressure : / mmHG Vent. Rate : 102 BPM Atrial Rate : 102 BPM P-R Int : 130 ms QRS Dur : 072 ms QT Int : 350 ms P-R-T Axes : 077 068 051 degrees QTc Int : 456 ms Sinus tachycardia Otherwise normal ECG When compared with ECG of 02-OCT-2024 03:20, No significant change was found Referred By: Apollo Gonzalez Electronically Signed By:ANNA CARVALHO
--- NOTE | 2024-10-19 19:49 | W.MHC.ACPN ---
Advanced Care Planning Note Advanced Care Planning Note Discussed with: other ([facility] coordinator ) Time spent (in minutes): 15 Narrative: Pt has been declared brain , currently undergoing full organ donation workup. YOAN coordinator asked to change code status to FULL CODE. All other additional orders entered and coordinated Clitical Care Time 15 min Problems Discussed (1) Opioid use disorder: (2) Cardiac arrest: (3) Anoxic brain injury: (4) Accidental overdose: (5) Microcytic anemia: (6) UTI (urinary tract infection):
[2024-10-19] MEDS: Diatrizoate Meglumine, Sodium 30 ML SOLUTION PO (20:20)
[2024-10-19 20:30] LABS: ABG Base Excess 9.1 mmol/L; ABG HCO3 32 mmol/L (22-26); ABG pCO2 40 mmHg (32-45); ABG pH 7.51 (7.35-7.45); ABG pO2 250 mmHg (83-108)
[2024-10-19] MEDS: Furosemide 40 MG/4 ML VIAL IVPUSH (21:30)
[2024-10-19] MEDS: methylPREDNISolone Sod Succ 1,000 MG in 0.9 % Sodium Chloride 50 ML 66 MG IV (21:31)
[2024-10-19 23:18] LABS: MANUAL DIFF FLAG NO
[2024-10-19 23:23] LABS: Basophils Percent Auto 0.1 % (0-2); Eosinophils Absolute Auto 0.4 X10*3/uL (0.0-0.4); Eosinophils Percent Auto 3.5 % (0-4); Hematocrit 28.5 % (42.0-52.0); Hemoglobin 9.8 g/dl (14.0-18.0); Imm Gran Abs Auto 0.04 X10*3/uL (0.00-0.03); Imm Gran Pct Auto 0.4 % (0.0-0.4); Lymphocytes Absolute Auto 0.8 X10*3/uL (1.2-4.9); Lymphocytes Percent Auto 7.5 % (20-40); Mean Corpuscular HGB Conc 34.4 g/dl (31.0-36.0); Mean Corpuscular Hemoglobin 26.9 pg (27.0-33.0); Mean Corpuscular Volume 78.3 fL (80.0-98.0); Mean Platelet Volume 10.6 fL (9.4-12.4); Monocytes Absolute Auto 0.3 X10*3/uL (0.1-1.2); Monocytes Percent Auto 3.4 % (2-11); Neutrophils Absolute Auto 8.6 x10*3/uL (2.0-8.3); Neutrophils Percent Auto 85.1 % (45-73); Platelet Count 190 X10*3/uL (160-400); Red Blood Count 3.64 X10*6/uL (4.60-5.80); Red Cell Distribution Width 21.1 % (11.0-16.0); White Blood Count 10.1 X10*3/uL (4.8-10.8)
[2024-10-19 23:35] LABS: Amylase 129 U/L (28-100)
[2024-10-19 23:36] LABS: Alanine Aminotransferase 152 U/L (0-40); Albumin Level 2.8 g/dL (3.5-5.0); Alkaline Phosphatase 76 U/L (39-117); Anion Gap 12 (12-20); Aspartate Amino Transferase 416 U/L (5-37); Bilirubin Direct 0.2 mg/dL (0.0-0.5); Bilirubin Total 0.7 mg/dL (0.0-1.0); Blood Urea Nitrogen 10 mg/dL (9-16); Carbon Dioxide 27 mmol/L (22-29); Chloride 106 mmol/L (96-108); Creatinine Clr Calc Pharmacy 126.3; Estimated Glomerular Filt Rate > 60; Glucose Random 118 mg/dL (60-115); Lactic Acid 1.2 mmol/L (0.5-2.0); Magnesium 1.9 mg/dL (1.6-2.6); Phosphorus 3.4 mg/dL (2.7-4.5); Potassium 3.5 mmol/L (3.3-5.1); Sodium 141 mmol/L (135-145); Total Protein 5.9 g/dL (6.5-8.0)
[2024-10-19 23:40] LABS: B Type Natriuretic Peptide 21 pg/mL (<100); INTERNATIONAL NORM RATIO 1.4 (0.9-1.1); Prothrombin Time 16.1 SEC (10.9-12.4)
[2024-10-19 23:42] LABS: D Dimer High Sensitivity 3030 NG/ML
[2024-10-19 23:43] LABS: Partial Thromboplastin Time 27.5 SEC (26.0-36.8)
[2024-10-19 23:44] LABS: Fibrinogen > 700 MG/DL (259-690)
[2024-10-19 23:45] LABS: ABG Refer to POC result
[2024-10-19 23:47] LABS: Troponin-I High Sensitivity < 2.7 ng/L (<3.5-35.0)
[2024-10-20] VITALS (43 sets, daily range): BP systolic 93–165; BP diastolic 46–95; PULSE 101–135; RESP 18–20; TEMP 34.9–37.6; O2SAT 92–100; BMI 21.3
[2024-10-20 00:21] LABS: Lipase 9 U/L (8-78)
[2024-10-20] MEDS: Piperacillin Sodium/Tazobactam 4.5 GM in 0.9 % Sodium Chloride 100 ML IV ×4 (01:20→18:18)
[2024-10-20] MEDS: vancomycin HCL 1,000 MG in 0.9 % Sodium Chloride 250 ML 270 MG IV ×3 (01:21→16:30)
[2024-10-20 01:23] LABS: Glucose, Whole Blood 141 mg/dL (60-115)
[2024-10-20] MEDS: Albuterol/Iprat 2.5/0.5MG 3 ML AMPUL.NEB INHALE ×6 (01:54→20:38)
[2024-10-20 02:52] LABS: Appearance Urine Clear; Color Urine Yellow; Glucose Urine UA Negative (Negative); Leukocyte Esterase Urine Negative (Negative); Nitrite Urine Negative (Negative); Specific Gravity - Urine <= 1.005 (1.005-1.025); UMIC TRIGGER UA YES; Urine Blood Small (1+) (Negative); Urine Ketones Negative (Negative); Urine Protein Negative (Neg-Trace)
[2024-10-20 02:58] LABS: ABG Base Excess 8.6 mmol/L; ABG HCO3 32 mmol/L (22-26); ABG pCO2 43 mmHg (32-45); ABG pH 7.48 (7.35-7.45); ABG pO2 216 mmHg (83-108)
[2024-10-20 03:03] LABS: Bacteria Urine None Seen (None Seen); Hyaline Casts Urine 0-2 /LPF (0-2); RBC Urine 0-2 /HPF (0-2); Squamous Epithelial Cell Urine 0-2 /HPF (0-2); WBC Urine 0-5 /HPF (0-5)
[2024-10-20 03:05] LABS: ABG Refer to POC result
[2024-10-20 05:14] LABS: Basophils Percent Auto 0.1 % (0-2); Hematocrit 29.8 % (42.0-52.0); Hemoglobin 10.3 g/dl (14.0-18.0); Imm Gran Abs Auto 0.03 X10*3/uL (0.00-0.03); Imm Gran Pct Auto 0.3 % (0.0-0.4); Lymphocytes Absolute Auto 0.2 X10*3/uL (1.2-4.9); Lymphocytes Percent Auto 1.8 % (20-40); MANUAL DIFF FLAG SCAN; Mean Corpuscular HGB Conc 34.6 g/dl (31.0-36.0); Mean Corpuscular Hemoglobin 27.2 pg (27.0-33.0); Mean Corpuscular Volume 78.6 fL (80.0-98.0); Mean Platelet Volume 9.9 fL (9.4-12.4); Monocytes Percent Auto 0.3 % (2-11); Neutrophils Absolute Auto 9.7 x10*3/uL (2.0-8.3); Neutrophils Percent Auto 97.5 % (45-73); Platelet Count 169 X10*3/uL (160-400); Red Blood Count 3.79 X10*6/uL (4.60-5.80); Red Cell Distribution Width 20.3 % (11.0-16.0); SCAN SMEAR FLAG 1
[2024-10-20 05:17] LABS: INTERNATIONAL NORM RATIO 1.5 (0.9-1.1); Prothrombin Time 17.4 SEC (10.9-12.4)
[2024-10-20 05:19] LABS: D Dimer High Sensitivity 2516 NG/ML; Partial Thromboplastin Time 28.1 SEC (26.0-36.8)
[2024-10-20 05:21] LABS: Fibrinogen > 700 MG/DL (259-690)
[2024-10-20 05:27] LABS: Vancomycin Random 20.8 mcg/mL (15-20)
[2024-10-20 05:34] LABS: Alanine Aminotransferase 147 U/L (0-40); Albumin Level 2.8 g/dL (3.5-5.0); Alkaline Phosphatase 76 U/L (39-117); Anion Gap 12 (12-20); Aspartate Amino Transferase 408 U/L (5-37); Bilirubin Direct 0.2 mg/dL (0.0-0.5); Bilirubin Total 0.4 mg/dL (0.0-1.0); Blood Urea Nitrogen 14 mg/dL (9-16); Carbon Dioxide 25 mmol/L (22-29); Chloride 109 mmol/L (96-108); Creatinine Clr Calc Pharmacy 110.5; Estimated Glomerular Filt Rate > 60; Glucose Random 173 mg/dL (60-115); Magnesium 2.1 mg/dL (1.6-2.6); Phosphorus 4.6 mg/dL (2.7-4.5); Potassium 4.4 mmol/L (3.3-5.1); Sodium 142 mmol/L (135-145); Total Protein 5.9 g/dL (6.5-8.0)
[2024-10-20 05:50] LABS: SLIDE REVIEW VERIFIED
[2024-10-20 05:58] LABS: Glucose, Whole Blood 181 mg/dL (60-115)
--- NOTE | 2024-10-20 06:00 | CA_ITS ---
Transthoracic Echocardiogram Patient (Last, First, Middle): Taj Hanson, Gender: Male Date of : 1990 Age: 33 Procedure Date: 10/20/2024 Procedure Type: Transthoracic Echocardiogram Location: ICU Height: 157.48 cm Weight: 55.79 kg BSA: 1.55 m2 Heart Rate: 111 bpm BP: 101 / 61 mmHg Label Cutter: SB Referring MD: Apollo MIRANDA Symptoms: cardiac eval lung donnor Study Quality: Adequate ECG Rhythm: Sinus tachycardia Conclusions: - The left ventricular systolic function is hyperdynamic. The visually estimated ejection fraction is >70%. - No obvious valvular pathology seen on this study. Findings Procedure Information The quality of the study was technically difficult. The study quality is limited by the presence of a ventilator. Left Ventricle Normal left ventricular cavity size. There is normal left ventricular wall thickness. The left ventricular systolic function is hyperdynamic. The visually estimated ejection fraction is >70%. There is no evidence of regional wall motion abnormalities. Diastolic function is normal for age. Resting mid ventricular gradient 19mmHg. Right Ventricle Normal right ventricular cavity size. There is normal right ventricular systolic function. Atria Both atria are normal in size. Aortic Valve The aortic valve structure and function is likely normal. There is no aortic valve stenosis. There is no aortic valve regurgitation. Mitral Valve The mitral valve appears normal. There is no mitral valve regurgitation. There is no mitral valve stenosis. Pulmonic Valve The pulmonic valve is likely normal. Tricuspid Valve Normal tricuspid valve structure. There is trace tricuspid valve regurgitation. There is no evidence of pulmonary hypertension. Great Vessels The aorta was not well visualized. The aortic annulus is normal in size. Venous The inferior vena cava is normal in size and collapses less than 50% with inspiration. (on ventilator). Pericardium/Pleural There is a trivial pericardial effusion. Prior Study Comparison No significant change compared to prior study dated: 10/16/2024. Recommendations, Care & Conclusions No obvious valvular pathology seen on this study. Measurements 2D Linear Measurements IVSd: 0.87 0.6-0.9/0.6-1.0 cm LVIDd: 3.26 3.9-5.3/4.2-5.9 cm LVIDd Index: 2.10 2.4-3.2/2.2-3.1 cm/m2 LVIDs: 1.87 2.0-3.6 cm LVPWd: 1.01 0.7-1.1 cm LA Diam: 2.00 2.7-3.8/3.0-4.0 cm LAIDs Index: 1.29 1.5-2.3 cm/m2 LV Mass: 105.28 67-162/88-224 g LV Mass Index: 67.92 43-95/49-115 g/m2 LVOT Diam: 1.70 3.0+(-)1.3 cm 2D Systolic Function EF 4C: 74.30 >55% EF 2C: 61.60 >55% EF BiP: 68.00 >55% Mitral Valve MV Pk E: 0.90 MV PK A: 1.02 MV Decel Time: 171.00 E/A: 0.90 E'Lateral: 6.42 E'Medial: 9.14 E/E' Med: 9.90 E/E' Lat: 14.10 PHT: 50.00 MVA PHT: 4.40 Decel [place]: 5.30 Aortic Valve AoV Pk Noel: 1.49 AoV Mn Noel: 0.94 AoV VTI: 0.25 AoV Pk Grad: 9.00 Aov Mn Grad: 4.00 TYLRE Cont.VTI: 2.00 LVOT LVOT Pk Noel: 1.46 LVOT Mn Noel: 0.97 LVOT VTI: 0.22 LVOT Pk Grad: 9.00 LVOT Mn Grad: 4.00 LVOT Diam: 1.70 LVOT Area: 2.27 Diastolic Function MV Pk E: 0.90 MV Pk A: 1.02 E/A: 0.90 E'Medial: 9.14 E/E' Med: 9.90 E' Laterial: 6.42 E/E' Lat: 14.10 Right Ventricle TVS' Noel: 11.60 Tricuspid Valve TR Pk Noel: 2.10 TR Pk Grad: 18.00 RA Press: 8.00 RVSP: 26.00 Great Vessels Aorta Sinus of Valsalva: 2.40 2.0-3.5 cm Pulmonary Valve PV Pk Noel: 1.12 Peak PV Grad: 5.00 Updated in Other Vendor System with Status of Final Enoch Hernandez MD electronically signed on 10/20/2024 9:39:04 AM with status of Final
[2024-10-20] MEDS: Insulin Lispro 100 UNIT/ML 3 ML VIAL SUBCUT ×3 (06:06→18:26)
[2024-10-20 06:23] LABS: ABG Base Excess 7.3 mmol/L; ABG HCO3 31 mmol/L (22-26); ABG pCO2 42 mmHg (32-45); ABG pH 7.47 (7.35-7.45); ABG pO2 351 mmHg (83-108)
[2024-10-20] MEDS: Chlorhexidine Gluc Oral Rinse 15 ML MOUTHWASH BUCCAL ×3 (09:30→21:24)
[2024-10-20] MEDS: 0.9 % Sodium Chloride Flush 3 ML SYRINGE IVFLUSH ×2 (09:31→16:31)
[2024-10-20 10:11] LABS: Basophils Percent Auto 0.1 % (0-2); Hemoglobin 9.3 g/dl (14.0-18.0); Imm Gran Abs Auto 0.06 X10*3/uL (0.00-0.03); Imm Gran Pct Auto 0.6 % (0.0-0.4); Lymphocytes Absolute Auto 0.2 X10*3/uL (1.2-4.9); Lymphocytes Percent Auto 2.3 % (20-40); MANUAL DIFF FLAG SCAN; Mean Corpuscular HGB Conc 34.4 g/dl (31.0-36.0); Mean Corpuscular Hemoglobin 27.4 pg (27.0-33.0); Mean Corpuscular Volume 79.6 fL (80.0-98.0); Mean Platelet Volume 10.5 fL (9.4-12.4); Monocytes Absolute Auto 0.1 X10*3/uL (0.1-1.2); Monocytes Percent Auto 0.7 % (2-11); Neutrophils Absolute Auto 9.6 x10*3/uL (2.0-8.3); Neutrophils Percent Auto 96.3 % (45-73); Platelet Count 174 X10*3/uL (160-400); Red Blood Count 3.39 X10*6/uL (4.60-5.80); Red Cell Distribution Width 20.9 % (11.0-16.0); SCAN SMEAR FLAG 1
[2024-10-20 10:15] LABS: INTERNATIONAL NORM RATIO 1.3 (0.9-1.1); Prothrombin Time 15.3 SEC (10.9-12.4)
[2024-10-20 10:17] LABS: D Dimer High Sensitivity 2147 NG/ML
[2024-10-20 10:18] LABS: Fibrinogen > 700 MG/DL (259-690); Partial Thromboplastin Time 28.5 SEC (26.0-36.8)
[2024-10-20 10:27] LABS: Alanine Aminotransferase 138 U/L (0-40); Albumin Level 2.8 g/dL (3.5-5.0); Alkaline Phosphatase 74 U/L (39-117); Amylase 81 U/L (28-100); Anion Gap 13 (12-20); Aspartate Amino Transferase 381 U/L (5-37); Bilirubin Direct 0.1 mg/dL (0.0-0.5); Bilirubin Total 0.3 mg/dL (0.0-1.0); Blood Urea Nitrogen 17 mg/dL (9-16); Calcium 8.2 mg/dL (8.4-10.2); Carbon Dioxide 26 mmol/L (22-29); Chloride 109 mmol/L (96-108); Creatinine Clr Calc Pharmacy 102.6; Estimated Glomerular Filt Rate > 60; Glucose Random 178 mg/dL (60-115); Lipase 9 U/L (8-78); Magnesium 2.2 mg/dL (1.6-2.6); Phosphorus 3.9 mg/dL (2.7-4.5); Potassium 4.2 mmol/L (3.3-5.1); Sodium 144 mmol/L (135-145); Total Protein 5.8 g/dL (6.5-8.0)
--- NOTE | 2024-10-20 10:30 | MHC.CLN ---
F/U TF STOPPED PER [facility] ON 10/19/24 NGT CLAMPED ADDED DIET OF NPO WILL PROVIDE SUPPORT NEEDED AND FOLLOW WITH TEAM
[2024-10-20 10:32] LABS: B Type Natriuretic Peptide 20 pg/mL (<100)
[2024-10-20 10:35] LABS: Lactic Acid 3.9 mmol/L (0.5-2.0)
[2024-10-20 10:39] LABS: Troponin-I High Sensitivity < 2.7 ng/L (<3.5-35.0)
--- NOTE | 2024-10-20 10:46 | P.PNCC_ITS ---
Subjective Subjective Date of Service: 10/20/24 Critical Care Time (minutes): 35 Comment: Declared brain yesterday at 14:58PM. Continues to be on ventilator support for organ donation Physical Exam 2 Vital Signs: Vital Signs: Last Vital Signs Temp 96.1 F L 10/20/24 10:00 Pulse 104 H 10/20/24 10:00 Resp 20 10/20/24 10:00 BP 97/50 L 10/20/24 10:00 Pulse Ox 97 10/20/24 10:00 O2 Del Method Room Air 10/20/24 10:00 FiO2 50 10/20/24 10:00 BMI result Body Mass Index 21.3 General: Young white male unresponsive on the ventilator Nutritional Appearance: well nourished and normal weight Eyes: appearance normal, both eyes and all related structures; Alignment and Position: alignment normal and position normal Neck: No lymphadenopathy, no thyromegaly Resp: bilateral air entry equal, occasional added sounds present Cardio: Regular rate, regular rhythm; Heart sounds: S1 normal heart sound present and S2 normal heart sound present GI: soft, nontender, no guarding, no hepatosplenomegaly : bladder normal to inspection, bladder normal to palpation, no renal angle tenderness Skin: no rashes or lesions noted and elasticity normal Neuro: Absent brainstem reflexes, no spontaneous movements except for spinal reflexes Objective Data Labs 10/20/24 04:32 10/20/24 09:55 Labs: Laboratory Results - last 24 hr 10/18/24 10/19/24 10/19/24 17:15 09:25 11:18 WBC RBC Hgb Hct MCV MCH MCHC RDW Plt Count MPV Immature Gran % (Auto) Neut % (Auto) Lymph % (Auto) [place] % (Auto) Eos % (Auto) Baso % (Auto) Lymph # (Auto) [place] # (Auto) Eos # (Auto) Baso # (Auto) Abs Immat Gran (auto) Absolute Neuts (auto) Absolute Nucleated RBC Nucleated RBC % (auto) Smear Tech's Comments PT INR APTT Fibrinogen D-Dimer High Sensitivty O2 Saturation Not Reportable Not Reportable ABG pH at Pt Temp 7.43 ABG pCO2 at Pt Temp 45 ABG pO2 at Pt Temp 463 H ABG HCO3 30 H ABG Base Excess (Actual) 6.1 Sodium Potassium Chloride Carbon Dioxide Anion Gap BUN Creatinine Estim Creat Clear Calc Estimated GFR POC Glucose Random Glucose Lactic Acid Calcium Phosphorus Magnesium Total Bilirubin Direct Bilirubin AST ALT Alkaline Phosphatase Total Creatine Kinase Troponin I High Sens B-Natriuretic Peptide Total Protein Albumin Amylase Lipase Urine Color Urine Appearance Urine pH Ur Specific [place] Urine Protein Urine Glucose (UA) Urine Ketones Urine Blood Urine Nitrite Ur Leukocyte Esterase Urine RBC Urine WBC Ur Squamous Epith Cells Urine Bacteria Hyaline Casts Random Vancomycin Blood Type O Positive Antibody Screen NEGATIVE Crossmatch See Detail 10/19/24 10/19/24 10/19/24 11:23 11:38 11:56 WBC 11.4 H RBC 2.66 L Hgb 6.6 L* Hct 20.2 L* MCV 75.9 L MCH 24.8 L MCHC 32.7 RDW 19.6 H Plt Count 162 MPV 10.1 Immature Gran % (Auto) 0.3 Neut % (Auto) 75.6 H Lymph % (Auto) 16.7 L [place] % (Auto) 6.2 Eos % (Auto) 1.1 Baso % (Auto) 0.1 Lymph # (Auto) 1.9 [place] # (Auto) 0.7 Eos # (Auto) 0.1 Baso # (Auto) 0.0 Abs Immat Gran (auto) 0.03 Absolute Neuts (auto) 8.6 H Absolute Nucleated RBC 0.020 H Nucleated RBC % (auto) 0.2 Smear Tech's Comments PT 18.4 H INR 1.6 H APTT 27.5 Fibrinogen > 700 H D-Dimer High Sensitivty 2927 O2 Saturation 89.0 ABG pH at Pt Temp 7.11 L* ABG pCO2 at Pt Temp 98 H* ABG pO2 at Pt Temp 78 L ABG HCO3 32 H ABG Base Excess (Actual) 1.1 Sodium 135 Potassium 3.3 Chloride 103 Carbon Dioxide 28 Anion Gap 7 L BUN 9 Creatinine 0.61 Estim Creat Clear Calc 125.0 Estimated GFR > 60 POC Glucose 162 H Random Glucose 153 H Lactic Acid 1.0 Calcium 6.9 L Phosphorus Magnesium Total Bilirubin 0.3 Direct Bilirubin 0.1 AST 375 H ALT 140 H Alkaline Phosphatase 65 Total Creatine Kinase Troponin I High Sens B-Natriuretic Peptide Total Protein 4.8 L Albumin 2.4 L Amylase Lipase 11 Urine Color Urine Appearance Urine pH Ur Specific [place] Urine Protein Urine Glucose (UA) Urine Ketones Urine Blood Urine Nitrite Ur Leukocyte Esterase Urine RBC Urine WBC Ur Squamous Epith Cells Urine Bacteria Hyaline Casts Random Vancomycin Blood Type Antibody Screen Crossmatch 10/19/24 10/19/24 10/19/24 12:05 14:36 14:53 WBC RBC Hgb Hct MCV MCH MCHC RDW Plt Count MPV Immature Gran % (Auto) Neut % (Auto) Lymph % (Auto) [place] % (Auto) Eos % (Auto) Baso % (Auto) Lymph # (Auto) [place] # (Auto) Eos # (Auto) Baso # (Auto) Abs Immat Gran (auto) Absolute Neuts (auto) Absolute Nucleated RBC Nucleated RBC % (auto) Smear Tech's Comments PT INR APTT Fibrinogen D-Dimer High Sensitivty O2 Saturation 100.0 100.0 ABG pH at Pt Temp 7.47 H 7.06 L* ABG pCO2 at Pt Temp 44 101 H* ABG pO2 at Pt Temp 234 H 186 H ABG HCO3 32 H 29 H ABG Base Excess (Actual) 8.1 -2.3 Sodium Potassium Chloride Carbon Dioxide Anion Gap BUN Creatinine Estim Creat Clear Calc Estimated GFR POC Glucose Random Glucose Lactic Acid Calcium Phosphorus Magnesium Total Bilirubin Direct Bilirubin AST ALT Alkaline Phosphatase Total Creatine Kinase Troponin I High Sens B-Natriuretic Peptide Total Protein Albumin Amylase Lipase Urine Color Yellow Urine Appearance Cloudy Urine pH 7.0 Ur Specific [place] 1.020 Urine Protein Trace Urine Glucose (UA) Negative Urine Ketones Negative Urine Blood Moderate (2+) H Urine Nitrite Negative Ur Leukocyte Esterase Negative Urine RBC 0-2 Urine WBC 0-5 Ur Squamous Epith Cells 0-2 Urine Bacteria None Seen Hyaline Casts 3-5 Random Vancomycin Blood Type Antibody Screen Crossmatch 10/19/24 10/19/24 10/19/24 17:20 17:44 20:19 WBC 12.1 H RBC 2.62 L Hgb 6.5 L* Hct 19.7 L* MCV 75.2 L MCH 24.8 L MCHC 33.0 RDW 19.4 H Plt Count 144 L MPV 10.2 Immature Gran % (Auto) 0.4 Neut % (Auto) 77.0 H Lymph % (Auto) 16.6 L [place] % (Auto) 3.5 Eos % (Auto) 2.4 Baso % (Auto) 0.1 Lymph # (Auto) 2.0 [place] # (Auto) 0.4 Eos # (Auto) 0.3 Baso # (Auto) 0.0 Abs Immat Gran (auto) 0.05 H Absolute Neuts (auto) 9.4 H Absolute Nucleated RBC 0.000 Nucleated RBC % (auto) 0.0 Smear Tech's Comments PT 16.9 H INR 1.4 H APTT 19.9 L D Fibrinogen > 700 H D-Dimer High Sensitivty 3983 O2 Saturation 100.0 ABG pH at Pt Temp 7.51 H ABG pCO2 at Pt Temp 40 ABG pO2 at Pt Temp 250 H ABG HCO3 32 H ABG Base Excess (Actual) 9.1 Sodium 136 Potassium 3.5 Chloride 103 Carbon Dioxide 28 Anion Gap 9 L BUN 8 L Creatinine 0.65 Estim Creat Clear Calc 117.3 Estimated GFR > 60 POC Glucose 114 Random Glucose 111 Lactic Acid Calcium 7.3 L Phosphorus 3.1 Magnesium 1.6 Total Bilirubin 0.3 Direct Bilirubin 0.1 AST 346 H ALT 132 H Alkaline Phosphatase 66 Total Creatine Kinase 2180 H Troponin I High Sens 2.7 B-Natriuretic Peptide 19 Total Protein 4.8 L Albumin 2.3 L Amylase 114 H Lipase Urine Color Urine Appearance Urine pH Ur Specific [place] Urine Protein Urine Glucose (UA) Urine Ketones Urine Blood Urine Nitrite Ur Leukocyte Esterase Urine RBC Urine WBC Ur Squamous Epith Cells Urine Bacteria Hyaline Casts Random Vancomycin Blood Type Antibody Screen Crossmatch 10/19/24 10/20/24 10/20/24 23:11 01:15 02:33 WBC 10.1 RBC 3.64 L D Hgb 9.8 L D Hct 28.5 L D MCV 78.3 L MCH 26.9 L MCHC 34.4 RDW 21.1 H Plt Count 190 D MPV 10.6 Immature Gran % (Auto) 0.4 Neut % (Auto) 85.1 H Lymph % (Auto) 7.5 L [place] % (Auto) 3.4 Eos % (Auto) 3.5 Baso % (Auto) 0.1 Lymph # (Auto) 0.8 L [place] # (Auto) 0.3 Eos # (Auto) 0.4 Baso # (Auto) 0.0 Abs Immat Gran (auto) 0.04 H Absolute Neuts (auto) 8.6 H Absolute Nucleated RBC 0.000 Nucleated RBC % (auto) 0.0 Smear Tech's Comments PT 16.1 H INR 1.4 H APTT 27.5 D Fibrinogen > 700 H D-Dimer High Sensitivty 3030 O2 Saturation ABG pH at Pt Temp ABG pCO2 at Pt Temp ABG pO2 at Pt Temp ABG HCO3 ABG Base Excess (Actual) Sodium 141 Potassium 3.5 Chloride 106 Carbon Dioxide 27 Anion Gap 12 BUN 10 Creatinine 0.63 Estim Creat Clear Calc 126.3 Estimated GFR > 60 POC Glucose 141 H Random Glucose 118 H Lactic Acid 1.2 Calcium 8.0 L D Phosphorus 3.4 Magnesium 1.9 Total Bilirubin 0.7 Direct Bilirubin 0.2 AST 416 H ALT 152 H Alkaline Phosphatase 76 Total Creatine Kinase 2634 H Troponin I High Sens < 2.7 B-Natriuretic Peptide 21 Total Protein 5.9 L Albumin 2.8 L Amylase 129 H Lipase 9 Urine Color Yellow Urine Appearance Clear Urine pH 6.0 Ur Specific [place] <= 1.005 Urine Protein Negative Urine Glucose (UA) Negative Urine Ketones Negative Urine Blood Small (1+) H Urine Nitrite Negative Ur Leukocyte Esterase Negative Urine RBC 0-2 Urine WBC 0-5 Ur Squamous Epith Cells 0-2 Urine Bacteria None Seen Hyaline Casts 0-2 Random Vancomycin Blood Type Antibody Screen Crossmatch 10/20/24 10/20/24 10/20/24 02:47 04:32 05:53 WBC 10.0 RBC 3.79 L Hgb 10.3 L Hct 29.8 L MCV 78.6 L MCH 27.2 MCHC 34.6 RDW 20.3 H Plt Count 169 MPV 9.9 Immature Gran % (Auto) 0.3 Neut % (Auto) 97.5 H Lymph % (Auto) 1.8 L [place] % (Auto) 0.3 L Eos % (Auto) 0.0 Baso % (Auto) 0.1 Lymph # (Auto) 0.2 L [place] # (Auto) 0.0 L Eos # (Auto) 0.0 Baso # (Auto) 0.0 Abs Immat Gran (auto) 0.03 Absolute Neuts (auto) 9.7 H Absolute Nucleated RBC 0.000 Nucleated RBC % (auto) 0.0 Smear Tech's Comments VERIFIED PT 17.4 H INR 1.5 H APTT 28.1 Fibrinogen > 700 H D-Dimer High Sensitivty 2516 O2 Saturation 100.0 ABG pH at Pt Temp 7.48 H ABG pCO2 at Pt Temp 43 ABG pO2 at Pt Temp 216 H ABG HCO3 32 H ABG Base Excess (Actual) 8.6 Sodium 142 Potassium 4.4 D Chloride 109 H Carbon Dioxide 25 Anion Gap 12 BUN 14 Creatinine 0.72 Estim Creat Clear Calc 110.5 Estimated GFR > 60 POC Glucose 181 H Random Glucose 173 H Lactic Acid Calcium 8.0 L Phosphorus 4.6 H Magnesium 2.1 Total Bilirubin 0.4 Direct Bilirubin 0.2 AST 408 H ALT 147 H Alkaline Phosphatase 76 Total Creatine Kinase Troponin I High Sens B-Natriuretic Peptide Total Protein 5.9 L Albumin 2.8 L Amylase Lipase Urine Color Urine Appearance Urine pH Ur Specific [place] Urine Protein Urine Glucose (UA) Urine Ketones Urine Blood Urine Nitrite Ur Leukocyte Esterase Urine RBC Urine WBC Ur Squamous Epith Cells Urine Bacteria Hyaline Casts Random Vancomycin 20.8 H Blood Type Antibody Screen Crossmatch 10/20/24 10/20/24 10/20/24 06:12 09:54 09:55 WBC RBC Hgb Hct MCV MCH MCHC RDW Plt Count MPV Immature Gran % (Auto) Neut % (Auto) Lymph % (Auto) [place] % (Auto) Eos % (Auto) Baso % (Auto) Lymph # (Auto) [place] # (Auto) Eos # (Auto) Baso # (Auto) Abs Immat Gran (auto) Absolute Neuts (auto) Absolute Nucleated RBC Nucleated RBC % (auto) Smear Tech's Comments PT 15.3 H INR 1.3 H APTT 28.5 Fibrinogen > 700 H D-Dimer High Sensitivty 2147 O2 Saturation 100.0 ABG pH at Pt Temp 7.47 H ABG pCO2 at Pt Temp 42 ABG pO2 at Pt Temp 351 H ABG HCO3 31 H ABG Base Excess (Actual) 7.3 Sodium 144 Potassium 4.2 Chloride 109 H Carbon Dioxide 26 Anion Gap 13 BUN 17 H Creatinine 0.75 Estim Creat Clear Calc 102.6 Estimated GFR > 60 POC Glucose Random Glucose 178 H Lactic Acid 3.9 H* Calcium 8.2 L Phosphorus 3.9 Magnesium 2.2 Total Bilirubin 0.3 Direct Bilirubin 0.1 AST 381 H ALT 138 H Alkaline Phosphatase 74 Total Creatine Kinase 2092 H Troponin I High Sens < 2.7 B-Natriuretic Peptide 20 Total Protein 5.8 L Albumin 2.8 L Amylase 81 Lipase 9 Urine Color Urine Appearance Urine pH Ur Specific [place] Urine Protein Urine Glucose (UA) Urine Ketones Urine Blood Urine Nitrite Ur Leukocyte Esterase Urine RBC Urine WBC Ur Squamous Epith Cells Urine Bacteria Hyaline Casts Random Vancomycin Blood Type Antibody Screen Crossmatch Microbiology Microbiology Results: Microbiology 10/19/24 16:45 Lung Right Lower Lobe Gram Stain - Final 10/19/24 16:45 Lung Right Lower Lobe - Preliminary No growth to date. 10/17/24 23:15 Blood - Venous Blood Culture - Preliminary No growth after 48 hours. Progress Note: A&P Assessment and plan (1) Opioid use disorder: Status: Acute (2) Cardiac arrest: Status: Acute (3) Exacerbation of ulcerative colitis: Status: Acute (4) UTI (urinary tract infection): Status: Acute (5) Microcytic anemia: Status: Acute (6) Anoxic brain injury: Status: Acute (7) Accidental overdose: Status: Acute Plan Neuro: Declared brain at 14:58 on 10/19/2024 Absent blood flow in the nuclear medicine brain scan, no electrical activity the EEG patient is possibly brain . organ donation team in talks with family for organ donation Patient is not on any sedation or sedating medications Close neurological status monitoring in the ICU every hour Appreciate neurology input Cardiac: Cardiogenic Shock: Possibly secondary to cardiac arrest On phenylephrine for vasopressor support, titrate Levophed to keep map above 65 mm Hg Respiratory: Acute hypoxemic respiratory failure due to respiratory failure Currently on ventilator support On PRVC mode FiO2 30, PEEP 5, TV 400, RR 20, PF ratio 590 Peak pressures and plateau pressures are under the curve Ventilator management bundle with head end elevation, aspiration precaution, chlorhexidine mouthwash, daily awakening trials, daily spontaneous breathing trials Not a candidate for extubation due to poor mental status On Solu-Medrol 60 mg Q 8 to prevent inflammation or further damage GI: tube feeds withheld Renal: 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 On vancomycin and Zosyn for organ donation to preserve organs Musculoskeletal: Decubitus ulcer prevention protocol Prophylaxis: Lovenox, pantoprazole Quality Stroke Does the patient have a stroke diagnosis?: No VTE Prior VTE?: No VTE Risk Level:: Medical - moderate - high VTE Device Contraindication: Treatment Not Indicated VTE Drug Contraindication: N/A - Med Ordered
[2024-10-20] MEDS: Albumin Human 25 % 100 ML IV (11:38)
[2024-10-20] MEDS: methylPREDNISolone Sod Succ 125 MG/2 ML VIAL 60 MG IVPUSH ×2 (11:43→18:17)
[2024-10-20] MEDS: Furosemide 40 MG/4 ML VIAL IVPUSH (11:43)
[2024-10-20 12:01] LABS: Reflex Lactate? Lactic Acid Added
[2024-10-20 12:09] LABS: ABG HCO3 32 mmol/L (22-26); ABG pCO2 41 mmHg (32-45); ABG pO2 388 mmHg (83-108)
[2024-10-20 12:38] LABS: Glucose, Whole Blood 164 mg/dL (60-115)
--- NOTE | 2024-10-20 13:24 | MHC.CM.PN ---
Pt remains in ICU: declared brain on 10/19/24: scheduled for organ procurement on 10/21/24. [facility] managing pt care at this time
[2024-10-20 13:28] LABS: ~Lactic Acid-LAB USE ONLY 3.4 mmol/L (0.5-2.0)
[2024-10-20 13:56] LABS: Appearance Urine Clear; Color Urine Yellow; Glucose Urine UA Negative (Negative); Leukocyte Esterase Urine Negative (Negative); Nitrite Urine Negative (Negative); PH 6.5 (5.0-9.0); Specific Gravity - Urine <= 1.005 (1.005-1.025); Urine Blood Negative (Negative); Urine Ketones Negative (Negative); Urine Protein Negative (Neg-Trace)
[2024-10-20 14:42] LABS: Vancomycin Random 18.8 mcg/mL (15-20)
[2024-10-20 14:46] LABS: Reflex Lactate? 2 Y
--- NOTE | 2024-10-20 15:00 | HE.PHANOTE ---
Re: Tramaineo Stable renal function. Trough returned at 18.8. Pt is therapeutic, continue current dose of 1000mg q8h, with predicted AUC 509, predicted trough 11.6. Next trough 10/21 @ 1400.
[2024-10-20 15:35] LABS: ~Lactic Acid-LAB USE ONLY 2.5 mmol/L (0.5-2.0)
[2024-10-20 16:14] LABS: ABG Base Excess 11.9 mmol/L; ABG HCO3 35 mmol/L (22-26); ABG pCO2 41 mmHg (32-45); ABG pH 7.54 (7.35-7.45); ABG pO2 350 mmHg (83-108)
[2024-10-20 17:39] LABS: Basophils Percent Auto 0.1 % (0-2); Hematocrit 26.9 % (42.0-52.0); Hemoglobin 9.3 g/dl (14.0-18.0); Imm Gran Abs Auto 0.06 X10*3/uL (0.00-0.03); Imm Gran Pct Auto 0.5 % (0.0-0.4); Lymphocytes Absolute Auto 0.2 X10*3/uL (1.2-4.9); Lymphocytes Percent Auto 1.9 % (20-40); MANUAL DIFF FLAG SCAN; Mean Corpuscular HGB Conc 34.6 g/dl (31.0-36.0); Mean Corpuscular Hemoglobin 27.2 pg (27.0-33.0); Mean Corpuscular Volume 78.7 fL (80.0-98.0); Mean Platelet Volume 10.6 fL (9.4-12.4); Monocytes Absolute Auto 0.2 X10*3/uL (0.1-1.2); Monocytes Percent Auto 1.4 % (2-11); Neutrophils Absolute Auto 11.9 x10*3/uL (2.0-8.3); Neutrophils Percent Auto 96.1 % (45-73); Platelet Count 179 X10*3/uL (160-400); Red Blood Count 3.42 X10*6/uL (4.60-5.80); Red Cell Distribution Width 21.2 % (11.0-16.0); SCAN SMEAR FLAG 1; White Blood Count 12.4 X10*3/uL (4.8-10.8)
[2024-10-20 17:44] LABS: INTERNATIONAL NORM RATIO 1.3 (0.9-1.1); Prothrombin Time 14.7 SEC (10.9-12.4)
[2024-10-20 17:46] LABS: Alanine Aminotransferase 125 U/L (0-40); Albumin Level 3.2 g/dL (3.5-5.0); Alkaline Phosphatase 69 U/L (39-117); Anion Gap 12 (12-20); Aspartate Amino Transferase 348 U/L (5-37); Bilirubin Direct 0.1 mg/dL (0.0-0.5); Bilirubin Total 0.4 mg/dL (0.0-1.0); Blood Urea Nitrogen 18 mg/dL (9-16); Calcium 8.6 mg/dL (8.4-10.2); Carbon Dioxide 29 mmol/L (22-29); Chloride 108 mmol/L (96-108); Creatinine Clr Calc Pharmacy 102.6; D Dimer High Sensitivity 1895 NG/ML; Estimated Glomerular Filt Rate > 60; Glucose Random 159 mg/dL (60-115); Magnesium 2.3 mg/dL (1.6-2.6); Phosphorus 3.7 mg/dL (2.7-4.5); Potassium 3.4 mmol/L (3.3-5.1); Sodium 146 mmol/L (135-145); Total Protein 6.3 g/dL (6.5-8.0)
[2024-10-20 17:47] LABS: Partial Thromboplastin Time 28.9 SEC (26.0-36.8)
[2024-10-20 17:57] LABS: Fibrinogen > 700 MG/DL (259-690)
[2024-10-20 18:22] LABS: SLIDE REVIEW VERIFIED
[2024-10-20 18:23] LABS: Glucose, Whole Blood 153 mg/dL (60-115)
[2024-10-20 21:58] LABS: ABG HCO3 32 mmol/L (22-26); ABG pCO2 35 mmHg (32-45); ABG pH 7.56 (7.35-7.45); ABG pO2 405 mmHg (83-108)
[2024-10-20 23:47] LABS: Basophils Percent Auto 0.1 % (0-2); Hematocrit 25.8 % (42.0-52.0); Hemoglobin 9.1 g/dl (14.0-18.0); Imm Gran Abs Auto 0.06 X10*3/uL (0.00-0.03); Imm Gran Pct Auto 0.5 % (0.0-0.4); Lymphocytes Absolute Auto 0.2 X10*3/uL (1.2-4.9); Lymphocytes Percent Auto 1.9 % (20-40); MANUAL DIFF FLAG SCAN; Mean Corpuscular HGB Conc 35.3 g/dl (31.0-36.0); Mean Corpuscular Hemoglobin 27.5 pg (27.0-33.0); Mean Corpuscular Volume 77.9 fL (80.0-98.0); Mean Platelet Volume 10.4 fL (9.4-12.4); Monocytes Absolute Auto 0.3 X10*3/uL (0.1-1.2); Monocytes Percent Auto 2.3 % (2-11); Neutrophils Absolute Auto 11.3 x10*3/uL (2.0-8.3); Neutrophils Percent Auto 95.2 % (45-73); Platelet Count 203 X10*3/uL (160-400); Red Blood Count 3.31 X10*6/uL (4.60-5.80); Red Cell Distribution Width 21.6 % (11.0-16.0); SCAN SMEAR FLAG 1; White Blood Count 11.9 X10*3/uL (4.8-10.8)
[2024-10-20 23:55] LABS: INTERNATIONAL NORM RATIO 1.3 (0.9-1.1); Prothrombin Time 14.8 SEC (10.9-12.4)
[2024-10-20 23:57] LABS: D Dimer High Sensitivity 1888 NG/ML
[2024-10-20 23:58] LABS: Fibrinogen > 700 MG/DL (259-690); Partial Thromboplastin Time 28.6 SEC (26.0-36.8)
[2024-10-21] VITALS (35 sets, daily range): BP systolic 99–136; BP diastolic 55–78; PULSE 99–115; RESP 18; TEMP 35–37.7; O2SAT 92–100; BMI 21.0
[2024-10-21] LABS: Lactic Acid 1.5 mmol/L (0.5-2.0)
[2024-10-21 00:01] LABS: Alanine Aminotransferase 123 U/L (0-40); Albumin Level 3.2 g/dL (3.5-5.0); Alkaline Phosphatase 69 U/L (39-117); Amylase 43 U/L (28-100); Anion Gap 11 (12-20); Aspartate Amino Transferase 343 U/L (5-37); Bilirubin Direct 0.1 mg/dL (0.0-0.5); Bilirubin Total 0.3 mg/dL (0.0-1.0); Blood Urea Nitrogen 18 mg/dL (9-16); Calcium 8.3 mg/dL (8.4-10.2); Carbon Dioxide 29 mmol/L (22-29); Chloride 110 mmol/L (96-108); Creatinine Clr Calc Pharmacy 101.3; Estimated Glomerular Filt Rate > 60; Glucose Random 153 mg/dL (60-115); Magnesium 3.2 mg/dL (1.6-2.6); Phosphorus 3.8 mg/dL (2.7-4.5); Potassium 3.6 mmol/L (3.3-5.1); Sodium 146 mmol/L (135-145); Total Protein 6.3 g/dL (6.5-8.0)
[2024-10-21 00:06] LABS: B Type Natriuretic Peptide 17 pg/mL (<100)
[2024-10-21 00:11] LABS: Troponin-I High Sensitivity < 2.7 ng/L (<3.5-35.0)
[2024-10-21 00:19] LABS: Glucose, Whole Blood 151 mg/dL (60-115)
[2024-10-21] MEDS: 0.9 % Sodium Chloride Flush 3 ML SYRINGE IVFLUSH ×2 (00:37→08:24)
[2024-10-21] MEDS: Piperacillin Sodium/Tazobactam 4.5 GM in 0.9 % Sodium Chloride 100 ML IV ×3 (00:37→11:49)
[2024-10-21] MEDS: vancomycin HCL 1,000 MG in 0.9 % Sodium Chloride 250 ML 270 MG IV ×2 (00:37→08:10)
[2024-10-21] MEDS: Albuterol/Iprat 2.5/0.5MG 3 ML AMPUL.NEB INHALE ×3 (00:46→08:31)
[2024-10-21 01:41] LABS: Lipase 9 U/L (8-78)
[2024-10-21] MEDS: methylPREDNISolone Sod Succ 125 MG/2 ML VIAL 60 MG IVPUSH ×2 (02:08→11:49)
[2024-10-21 02:21] LABS: ABG Base Excess 10.1 mmol/L; ABG HCO3 33 mmol/L (22-26); ABG pCO2 40 mmHg (32-45); ABG pH 7.52 (7.35-7.45); ABG pO2 442 mmHg (83-108)
[2024-10-21 05:57] LABS: Appearance Urine Cloudy; Color Urine Yellow; Glucose Urine UA Negative (Negative); Leukocyte Esterase Urine Negative (Negative); Nitrite Urine Negative (Negative); PH 5.5 (5.0-9.0); Specific Gravity - Urine >= 1.030 (1.005-1.025); UMIC TRIGGER UA YES; Urine Blood Trace (Negative); Urine Ketones Negative (Negative); Urine Protein Trace mg/dL (Neg-Trace)
[2024-10-21 05:59] LABS: ABG Base Excess 11.3 mmol/L; ABG HCO3 35 mmol/L (22-26); ABG pCO2 44 mmHg (32-45); ABG pH 7.51 (7.35-7.45); ABG pO2 183 mmHg (83-108)
[2024-10-21 06:09] LABS: Bacteria Urine None Seen (None Seen); Hyaline Casts Urine 0-2 /LPF (0-2); Other Crystals Urine Present; RBC Urine 0-2 /HPF (0-2); Squamous Epithelial Cell Urine 0-2 /HPF (0-2); WBC Urine 0-5 /HPF (0-5)
[2024-10-21 06:11] LABS: INTERNATIONAL NORM RATIO 1.2 (0.9-1.1); Prothrombin Time 14.3 SEC (10.9-12.4)
[2024-10-21 06:13] LABS: D Dimer High Sensitivity 1775 NG/ML; Partial Thromboplastin Time 27.8 SEC (26.0-36.8)
[2024-10-21 06:18] LABS: Basophils Percent Auto 0.1 % (0-2); Hematocrit 27.1 % (42.0-52.0); Hemoglobin 9.6 g/dl (14.0-18.0); Imm Gran Abs Auto 0.09 X10*3/uL (0.00-0.03); Imm Gran Pct Auto 0.6 % (0.0-0.4); Lymphocytes Absolute Auto 0.4 X10*3/uL (1.2-4.9); Lymphocytes Percent Auto 2.5 % (20-40); MANUAL DIFF FLAG SCAN; Mean Corpuscular HGB Conc 35.4 g/dl (31.0-36.0); Mean Corpuscular Hemoglobin 28.1 pg (27.0-33.0); Mean Corpuscular Volume 79.2 fL (80.0-98.0); Mean Platelet Volume 10.6 fL (9.4-12.4); Monocytes Absolute Auto 0.5 X10*3/uL (0.1-1.2); Monocytes Percent Auto 2.9 % (2-11); Neutrophils Absolute Auto 14.7 x10*3/uL (2.0-8.3); Neutrophils Percent Auto 93.9 % (45-73); Platelet Count 257 X10*3/uL (160-400); Red Blood Count 3.42 X10*6/uL (4.60-5.80); Red Cell Distribution Width 22.4 % (11.0-16.0); SCAN SMEAR FLAG 1; White Blood Count 15.7 X10*3/uL (4.8-10.8)
[2024-10-21 06:24] LABS: Alanine Aminotransferase 122 U/L (0-40); Albumin Level 3.4 g/dL (3.5-5.0); Alkaline Phosphatase 72 U/L (39-117); Anion Gap 11 (12-20); Aspartate Amino Transferase 340 U/L (5-37); Bilirubin Total 0.3 mg/dL (0.0-1.0); Blood Urea Nitrogen 17 mg/dL (9-16); Calcium 8.4 mg/dL (8.4-10.2); Carbon Dioxide 29 mmol/L (22-29); Chloride 113 mmol/L (96-108); Estimated Glomerular Filt Rate > 60; Glucose Random 157 mg/dL (60-115); Magnesium 2.8 mg/dL (1.6-2.6); Phosphorus 3.4 mg/dL (2.7-4.5); Potassium 3.3 mmol/L (3.3-5.1); Sodium 150 mmol/L (135-145); Total Protein 6.6 g/dL (6.5-8.0)
[2024-10-21] MEDS: Albuterol Sulfate (0.083%) 2.5 MG/3 ML VIAL.NEB INHALE ×2 (06:25→15:29)
[2024-10-21 06:57] LABS: SLIDE REVIEW VERIFIED
--- NOTE | 2024-10-21 08:00 | ECG_ITS ---
Test Reason : organ donor Blood Pressure : */* mmHG Vent. Rate : 132 BPM Atrial Rate : 132 BPM P-R Int : 128 ms QRS Dur : 74 ms QT Int : 298 ms P-R-T Axes : 80 79 70 degrees QTcB Int : 441 ms Sinus tachycardia Right atrial enlargement Pulmonary disease pattern Abnormal ECG No previous ECGs available Referred By: Tracy Berkowitz Electronically Signed By: ANNA CARVALHO
[2024-10-21] MEDS: Chlorhexidine Gluc Oral Rinse 15 ML MOUTHWASH BUCCAL (08:12)
[2024-10-21] MEDS: Potassium Chloride/H20 40 MEQ/100 ML PIGGYBACK 50 MEQ IV (08:12)
[2024-10-21 08:38] LABS: ABG Base Excess 9.9 mmol/L; ABG HCO3 33 mmol/L (22-26); ABG pCO2 39 mmHg (32-45); ABG pH 7.53 (7.35-7.45); ABG pO2 412 mmHg (83-108)
--- NOTE | 2024-10-21 08:47 | PM.CCPN ---
Subjective Subjective Date of Service: 10/21/24 Critical Care Time (minutes): 35 Comment: No new events overnight Possibly planned for organ donation today Physical Exam Vital Signs: Vital Signs: Last Vital Signs Temp 98.1 F 10/21/24 07:50 Pulse 114 H 10/21/24 07:50 Resp 18 10/21/24 07:50 BP 108/62 10/21/24 07:50 Pulse Ox 94 10/21/24 07:50 O2 Del Method Mechanical Ventil ation 10/21/24 07:50 FiO2 40 10/21/24 07:50 BMI result Body Mass Index 21.0 General: Young white male unresponsive connected to the vent Nutritional Appearance: well nourished and overweight Eyes: appearance normal, both eyes and all related structures; Alignment and Position: alignment normal and position normal Neck: No lymphadenopathy, no thyromegaly Resp: bilateral air entry equal, occasional added sounds present Cardio: Regular rate, regular rhythm; Heart sounds: S1 normal heart sound present and S2 normal heart sound present GI: soft, nontender, no guarding, no hepatosplenomegaly : bladder normal to inspection, bladder normal to palpation, no renal angle tenderness Skin: no rashes or lesions noted and elasticity normal Neuro: Absent brainstem reflexes, declared brain on 10/19/2024 at 14:58 Objective Data Labs 10/21/24 12:00 10/21/24 12:00 Labs: Laboratory Results - last 24 hr 10/19/24 10/20/24 10/20/24 11:23 09:54 09:55 WBC 10.0 RBC 3.39 L Hgb 9.3 L Hct 27.0 L MCV 79.6 L MCH 27.4 MCHC 34.4 RDW 20.9 H Plt Count 174 MPV 10.5 Immature Gran % (Auto) 0.6 H Neut % (Auto) 96.3 H Lymph % (Auto) 2.3 L [place] % (Auto) 0.7 L Eos % (Auto) 0.0 Baso % (Auto) 0.1 Lymph # (Auto) 0.2 L [place] # (Auto) 0.1 Eos # (Auto) 0.0 Baso # (Auto) 0.0 Abs Immat Gran (auto) 0.06 H Absolute Neuts (auto) 9.6 H Absolute Nucleated RBC 0.000 Nucleated RBC % (auto) 0.0 Smear Tech's Comments Smear Path Review SEE NOTE PT 15.3 H INR 1.3 H APTT 28.5 Fibrinogen > 700 H D-Dimer High Sensitivty 2147 O2 Saturation ABG pH at Pt Temp ABG pCO2 at Pt Temp ABG pO2 at Pt Temp ABG HCO3 ABG Base Excess (Actual) Sodium 144 Potassium 4.2 Chloride 109 H Carbon Dioxide 26 Anion Gap 13 BUN 17 H Creatinine 0.75 Estim Creat Clear Calc 102.6 Estimated GFR > 60 POC Glucose Random Glucose 178 H Lactic Acid 3.9 H* Lactic Acid F/U @ 2Hr Lactic Acid F/U @ 4Hr Calcium 8.2 L Phosphorus 3.9 Magnesium 2.2 Total Bilirubin 0.3 Direct Bilirubin 0.1 AST 381 H ALT 138 H Alkaline Phosphatase 74 Total Creatine Kinase 2092 H Troponin I High Sens < 2.7 B-Natriuretic Peptide 20 Total Protein 5.8 L Albumin 2.8 L Amylase 81 Lipase 9 Urine Color Urine Appearance Urine pH Ur Specific [place] Urine Protein Urine Glucose (UA) Urine Ketones Urine Blood Urine Nitrite Ur Leukocyte Esterase Urine RBC Urine WBC Ur Squamous Epith Cells Other Crystals Urine Bacteria Hyaline Casts Random Vancomycin 10/20/24 10/20/24 10/20/24 11:58 12:29 12:43 WBC RBC Hgb Hct MCV MCH MCHC RDW Plt Count MPV Immature Gran % (Auto) Neut % (Auto) Lymph % (Auto) [place] % (Auto) Eos % (Auto) Baso % (Auto) Lymph # (Auto) [place] # (Auto) Eos # (Auto) Baso # (Auto) Abs Immat Gran (auto) Absolute Neuts (auto) Absolute Nucleated RBC Nucleated RBC % (auto) Smear Tech's Comments Smear Path Review PT INR APTT Fibrinogen D-Dimer High Sensitivty O2 Saturation 99.0 ABG pH at Pt Temp 7.50 H ABG pCO2 at Pt Temp 41 ABG pO2 at Pt Temp 388 H ABG HCO3 32 H ABG Base Excess (Actual) 9.0 Sodium Potassium Chloride Carbon Dioxide Anion Gap BUN Creatinine Estim Creat Clear Calc Estimated GFR POC Glucose 164 H Random Glucose Lactic Acid Lactic Acid F/U @ 2Hr 3.4 H* Lactic Acid F/U @ 4Hr Calcium Phosphorus Magnesium Total Bilirubin Direct Bilirubin AST ALT Alkaline Phosphatase Total Creatine Kinase Troponin I High Sens B-Natriuretic Peptide Total Protein Albumin Amylase Lipase Urine Color Urine Appearance Urine pH Ur Specific [place] Urine Protein Urine Glucose (UA) Urine Ketones Urine Blood Urine Nitrite Ur Leukocyte Esterase Urine RBC Urine WBC Ur Squamous Epith Cells Other Crystals Urine Bacteria Hyaline Casts Random Vancomycin 10/20/24 10/20/24 10/20/24 13:05 14:09 15:06 WBC RBC Hgb Hct MCV MCH MCHC RDW Plt Count MPV Immature Gran % (Auto) Neut % (Auto) Lymph % (Auto) [place] % (Auto) Eos % (Auto) Baso % (Auto) Lymph # (Auto) [place] # (Auto) Eos # (Auto) Baso # (Auto) Abs Immat Gran (auto) Absolute Neuts (auto) Absolute Nucleated RBC Nucleated RBC % (auto) Smear Tech's Comments Smear Path Review PT INR APTT Fibrinogen D-Dimer High Sensitivty O2 Saturation ABG pH at Pt Temp ABG pCO2 at Pt Temp ABG pO2 at Pt Temp ABG HCO3 ABG Base Excess (Actual) Sodium Potassium Chloride Carbon Dioxide Anion Gap BUN Creatinine Estim Creat Clear Calc Estimated GFR POC Glucose Random Glucose Lactic Acid Lactic Acid F/U @ 2Hr Lactic Acid F/U @ 4Hr 2.5 H* Calcium Phosphorus Magnesium Total Bilirubin Direct Bilirubin AST ALT Alkaline Phosphatase Total Creatine Kinase Troponin I High Sens B-Natriuretic Peptide Total Protein Albumin Amylase Lipase Urine Color Yellow Urine Appearance Clear Urine pH 6.5 Ur Specific [place] <= 1.005 Urine Protein Negative Urine Glucose (UA) Negative Urine Ketones Negative Urine Blood Negative Urine Nitrite Negative Ur Leukocyte Esterase Negative Urine RBC Urine WBC Ur Squamous Epith Cells Other Crystals Urine Bacteria Hyaline Casts Random Vancomycin 18.8 10/20/24 10/20/24 10/20/24 16:03 17:20 18:20 WBC 12.4 H RBC 3.42 L Hgb 9.3 L Hct 26.9 L MCV 78.7 L MCH 27.2 MCHC 34.6 RDW 21.2 H Plt Count 179 MPV 10.6 Immature Gran % (Auto) 0.5 H Neut % (Auto) 96.1 H Lymph % (Auto) 1.9 L [place] % (Auto) 1.4 L Eos % (Auto) 0.0 Baso % (Auto) 0.1 Lymph # (Auto) 0.2 L [place] # (Auto) 0.2 Eos # (Auto) 0.0 Baso # (Auto) 0.0 Abs Immat Gran (auto) 0.06 H Absolute Neuts (auto) 11.9 H Absolute Nucleated RBC 0.000 Nucleated RBC % (auto) 0.0 Smear Tech's Comments VERIFIED Smear Path Review PT 14.7 H INR 1.3 H APTT 28.9 Fibrinogen > 700 H D-Dimer High Sensitivty 1895 O2 Saturation 99.0 ABG pH at Pt Temp 7.54 H ABG pCO2 at Pt Temp 41 ABG pO2 at Pt Temp 350 H ABG HCO3 35 H ABG Base Excess (Actual) 11.9 Sodium 146 H Potassium 3.4 Chloride 108 Carbon Dioxide 29 Anion Gap 12 BUN 18 H Creatinine 0.75 Estim Creat Clear Calc 102.6 Estimated GFR > 60 POC Glucose 153 H Random Glucose 159 H Lactic Acid Lactic Acid F/U @ 2Hr Lactic Acid F/U @ 4Hr Calcium 8.6 Phosphorus 3.7 Magnesium 2.3 Total Bilirubin 0.4 Direct Bilirubin 0.1 AST 348 H ALT 125 H Alkaline Phosphatase 69 Total Creatine Kinase Troponin I High Sens B-Natriuretic Peptide Total Protein 6.3 L Albumin 3.2 L Amylase Lipase Urine Color Urine Appearance Urine pH Ur Specific [place] Urine Protein Urine Glucose (UA) Urine Ketones Urine Blood Urine Nitrite Ur Leukocyte Esterase Urine RBC Urine WBC Ur Squamous Epith Cells Other Crystals Urine Bacteria Hyaline Casts Random Vancomycin 10/20/24 10/20/24 10/21/24 21:47 23:38 00:10 WBC 11.9 H RBC 3.31 L Hgb 9.1 L Hct 25.8 L MCV 77.9 L MCH 27.5 MCHC 35.3 RDW 21.6 H Plt Count 203 MPV 10.4 Immature Gran % (Auto) 0.5 H Neut % (Auto) 95.2 H Lymph % (Auto) 1.9 L [place] % (Auto) 2.3 Eos % (Auto) 0.0 Baso % (Auto) 0.1 Lymph # (Auto) 0.2 L [place] # (Auto) 0.3 Eos # (Auto) 0.0 Baso # (Auto) 0.0 Abs Immat Gran (auto) 0.06 H Absolute Neuts (auto) 11.3 H Absolute Nucleated RBC 0.000 Nucleated RBC % (auto) 0.0 Smear Tech's Comments Smear Path Review PT 14.8 H INR 1.3 H APTT 28.6 Fibrinogen > 700 H D-Dimer High Sensitivty 1888 O2 Saturation 100.0 ABG pH at Pt Temp 7.56 H ABG pCO2 at Pt Temp 35 ABG pO2 at Pt Temp 405 H ABG HCO3 32 H ABG Base Excess (Actual) 10.0 Sodium 146 H Potassium 3.6 Chloride 110 H Carbon Dioxide 29 Anion Gap 11 L BUN 18 H Creatinine 0.76 Estim Creat Clear Calc 101.3 Estimated GFR > 60 POC Glucose 151 H Random Glucose 153 H Lactic Acid 1.5 Lactic Acid F/U @ 2Hr Lactic Acid F/U @ 4Hr Calcium 8.3 L Phosphorus 3.8 Magnesium 3.2 H Total Bilirubin 0.3 Direct Bilirubin 0.1 AST 343 H ALT 123 H Alkaline Phosphatase 69 Total Creatine Kinase 1334 H Troponin I High Sens < 2.7 B-Natriuretic Peptide 17 Total Protein 6.3 L Albumin 3.2 L Amylase 43 Lipase 9 Urine Color Urine Appearance Urine pH Ur Specific [place] Urine Protein Urine Glucose (UA) Urine Ketones Urine Blood Urine Nitrite Ur Leukocyte Esterase Urine RBC Urine WBC Ur Squamous Epith Cells Other Crystals Urine Bacteria Hyaline Casts Random Vancomycin 10/21/24 10/21/24 10/21/24 02:09 05:35 05:47 WBC 15.7 H RBC 3.42 L Hgb 9.6 L Hct 27.1 L MCV 79.2 L MCH 28.1 MCHC 35.4 RDW 22.4 H Plt Count 257 D MPV 10.6 Immature Gran % (Auto) 0.6 H Neut % (Auto) 93.9 H Lymph % (Auto) 2.5 L [place] % (Auto) 2.9 Eos % (Auto) 0.0 Baso % (Auto) 0.1 Lymph # (Auto) 0.4 L [place] # (Auto) 0.5 Eos # (Auto) 0.0 Baso # (Auto) 0.0 Abs Immat Gran (auto) 0.09 H Absolute Neuts (auto) 14.7 H Absolute Nucleated RBC 0.000 Nucleated RBC % (auto) 0.0 Smear Tech's Comments VERIFIED Smear Path Review PT 14.3 H INR 1.2 H APTT 27.8 Fibrinogen D-Dimer High Sensitivty 1775 O2 Saturation 100.0 100.0 ABG pH at Pt Temp 7.52 H 7.51 H ABG pCO2 at Pt Temp 40 44 ABG pO2 at Pt Temp 442 H 183 H ABG HCO3 33 H 35 H ABG Base Excess (Actual) 10.1 11.3 Sodium 150 H Potassium 3.3 Chloride 113 H Carbon Dioxide 29 Anion Gap 11 L BUN 17 H Creatinine 0.77 Estim Creat Clear Calc 100.0 Estimated GFR > 60 POC Glucose Random Glucose 157 H Lactic Acid Lactic Acid F/U @ 2Hr Lactic Acid F/U @ 4Hr Calcium 8.4 Phosphorus 3.4 Magnesium 2.8 H Total Bilirubin 0.3 Direct Bilirubin AST 340 H ALT 122 H Alkaline Phosphatase 72 Total Creatine Kinase Troponin I High Sens B-Natriuretic Peptide Total Protein 6.6 Albumin 3.4 L Amylase Lipase Urine Color Yellow Urine Appearance Cloudy Urine pH 5.5 Ur Specific [place] >= 1.030 H Urine Protein Trace Urine Glucose (UA) Negative Urine Ketones Negative Urine Blood Trace H Urine Nitrite Negative Ur Leukocyte Esterase Negative Urine RBC 0-2 Urine WBC 0-5 Ur Squamous Epith Cells 0-2 Other Crystals Present Urine Bacteria None Seen Hyaline Casts 0-2 Random Vancomycin 10/21/24 08:28 WBC RBC Hgb Hct MCV MCH MCHC RDW Plt Count MPV Immature Gran % (Auto) Neut % (Auto) Lymph % (Auto) [place] % (Auto) Eos % (Auto) Baso % (Auto) Lymph # (Auto) [place] # (Auto) Eos # (Auto) Baso # (Auto) Abs Immat Gran (auto) Absolute Neuts (auto) Absolute Nucleated RBC Nucleated RBC % (auto) Smear Tech's Comments Smear Path Review PT INR APTT Fibrinogen D-Dimer High Sensitivty O2 Saturation 100.0 ABG pH at Pt Temp 7.53 H ABG pCO2 at Pt Temp 39 ABG pO2 at Pt Temp 412 H ABG HCO3 33 H ABG Base Excess (Actual) 9.9 Sodium Potassium Chloride Carbon Dioxide Anion Gap BUN Creatinine Estim Creat Clear Calc Estimated GFR POC Glucose Random Glucose Lactic Acid Lactic Acid F/U @ 2Hr Lactic Acid F/U @ 4Hr Calcium Phosphorus Magnesium Total Bilirubin Direct Bilirubin AST ALT Alkaline Phosphatase Total Creatine Kinase Troponin I High Sens B-Natriuretic Peptide Total Protein Albumin Amylase Lipase Urine Color Urine Appearance Urine pH Ur Specific [place] Urine Protein Urine Glucose (UA) Urine Ketones Urine Blood Urine Nitrite Ur Leukocyte Esterase Urine RBC Urine WBC Ur Squamous Epith Cells Other Crystals Urine Bacteria Hyaline Casts Random Vancomycin Microbiology Microbiology Results: Microbiology 10/19/24 16:45 Lung Right Lower Lobe Gram Stain - Final 10/19/24 16:45 Lung Right Lower Lobe - Preliminary Culture in progress. 10/17/24 23:15 Blood - Venous Blood Culture - Preliminary No growth after 48 hours. Progress Note: A&P Assessment and plan (1) Opioid use disorder: Status: Acute (2) Cardiac arrest: Status: Acute (3) UTI (urinary tract infection): Status: Acute (4) Anoxic brain injury: Status: Acute (5) Accidental overdose: Status: Acute (6) Microcytic anemia: Status: Acute (7) Exacerbation of ulcerative colitis: Status: Acute Plan Neuro: Declared brain at 14:58 on 10/19/2024 Absent blood flow in the nuclear medicine brain scan, no electrical activity the EEG patient is possibly brain . organ donation team in talks with family for organ donation Patient is not on any sedation or sedating medications Cardiac: Cardiogenic Shock: Resolved If needed we will place him on phenylephrine for vasopressor support, titrate to keep map above 65 mm Hg Respiratory: Acute hypoxemic respiratory failure due to respiratory failure from overdose Currently on ventilator support On PRVC mode FiO2 30, PEEP 5, TV 400, RR 20, PF ratio 590 Peak pressures and plateau pressures are under the curve Ventilator management bundle with head end elevation, aspiration precaution, chlorhexidine mouthwash On Solu-Medrol 60 mg Q 8 to prevent inflammation or further damage GI: tube feeds withheld Renal: 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 On vancomycin and Zosyn for organ donation to preserve organs Musculoskeletal: Decubitus ulcer prevention protocol Prophylaxis: Lovenox, pantoprazole Planned for organ donation this evening. Quality Stroke Does the patient have a stroke diagnosis?: No VTE Prior VTE?: No VTE Risk Level:: Medical - moderate - high VTE Device Contraindication: Treatment Not Indicated VTE Drug Contraindication: N/A - Med Ordered
[2024-10-21 08:49] LABS: ABG Refer to POC result
[2024-10-21 08:50] LABS: ABG Refer to POC result
[2024-10-21 08:50] LABS: ABG Refer to POC result
[2024-10-21 08:51] LABS: ABG Refer to POC result
--- NOTE | 2024-10-21 09:23 | ECG_ITS ---
Test Reason : CP Blood Pressure : */* mmHG Vent. Rate : 105 BPM Atrial Rate : 105 BPM P-R Int : 126 ms QRS Dur : 80 ms QT Int : 346 ms P-R-T Axes : 75 74 71 degrees QTcB Int : 457 ms Sinus tachycardia Right atrial enlargement Abnormal ECG No significant changes when compared with the previous EKG of oct 20 2024 Referred By: Apollo Gonzalez Electronically Signed By: ANNA CARVALHO
--- NOTE | 2024-10-21 09:56 | MHC.CM.PN ---
Pt will transfer to the OR at 6pm for organ procurement. [place] walk tentatively scheduled for 5:45.
[2024-10-21 11:44] LABS: Glucose, Whole Blood 148 mg/dL (60-115)
[2024-10-21 12:09] LABS: ABG Base Excess 10.3 mmol/L; ABG HCO3 34 mmol/L (22-26); ABG pCO2 42 mmHg (32-45); ABG pH 7.51 (7.35-7.45); ABG pO2 536 mmHg (83-108)
[2024-10-21 12:10] LABS: Basophils Percent Auto 0.1 % (0-2); Hemoglobin 8.5 g/dl (14.0-18.0); Imm Gran Abs Auto 0.08 X10*3/uL (0.00-0.03); Imm Gran Pct Auto 0.6 % (0.0-0.4); Lymphocytes Absolute Auto 0.3 X10*3/uL (1.2-4.9); Lymphocytes Percent Auto 2.2 % (20-40); MANUAL DIFF FLAG SCAN; Mean Corpuscular Hemoglobin 27.3 pg (27.0-33.0); Mean Corpuscular Volume 80.4 fL (80.0-98.0); Mean Platelet Volume 10.1 fL (9.4-12.4); Monocytes Absolute Auto 0.6 X10*3/uL (0.1-1.2); Monocytes Percent Auto 4.5 % (2-11); Neutrophils Absolute Auto 12.3 x10*3/uL (2.0-8.3); Neutrophils Percent Auto 92.6 % (45-73); Platelet Count 241 X10*3/uL (160-400); Red Blood Count 3.11 X10*6/uL (4.60-5.80); Red Cell Distribution Width 22.8 % (11.0-16.0); SCAN SMEAR FLAG 1; White Blood Count 13.3 X10*3/uL (4.8-10.8)
[2024-10-21 12:16] LABS: INTERNATIONAL NORM RATIO 1.2 (0.9-1.1); Prothrombin Time 14.3 SEC (10.9-12.4)
[2024-10-21 12:18] LABS: D Dimer High Sensitivity 1520 NG/ML
[2024-10-21 12:19] LABS: Partial Thromboplastin Time 27.2 SEC (26.0-36.8)
[2024-10-21 12:23] LABS: Lipase 15 U/L (8-78); Vancomycin Random 19.3 mcg/mL (15-20)
[2024-10-21 12:31] LABS: B Type Natriuretic Peptide < 10 pg/mL (<100)
[2024-10-21 12:39] LABS: Alanine Aminotransferase 109 U/L (0-40); Albumin Level 3.1 g/dL (3.5-5.0); Alkaline Phosphatase 66 U/L (39-117); Amylase 33 U/L (28-100); Anion Gap 9 (12-20); Aspartate Amino Transferase 309 U/L (5-37); Bilirubin Total 0.3 mg/dL (0.0-1.0); Blood Urea Nitrogen 17 mg/dL (9-16); Calcium 8.7 mg/dL (8.4-10.2); Carbon Dioxide 31 mmol/L (22-29); Chloride 121 mmol/L (96-108); Creatinine Clr Calc Pharmacy 101.1; Estimated Glomerular Filt Rate > 60; Glucose Random 152 mg/dL (60-115); Phosphorus 2.6 mg/dL (2.7-4.5); Sodium 157 mmol/L (135-145); Total Protein 6.2 g/dL (6.5-8.0); Troponin-I High Sensitivity < 2.7 ng/L (<3.5-35.0)
[2024-10-21 13:57] LABS: ABG Refer to POC result
[2024-10-21 13:58] LABS: ABG Refer to POC result
[2024-10-21 13:59] LABS: ABG Refer to POC result
[2024-10-21 16:09] LABS: ABG HCO3 34 mmol/L (22-26); ABG pCO2 42 mmHg (32-45); ABG pH 7.51 (7.35-7.45); ABG pO2 516 mmHg (83-108)
[2024-10-26 17:53] LABS: CK-BB None Detected (None Detected); CK-MB 0 % (<5); CK-MM 100 % (95-100); Creatine Kinase,Total,Serum 720 U/L (44-196)
--- NOTE | 2024-11-24 10:17 | PM.DDS ---
Discharge Sum: Prov Provider Primary care physician: Unknown Physician Admitting clinician: Alexi Albarran Attending physician on admission: Alexi Albarran Consults: 10/15/24 06:53 Consult to [facility] ([facility]) Routine Consulting Provider: [facility] 10/16/24 07:00 Consult to Neurology Routine Consulting Provider: [facility] Reason for consultation: Anoxic brain / brain exam confirmation Has provider been notified: No Pronouncing clinician: Alexi Albarran Discharge Sum: Diag Contributing Factors (1) Opioid use disorder: (2) Cardiac arrest: (3) UTI (urinary tract infection): (4) Anoxic brain injury: (5) Accidental overdose: (6) Microcytic anemia: (7) Exacerbation of ulcerative colitis: Discharge Sum: Summary Date and Time Date of admission: 10/15/24 00:38 Date of : 10/19/24 Time of : 14:58 Summary Details: 33-year-old male with past medical history of ulcerative colitis was unresponsive on the [address] next to his girlfriend's home on [address]. Father started bystander CPR, EMS continued CPR for a total of 55 minutes before ROSC was achieved. He was intubated and placed on ventilator support for airway protection, on Levophed, later switched to phenylephrine for vasopressor support. Patient had no brainstem reflexes since admission, his labs were corrected and improved, he did not have any neurological response with absent brainstem reflexes. A brain evaluation was done and patient was declared on 10/19/2024 at 14:58. Patient opted for organ donation, [facility] was involved and patient was taken for organ donation. Additional Data Confirmation of as documented by pronouncing clinician: pupils fixed and dilated Family: at bedside and contacted Additional persons at bedside: associate dentist and social insurance adviser Attending physician: RUBEN Glaser Was code activated?: No Autopsy requested?: No principal examiner notified?: Yes Organ bank notified?: Yes Advance directives: Yes Hospice patient?: Yes
== END 2024-10-21 18:45 | disposition expired | DRG 917 ==
LOC: HO.ED 10-15 01:05 → HO.EDOVER 10-15 01:13 → HO.ICU 10-15 01:24
PROVIDERS: Internal Medicine Critical Care Medicine; Nurse Practitioner Family; Psychiatry & Neurology Neurology; Admitting Provider Physician Assistant Medical; Emergency Provider Emergency Medicine Emergency Medical Services; Visit Provider Physician Assistant Medical
DX: T65.91XA Toxic effect of unspecified substance, accidental (unintentional), initial encounter (principal); G93.6 Cerebral edema; J96.01 Acute respiratory failure with hypoxia; K72.00 Acute and subacute hepatic failure without coma; J45.901 Unspecified asthma with (acute) exacerbation; G93.1 Anoxic brain damage, not elsewhere classified; K51.90 Ulcerative colitis, unspecified, without complications; E23.2 Diabetes insipidus; F11.20 Opioid dependence, uncomplicated; N39.0 Urinary tract infection, site not specified; R57.0 Cardiogenic shock; R68.0 Hypothermia, not associated with low environmental temperature; D50.9 Iron deficiency anemia, unspecified; F19.10 Other psychoactive substance abuse, uncomplicated; I46.8 Cardiac arrest due to other underlying condition; Z20.822 Contact with and (suspected) exposure to COVID-19; Z79.52 Long term (current) use of systemic steroids; Z79.899 Other long term (current) drug therapy
CPT/HCPCS: 0241U; 36415; 36600; 70450; 70496; 71045; 71250; 71260; 71275; 72125; 74176; 74177; 76705; 78606; 80048; 80053; 80061; 80076; 80202; 80307; 81001; 81003; 82150; 82247; 82248; 82550; 82552; 82565; 82803; 82947; 83036; 83605; 83690; 83735; 83880; 84100; 84484; 85007; 85025; 85027; 85379; 85384; 85610; 85730; 86850; 86900; 86901; 86923; 87040; 87071; 87077; 87186; 87205; 88307; 88313; 88331; 93005; 93306; 94002; 94003; 94640; 94799; 95816; 99285; A9557; C1758; J0171; J0360; J0613; J1100; J1720; J1805; J1920; J1940; J2371; J2470; J2543; J2597; J2919; J3010; J3370; J3371; J3480; J7120; P9016; P9047; Q9967

== ENCOUNTER → 2024-10-14 23:13 | Outpatient (BNV) | payer BC, SELFPAY | PROVIDERS: Emergency Provider Emergency Medicine Emergency Medical Services; Visit Provider Radiology Diagnostic Radiology | DX: I50.9 Heart failure, unspecified (principal) | CPT/HCPCS: 71045 ==

== ENCOUNTER 2024-10-15 00:38 | Outpatient (BNV) | payer BC, SELFPAY | END 2024-10-17 12:20 | PROVIDERS: Admitting Provider Physician Assistant Medical; Emergency Provider Emergency Medicine Emergency Medical Services; Visit Provider Radiology Diagnostic Radiology | CPT/HCPCS: 78606 ==

== ENCOUNTER 2024-10-15 00:38 | Outpatient (BNV) | payer BC, SELFPAY | END 2024-10-21 06:00 | PROVIDERS: Admitting Provider Physician Assistant Medical; Emergency Provider Emergency Medicine Emergency Medical Services; Visit Provider Radiology Diagnostic Radiology | DX: Z00.5 Encounter for examination of potential donor of organ and tissue (principal) | CPT/HCPCS: 71045 ==

== ENCOUNTER 2024-10-15 00:38 | Outpatient (BNV) | payer BC, SELFPAY | END 2024-10-20 06:00 | PROVIDERS: Admitting Provider Physician Assistant Medical; Emergency Provider Emergency Medicine Emergency Medical Services; Visit Provider Internal Medicine | DX: Z52.89 Donor of other specified organs or tissues (principal) | CPT/HCPCS: 93306 ==

== ENCOUNTER 2024-10-15 00:38 | Outpatient (BNV) | payer BC, SELFPAY | END 2024-10-16 13:14 | PROVIDERS: Admitting Provider Physician Assistant Medical; Emergency Provider Emergency Medicine Emergency Medical Services; Visit Provider Radiology Diagnostic Radiology | CPT/HCPCS: 70496 ==

== ENCOUNTER 2024-10-15 00:38 | Outpatient (BNV) | payer BC, SELFPAY | END 2024-10-21 08:00 | PROVIDERS: Admitting Provider Physician Assistant Medical; Emergency Provider Emergency Medicine Emergency Medical Services; Visit Provider Internal Medicine | DX: R07.9 Chest pain, unspecified (principal) | CPT/HCPCS: 93010 ==

== ENCOUNTER 2024-10-15 00:38 | Outpatient (BNV) | payer BC, SELFPAY | END 2024-10-19 19:42 | PROVIDERS: Admitting Provider Physician Assistant Medical; Emergency Provider Emergency Medicine Emergency Medical Services; Visit Provider Internal Medicine | DX: R00.0 Tachycardia, unspecified (principal) | CPT/HCPCS: 93010 ==

== ENCOUNTER 2024-10-15 00:38 | Outpatient (BNV) | payer BC, SELFPAY | END 2024-10-20 00:20 | PROVIDERS: Admitting Provider Physician Assistant Medical; Emergency Provider Emergency Medicine Emergency Medical Services; Visit Provider Radiology Diagnostic Radiology | DX: Z00.5 Encounter for examination of potential donor of organ and tissue (principal); R09.02 Hypoxemia | CPT/HCPCS: 71250; 71275; 74176 ==

== ENCOUNTER 2024-10-15 00:38 | Outpatient (BNV) | payer BC, SELFPAY | END 2024-10-19 20:00 | PROVIDERS: Admitting Provider Physician Assistant Medical; Emergency Provider Emergency Medicine Emergency Medical Services; Visit Provider Radiology Diagnostic Radiology | DX: R09.02 Hypoxemia (principal) | CPT/HCPCS: 71045 ==

== ENCOUNTER 2024-10-15 00:38 | Outpatient (BNV) | payer BC, SELFPAY | END 2024-10-16 07:00 | PROVIDERS: Admitting Provider Physician Assistant Medical; Emergency Provider Emergency Medicine Emergency Medical Services; Visit Provider Internal Medicine Cardiovascular Disease | DX: Z00.5 Encounter for examination of potential donor of organ and tissue (principal) | CPT/HCPCS: 93306 ==

== ENCOUNTER → 2024-10-15 00:38 | Outpatient (BNV) | payer BC, SELFPAY | PROVIDERS: Admitting Provider Physician Assistant Medical; Emergency Provider Emergency Medicine Emergency Medical Services; Visit Provider Physician Assistant Medical | DX: I46.9 Cardiac arrest, cause unspecified (principal); G93.1 Anoxic brain damage, not elsewhere classified; F11.90 Opioid use, unspecified, uncomplicated; T50.901A Poisoning by unspecified drugs, medicaments and biological substances, accidental (unintentional), initial encounter; D50.9 Iron deficiency anemia, unspecified; N30.00 Acute cystitis without hematuria | CPT/HCPCS: 31615; 99291; 99292 ==

== ENCOUNTER → 2024-10-15 00:38 | Outpatient (BNV) | payer BC, SELFPAY | PROVIDERS: Admitting Provider Physician Assistant Medical; Emergency Provider Emergency Medicine Emergency Medical Services; Visit Provider Psychiatry & Neurology Neurology | DX: G93.1 Anoxic brain damage, not elsewhere classified (principal) | CPT/HCPCS: 99233 ==

== ENCOUNTER → 2024-10-15 | Outpatient (BNV) | payer BC, SELFPAY | PROVIDERS: Admitting Provider Physician Assistant Medical; Emergency Provider Emergency Medicine Emergency Medical Services; Visit Provider Radiology Diagnostic Radiology | DX: I46.9 Cardiac arrest, cause unspecified (principal); K82.9 Disease of gallbladder, unspecified | CPT/HCPCS: 93975 ==